=== PATIENT | male | born 1950 | race Caucasian/White ===

== ENCOUNTER 2017-04-21 10:44 | Day surgery (SDC) | payer OTHER ==
[2017-04-15 09:27] VITALS: Ht 168.9 cm; Wt 73.6 kg
--- NOTE | 2017-04-15 10:17 | PAT Medication Instructions ---
Service Date Apr 15, 2017. Current Home Medication List Amoxicillin (Amoxicillin), 1 TAB PO BID Aspirin Enteric Coated (Ecotrin Or Generic *), 81 MG PO QAM Diphenhydramine Hcl (Benadryl Allergy), 1-2 CAP PO QID PRN for ITCHING Fluticasone Propionate (Flovent Hfa 110MCG Inhaler *), 1 PUFF INH BID Ipratropium/Albuterol (Combivent *), 2 PUFFS INH QID PRN Nitroglycerin (Nitrostat), 0.4 MG UT PRN Sertraline (Zoloft), 200 MG PO QAM Tamsulosin HCl (Tamsulosin HCl), 1 TAB PO HS Medication Instructions For Your Scheduled Surgery Amoxicillin (Amoxicillin), 1 TAB PO BID (will finish prior to surgery) Aspirin Enteric Coated (Ecotrin Or Generic *), 81 MG PO QAM (patient will hold several days prior to surgery- surgeon did not have preference) Nitroglycerin (Nitrostat), 0.4 MG UT PRN (if needed) - Hold the following medications the morning of surgery: Diphenhydramine Hcl (Benadryl Allergy), 1-2 CAP PO QID PRN for ITCHING - Take the following medications the morning of surgery with a sip of water: Sertraline (Zoloft), 200 MG PO QAM Ipratropium/Albuterol (Combivent *), 2 PUFFS INH QID PRN (bring with you to hospital on day of surgery) Fluticasone Propionate (Flovent Hfa 110MCG Inhaler *), 1 PUFF INH BID - Take the following medications as scheduled the night before surgery: Tamsulosin HCl (Tamsulosin HCl), 1 TAB PO HS Ipratropium/Albuterol (Combivent *), 2 PUFFS INH QID PRN Fluticasone Propionate (Flovent Hfa 110MCG Inhaler *), 1 PUFF INH BID Diphenhydramine Hcl (Benadryl Allergy), 1-2 CAP PO QID PRN for ITCHING If you have any questions please call us at [phone] or [phone] ( [place]) or [phone]
--- NOTE | 2017-04-15 10:38 | DIAGNOSTIC IMAGING REPORT ---
CHEST 2 VIEWS ROUTINE CLINICAL HISTORY: Preoperative chest COMPARISON STUDY: 05/10/2014 FINDINGS: The cardiac and mediastinal contours are normal. There is no evidence of focal pulmonary consolidation. There is no evidence of failure. No pleural effusions are visualized.[ Postsurgical changes are again evident. Surgical clips project over the right hilar region and right cardiophrenic angle. There is also a single surgical clip at the level of the esophagogastric junction. IMPRESSION: No active disease in the chest. Electronically signed by: Lio Monroe M.D. 04/15/2017 10:37 AM Dictated Date/Time: 04/15/2017 10:30 AM
[~2017-04-21] VITALS: Ht 168.9 cm; Wt 73.6 kg
[~2017-04-21 10:44] MED LIST: AMX875 PO; ASPEC81 PO; CLINDAMYCIN 600 MG/54 ML D5W IV SCH; CMBIN INH; DIPH25CA65 PO; FENTANYL CITRATE INJ 50 MCG/1 ML 2 ML VIAL ONE; FLM4 PO; FLVHFA110 INH; LACTATED RINGER'S 1000ML 1,000 ML IV SCH; MIDAZOLAM HCL 1 MG/ML 2ML VIAL ONE; NTRGSL/4 UT; SERT-234 PO
[2017-04-21] MEDS ORDERED: PROP20TA67 PO (11:09)
[2017-04-21 11:14] VITALS: BP 117/67; PULSE 65; TEMP 36.5; O2SAT 100
--- NOTE | 2017-04-21 11:17 | History & Physical Bridge Note ---
H&P Re-Evaluation Bridge Note: I have examined the patient, reviewed the History & Physical and in the interval since the performance of the History & Physical I have noted the following changes of clinical significance: No changes noted
[2017-04-21] MEDS ORDERED: BUPIVACAINE 0.5 % 5 MG/1 ML MPF 30ML VIAL ONE (11:38)
[2017-04-21] MEDS ORDERED: BACITRACIN OINT 15 GM TUBE ONE (11:38)
[2017-04-21] MEDS ORDERED: LIDOCAINE HCL 1% 20 ML VIAL ONE (11:38)
[2017-04-21] MEDS ORDERED: EpHEDrine SULFATE INJ 50 MG/ML AMP ONE (12:19)
[2017-04-21] MEDS ORDERED: ONDANSETRON INJ 2 MG/ML 2 ML VIAL ONE (12:19)
[2017-04-21] MEDS ORDERED: LIDOCAINE HCL 2% 2 ML VIAL (20MG/ML) ONE (12:19)
[2017-04-21] MEDS ORDERED: ROCURONIUM BROMIDE 10 MG/ML 5 ML VIAL ONE (12:19)
[2017-04-21] MEDS ORDERED: LACTATED RINGER'S 1000ML 1,000 ML IV PRN (12:19)
[2017-04-21] MEDS ORDERED: PROPOFOL IV EMULSION 10 MG/ML 20 ML VIAL IV ONE (12:19)
[2017-04-21] MEDS ORDERED: DEXAMETHASONE SOD INJ 4 MG/ML VIAL ONE (12:19)
[2017-04-21] MEDS ORDERED: GLYCOPYRROLATE INJ 0.2 MG/ML VIAL ONE (12:19)
[2017-04-21] MEDS ORDERED: NEOSTIGMINE METHYLSULFATE 5 MG/5 ML SYR ONE (12:19)
[2017-04-21] MEDS ORDERED: HYDROmorphone INJ 1 MG/ML SYR IV PRN ×2 (12:30→13:15)
[2017-04-21] MEDS ORDERED: ONDANSETRON INJ 2 MG/ML 2 ML VIAL IV PRN ×2 (12:30→13:15)
[2017-04-21] MEDS ORDERED: FENTANYL CITRATE INJ 50 MCG/1 ML 2 ML VIAL IV PRN (12:30)
[2017-04-21] MEDS ORDERED: D5W AND 1/2NSS + 20MEQ KCL 1,000 ML IV SCH (13:12)
--- NOTE | 2017-04-21 13:12 | [facility] Post Operative Brief Note ---
Immediate Operative Summary Operative Date Apr 21, 2017. Pre-Operative Diagnosis Cholecystitis with Cholelithasis Post-Operative Diagnosis Same Procedure(s) Performed Laparoscopic Cholecystectomy Surgeon Dr Olivas Talent Program Manager Surgeon(s) none Estimated Blood Loss 10ml Findings cholecystitis, cholelithiasis Fluids (cc crystalloids) 1000ml Specimens a. gallbladder Drains none Anesthesia general Complication(s) None Disposition Recovery Room / PACU
[2017-04-21] MEDS ORDERED: ACETAMINOPHEN 325 MG TAB PO PRN (13:15)
[2017-04-21] MEDS ORDERED: MoRPHine SULFATE 2 MG/ML CARP IV PRN (13:15)
[2017-04-21] MEDS ORDERED: FENTANYL CITRATE INJ 50 MCG/1 ML 2 ML VIAL ONE (13:17)
[2017-04-21] MEDS ORDERED: MORP-157 PO (13:23)
[2017-04-21] MEDS ORDERED: HYDROmorphone INJ 2 MG/ML SYR/VIAL ONE (13:24)
--- NOTE | 2017-04-21 13:25 | Discharge Instructions ---
Discharge Instructions Date of Service Apr 21, 2017. Visit Reason for Visit: Gallstones Discharge Discharge Diagnosis / Problem: S/P laparoscopic cholecystectomy Discharge Goals Goal(s): Decrease discomfort, Improve function, Improve nutritional status, Learn about illness Activity Recommendations Activity Limitations: per Instructions/Follow-up section Lifting Limitations: no more than 25 pounds Exercise/Sports Limitations: gradually increase as tolerated May Resume Sexual Activity: when tolerated Shower/Bathe: may shower/bathe in 3 days Anesthesia . Post Anesthesia Instructions: If you have had General Anesthesia or IV Sedation: * Do not drive today. * Resume driving when surgeon permits. * Do not make important decisions or sign legal documents today. * Call surgeon for: 1. Temperature elevations greater than 101 degrees F. 2. Uncontrollable pain. 3. Excessive bleeding. 4. Persistent nausea and vomiting. 5. Medication intolerance (nausea, vomiting or rash). * For nausea and vomiting use only clear liquids such as: tea, soda, bouillon until nausea subsides, then gradually increase diet as tolerated. * If you have any concerns or questions, call your surgeon's office. If physician is unavailable and it is an emergency, call 911 or go to the nearest emergency room. . Instructions / Follow-Up Instructions / Follow-Up keep the dressing on for 4 days, he can take a shower on 04/25/2017, no driving while taking pain medincine, follow up Dr. Olivas 1 week, Diet Recommendations Recommended Home Diet: resume previous diet Procedures Procedures Performed: Laparoscopic Cholecystectomy Pending Studies Studies pending at discharge: no Medical Emergencies . Who to Call and When: Medical Emergencies: If at any time you feel your situation is an emergency, please call 911 immediately. . Non-Emergent Contact Non-Emergency issues call your: Primary Care Provider, Surgeon Call Non-Emergent contact if: you have a fever, temperature is above 100.5, your pain is not controlled, your pain is worsening, wound has increased drainage, wound has increased redness . . "Provider Documentation" section prepared by Héctor Olivas. . [place] Drug Monitoring Program Search Results: no issues identified
[2017-04-21] MEDS ORDERED: NURSING VERBAL MED ORDER ONE (14:00)
[2017-04-21 14:15] VITALS: BP 108/63; PULSE 62; TEMP 36.4; O2SAT 95
--- NOTE | 2017-04-21 14:15 | Anesthesiology Progress Note ---
Anesthesia Post Op Note Date & Time Apr 21, 2017 at 14:15 Vital Signs Pain Intensity: 1 Vital Signs Past 12 Hours Date Time Temp Pulse Resp B/P (MAP) Pulse Ox O2 Delivery O2 Flow Rate FiO2 04/21/17 13:59 36.5 70 18 104/66 (77) 96 Room Air 04/21/17 13:31 111/68 04/21/17 13:28 58 18 99 04/21/17 13:28 58 18 04/21/17 13:25 110/66 04/21/17 13:20 122/76 04/21/17 13:18 65 16 100 04/21/17 13:18 65 18 100 04/21/17 13:15 128/75 04/21/17 13:14 126/78 04/21/17 13:13 75 15 04/21/17 13:13 75 15 100 04/21/17 13:13 36.5 72 18 126/78 (97) 100 Mask 10 04/21/17 11:14 36.5 65 18 117/67 (84) 100 Room Air Notes Mental Status: alert / awake / arousable, participated in evaluation Pt Amnestic to Procedure: Yes Nausea / Vomiting: adequately controlled Pain: adequately controlled Airway Patency, RR, SpO2: stable & adequate BP & HR: stable & adequate Hydration State: stable & adequate Anesthetic Complications: no major complications apparent Pt doing well.
--- NOTE | 2017-04-21 14:18 | OPERATIVE REPORT ---
DATE OF OPERATION: 04/21/2017 PREOPERATIVE DIAGNOSES: Cholecystitis, cholelithiasis. POSTOPERATIVE DIAGNOSIS: Same. PROCEDURE: Laparoscopic cholecystectomy. SURGEON: Dr. Héctor Olivas. ANESTHESIA: General. ESTIMATED BLOOD LOSS: About 10 mL. IV FLUIDS: 1000 mL. FINDINGS: Cholecystitis, cholelithiasis. COMPLICATIONS: None. INDICATIONS FOR THE PROCEDURE: This is a 66-year-old gentleman who is presenting with right upper quadrant pain. The patient had ultrasound showing cholecystitis, cholelithiasis. The patient will be required to do laparoscopic cholecystectomy, possible open, possible cholangiogram. I did talk to the patient about the benefit and risk, alternate procedure. I indicated the risks may include but not limited such as bleeding, infection, injury to common bile duct, injury to bowel, may need ERCP, myocardial infarction, DVT, stroke, even . The patient understands. He signed informed consent and I answered all questions. OPERATION AND FINDINGS: DETAILS OF PROCEDURE: We brought the patient to the OR, put the patient in the supine position. The patient received SCD on bilateral legs to prevent DVT. Also, the patient received 600 mg of clindamycin IV for prophylactic antibiotic. The patient received general anesthesia without difficulty. The abdomen was prepped and draped in routine sterile fashion. After a timeout, I injected local anesthesia by using 1% lidocaine mixed with 0.5% Marcaine just above the umbilical. Then I made a small incision just above umbilical, opened fascia and opened peritoneum under direct vision. I put a Casi trocar in, connected to CO2 to create pneumoperitoneum. Flow rate is 6 liter per minute. Pressure not more than 14 mmHg. Once we get a nice pneumoperitoneum, we put a 10 mm camera in to look around the abdomen shows no more findings on the stomach, small bowel, large bowel and the liver; however, there was some omentum covering the gallbladder showing inflammation on the gallbladder wall. Then, we put another 3.5 mm trocar on the right upper quadrant under direct vision. Once all trocars in I put grasper in to hold the base of the gallbladder, put direction to the diaphragm and put another grasper in to hold the pouch of the gallbladder, put latter to expose the triangle of Calot. The cystic duct was identified and mobilized. Then I put two 5 mm metal clips on the proximal cystic duct, one on the distal cystic duct then I used scissor transection the cystic duct. Then the cystic artery was identified and mobilized. I put two 5 mm metal clips on the proximal cystic arterial, 1 on the distal then used scissor transecting cystic artery. Then I used Bovie to take down the gallbladder through the liver bed without difficulty. Rechecked no active bleeding, no bile leak. Then we removed the gallbladder through the catch bag, then we reinserted Casi trocar in connect to CO2 to create a pneumoperitoneum. Again to look around the abdomen showing normal, no active bleeding from the liver bed, no bile leak from the liver bed. Then we removed all trocars under direct vision. No active bleeding from trocar sites. The pneumoperitoneum was released. Then I closed the umbilical incision and fascial layer [id number] x2 by using #1 Vicryl and closed the subcutaneous layer by using 2-0 Vicryl, closed skin by using 4-0 Vicryl, closed another 3.5 mm trocar site skin only by using 4-0 Vicryl. We put the dressing on. The patient tolerated the procedure well and was transferred to recovery room in stable condition. All the instrument, needle and sponge count correct x2 at the end of case. Specimen was sent to pathology. I attest to the content of the Intraoperative Record and any orders documented therein. Any exceptions are noted below. BRYNN
[2017-04-21 14:40] VITALS: BP 108/62; PULSE 65; TEMP 36.4; O2SAT 97
[2017-04-21 15:10] VITALS: BP 109/62; PULSE 61; TEMP 36.4; O2SAT 97
[2017-04-22] MEDS ORDERED: CLINDAMYCIN 600 MG/54 ML D5W IV ONE (06:00)
== END 2017-04-21 15:43 | disposition home or self-care (01) ==
LOC: C.ACU 10:44
PROVIDERS: ATTEND Surgery
DX: K80.10 Calculus of gallbladder with chronic cholecystitis without obstruction (principal); J44.9 Chronic obstructive pulmonary disease, unspecified; I25.10 Atherosclerotic heart disease of native coronary artery without angina pectoris; F32.9 Major depressive disorder, single episode, unspecified; Z68.25 Body mass index [BMI] 25.0-25.9, adult; Z90.2 Acquired absence of lung [part of]; Z98.890 Other specified postprocedural states; F17.290 Nicotine dependence, other tobacco product, uncomplicated; Z88.5 Allergy status to narcotic agent; Z88.0 Allergy status to penicillin; Z80.52 Family history of malignant neoplasm of bladder; Z80.0 Family history of malignant neoplasm of digestive organs; Z82.49 Family history of ischemic heart disease and other diseases of the circulatory system; Z82.3 Family history of stroke; Z81.8 Family history of other mental and behavioral disorders

== ENCOUNTER 2019-08-17 00:02 | Inpatient (IN) ==
[2019-08-17] MEDS ORDERED: ONDANSETRON INJ 2 MG/ML 2 ML VIAL IV STA (00:34)
[2019-08-17] MEDS ORDERED: SODIUM CHLORIDE 0.9% 500 ML IV ONE (00:34)
[2019-08-17 01:08] LABS: Alanine Aminotransferase 27 U/L (12-78); Albumin Level 3.6 gm/dl (3.4-5.0); Aspartate Aminotransferase 19 U/L (15-37); BUN Creatinine Ratio 14.5 (10-20); Blood Urea Nitrogen 23 mg/dl (7-18); Calcium 8.8 mg/dl (8.5-10.1); Carbon Dioxide 25 mmol/L (21-32); Chloride 104 mmol/L (98-107); Creatinine Clr Calc Pharmacy 40.2 ml/min; Est GFR (African American) 49.9; Glucose 106 mg/dl (70-99); Potassium 4.1 mmol/L (3.5-5.1); Sodium 136 mmol/L (136-145)
[2019-08-17 01:12] LABS: Albumin Globulin Ratio 0.9 (0.9-2); Alkaline Phosphatase 82 U/L (45-117); Bilirubin,Total 1.7 mg/dl (0.2-1); Globulin 4.1 gm/dl (2.5-4.0); Total Protein 7.7 gm/dl (6.4-8.2); Troponin I < 0.015 ng/ml (0-0.045)
[2019-08-17 01:13] LABS: INR 1.1 (0.9-1.1); Partial Thromboplastin Ratio 1.2; Partial Thromboplastin Time 31.8 Seconds (21.0-31.0); Prothrombin Time 10.8 Seconds (9.0-12.0)
[2019-08-17 01:25] LABS: Basophils # (auto) 0.02 K/uL (0-0.2); Basophils % (auto) 0.4 %; Eosinophils # (auto) 0.02 K/uL (0-0.5); Eosinophils % (auto) 0.4 %; Giant Platelets 1+; Hematocrit (blood only) 40.7 % (42-52); Hemoglobin 14.4 g/dL (14.0-18.0); Immature Granulocytes # (auto) 0.02 K/uL (0.00-0.02); Immature Granulocytes % (auto) 0.4 %; Lymphocytes # (auto) 0.14 K/uL (1.2-3.4); Lymphocytes % (auto) 3.1 %; Mean Corpuscular Hemoglobin 30.6 pg (25-34); Mean Corpuscular Hgb Conc 35.4 g/dL (32-36); Mean Corpuscular Volume 86.4 fL (80-100); Mean Platelet Volume 13.4 fL (7.4-10.4); Monocytes # (auto) 0.19 K/uL (0.11-0.59); Monocytes % (auto) 4.3 %; Neutrophils # (auto) 4.06 K/uL (1.4-6.5); Neutrophils % (auto) 91.4 %; Platelet Count 67 K/uL (130-400); Platelet Estimate Decreased (Normal); RDW Coefficient of Variation 14.2 % (11.5-14.5); RDW Standard Deviation 44.6 fL (36.4-46.3); Red Blood Count 4.71 M/uL (4.7-6.1); White Blood Count 4.45 K/uL (4.8-10.8)
[2019-08-17 01:45] LABS: Appearance Urine Clear (Clear); Blood Urine Negative (Negative); Color Urine Dark Yellow; Glucose Urine UA Negative (Negative); Ketones Urine Trace (Negative); Leukocyte Esterase Urine Negative (Negative); Nitrite Urine Negative (Negative); Protein Urine Negative (Negative); Specific Gravity Urine 1.029 (1.000-1.030); Urobilinogen Urine Negative (Negative)
[2019-08-17 01:47] LABS: Bilirubin Urine 1+ (Negative)
[2019-08-17 01:53] LABS: Ictotest Urine Positive (Negative)
[2019-08-17] MEDS ORDERED: SODIUM CHLORIDE 0.9% 1000ML 1,000 ML IV ONE (02:05)
[2019-08-17] MEDS ORDERED: ACETAMINOPHEN 500 MG TAB PO STA (02:05)
[2019-08-17] MEDS ORDERED: DAPTOmycin 500 MG in SYRINGE 0 ML IV STA (02:09)
[2019-08-17] MEDS ORDERED: AZTREONAM 2,000 MG in DEXTROSE 5% 100 ML IV STA (02:09)
[2019-08-17] MEDS ORDERED: IPRATROPIUM BROMIDE NEB SOLN 0.02% 2.5 ML VIAL INH PRN (04:03)
[2019-08-17] MEDS ORDERED: SODIUM CHLORIDE 0.9% 500 ML IV SCH (04:03)
[2019-08-17] MEDS ORDERED: XOPENEX/ATROVENT 1.25mg/0.5MG NEB COMBO NEB PRN (04:03)
[2019-08-17] MEDS ORDERED: LEVALBUTEROL 1.25MG/0.5ML NEB INH PRN (04:03)
[2019-08-17] MEDS ORDERED: VANCOMYCIN HCL 1,000 MG in SODIUM CHLORIDE 0.9% 250 ML IV SCH (04:03)
[2019-08-17] MEDS ORDERED: NITROGLYCERIN SL 0.4 MG/TAB TAB SL PRN ×2 (04:03)
[2019-08-17] MEDS ORDERED: POLYETHYLENE (MIRALAX) 17 GM PACK PO PRN (04:03)
[2019-08-17] MEDS ORDERED: TAMSULOSIN HCL 0.4 MG CAP PO PRN (04:03)
[2019-08-17] MEDS ORDERED: VANCOMYCIN CONSULT ACTIVE PRN (04:03)
[2019-08-17] MEDS ORDERED: ONDANSETRON INJ 2 MG/ML 2 ML VIAL IV PRN (04:03)
[2019-08-17] MEDS ORDERED: CEFEPIME CONSULT ACTIVE PRN (04:23)
--- NOTE | 2019-08-17 05:01 | History and Physical Report ---
DATE OF ADMISSION: 08/17/2019 CHIEF COMPLAINT: Fever, nausea, vomiting, shortness of breath. HISTORY OF PRESENT ILLNESS: This is a 69-year-old male with past medical history significant for COPD, history of TB status post lobectomy, abdominal aortic aneurysm, atherosclerotic cardiovascular disease, GERD, chronic kidney disease stage III, BPH, cervical spondylosis, history of left inguinal hernia, history of alcohol dependence in remission, history of thrombocytopenia, history of depression, sleep disturbance, who is currently living with his daughter, who presents with fever, nausea, vomiting since 1-day duration and he is also having chest pain when he is lying down and some cough with whitish phlegm. In the ER, he was spiking temperature. His blood pressure is usually on the somewhat lower side. He has some headache, mild dizziness when he stands up. No blurred visions. He has some runny nose since yesterday. Complains of some left earache since last 1 week. He has some sore throat. He feels something stuck in the throat and he is having some mild pain while swallowing. He says he had several episodes of vomiting today and there was no blood in the vomitus, just was his food particles. Has some mild abdominal discomfort in the epigastric region. He says he is constipated. Denies any blood in the stools or black stools. He says he micturated twice in his pants yesterday and there is no burning micturition, no hematuria. No swelling in the legs, no rash. He ambulates without any help. Appetite is not that great. Currently resting comfortably. ALLERGIES: AVELOX, CODEINE, PENICILLINS, PERCOCET. PAST MEDICAL HISTORY: As mentioned above. 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 MEDICATIONS: The patient is on Pepcid 20 mg daily, Flomax 0.4 mg as needed, bupropion 75 mg p.o. daily, vitamin D 1000 units p.o. daily, atorvastatin 20 mg p.o. daily, Zantac 150 mg p.o. b.i.d., propranolol 10 mg p.o. daily, bupropion SR 150 mg daily, Flovent HFA 110 mcg 2 puffs b.i.d., Combivent Respimat 1 puff q.i.d., propranolol 20 mg p.o. b.i.d., aspirin 81 mg p.o. daily, Zoloft 200 mg p.o. daily, Benadryl 25 mg one or two tablets every 4 hours p.r.n. FAMILY HISTORY: Significant for brother had stomach cancer, father had bladder cancer, mother has breast cancer, diabetes, hypertension, and stroke. SOCIAL HISTORY: , currently lives with his daughter. Currently smoking cigars. He used to smoke 2 packs of cigarettes for 44 years in the past, quit alcohol in 1990. No drug use. REVIEW OF SYSTEMS: As per HPI. Rest of the review of systems negative. PHYSICAL EXAMINATION: GENERAL: The patient is of moderate build, not in acute distress. VITAL SIGNS: Temperature T-max 38.1, pulse 92, respiratory rate 22, blood pressure 97/53, oxygen 94% on room air. HEENT: No pallor, no icterus. Pupils equal, round, and reactive to light. NECK: No JVD, no neck masses, no carotid bruit. CARDIOVASCULAR: S1, S2 heard. Tachycardia. No murmurs. RESPIRATORY SYSTEM: Normal AP diameter. No accessory muscle use. Mild bibasilar crackles. No wheezing. ABDOMEN: Soft, bowel sounds present. Mild epigastric tenderness. No guarding, no rigidity, no rebound tenderness. CENTRAL NERVOUS SYSTEM: Cranial nerves II-XII grossly intact, nonfocal. EXTREMITIES: No edema, no erythema. LABORATORY DATA: WBC 4.4, hemoglobin 14.4, hematocrit 40.7, platelets 67. PT 10.8, INR 1.1, APTT 31.8. Sodium 136, potassium 4.1, chloride 104, bicarbonate 25, BUN 23, creatinine 1.6, serum glucose 106, lactate 0.9, calcium 8.8, total bilirubin 1.7, AST 19, ALT 27, alkaline phosphatase 82. Troponin I less than 0.015. Urinalysis negative. IMAGING DATA: Chest x-ray, possible right lower lobe infiltrate. ASSESSMENT AND PLAN: This is a 69-year-old male who presents with not feeling well, nausea, vomiting, and fever at home and shortness of breath. 1. Sepsis. The patient meets criteria for sepsis with tachycardia, hypertension, fever, and leukopenia. Patient has some chest discomfort lying down and some shortness of breath with cough with whitish phlegm. No obvious source of infection, possible pneumonia. We will treat empirically with cefepime and IV vancomycin. Follow the cultures. We will get CT of the chest and CT of the abdomen and pelvis. The patient also has several episodes of nausea and vomiting. We will put him on intravenous fluids, normal saline with bolus and continue with IV normal at 150 mL per hour and monitor for any volume overload. We will closely monitor on the tele floor. We will monitor his hemodynamics.Will also check for FLU. 2. History of chronic obstructive pulmonary disease and history of right upper lobe lung lobectomy for tuberculosis. Continue his home inhalers. We will place on nebs p.r.n. 3. Chronic thrombocytopenia. 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 We will follow his labs. 4. Gastroesophageal reflux disease. Continue his Zantac. 5. Acute kidney injury on chronic kidney disease stage III, baseline creatinine was 1.2-1.5, currently creatinine of 1.6. Getting fluids. We will follow the labs in the a.m. 6. Benign prostatic hyperplasia. Continue his Flomax. Urinalysis unremarkable.. 7. Depression. Continue Zoloft. 8. Hx of Tremors, continue his propranolol withholding parameters. 9. History of abdominal aortic aneurysm. Needs to follow up. 10. Deep venous thrombosis prophylaxis, sequential compression devices for now. 11. Disposition: Admit to tele floor. Expect to discharge home and follow up with family doctor. Level 1 full code. MTDD
[2019-08-17 05:07] LABS: Influenza B virus by PCR Neg for Influ B (Neg)
[2019-08-17] MEDS ORDERED: INFLUENZA VACCINE HIGH DOSE 65+ 0.5 ML SYR IM ONE (05:15)
[2019-08-17] MEDS ORDERED: INFLUENZA ADMINISTRATION CHARGE ONE (05:15)
[2019-08-17] MEDS: SODIUM CHLORIDE 0.9% 1000ML 1,000 ML IV SCH ×3 (05:18→19:51)
[2019-08-17] MEDS ORDERED: CEFEPIME 2,000 MG in SYRINGE 7.5 ML IV SCH ×2 (06:00→18:00)
[2019-08-17] MEDS: OSELTAMIVIR PHOSPHATE SUSP 30 MG/5 ML UDP PO SCH ×2 (06:04→20:30)
--- NOTE | 2019-08-17 06:45 | XRay Report ---
XR chest 2V PA/lateral HISTORY: 69 years-old Male cough;fever acute cough with fever COMPARISON: Chest radiograph 03/20/2019, chest CT 08/17/2019 TECHNIQUE: AP and lateral views of the chest FINDINGS: Cardiomediastinal and hilar silhouettes appear unchanged. Surgical clips project over the right hilum . Postoperative changes of the right hemithorax with chronic volume loss in right hemidiaphragmatic e levation. Emphysema with chronic fibrotic change. There is no pneumothorax, pleural effusion or overt pulmonary edema. No lobar airspace consolidation to suggest pneumonia. Cholecystectomy clips are not ed. Degenerative changes of the shoulders and spine. IMPRESSION: 1. Emphysema without acute process. 2. Postoperative changes of the right lung redemonstrated. The above report was generated using voice recognition software. It may contain grammatical, syntax o r spelling errors. Electronically signed by: Salvador Moore M.D. 08/17/2019 6:43 AM
--- NOTE | 2019-08-17 06:55 | CT Scan Report ---
CT OF THE ABDOMEN AND PELVIS WITHOUT CONTRAST CLINICAL HISTORY: Sepsis. Nausea and vomiting. COMPARISON STUDY: CT of the abdomen and pelvis March 20, 2019. TECHNIQUE: Axial images of the abdomen and pelvis were obtained without IV contrast. Images were revi ewed in the axial, sagittal, and coronal planes. Automated exposure control was utilized for the gian dy. A dose lowering technique was utilized adhering to the principles of ALARA. FINDINGS: Note that the chest CT will be reported separately. Emphysema is noted. Evaluation of the a bdomen and pelvis is suboptimal on this unenhanced examination. No pneumatosis, free air or portal ve nous gas is present. Moderate splenomegaly is unchanged. Unenhanced images of the liver, adrenal glan ds and pancreas are unremarkable. There is a diverticulum of the second portion of the duodenum. A wa ter attenuation lesion within the upper pole of the right kidney is suboptimally assessed on this une nhanced exam but favor cysts. This measures 1.1 cm. There is no biliary or pancreatic ductal dilatati on. A 3 cm infrarenal abdominal aortic aneurysm is unchanged since prior CT. There is no evidence for rupture. Colonic diverticulosis is noted without evidence for acute diverticulitis. There is no evid ence for a bowel obstruction. The appendix is normal. No abdominal or pelvic lymphadenopathy is prese nt. No suspicious osseous lesions are present. The appearance of the abdomen and pelvis is unchanged. IMPRESSION: 1. No acute process within the abdomen or pelvis on unenhanced exam. 2. Stable moderate splenomegaly. 3. No change in a 3 cm infrarenal abdominal aortic aneurysm. 4. Colonic diverticulosis without evidence for acute diverticulitis. Electronically signed by: Kenney Peters M.D. 08/17/2019 6:54 AM
--- NOTE | 2019-08-17 07:26 | CT Scan Report ---
CT chest wo con CLINICAL HISTORY: 69 years-old Male presenting with pneumonia. TECHNIQUE: Multidetector CT imaging of the chest was performed without the use of intravenous contras t. IV contrast: None. One or more dose lowering techniques were used consistent with the principles o f ALARA (as low as reasonably achievable), including automatic exposure control, mA or kV adjustment to individual patient size, and/or use of iterative reconstruction. COMPARISON: Chest x-ray performed earlier today. CT DOSE (mGy.cm): The estimated cumulative dose is 771.70. 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 Elevation of the rig ht hemidiaphragm. Soft tissues: Normal thyroid and thoracic inlet. Scattered subcentimeter mediastinal lymph nodes, non specific. Atherosclerosis of the aorta. Normal heart size. Coronary artery and aortic valve calcifica tion. No pericardial or pleural effusion. Cholecystectomy clips. Splenomegaly. Lungs and airways: No pneumothorax. Postsurgical changes of right upper lobectomy. Central airways ot herwise patent. Moderate centrilobular emphysema. Pulmonary arteries mildly enlarged relative to rebekah cent bronchi. No interlobular septal thickening. Minimal dependent changes likely atelectasis. Musculoskeletal: Degenerative changes of the spine. IMPRESSION: 1. No acute intrathoracic pathology. 2. Postsurgical changes of right upper lobectomy. 3. Emphysema. 4. Splenomegaly. Electronically signed by: Kishan Warner M.D. 08/17/2019 7:25 AM
--- NOTE | 2019-08-17 07:33 | Emergency Department Note ---
Entered by Osvaldo Hermosillo acting as a scribe for Naav Varner DO History of Present Illness General Chief complaint: Illness Stated complaint: ILL/VOMITING Time Seen by Provider: 08/17/19 00:19 Source: patient History of Present Illness Onset (ago): day(s) (last night) Location: abdomen Pain Consistency: + other (persistent) Quality: + other (vomiting) Associated symptoms: + other (Positive for chest congestion, a cough, SOB, nausea, vomiting, diaphoresis, a fever, urinary incontinence, and "doing something with his mouth and staring." Negative for diarrhea and LOC.) The patient is a 69 year old male who presents to the emergency department with complaints of persistent vomiting beginning last night. The patient states that he woke up last morning feeling sick. He notes that he had some chest congestion, a cough, and SOB at that time. He reports that he then became nauseous and started vomiting last night. He also complains of diaphoresis and a fever. Per daughter, the patient is doing something with his mouth and staring, which he has not done before. The patient states that he had two episodes of urinary incontinence today. He denies any diarrhea and LOC. He notes that he has a history of a lobectomy, pneumonia, and an abdominal aortic aneurysm. He reports that he has an enlarged spleen and low platelets. The patient states that he smokes cigarettes but does not drink alcohol. Home Medications Home Medications Medication Instructions Recorded Confirmed Type atorvastatin 20 mg PO HS 10/23/18 08/17/19 History bupropion HCl 150 mg PO QAM 10/23/18 08/17/19 History diphenhydramine HCl 25 - 50 mg PO QID PRN 10/23/18 08/17/19 History fluticasone propionate [Flovent 2 puff INHALATION BID 10/23/18 08/17/19 History HFA] nitroglycerin [Nitrostat] 0.4 mg SUBLINGUAL UD PRN 10/23/18 08/17/19 History propranolol 10 mg PO QAM 10/23/18 08/17/19 History propranolol 20 mg PO BID 10/23/18 08/17/19 History sertraline 200 mg PO DAILY 10/23/18 08/17/19 History tamsulosin [Flomax] 0.4 mg PO QPM PRN 10/23/18 08/17/19 History cholecalciferol (vitamin D3) 1,000 unit PO DAILY 03/20/19 08/17/19 History [Vitamin D3] ranitidine HCl [Zantac] 150 mg PO BID 03/20/19 08/17/19 History aspirin [Aspirin Low Dose] 81 mg PO DAILY 08/17/19 08/17/19 History bupropion HCl 75 mg PO DAILY 08/17/19 08/17/19 History ipratropium-albuterol [Combivent 1 puff INHALATION QID 08/17/19 08/17/19 History Respimat] Allergies Allergy/AdvReac Type Severity Reaction Status Date / Time Quinolones Allergy Severe Hives Verified 08/17/19 01:05 oxycodone AdvReac Severe Nausea/Vomi Verified 08/17/19 01:05 ting codeine AdvReac Unknown Nausea/Vomi Verified 08/17/19 01:05 ting Penicillins AdvReac Unknown Nausea/Vomi Verified 08/17/19 01:05 ting Past Med/Surg History Medical History Cellulitis of face (10/27/12) Chest pain (Acute) Status post left inguinal hernia repair (Acute) Enlargement of spleen Pneumonia Aortic aneurysm (Chronic) Diverticulitis (Resolved) Social History Preferred Language: Arabic Communication Ability: Effective Branch Service Specialist Required: No Beliefs That Will Affect Care: None Current Living Situation: Family Other Information That Helps Us Care for You: No Feels Safe at Home: Yes Safety Concerns: Feels Safe At This Time Smoking Status: Current some day smoker Tobacco Type: cigars ; Second Hand Exposure: No ; Tobacco Cessation Education Requested by Patient: No Hx Alcohol Use: No Hx Substance Use: No Review of Systems See HPI for pertinent positives & negatives. and A total of 10 systems reviewed and were otherwise negative Physical Exam Vital Signs Vital Signs - 24 hr 08/17/19 00:10 08/17/19 00:15 08/17/19 00:30 Temperature 37.7 C H Temperature Source Oral Sepsis Recent Fever Within 48 Hours Yes Sepsis New/Unexplained Change in Mental Status No Sepsis Action Taken by Nursing Physician Notified Pulse Rate 108 H 103 H 103 H Pulse Rate [Apical] Pulse Rate from SpO2 Sensor 100 H 102 H Respiratory Rate 18 26 H 21 Respiratory Effort / Characteristics Non-Labored Spontaneous Respiratory Depth Normal Respiratory Pattern Regular Blood Pressure 110/65 Blood Pressure [Left Arm] Blood Pressure [Right Arm] Blood Pressure Mean 80 Blood Pressure Mean [Left Arm] Blood Pressure Mean [Right Arm] Pulse Oximetry 93 93 94 Oxygen Delivery Method Room Air Room Air Room Air 08/17/19 00:39 08/17/19 00:47 08/17/19 01:16 Temperature Temperature Source Sepsis Recent Fever Within 48 Hours Sepsis New/Unexplained Change in Mental Status Sepsis Action Taken by Nursing Pulse Rate 102 H Pulse Rate [Apical] 100 H Pulse Rate from SpO2 Sensor 91 H Respiratory Rate 20 26 H Respiratory Effort / Characteristics Non-Labored Spontaneous Respiratory Depth Normal Respiratory Pattern Regular Blood Pressure 88/61 L Blood Pressure [Left Arm] 92/64 L Blood Pressure [Right Arm] Blood Pressure Mean 70 Blood Pressure Mean [Left Arm] 73 Blood Pressure Mean [Right Arm] Pulse Oximetry 94 93 93 Oxygen Delivery Method Room Air Room Air Room Air 08/17/19 01:21 08/17/19 01:31 08/17/19 02:00 Temperature 38.1 C H Temperature Source Oral Sepsis Recent Fever Within 48 Hours Sepsis New/Unexplained Change in Mental Status Sepsis Action Taken by Nursing Pulse Rate 101 H 97 H Pulse Rate [Apical] 97 H Pulse Rate from SpO2 Sensor 99 H 90 Respiratory Rate 24 28 H 22 Respiratory Effort / Characteristics Non-Labored Spontaneous Respiratory Depth Normal Respiratory Pattern Regular Blood Pressure 90/78 L 97/54 L Blood Pressure [Left Arm] 88/58 L Blood Pressure [Right Arm] 96/58 L Blood Pressure Mean 82 68 Blood Pressure Mean [Left Arm] 68 Blood Pressure Mean [Right Arm] 70 Pulse Oximetry 93 95 93 Oxygen Delivery Method Room Air Room Air Room Air 08/17/19 02:15 08/17/19 02:30 08/17/19 02:45 Temperature Temperature Source Sepsis Recent Fever Within 48 Hours Sepsis New/Unexplained Change in Mental Status Sepsis Action Taken by Nursing Pulse Rate 98 H 95 H 97 H Pulse Rate [Apical] Pulse Rate from SpO2 Sensor 98 H 97 H 88 Respiratory Rate 25 H 23 20 Respiratory Effort / Characteristics Respiratory Depth Respiratory Pattern Blood Pressure 100/64 99/60 L 87/54 L Blood Pressure [Left Arm] Blood Pressure [Right Arm] Blood Pressure Mean 76 73 65 Blood Pressure Mean [Left Arm] Blood Pressure Mean [Right Arm] Pulse Oximetry 95 95 95 Oxygen Delivery Method Room Air Room Air Room Air 08/17/19 03:00 Temperature Temperature Source Sepsis Recent Fever Within 48 Hours Sepsis New/Unexplained Change in Mental Status Sepsis Action Taken by Nursing Pulse Rate 92 H Pulse Rate [Apical] Pulse Rate from SpO2 Sensor 92 H Respiratory Rate 22 Respiratory Effort / Characteristics Respiratory Depth Respiratory Pattern Blood Pressure 97/53 L Blood Pressure [Left Arm] Blood Pressure [Right Arm] Blood Pressure Mean 67 Blood Pressure Mean [Left Arm] Blood Pressure Mean [Right Arm] Pulse Oximetry 94 Oxygen Delivery Method Room Air HEENT: Head - normocephalic and atraumatic. Vomitus that looks like bile about his [place]. Pupils are equal, round, and reactive to light. Extraocular eye muscles are intact. Mild scleral icterus. Nose - moist nasal mucosa without discharge. Mouth - moist buccal mucosa. Oropharynx is nonerythematous and there is no tonsillar exudate or edema noted. Neck: Supple; no JVD, nuchal rigidity, cervical lymphadenopathy, or auscultated bruits. Heart: Regular rhythm and tachycardic. There is a normal S1 and S2 with no murmurs, clicks, or gallops appreciated. Lungs: Clear to auscultation bilaterally with no wheezes, rales, or rhonchi. Abdomen: Soft, nondistended, with good bowel sounds. There are no palpable pulsatile masses or hepatosplenomegaly. There is no guarding, rigidity, or rebound noted. Mild discomfort with palpation in the epigastrium and LUQ. Extremities: No evidence of cyanosis, clubbing, or edema. There are easily palpable peripheral pulses. Skin: warm and dry with good turgor and no rashes. Course 0022: The patient was evaluated in room B2. A complete history and physical examination were performed. Nursing notes and previous electronic medical records were reviewed. IV lock was established and labs were drawn as above. The patient was observed on the monitor car operator and pulse oximeter. A twelve- lead EKG was obtained. 0043: Ondansetron HCl 4mg IV, Sodium Chloride 500 mls @ 999 mls/hr IV. A septic protocol was performed. A chest x-ray was performed and showed no acute process. 0120: I reevaluated the patient. He was sleeping. 0209: Acetaminophen 1000mg PO 0211: Sodium Chloride 1000 mls @ 999 mls/hr IV 0218: I rechecked the patient. 0230: Upon reevaluation, the patient is stable. I discussed the findings and the treatment plan with the patient. He expresses agreement and understanding. I spoke with Dr. Fowler of the [facility]. The patient will be evaluated for further management. Consultations Consultation #1: I reviewed the patient's case with Dr. Fowler - Hospitalist, [facility]. He will evaluate the patient for further management. Time: 02:30 Administered Medications Acetaminophen (Tylenol) 650 mg PO Q4H PRN PRN Reason: Pain or Fever Stop: 09/16/19 04:02 Last Admin: 08/17/19 16:06 Dose: 650 mg Documented by: [id number] Admin: 08/17/19 10:37 Dose: 650 mg Documented by: [id number] Albuterol (Combivent Respimat) 1 puffs INH QID THOMAS Stop: 09/16/19 08:59 Last Admin: 08/17/19 20:26 Dose: 1 puffs Documented by: [id number] Admin: 08/17/19 16:07 Dose: 1 puffs Documented by: [id number] Admin: 08/17/19 12:57 Dose: 1 puffs Documented by: [id number] Admin: 08/17/19 10:20 Dose: 1 puffs Documented by: [id number] Aspirin (Ecotrin Ectab) 81 mg PO DAILY THOMAS Stop: 09/16/19 08:59 Last Admin: 08/17/19 10:22 Dose: 81 mg Documented by: [id number] Atorvastatin Calcium (Lipitor) 20 mg PO HS THOMAS Stop: 09/16/19 20:59 Last Admin: 08/17/19 20:25 Dose: 20 mg Documented by: [id number] Bupropion HCl (Wellbutrin) 75 mg PO DAILY@1400 THOMAS Stop: 09/16/19 13:59 Last Admin: 08/17/19 16:07 Dose: 75 mg Documented by: [id number] Bupropion HCl (Wellbutrin-Xl) 150 mg PO QAM THOMAS Stop: 09/16/19 08:59 Last Admin: 08/17/19 10:22 Dose: 150 mg Documented by: [id number] Fluticasone Propionate (Flovent Hfa 110mch) 2 puffs INH BID THOMAS Stop: 09/16/19 08:59 Last Admin: 08/17/19 20:26 Dose: 2 puffs Documented by: [id number] Admin: 08/17/19 10:21 Dose: 2 puffs Documented by: [id number] Guaifenesin/Dextromethorphan (Robitussin Cough-Chest Dm) 10 ml PO Q6H PRN PRN Reason: Cough Stop: 09/16/19 17:41 Last Admin: 08/17/19 20:26 Dose: 10 ml Documented by: [id number] Sodium Chloride (Nss 1000ml) 1,000 mls @ 150 mls/hr IV .Q6H40M [facility] Stop: 09/16/19 05:02 Last Admin: 08/18/19 02:36 Dose: 150 mls/hr Documented by: [id number] Infusion: 08/18/19 02:32 Dose: 150 mls/hr Documented by: [id number] Admin: 08/17/19 19:51 Dose: 150 mls/hr Documented by: [id number] Infusion: 08/17/19 19:34 Dose: 150 mls/hr Documented by: [id number] Admin: 08/17/19 12:53 Dose: 150 mls/hr Documented by: [id number] Infusion: 08/17/19 11:59 Dose: 150 mls/hr Documented by: [id number] Admin: 08/17/19 05:18 Dose: 150 mls/hr Documented by: [id number] Oseltamivir Phosphate (Tamiflu) 30 mg PO BID [facility]; Protocol Stop: 08/22/19 05:14 Last Admin: 08/17/19 20:30 Dose: 30 mg Documented by: [id number] Admin: 08/17/19 06:04 Dose: 30 mg Documented by: [id number] Propranolol HCl (Inderal) 20 mg PO BID@1400,2100 [facility] Stop: 09/16/19 13:59 Last Admin: 08/17/19 20:24 Dose: Not Given Documented by: [id number] Admin: 08/17/19 12:59 Dose: Not Given Documented by: [id number] Propranolol HCl (Inderal) 10 mg PO QAM [facility] Stop: 09/16/19 08:59 Last Admin: 08/17/19 10:22 Dose: Not Given Documented by: [id number] Ranitidine HCl (Zantac) 150 mg PO BID [facility] Stop: 09/16/19 08:59 Last Admin: 08/17/19 20:24 Dose: Not Given Documented by: [id number] Admin: 08/17/19 10:23 Dose: Not Given Documented by: [id number] Sertraline HCl (Zoloft) 200 mg PO DAILY THOMAS Stop: 09/16/19 08:59 Last Admin: 08/17/19 10:23 Dose: 200 mg Documented by: [id number] Vitamin D (Vitamin D3) 1,000 units PO DAILY THOMAS Stop: 09/16/19 08:59 Last Admin: 08/17/19 10:22 Dose: 1,000 units Documented by: [id number] Discontinued Medications Acetaminophen (Tylenol) 1,000 mg PO NOW STA Stop: 08/17/19 02:06 Last Admin: 08/17/19 02:09 Dose: 1,000 mg Documented by: [id number] Sodium Chloride (Nss) 500 mls @ 999 mls/hr IV .Q31M ONE Stop: 08/17/19 01:04 Last Infusion: 08/17/19 01:14 Dose: 0 mls/hr Documented by: [id number] Admin: 08/17/19 00:43 Dose: 999 mls/hr Documented by: [id number] Sodium Chloride (Nss 1000ml) 1,000 mls @ 999 mls/hr IV .Q1H1M ONE Stop: 08/17/19 03:05 Last Infusion: 08/17/19 03:31 Dose: 0 mls/hr Documented by: [id number] Admin: 08/17/19 02:11 Dose: 999 mls/hr Documented by: [id number] Daptomycin 500 mg/ Syringe 10 mls @ 5 mls/min IV NOW STA; Protocol Stop: 08/17/19 02:10 Last Admin: 08/17/19 02:44 Dose: 5 mls/min Documented by: [id number] Aztreonam 2,000 mg/ Dextrose 120 mls @ 100 mls/hr IV NOW STA; Protocol Stop: 08/17/19 03:20 Last Infusion: 08/17/19 04:27 Dose: 0 mls/hr Documented by: [id number] Admin: 08/17/19 02:48 Dose: 100 mls/hr Documented by: [id number] Cefepime HCl 2,000 mg/ Syringe 20 mls @ 5.5 mls/min IV TODAY@0600 [facility]; Protocol Stop: 08/17/19 06:04 Last Admin: 08/17/19 05:24 Dose: 5.5 mls/min Documented by: [id number] Sodium Chloride (Nss) 500 mls @ 500 mls/hr IV .Q1H THOMAS Stop: 08/17/19 05:02 Last Infusion: 08/17/19 05:18 Dose: 0 mls/hr Documented by: [id number] Admin: 08/17/19 04:13 Dose: 500 mls/hr Documented by: [id number] Vancomycin HCl 1,750 mg/ (Sodium Chloride) 535 mls @ 200 mls/hr IV TODAY@0800 THOMAS Stop: 08/17/19 10:41 Last Admin: 08/17/19 10:58 Dose: Not Given Documented by: [id number] Ondansetron HCl (Zofran) 4 mg IV NOW STA Stop: 08/17/19 00:35 Last Admin: 08/17/19 00:43 Dose: 4 mg Documented by: [id number] Medical Decision Making Differential Diagnosis Differential diagnoses include: sepsis, pneumonia, UTI, thrombocytopenia, gastritis, viral illness, and ACS. Medical Records Attestation: I reviewed the patient's medical records. Home Medications Current Medication List: was personally reviewed by me Laboratory Data Attestation: I reviewed the patient's lab results. Result diagrams: 08/17/19 00:24 08/17/19 00:24 Lab Results 08/17/19 08/17/19 08/17/19 Range/Units 00:24 00:24 00:24 WBC 4.45 L (4.8-10.8) K/uL RBC 4.71 (4.7-6.1) M/uL Hgb 14.4 (14.0-18.0) g/dL Hct 40.7 L (42-52) % MCV 86.4 (80-100) fL MCH 30.6 (25-34) pg MCHC 35.4 (32-36) g/dL RDW Std Deviation 44.6 (36.4-46.3) fL RDW Coeff of Flora 14.2 (11.5-14.5) % Plt Count 67 L (130-400) K/uL MPV 13.4 H (7.4-10.4) fL Immature Gran % (Auto) 0.4 % Neut % (Auto) 91.4 % Lymph % (Auto) 3.1 % [place] % (Auto) 4.3 % Eos % (Auto) 0.4 % Baso % (Auto) 0.4 % Immature Gran # (Auto) 0.02 (0.00-0.02) K/uL Neut # (Auto) 4.06 (1.4-6.5) K/uL Lymph # (Auto) 0.14 L (1.2-3.4) K/uL [place] # (Auto) 0.19 (0.11-0.59) K/uL Eos # (Auto) 0.02 (0-0.5) K/uL Baso # (Auto) 0.02 (0-0.2) K/uL Platelet Estimate Decreased L (Normal) Giant Platelets 1+ PT 10.8 (9.0-12.0) Seconds INR 1.1 (0.9-1.1) APTT 31.8 H (21.0-31.0) Seconds PTT Ratio 1.2 Sodium 136 (136-145) mmol/L Potassium 4.1 (3.5-5.1) mmol/L Chloride 104 (98-107) mmol/L Carbon Dioxide 25 (21-32) mmol/L Anion Gap 7.0 (3-11) BUN 23 H (7-18) mg/dl Creatinine 1.60 H (0.6-1.4) mg/dl Est Cr Clr Drug Dosing 40.2 ml/min Est GFR ( Amer) 49.9 Est GFR (Non-Af Amer) 43.0 BUN/Creatinine Ratio 14.5 (10-20) Glucose 106 H (70-99) mg/dl Lactate (0.4-2.0) mmol/L Calcium 8.8 (8.5-10.1) mg/dl Total Bilirubin 1.7 H (0.2-1) mg/dl AST 19 (15-37) U/L ALT 27 (12-78) U/L Alkaline Phosphatase 82 (45-117) U/L Troponin I < 0.015 (0-0.045) ng/ml Total Protein 7.7 (6.4-8.2) gm/dl Albumin 3.6 (3.4-5.0) gm/dl Globulin 4.1 H (2.5-4.0) gm/dl Albumin/Globulin Ratio 0.9 (0.9-2) Urine Color Urine Appearance (Clear) Urine pH (4.5-7.5) Ur Specific [place] (1.000-1.030) Urine Protein (Negative) Urine Glucose (UA) (Negative) Urine Ketones (Negative) Urine Blood (Negative) Urine Nitrite (Negative) Urine Bilirubin (Negative) Urine Urobilinogen (Negative) Ur Leukocyte Esterase (Negative) 08/17/19 08/17/19 Range/Units 00:41 01:25 WBC (4.8-10.8) K/uL RBC (4.7-6.1) M/uL Hgb (14.0-18.0) g/dL Hct (42-52) % MCV (80-100) fL MCH (25-34) pg MCHC (32-36) g/dL RDW Std Deviation (36.4-46.3) fL RDW Coeff of Flora (11.5-14.5) % Plt Count (130-400) K/uL MPV (7.4-10.4) fL Immature Gran % (Auto) % Neut % (Auto) % Lymph % (Auto) % [place] % (Auto) % Eos % (Auto) % Baso % (Auto) % Immature Gran # (Auto) (0.00-0.02) K/uL Neut # (Auto) (1.4-6.5) K/uL Lymph # (Auto) (1.2-3.4) K/uL [place] # (Auto) (0.11-0.59) K/uL Eos # (Auto) (0-0.5) K/uL Baso # (Auto) (0-0.2) K/uL Platelet Estimate (Normal) Giant Platelets PT (9.0-12.0) Seconds INR (0.9-1.1) APTT (21.0-31.0) Seconds PTT Ratio Sodium (136-145) mmol/L Potassium (3.5-5.1) mmol/L Chloride (98-107) mmol/L Carbon Dioxide (21-32) mmol/L Anion Gap (3-11) BUN (7-18) mg/dl Creatinine (0.6-1.4) mg/dl Est Cr Clr Drug Dosing ml/min Est GFR ( Amer) Est GFR (Non-Af Amer) BUN/Creatinine Ratio (10-20) Glucose (70-99) mg/dl Lactate 0.9 (0.4-2.0) mmol/L Calcium (8.5-10.1) mg/dl Total Bilirubin (0.2-1) mg/dl AST (15-37) U/L ALT (12-78) U/L Alkaline Phosphatase (45-117) U/L Troponin I (0-0.045) ng/ml Total Protein (6.4-8.2) gm/dl Albumin (3.4-5.0) gm/dl Globulin (2.5-4.0) gm/dl Albumin/Globulin Ratio (0.9-2) Urine Color Dark Yellow Urine Appearance Clear (Clear) Urine pH 5.0 (4.5-7.5) Ur Specific [place] 1.029 (1.000-1.030) Urine Protein Negative (Negative) Urine Glucose (UA) Negative (Negative) Urine Ketones Trace H (Negative) Urine Blood Negative (Negative) Urine Nitrite Negative (Negative) Urine Bilirubin 1+ H (Negative) Urine Urobilinogen Negative (Negative) Ur Leukocyte Esterase Negative (Negative) Imaging Data Attestation: I personally reviewed and interpreted this imaging study as follows: My Impression: CHEST X-RAY: Unchanged from chest x-ray from Mar, 2019. No obvious consolidation. ECG Data Attestation: I personally reviewed and interpreted this ECG as follows: Indication: tachycardia Rate (beats per minute): 105 Rhythm: sinus tachycardia Findings: + PVC (frequent) Additional Comments: No ischemia. Blood Pressure Blood Pressure Findings: Low blood pressure Blood Pressure Disposition: further management by hospitalist MAXIMO Narrative The patient is a 69 year old male who presents to the emergency department with complaints of persistent vomiting beginning last night. The patient has developed a fever while here in the emergency department. There is no obvious source although the patient awoke this morning complaining of shortness of breath and cough. This may be respiratory in origin. I am concerned about the patient's significant thrombocytopenia. The patient became significantly hypotensive and was bolused with crystalloids. The patient does have evidence of acute kidney injury as well. I discussed the case with the [facility] Hospitalist and they will evaluate for further management. Impression & Plan Fever, Hypotension, Thrombocytopenia, Acute kidney injury Discharge Plan Visit Data *Final* Discharge Date/Time: 08/17/19 03:31 Chief Complaint: Illness Stated Complaint: ILL/VOMITING ED Provider: Nava Varner Discharge Problem: Fever, Hypotension, Thrombocytopenia, Acute kidney injury Patient Disposition: Admitted As Inpatient Discharge Instructions Interventions: ED Discharge Assessment Last Done: 08/17/19 03:31 Discharge Problem: Fever Qualifiers: Fever type: unspecified Qualified Code(s): R50.9 - Fever, unspecified Hypotension Qualifiers: Hypotension type: unspecified hypotension type Qualified Code(s): I95.9 - Hypotension, unspecified The scribe's documentation has been prepared under my direction and personally reviewed by me in its entirety. I confirm that the note above accurately reflects all work, treatment, procedures, and medical decision making performed by me.
[2019-08-17] MEDS ORDERED: VANCOMYCIN HCL 1,750 MG in SODIUM CHLORIDE 0.9% 500 ML IV SCH (08:00)
[2019-08-17] MEDS ORDERED: OSELTAMIVIR PHOSPHATE 75 MG CAP PO SCH (09:00)
[2019-08-17] MEDS: IPRATROPIUM BROMIDE/ALBUTEROL respimat INH INH SCH ×4 (10:20→20:26)
[2019-08-17] MEDS: FLUTICASONE HFA 110MCG INHALER INH SCH ×2 (10:21→20:26)
[2019-08-17] MEDS: CHOLECALCIFEROL 1,000 UNITS TAB PO SCH (10:22)
[2019-08-17] MEDS: ASPIRIN 81 MG ECTAB PO SCH (10:22)
[2019-08-17] MEDS: BuPROPion XL 150 MG TABCR PO SCH (10:22)
[2019-08-17] MEDS: PROPRANOLOL HCL 10 MG TAB PO SCH (10:22)
[2019-08-17] MEDS: SERTRALINE HCL 100 MG TABLET PO SCH (10:23)
[2019-08-17] MEDS: ACETAMINOPHEN 325 MG TAB PO PRN ×2 (10:37→16:06)
[2019-08-17] MEDS: PROPRANOLOL HCL 20 MG TAB PO SCH ×2 (12:59→20:24)
[2019-08-17] MEDS: buPROPion HCl 75 MG TABLET PO SCH (16:07)
--- NOTE | 2019-08-17 18:15 | Hospitalist Progress Note ---
Date of Service August 17, 2019 Assessment & Plan (1) Influenza A: Admitted with shortness of breath, cough, fever Noted to have influenza A CT scan of the chest and CT scan of the abdomen and pelvis did not show any acute disease/infection He was started with intravenous Vanco and Cefepime-which were stopped yesterday Has been getting Tamiflu and supportive care Clinically a little bit better today Present on Admission?: Yes (2) Shortness of breath: Secondary to flu (3) Fever: As above (4) Hypotension: Noted to have hypotension at presentation Systolic blood pressure remains below 100 Has been getting adequate amount of intravenous fluid and will be continued for today We are holding his blood pressure medications (5) Acute kidney injury: Likely secondary to dehydration Has been getting intravenous fluids Renal function seems to be normalized Thrombocytopenia, leukopenia Likely secondary to flu We will monitor platelet DVT prophylaxis SCDs for now Subjective 08/17 The patient was seen and examined in the telemetry unit He was admitted with a short of breath, fever with chills, and noted to have positive for influenza A Has been feeling a little bit better Complaint history of cough and stuffy nose No chest pain or palpitation 08/18 The patient was seen and examined in telemetry unit He has been feeling a little bit better today with ongoing symptoms of shortness of breath and cough congestion His blood pressure still remains the lower side of normal Denies any chest pain and/or palpitation, any fever and/or chills, nausea and/or vomiting Review of Systems Review of Systems: All systems reviewed and unremarkable except as noted below Respiratory: + cough, + chest congestion, + dyspnea, + dyspnea on exertion and + sputum production Neurologic: no confusion Physical Exam Physical Exam: Lying in bed with some discomfort due to shortness of breath Constitutional: well developed and well nourished; no altered mental status Eyes: PERRL, conjunctivae normal, anicteric sclerae ENMT: external ear and nose normal, oropharynx normal Neck: trachea midline, no thyromegaly Respiratory: + respiratory distress Auscultation: + diminished lung sounds, + crackles (Minimal crackles at the bases) and + rhonchi Cardiovascular: Rate/Rhythm: regular rate and regular rhythm Heart Sounds: no murmur Gastrointestinal (Abdomen): Inspection/Auscultation: abdomen normal to inspection Percussion/Palpation: abdomen soft Musculoskeletal: No acute arthritis involving any joint Neurologic: moves all extremities; no focal motor deficits Psychiatric: A+Ox3, euthymic affect Lymphatic: no cervical or axillary lymphadenopathy Results & Data Vital Signs (Past 12 Hours) Vital Signs Temp Pulse Pulse Resp BP Pulse Ox 08/17/19 17:34 95 H 08/17/19 15:13 37.0 C 99 H 23 95/47 L 91 08/17/19 10:51 37.2 C 94 H 24 93/60 L 98 08/17/19 09:00 80 08/17/19 07:08 36.9 C 75 16 105/53 L 99 08/17/19 06:20 37 C 87 18 88/59 L 98 Laboratory Results Short CBC 08/18/19 Range/Units 05:15 WBC 2.53 L (4.8-10.8) K/uL Hgb 10.4 L D (14.0-18.0) g/dL Hct 31.5 L (42-52) % Plt Count 37 L (130-400) K/uL BMP 08/18/19 05:15 Sodium 138 Potassium 3.7 Chloride 110 H Carbon Dioxide 22 BUN 12 Creatinine 1.14 D Glucose 88 Calcium 7.6 L Medications Administered Current Inpatient Medications Acetaminophen (Tylenol) 650 mg PO Q4H PRN PRN Reason: Pain or Fever Stop: 09/16/19 04:02 Last Admin: 08/17/19 16:06 Dose: 650 mg Documented by: Albuterol (Combivent Respimat) 1 puffs INH QID [facility] Stop: 09/16/19 08:59 Last Admin: 08/18/19 07:35 Dose: Not Given Documented by: Aspirin (Ecotrin Ectab) 81 mg PO DAILY [facility] Stop: 09/16/19 08:59 Last Admin: 08/18/19 07:34 Dose: 81 mg Documented by: Atorvastatin Calcium (Lipitor) 20 mg PO HS [facility] Stop: 09/16/19 20:59 Last Admin: 08/17/19 20:25 Dose: 20 mg Documented by: Bupropion HCl (Wellbutrin) 75 mg PO DAILY@1400 [facility] Stop: 09/16/19 13:59 Last Admin: 08/17/19 16:07 Dose: 75 mg Documented by: Bupropion HCl (Wellbutrin-Xl) 150 mg PO QAM [facility] Stop: 09/16/19 08:59 Last Admin: 08/18/19 07:35 Dose: 150 mg Documented by: Diphenhydramine HCl (Benadryl Capsule) 25 - 50 mg PO QID PRN PRN Reason: Allergy Symptoms Fluticasone Propionate (Flovent Hfa 110mch) 2 puffs INH BID [facility] Stop: 09/16/19 08:59 Last Admin: 08/18/19 07:34 Dose: 2 puffs Documented by: Guaifenesin/Dextromethorphan (Robitussin Cough-Chest Dm) 10 ml PO Q6H PRN PRN Reason: Cough Stop: 09/16/19 17:41 Last Admin: 08/18/19 07:36 Dose: 10 ml Documented by: Ipratropium [place] (Atrovent 0.02% 0.5mg/2.5ml) 0.5 mg INH Q4H PRN PRN Reason: Shortness Of Breath Or Wheezing Stop: 09/16/19 04:02 Levalbuterol HCl (Xopenex 1.25mg/0.5ml Neb) 1.25 mg INH Q4H PRN PRN Reason: Shortness Of Breath Or Wheezing Stop: 09/16/19 04:02 Nitroglycerin (Nitrostat) 0.4 mg SL UD PRN PRN Reason: Chest Pain Stop: 09/16/19 04:02 Ondansetron HCl (Zofran) 4 mg IV Q6H PRN PRN Reason: Nausea Stop: 09/16/19 04:02 Oseltamivir Phosphate (Tamiflu) 30 mg PO BID [facility]; Protocol Stop: 08/22/19 05:14 Last Admin: 08/18/19 09:53 Dose: 30 mg Documented by: Polyethylene Glycol (Miralax Powder Packet) 17 gm PO DAILY PRN PRN Reason: Constipation Stop: 09/16/19 04:02 Propranolol HCl (Inderal) 20 mg PO BID@1400,2100 [facility] Stop: 09/16/19 13:59 Last Admin: 08/17/19 20:24 Dose: Not Given Documented by: Propranolol HCl (Inderal) 10 mg PO QAM [facility] Stop: 09/16/19 08:59 Last Admin: 08/18/19 07:35 Dose: Not Given Documented by: Ranitidine HCl (Zantac) 150 mg PO BID [facility] Stop: 09/16/19 08:59 Last Admin: 08/18/19 07:35 Dose: Not Given Documented by: Sertraline HCl (Zoloft) 200 mg PO DAILY [facility] Stop: 09/16/19 08:59 Last Admin: 08/18/19 07:34 Dose: 200 mg Documented by: Tamsulosin HCl (Flomax) 0.4 mg PO QPM PRN PRN Reason: prostate Stop: 09/16/19 04:02 Vitamin D (Vitamin D3) 1,000 units PO DAILY [facility] Stop: 09/16/19 08:59 Last Admin: 08/18/19 07:35 Dose: 1,000 units Documented by: (1) Fever Fever type: unspecified Qualified Code(s): R50.9 - Fever, unspecified (2) Hypotension Hypotension type: unspecified hypotension type Qualified Code(s): I95.9 - Hypotension, unspecified
[2019-08-17] MEDS: ATORVASTATIN 20 MG TAB PO SCH (20:25)
[2019-08-17] MEDS: GUAIFENESIN/DEXTROM SYRUP 200MG/20MG 10ML UDC PO PRN (20:26)
[2019-08-18] MEDS ORDERED: VANCOMYCIN HCL 1,250 MG in SODIUM CHLORIDE 0.9% 250 ML IV SCH (02:00)
[2019-08-18] MEDS: SODIUM CHLORIDE 0.9% 1000ML 1,000 ML IV SCH ×2 (02:36→09:51)
[2019-08-18 05:54] LABS: Basophils # (auto) 0.01 K/uL (0-0.2); Basophils % (auto) 0.4 %; Eosinophils # (auto) 0.01 K/uL (0-0.5); Eosinophils % (auto) 0.4 %; Giant Platelets 1+; Hematocrit (blood only) 31.5 % (42-52); Hemoglobin 10.4 g/dL (14.0-18.0); Immature Granulocytes # (auto) 0.01 K/uL (0.00-0.02); Immature Granulocytes % (auto) 0.4 %; Lymphocytes % (auto) 15.8 %; Mean Corpuscular Hemoglobin 29.4 pg (25-34); Monocytes # (auto) 0.21 K/uL (0.11-0.59); Monocytes % (auto) 8.3 %; Neutrophils # (auto) 1.89 K/uL (1.4-6.5); Neutrophils % (auto) 74.7 %; Platelet Count 37 K/uL (130-400); Platelet Estimate Decreased (Normal); RDW Coefficient of Variation 14.6 % (11.5-14.5); RDW Standard Deviation 48.2 fL (36.4-46.3); Red Blood Count 3.54 M/uL (4.7-6.1); White Blood Count 2.53 K/uL (4.8-10.8)
[2019-08-18 06:03] LABS: BUN Creatinine Ratio 10.6 (10-20); Calcium 7.6 mg/dl (8.5-10.1); Creatinine Clr Calc Pharmacy 56.4 ml/min; Est GFR (African American) 75.1; Est GFR (Non-African American) 64.8; Magnesium 1.8 mg/dl (1.8-2.4); Potassium 3.7 mmol/L (3.5-5.1)
[2019-08-18] MEDS: FLUTICASONE HFA 110MCG INHALER INH SCH ×2 (07:34→21:19)
[2019-08-18] MEDS: SERTRALINE HCL 100 MG TABLET PO SCH (07:34)
[2019-08-18] MEDS: ASPIRIN 81 MG ECTAB PO SCH (07:34)
[2019-08-18] MEDS: PROPRANOLOL HCL 10 MG TAB PO SCH (07:35)
[2019-08-18] MEDS: IPRATROPIUM BROMIDE/ALBUTEROL respimat INH INH SCH ×4 (07:35→21:16)
[2019-08-18] MEDS: CHOLECALCIFEROL 1,000 UNITS TAB PO SCH (07:35)
[2019-08-18] MEDS: BuPROPion XL 150 MG TABCR PO SCH (07:35)
[2019-08-18] MEDS: GUAIFENESIN/DEXTROM SYRUP 200MG/20MG 10ML UDC PO PRN (07:36)
[2019-08-18] MEDS: OSELTAMIVIR PHOSPHATE SUSP 30 MG/5 ML UDP PO SCH ×2 (09:53→21:18)
[2019-08-18] MEDS: PROPRANOLOL HCL 20 MG TAB PO SCH ×2 (14:33→21:16)
[2019-08-18] MEDS: buPROPion HCl 75 MG TABLET PO SCH (14:33)
[2019-08-18] MEDS: ACETAMINOPHEN 325 MG TAB PO PRN (18:57)
[2019-08-18] MEDS: ATORVASTATIN 20 MG TAB PO SCH (21:19)
[2019-08-19 06:03] LABS: Mean Corpuscular Hgb Conc 34.7 g/dL (32-36)
[2019-08-19 06:19] LABS: Hematocrit (blood only) 32.3 % (42-52); Hemoglobin 11.2 g/dL (14.0-18.0); Mean Corpuscular Hemoglobin 30.3 pg (25-34); Mean Corpuscular Volume 87.3 fL (80-100); RDW Coefficient of Variation 14.7 % (11.5-14.5); RDW Standard Deviation 47.5 fL (36.4-46.3); White Blood Count 2.33 K/uL (4.8-10.8)
[2019-08-19 06:34] LABS: Albumin Level 2.6 gm/dl (3.4-5.0); BUN Creatinine Ratio 15.3 (10-20); Creatinine Clr Calc Pharmacy 79.3 ml/min; Est GFR (African American) 104.4; Potassium 3.8 mmol/L (3.5-5.1)
[2019-08-19 06:39] LABS: Albumin Globulin Ratio 0.8 (0.9-2); Bilirubin,Total 0.8 mg/dl (0.2-1); Globulin 3.4 gm/dl (2.5-4.0); Phosphorus 3.1 mg/dl (2.5-4.9)
[2019-08-19 06:54] LABS: Platelet Count 47 K/uL (130-400)
[2019-08-19 07:17] LABS: Eosinophils # (auto) 0.06 K/uL (0-0.5); Eosinophils % (auto) 2.6 %; Immature Granulocytes # (auto) 0.01 K/uL (0.00-0.02); Immature Granulocytes % (auto) 0.4 %; Lymphocytes # (auto) 0.42 K/uL (1.2-3.4); Monocytes # (auto) 0.13 K/uL (0.11-0.59); Monocytes % (auto) 5.6 %; Neutrophils # (auto) 1.71 K/uL (1.4-6.5); Neutrophils % (auto) 73.4 %
[2019-08-19] MEDS: IPRATROPIUM BROMIDE/ALBUTEROL respimat INH INH SCH ×4 (07:51→20:10)
[2019-08-19] MEDS: FLUTICASONE HFA 110MCG INHALER INH SCH ×2 (07:52→20:11)
[2019-08-19] MEDS: ACETAMINOPHEN 325 MG TAB PO PRN (07:59)
[2019-08-19] MEDS: SERTRALINE HCL 100 MG TABLET PO SCH (08:00)
[2019-08-19] MEDS: CHOLECALCIFEROL 1,000 UNITS TAB PO SCH (08:00)
[2019-08-19] MEDS: ASPIRIN 81 MG ECTAB PO SCH (08:01)
[2019-08-19] MEDS: PROPRANOLOL HCL 10 MG TAB PO SCH (08:02)
[2019-08-19] MEDS: OSELTAMIVIR PHOSPHATE SUSP 30 MG/5 ML UDP PO SCH ×2 (08:02→20:12)
[2019-08-19] MEDS: BuPROPion XL 150 MG TABCR PO SCH (08:02)
[2019-08-19] MEDS: GUAIFENESIN/DEXTROM SYRUP 200MG/20MG 10ML UDC PO PRN (08:03)
--- NOTE | 2019-08-19 08:58 | XRay Report ---
XR chest 2V PA/lateral CLINICAL HISTORY: flu,r/o pneumonia dyspnea COMPARISON STUDY: 08/17/2019 FINDINGS: Stable emphysematous change. Unaltered postoperative changes right hemithorax. No acute infiltrate. IMPRESSION: No acute process. The above report was generated using voice recognition software. It may contain grammatical, syntax or spelling errors. Electronically signed by: Tavo Barajas M.D. 08/19/2019 8:57 AM
--- NOTE | 2019-08-19 12:03 | Hospitalist Progress Note ---
Date of Service August 19, 2019 Assessment & Plan (1) Influenza A: Admitted with shortness of breath, cough, fever Noted to have influenza A CT scan of the chest and CT scan of the abdomen and pelvis did not show any acute disease/infection He was started with intravenous Vanco and Cefepime-which were stopped yesterday Has been getting Tamiflu and supportive care Clinically a little bit better today (2) Shortness of breath: Secondary to flu (3) Fever: As above (4) Hypotension: Noted to have hypotension at presentation Systolic blood pressure remains below 100 Has been getting adequate amount of intravenous fluid and will be continued for today We are holding his blood pressure medications (5) Acute kidney injury: Likely secondary to dehydration Has been getting intravenous fluids Renal function seems to be normalized Thrombocytopenia, leukopenia Likely secondary to flu We will monitor platelet DVT prophylaxis SCDs for now Review of Systems Review of Systems: All systems reviewed and unremarkable except as noted below Respiratory: + cough, + chest congestion, + dyspnea, + dyspnea on exertion and + sputum production Physical Exam Constitutional: well developed and well nourished; no altered mental status Eyes: PERRL, conjunctivae normal, anicteric sclerae ENMT: external ear and nose normal, oropharynx normal Neck: trachea midline, no thyromegaly Respiratory: + respiratory distress Auscultation: + diminished lung sounds, + crackles (Minimal crackles at the bases) and + rhonchi Cardiovascular: Rate/Rhythm: regular rate and regular rhythm Heart Sounds: no murmur Gastrointestinal (Abdomen): Inspection/Auscultation: abdomen normal to inspection Percussion/Palpation: abdomen soft Neurologic: moves all extremities; no focal motor deficits Psychiatric: A+Ox3, euthymic affect Lymphatic: no cervical or axillary lymphadenopathy Results & Data Vital Signs (Past 12 Hours) Vital Signs Temp Pulse Pulse Resp BP Pulse Ox 08/19/19 11:37 36.6 C 68 20 115/65 95 08/19/19 08:00 68 08/19/19 07:43 37 C 68 18 104/66 98 08/19/19 03:23 36.8 C 59 L 18 106/69 100 (1) Fever Fever type: unspecified Qualified Code(s): R50.9 - Fever, unspecified (2) Hypotension Hypotension type: unspecified hypotension type Qualified Code(s): I95.9 - Hypotension, unspecified
--- NOTE | 2019-08-19 12:10 | Hospitalist Progress Note ---
Date of Service August 19, 2019 Assessment & Plan (1) Influenza A: Admitted with shortness of breath, cough, fever Noted to have influenza A CT scan of the chest and CT scan of the abdomen and pelvis did not show any acute disease/infection He was started with intravenous Vanco and Cefepime-which were stopped yesterday Has been getting Tamiflu and supportive care Clinically much better today Repeat chest x-ray remains clear We will transfer to medical floor PT and OT evaluation (2) Shortness of breath: Secondary to flu (3) Fever: As above No more fever and/or chills Still has occasional sweating (4) Hypotension: Noted to have hypotension at presentation Systolic blood pressure remains below 100 Has been getting adequate amount of intravenous fluid and will be continued for today We are holding his blood pressure medications Blood pressure seems to be improving (5) Acute kidney injury: Likely secondary to dehydration Has been getting intravenous fluids Renal function seems to be normalized Thrombocytopenia, leukopenia Likely secondary to flu We will monitor platelet Platelet counts seems to be stable with slight improvement DVT prophylaxis SCDs for now We will transfer to medical floor PT and OT evaluation Subjective 08/17 The patient was seen and examined in the telemetry unit He was admitted with a short of breath, fever with chills, and noted to have positive for influenza A Has been feeling a little bit better Complaint history of cough and stuffy nose No chest pain or palpitation 08/18 The patient was seen and examined in telemetry unit He has been feeling a little bit better today with ongoing symptoms of shortness of breath and cough congestion His blood pressure still remains the lower side of normal Denies any chest pain and/or palpitation, any fever and/or chills, nausea and/or vomiting 08/19 The patient was seen and examined in telemetry unit He has been feeling a lot better as of today Denies any more cough and/or shortness of breath Remains generally weak and lethargic Review of Systems Review of Systems: All systems reviewed and are unremarkable except as noted below Constitutional: + sweats and + weakness Physical Exam Physical Exam: No apparent distress at rest Constitutional: well developed and well nourished; no altered mental status Eyes: PERRL, conjunctivae normal, anicteric sclerae ENMT: external ear and nose normal, oropharynx normal Neck: trachea midline, no thyromegaly Respiratory: normal respiratory effort; no respiratory distress Auscultation: lungs clear to auscultation bilaterally; no crackles (Minimal crackles at the bases) and no rhonchi Cardiovascular: Rate/Rhythm: regular rate and regular rhythm Heart Sounds: no murmur Gastrointestinal (Abdomen): Inspection/Auscultation: abdomen normal to inspection Percussion/Palpation: abdomen soft Musculoskeletal: No acute arthritis involving any joints Neurologic: moves all extremities; no focal motor deficits Remains generally weak and lethargic Psychiatric: A+Ox3, euthymic affect Lymphatic: no cervical or axillary lymphadenopathy Results & Data Vital Signs (Past 12 Hours) Vital Signs Temp Pulse Pulse Resp BP Pulse Ox 08/19/19 11:37 36.6 C 68 20 115/65 95 08/19/19 08:00 68 08/19/19 07:43 37 C 68 18 104/66 98 08/19/19 03:23 36.8 C 59 L 18 106/69 100 Laboratory Results Short CBC 08/19/19 Range/Units 05:28 WBC 2.33 L (4.8-10.8) K/uL Hgb 11.2 L (14.0-18.0) g/dL Hct 32.3 L (42-52) % Plt Count 47 L (130-400) K/uL BMP 08/19/19 05:28 Sodium 137 Potassium 3.8 Chloride 107 Carbon Dioxide 25 BUN 12 Creatinine 0.81 D Glucose 89 Calcium 8.0 L Liver Function 08/19/19 Range/Units 05:28 Total Bilirubin 0.8 (0.2-1) mg/dl AST 19 (15-37) U/L ALT 23 (12-78) U/L Alkaline Phosphatase 54 (45-117) U/L Albumin 2.6 L (3.4-5.0) gm/dl Medications Administered Current Inpatient Medications Acetaminophen (Tylenol) 650 mg PO Q4H PRN PRN Reason: Pain or Fever Stop: 09/16/19 04:02 Last Admin: 08/19/19 07:59 Dose: 650 mg Documented by: Albuterol (Combivent Respimat) 1 puffs INH QID [facility] Stop: 09/16/19 08:59 Last Admin: 08/19/19 07:51 Dose: 1 puffs Documented by: Aspirin (Ecotrin Ectab) 81 mg PO DAILY [facility] Stop: 09/16/19 08:59 Last Admin: 08/19/19 08:01 Dose: 81 mg Documented by: Atorvastatin Calcium (Lipitor) 20 mg PO HS [facility] Stop: 09/16/19 20:59 Last Admin: 08/18/19 21:19 Dose: 20 mg Documented by: Bupropion HCl (Wellbutrin) 75 mg PO DAILY@1400 [facility] Stop: 09/16/19 13:59 Last Admin: 08/18/19 14:33 Dose: 75 mg Documented by: Bupropion HCl (Wellbutrin-Xl) 150 mg PO QAM [facility] Stop: 09/16/19 08:59 Last Admin: 08/19/19 08:02 Dose: 150 mg Documented by: Diphenhydramine HCl (Benadryl Capsule) 25 - 50 mg PO QID PRN PRN Reason: Allergy Symptoms Famotidine (Pepcid) 20 mg PO QAM [facility] Stop: 09/18/19 10:59 Fluticasone Propionate (Flovent Hfa 110mch) 2 puffs INH BID [facility] Stop: 09/16/19 08:59 Last Admin: 08/19/19 07:52 Dose: 2 puffs Documented by: Guaifenesin/Dextromethorphan (Robitussin Cough-Chest Dm) 10 ml PO Q6H PRN PRN Reason: Cough Stop: 09/16/19 17:41 Last Admin: 08/19/19 08:03 Dose: 10 ml Documented by: Ipratropium [place] (Atrovent 0.02% 0.5mg/2.5ml) 0.5 mg INH Q4H PRN PRN Reason: Shortness Of Breath Or Wheezing Stop: 09/16/19 04:02 Levalbuterol HCl (Xopenex 1.25mg/0.5ml Neb) 1.25 mg INH Q4H PRN PRN Reason: Shortness Of Breath Or Wheezing Stop: 09/16/19 04:02 Nitroglycerin (Nitrostat) 0.4 mg SL UD PRN PRN Reason: Chest Pain Stop: 09/16/19 04:02 Ondansetron HCl (Zofran) 4 mg IV Q6H PRN PRN Reason: Nausea Stop: 09/16/19 04:02 Oseltamivir Phosphate (Tamiflu) 30 mg PO BID [facility]; Protocol Stop: 08/22/19 05:14 Last Admin: 08/19/19 08:02 Dose: 30 mg Documented by: Polyethylene Glycol (Miralax Powder Packet) 17 gm PO DAILY PRN PRN Reason: Constipation Stop: 09/16/19 04:02 Propranolol HCl (Inderal) 20 mg PO BID@1400,2100 [facility] Stop: 09/16/19 13:59 Last Admin: 08/18/19 21:16 Dose: Not Given Documented by: Propranolol HCl (Inderal) 10 mg PO QAM [facility] Stop: 09/16/19 08:59 Last Admin: 08/19/19 08:02 Dose: 10 mg Documented by: Sertraline HCl (Zoloft) 200 mg PO DAILY [facility] Stop: 09/16/19 08:59 Last Admin: 08/19/19 08:00 Dose: 200 mg Documented by: Tamsulosin HCl (Flomax) 0.4 mg PO QPM PRN PRN Reason: prostate Stop: 09/16/19 04:02 Vitamin D (Vitamin D3) 1,000 units PO DAILY [facility] Stop: 09/16/19 08:59 Last Admin: 08/19/19 08:00 Dose: 1,000 units Documented by: (1) Fever Fever type: unspecified Qualified Code(s): R50.9 - Fever, unspecified (2) Hypotension Hypotension type: unspecified hypotension type Qualified Code(s): I95.9 - Hypotension, unspecified
[2019-08-19] MEDS: FAMOTIDINE 20 MG TAB PO SCH (12:34)
[2019-08-19] MEDS ORDERED: VANCOMYCIN TROUGH ONE (13:30)
[2019-08-19] MEDS: buPROPion HCl 75 MG TABLET PO SCH (14:28)
[2019-08-19] MEDS: PROPRANOLOL HCL 20 MG TAB PO SCH ×2 (14:28→20:13)
[2019-08-19] MEDS: ATORVASTATIN 20 MG TAB PO SCH (20:14)
[2019-08-20 07:00] LABS: Hematocrit (blood only) 33.3 % (42-52); Hemoglobin 11.5 g/dL (14.0-18.0); Mean Corpuscular Hemoglobin 29.5 pg (25-34); Mean Corpuscular Hgb Conc 34.5 g/dL (32-36); Mean Corpuscular Volume 85.4 fL (80-100); Mean Platelet Volume 13.2 fL (7.4-10.4); Platelet Count 53 K/uL (130-400); RDW Coefficient of Variation 14.2 % (11.5-14.5); RDW Standard Deviation 44.3 fL (36.4-46.3)
[2019-08-20 07:01] LABS: Basophils # (auto) 0.01 K/uL (0-0.2); Basophils % (auto) 0.4 %; Eosinophils # (auto) 0.08 K/uL (0-0.5); Giant Platelets 2+; Immature Granulocytes # (auto) 0.01 K/uL (0.00-0.02); Immature Granulocytes % (auto) 0.4 %; Lymphocytes # (auto) 0.46 K/uL (1.2-3.4); Monocytes # (auto) 0.19 K/uL (0.11-0.59); Neutrophils # (auto) 1.95 K/uL (1.4-6.5); Neutrophils % (auto) 72.2 %; Platelet Estimate Decreased (Normal)
[2019-08-20 07:02] LABS: BUN Creatinine Ratio 15.5 (10-20); Calcium 8.6 mg/dl (8.5-10.1); Creatinine Clr Calc Pharmacy 69.1 ml/min; Est GFR (African American) 96.1; Est GFR (Non-African American) 82.9; Potassium 3.7 mmol/L (3.5-5.1)
[2019-08-20] MEDS: PROPRANOLOL HCL 10 MG TAB PO SCH (08:38)
[2019-08-20] MEDS: FAMOTIDINE 20 MG TAB PO SCH (08:38)
[2019-08-20] MEDS: CHOLECALCIFEROL 1,000 UNITS TAB PO SCH (08:38)
[2019-08-20] MEDS: SERTRALINE HCL 100 MG TABLET PO SCH (08:38)
[2019-08-20] MEDS: ASPIRIN 81 MG ECTAB PO SCH (08:39)
[2019-08-20] MEDS: BuPROPion XL 150 MG TABCR PO SCH (08:39)
[2019-08-20] MEDS: FLUTICASONE HFA 110MCG INHALER INH SCH ×2 (08:41→20:33)
[2019-08-20] MEDS: IPRATROPIUM BROMIDE/ALBUTEROL respimat INH INH SCH ×4 (08:42→20:33)
[2019-08-20] MEDS: OSELTAMIVIR PHOSPHATE SUSP 30 MG/5 ML UDP PO SCH (08:46)
--- NOTE | 2019-08-20 13:24 | Hospitalist Progress Note ---
Date of Service August 20, 2019 Assessment & Plan (1) Influenza A: Admitted with shortness of breath, cough, fever Noted to have influenza A CT scan of the chest and CT scan of the abdomen and pelvis did not show any acute disease/infection He was started with intravenous Vanco and Cefepime-which were stopped yesterday Has been getting Tamiflu and supportive care Clinically much better today Repeat chest x-ray remains clear We will transfer to medical floor PT and OT evaluation Likely discharge tomorrow (2) Shortness of breath: Secondary to flu No more shortness of breath at rest We will get to do steps O2 saturation before discharge (3) Fever: As above No more fever and/or chills Still has occasional sweating Resolved (4) Hypotension: Noted to have hypotension at presentation Systolic blood pressure remains below 100 Has been getting adequate amount of intravenous fluid and will be continued for today We are holding his blood pressure medications Blood pressure seems to be improving Blood pressure is maintaining (5) Acute kidney injury: Likely secondary to dehydration Has been getting intravenous fluids Renal function seems to be normalized Thrombocytopenia, leukopenia Likely secondary to flu We will monitor platelet Platelet counts seems to be stable with slight improvement Tobacco use disorder Advised to quit smoking and he will do that DVT prophylaxis SCDs for now We will transfer to medical floor PT and OT evaluation-discharge tomorrow Subjective 08/17 The patient was seen and examined in the telemetry unit He was admitted with a short of breath, fever with chills, and noted to have positive for influenza A Has been feeling a little bit better Complaint history of cough and stuffy nose No chest pain or palpitation 08/18 The patient was seen and examined in telemetry unit He has been feeling a little bit better today with ongoing symptoms of shortness of breath and cough congestion His blood pressure still remains the lower side of normal Denies any chest pain and/or palpitation, any fever and/or chills, nausea and/or vomiting 08/19 The patient was seen and examined in telemetry unit He has been feeling a lot better as of today Denies any more cough and/or shortness of breath Remains generally weak and lethargic 08/20 The patient was seen and examined in medical floor He has been feeling a lot better Denies any cough, congestion, shortness of breath Has been ambulating without difficulty Review of Systems Review of Systems: All systems reviewed and are unremarkable except as noted below Constitutional: + sweats and + weakness Physical Exam Physical Exam: Lying in bed without any apparent distress Constitutional: well developed and well nourished; no altered mental status Eyes: PERRL, conjunctivae normal, anicteric sclerae ENMT: external ear and nose normal, oropharynx normal Neck: trachea midline, no thyromegaly Respiratory: normal respiratory effort; no respiratory distress Auscultation: lungs clear to auscultation bilaterally; no crackles (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 craft demonstrator ckles at the bases) and no rhonchi Cardiovascular: Rate/Rhythm: regular rate and regular rhythm Heart Sounds: no murmur Gastrointestinal (Abdomen): Inspection/Auscultation: abdomen normal to inspection Percussion/Palpation: abdomen soft Musculoskeletal: No acute arthritis in any joints Neurologic: moves all extremities; no focal motor deficits Psychiatric: A+Ox3, euthymic affect Lymphatic: no cervical or axillary lymphadenopathy Results & Data Vital Signs (Past 12 Hours) Vital Signs Temp Pulse Resp BP Pulse Ox 08/20/19 07:28 37.3 C 67 18 110/71 93 Laboratory Results Short CBC 08/20/19 Range/Units 06:02 WBC 2.70 L (4.8-10.8) K/uL Hgb 11.5 L (14.0-18.0) g/dL Hct 33.3 L (42-52) % Plt Count 53 L (130-400) K/uL BMP 08/20/19 06:02 Sodium 136 Potassium 3.7 Chloride 104 Carbon Dioxide 26 BUN 15 Creatinine 0.93 Glucose 85 Calcium 8.6 Medications Administered Current Inpatient Medications Acetaminophen (Tylenol) 650 mg PO Q4H PRN PRN Reason: Pain or Fever Stop: 09/16/19 04:02 Last Admin: 08/19/19 07:59 Dose: 650 mg Documented by: Albuterol (Combivent Respimat) 1 puffs INH QID [facility] Stop: 09/16/19 08:59 Last Admin: 08/20/19 08:42 Dose: Not Given Documented by: Aspirin (Ecotrin Ectab) 81 mg PO DAILY [facility] Stop: 09/16/19 08:59 Last Admin: 08/20/19 08:39 Dose: 81 mg Documented by: Atorvastatin Calcium (Lipitor) 20 mg PO HS [facility] Stop: 09/16/19 20:59 Last Admin: 08/19/19 20:14 Dose: 20 mg Documented by: Bupropion HCl (Wellbutrin) 75 mg PO DAILY@1400 [facility] Stop: 09/16/19 13:59 Last Admin: 08/19/19 14:28 Dose: 75 mg Documented by: Bupropion HCl (Wellbutrin-Xl) 150 mg PO QAM [facility] Stop: 09/16/19 08:59 Last Admin: 08/20/19 08:39 Dose: 150 mg Documented by: Diphenhydramine HCl (Benadryl Capsule) 25 - 50 mg PO QID PRN PRN Reason: Allergy Symptoms Famotidine (Pepcid) 20 mg PO QAM [facility] Stop: 09/18/19 10:59 Last Admin: 08/20/19 08:38 Dose: 20 mg Documented by: Fluticasone Propionate (Flovent Hfa 110mch) 2 puffs INH BID [facility] Stop: 09/16/19 08:59 Last Admin: 08/20/19 08:41 Dose: 2 puffs Documented by: Guaifenesin/Dextromethorphan (Robitussin Cough-Chest Dm) 10 ml PO Q6H PRN PRN Reason: Cough Stop: 09/16/19 17:41 Last Admin: 08/19/19 08:03 Dose: 10 ml Documented by: Ipratropium [place] (Atrovent 0.02% 0.5mg/2.5ml) 0.5 mg INH Q4H PRN PRN Reason: Shortness Of Breath Or Wheezing Stop: 09/16/19 04:02 Levalbuterol HCl (Xopenex 1.25mg/0.5ml Neb) 1.25 mg INH Q4H PRN PRN Reason: Shortness Of Breath Or Wheezing Stop: 09/16/19 04:02 Nitroglycerin (Nitrostat) 0.4 mg SL UD PRN PRN Reason: Chest Pain Stop: 09/16/19 04:02 Ondansetron HCl (Zofran) 4 mg IV Q6H PRN PRN Reason: Nausea Stop: 09/16/19 04:02 Oseltamivir Phosphate (Tamiflu) 30 mg PO BID [facility]; Protocol Stop: 08/22/19 05:14 Last Admin: 08/20/19 08:46 Dose: 30 mg Documented by: Polyethylene Glycol (Miralax Powder Packet) 17 gm PO DAILY PRN PRN Reason: Constipation Stop: 09/16/19 04:02 Propranolol HCl (Inderal) 20 mg PO BID@1400,2100 [facility] Stop: 09/16/19 13:59 Last Admin: 08/19/19 20:13 Dose: 20 mg Documented by: Propranolol HCl (Inderal) 10 mg PO QAM [facility] Stop: 09/16/19 08:59 Last Admin: 08/20/19 08:38 Dose: 10 mg Documented by: Sertraline HCl (Zoloft) 200 mg PO DAILY [facility] Stop: 09/16/19 08:59 Last Admin: 08/20/19 08:38 Dose: 200 mg Documented by: Tamsulosin HCl (Flomax) 0.4 mg PO QPM PRN PRN Reason: prostate Stop: 09/16/19 04:02 Vitamin D (Vitamin D3) 1,000 units PO DAILY [facility] Stop: 09/16/19 08:59 Last Admin: 08/20/19 08:38 Dose: 1,000 units Documented by: (1) Fever Fever type: unspecified Qualified Code(s): R50.9 - Fever, unspecified (2) Hypotension Hypotension type: unspecified hypotension type Qualified Code(s): I95.9 - Hypotension, unspecified
[2019-08-20] MEDS: PROPRANOLOL HCL 20 MG TAB PO SCH ×2 (14:07→20:35)
[2019-08-20] MEDS: buPROPion HCl 75 MG TABLET PO SCH (14:07)
[2019-08-20] MEDS: ATORVASTATIN 20 MG TAB PO SCH (20:35)
[2019-08-20] MEDS: OSELTAMIVIR PHOSPHATE 75 MG CAP PO SCH (20:52)
[2019-08-21] MEDS: FLUTICASONE HFA 110MCG INHALER INH SCH (08:27)
[2019-08-21] MEDS: OSELTAMIVIR PHOSPHATE 75 MG CAP PO SCH (08:27)
[2019-08-21] MEDS: IPRATROPIUM BROMIDE/ALBUTEROL respimat INH INH SCH ×2 (08:27→13:05)
[2019-08-21] MEDS: SERTRALINE HCL 100 MG TABLET PO SCH (08:28)
[2019-08-21] MEDS: PROPRANOLOL HCL 10 MG TAB PO SCH (08:28)
[2019-08-21] MEDS: BuPROPion XL 150 MG TABCR PO SCH (08:28)
[2019-08-21] MEDS: CHOLECALCIFEROL 1,000 UNITS TAB PO SCH (08:29)
[2019-08-21] MEDS: ASPIRIN 81 MG ECTAB PO SCH (08:29)
[2019-08-21] MEDS: FAMOTIDINE 20 MG TAB PO SCH (08:59)
--- NOTE | 2019-08-21 12:28 | Hospitalist Progress Note ---
Date of Service August 21, 2019 Assessment & Plan (1) Influenza A: Admitted with shortness of breath, cough, fever Noted to have influenza A CT scan of the chest and CT scan of the abdomen and pelvis did not show any acute disease/infection He was started with intravenous Vanco and Cefepime-which were stopped yesterday Has been getting Tamiflu and supportive care Clinically much better today Repeat chest x-ray remains clear We will transfer to medical floor PT and OT evaluation Has been ambulating without any difficulty Will discharge home this afternoon (2) Shortness of breath: Secondary to flu No more shortness of breath at rest We will get to do steps O2 saturation before discharge Do not think he will need any oxygen on discharge (3) Fever: As above No more fever and/or chills Still has occasional sweating Resolved (4) Hypotension: Noted to have hypotension at presentation Systolic blood pressure remains below 100 Has been getting adequate amount of intravenous fluid and will be continued for today We are holding his blood pressure medications Blood pressure seems to be improving Blood pressure is maintaining (5) Acute kidney injury: Likely secondary to dehydration Has been getting intravenous fluids Renal function seems to be normalized Thrombocytopenia, leukopenia Likely secondary to flu We will monitor platelet Platelet counts seems to be stable with slight improvement Will need to have repeat CBC as an outpatient within 7 days Tobacco use disorder Advised to quit smoking and he will do that DVT prophylaxis SCDs for now We will transfer to medical floor PT and OT evaluation-discharge tomorrow Subjective 08/17 The patient was seen and examined in the telemetry unit He was admitted with a short of breath, fever with chills, and noted to have positive for influenza A Has been feeling a little bit better Complaint history of cough and stuffy nose No chest pain or palpitation 08/18 The patient was seen and examined in telemetry unit He has been feeling a little bit better today with ongoing symptoms of shortness of breath and cough congestion His blood pressure still remains the lower side of normal Denies any chest pain and/or palpitation, any fever and/or chills, nausea and/or vomiting 08/19 The patient was seen and examined in telemetry unit He has been feeling a lot better as of today Denies any more cough and/or shortness of breath Remains generally weak and lethargic 08/20 The patient was seen and examined in medical floor He has been feeling a lot better Denies any cough, congestion, shortness of breath Has been ambulating without difficulty 08/21 The patient was seen and examined in medical floor He has been feeling a lot better Denies any cough and/or shortness of breath Denies any chest pain and or palpitation We will get PT OT evaluation before discharge this afternoon Review of Systems Review of Systems: All systems reviewed and are unremarkable except as noted below Constitutional: + sweats and + weakness Physical Exam Physical Exam: Lying in bed comfortably Constitutional: well developed and well nourished; no altered mental status Eyes: PERRL, conjunctivae normal, anicteric sclerae ENMT: external ear and nose normal, oropharynx normal Neck: trachea midline, no thyromegaly Respiratory: normal respiratory effort; no respiratory distress Auscultation: lungs clear to auscultation bilaterally; no crackles (Minimal crackles at the bases) and no rhonchi Cardiovascular: Rate/Rhythm: regular rate and regular rhythm Heart Sounds: no murmur Gastrointestinal (Abdomen): Inspection/Auscultation: abdomen normal to inspection Percussion/Palpation: abdomen soft Musculoskeletal: No acute arthritis in any joints Neurologic: moves all extremities; no focal motor deficits Psychiatric: A+Ox3, euthymic affect Lymphatic: no cervical or axillary lymphadenopathy Results & Data Vital Signs (Past 12 Hours) Vital Signs Temp Pulse Pulse Pulse Pulse Pulse Resp 08/21/19 11:47 36.5 C 61 62 16 08/21/19 09:56 85 83 83 08/21/19 07:28 36.5 C 62 16 Resp Resp Resp BP BP Pulse Ox Pulse Ox 08/21/19 11:47 108/70 100/59 L 94 08/21/19 09:56 16 16 16 96 08/21/19 07:28 100/59 L 94 Pulse Ox Pulse Ox 08/21/19 11:47 08/21/19 09:56 96 95 08/21/19 07:28 Medications Administered Current Inpatient Medications Acetaminophen (Tylenol) 650 mg PO Q4H PRN PRN Reason: Pain or Fever Stop: 09/16/19 04:02 Last Admin: 08/19/19 07:59 Dose: 650 mg Documented by: Albuterol (Combivent Respimat) 1 puffs INH QID THOMAS Stop: 09/16/19 08:59 Last Admin: 08/21/19 08:27 Dose: Not Given Documented by: Aspirin (Ecotrin Ectab) 81 mg PO DAILY [facility] Stop: 09/16/19 08:59 Last Admin: 08/21/19 08:29 Dose: 81 mg Documented by: Atorvastatin Calcium (Lipitor) 20 mg PO HS [facility] Stop: 09/16/19 20:59 Last Admin: 08/20/19 20:35 Dose: 20 mg Documented by: Bupropion HCl (Wellbutrin) 75 mg PO DAILY@1400 [facility] Stop: 09/16/19 13:59 Last Admin: 08/20/19 14:07 Dose: 75 mg Documented by: Bupropion HCl (Wellbutrin-Xl) 150 mg PO QAM [facility] Stop: 09/16/19 08:59 Last Admin: 08/21/19 08:28 Dose: 150 mg Documented by: Diphenhydramine HCl (Benadryl Capsule) 25 - 50 mg PO QID PRN PRN Reason: Allergy Symptoms Famotidine (Pepcid) 20 mg PO QAM [facility] Stop: 09/18/19 10:59 Last Admin: 08/21/19 08:59 Dose: 20 mg Documented by: Fluticasone Propionate (Flovent Hfa 110mch) 2 puffs INH BID [facility] Stop: 09/16/19 08:59 Last Admin: 08/21/19 08:27 Dose: 2 puffs Documented by: Guaifenesin/Dextromethorphan (Robitussin Cough-Chest Dm) 10 ml PO Q6H PRN PRN Reason: Cough Stop: 09/16/19 17:41 Last Admin: 08/19/19 08:03 Dose: 10 ml Documented by: Ipratropium Proctor (Atrovent 0.02% 0.5mg/2.5ml) 0.5 mg INH Q4H PRN PRN Reason: Shortness Of Breath Or Wheezing Stop: 09/16/19 04:02 Levalbuterol HCl (Xopenex 1.25mg/0.5ml Neb) 1.25 mg INH Q4H PRN PRN Reason: Shortness Of Breath Or Wheezing Stop: 09/16/19 04:02 Nitroglycerin (Nitrostat) 0.4 mg SL UD PRN PRN Reason: Chest Pain Stop: 09/16/19 04:02 Ondansetron HCl (Zofran) 4 mg IV Q6H PRN PRN Reason: Nausea Stop: 09/16/19 04:02 Oseltamivir Phosphate (Tamiflu) 75 mg PO BID [facility] Stop: 08/22/19 05:14 Last Admin: 08/21/19 08:27 Dose: 75 mg Documented by: Polyethylene Glycol (Miralax Powder Packet) 17 gm PO DAILY PRN PRN Reason: Constipation Stop: 09/16/19 04:02 Propranolol HCl (Inderal) 20 mg PO BID@1400,2100 [facility] Stop: 09/16/19 13:59 Last Admin: 08/20/19 20:35 Dose: 20 mg Documented by: Propranolol HCl (Inderal) 10 mg PO QAM [facility] Stop: 09/16/19 08:59 Last Admin: 08/21/19 08:28 Dose: 10 mg Documented by: Sertraline HCl (Zoloft) 200 mg PO DAILY [facility] Stop: 09/16/19 08:59 Last Admin: 08/21/19 08:28 Dose: 200 mg Documented by: Tamsulosin HCl (Flomax) 0.4 mg PO QPM PRN PRN Reason: prostate Stop: 09/16/19 04:02 Vitamin D (Vitamin D3) 1,000 units PO DAILY [facility] Stop: 09/16/19 08:59 Last Admin: 08/21/19 08:29 Dose: 1,000 units Documented by: (1) Fever Fever type: unspecified Qualified Code(s): R50.9 - Fever, unspecified (2) Hypotension Hypotension type: unspecified hypotension type Qualified Code(s): I95.9 - Hypotension, unspecified
--- NOTE | 2019-08-22 13:52 | Discharge Summary ---
Date of Service August 22, 2019 Admission HPI Per Admitting Provider DICTATED BY: Cedric Fowler MD DATE OF ADMISSION: 08/17/2019 CHIEF COMPLAINT: Fever, nausea, vomiting, shortness of breath. HISTORY OF PRESENT ILLNESS: This is a 69-year-old male with past medical history significant for COPD, history of TB status post lobectomy, abdominal aortic aneurysm, atherosclerotic cardiovascular disease, GERD, chronic kidney disease stage III, BPH, cervical spondylosis, history of left inguinal hernia, history of alcohol dependence in remission, history of thrombocytopenia, history of depression, sleep disturbance, who is currently living with his daughter, who presents with fever, nausea, vomiting since 1-day duration and he is also having chest pain when he is lying down and some cough with whitish phlegm. In the ER, he was spiking temperature. His blood pressure is usually on the somewhat lower side. He has some headache, mild dizziness when he stands up. No blurred visions. He has some runny nose since yesterday. Complains of some left earache since last 1 week. He has some sore throat. He feels something stuck in the throat and he is having some mild pain while swallowing. He says he had several episodes of vomiting today and there was no blood in the vomitus, just was his food particles. Has some mild abdominal discomfort in the epigastric region. He says he is constipated. Denies any blood in the stools or black stools. He says he micturated twice in his pants yesterday and there is no burning micturition, no hematuria. No swelling in the legs, no rash. He ambulates without any help. Appetite is not that great. Currently resting comfortably. Admission Exam Per Admitting Provider GENERAL: The patient is of moderate build, not in acute distress. VITAL SIGNS: Temperature T-max 38.1, pulse 92, respiratory rate 22, blood pressure 97/53, oxygen 94% on room air. HEENT: No pallor, no icterus. Pupils equal, round, and reactive to light. NECK: No JVD, no neck masses, no carotid bruit. CARDIOVASCULAR: S1, S2 heard. Tachycardia. No murmurs. RESPIRATORY SYSTEM: Normal AP diameter. No accessory muscle use. Mild bibasilar crackles. No wheezing. ABDOMEN: Soft, bowel sounds present. Mild epigastric tenderness. No guarding, no rigidity, no rebound tenderness. CENTRAL NERVOUS SYSTEM: Cranial nerves II-XII grossly intact, nonfocal. EXTREMITIES: No edema, no erythema. Principal Diagnosis Influenza A, thrombocytopenia likely secondary to influenza Discharge Exam Constitutional well developed and well nourished; no altered mental status Eyes PERRL, conjunctivae normal, anicteric sclerae ENMT external ear and nose normal, oropharynx normal Neck trachea midline, no thyromegaly Respiratory normal respiratory effort; no respiratory distress Auscultation: lungs clear to auscultation bilaterally; no crackles (Minimal crackles at the bases) and no rhonchi Cardiovascular Rate/Rhythm: regular rate and regular rhythm Heart Sounds: no murmur Gastrointestinal (Abdomen) Inspection/Auscultation: abdomen normal to inspection Percussion/Palpation: abdomen soft Neurologic moves all extremities; no focal motor deficits Psychiatric A+Ox3, euthymic affect Lymphatic no cervical or axillary lymphadenopathy Discharge Data Allergies Allergy/AdvReac Type Severity Reaction Status Date / Time Quinolones Allergy Severe Hives Verified 08/17/19 01:05 oxycodone AdvReac Severe Nausea/Vomi Verified 08/17/19 01:05 ting codeine AdvReac Unknown Nausea/Vomi Verified 08/17/19 01:05 ting Penicillins AdvReac Unknown Nausea/Vomi Verified 08/17/19 01:05 ting Consultations 08/17/19 02:30 ED Decision to Admit Stat Ordered Studies 08/17/19 03:03 CT abd pelvis wo con Urgent CT chest wo con Urgent Hospital Course (1) Influenza A: Admitted with shortness of breath, cough, fever Noted to have influenza A CT scan of the chest and CT scan of the abdomen and pelvis did not show any acute disease/infection He was started with intravenous Vanco and Cefepime-which were stopped yesterday Has been getting Tamiflu and supportive care Clinically much better today Repeat chest x-ray remains clear We will transfer to medical floor PT and OT evaluation Has been ambulating without any difficulty Will discharge home this afternoon (2) Shortness of breath: Secondary to flu No more shortness of breath at rest We will get to do steps O2 saturation before discharge Do not think he will need any oxygen on discharge (3) Fever: As above No more fever and/or chills Still has occasional sweating Resolved (4) Hypotension: Noted to have hypotension at presentation Systolic blood pressure remains below 100 Has been getting adequate amount of intravenous fluid and will be continued for today We are holding his blood pressure medications Blood pressure seems to be improving Blood pressure is maintaining (5) Acute kidney injury: Likely secondary to dehydration Has been getting intravenous fluids Renal function seems to be normalized Thrombocytopenia, leukopenia Likely secondary to flu We will monitor platelet Platelet counts seems to be stable with slight improvement Will need to have repeat CBC as an outpatient within 7 days Tobacco use disorder Advised to quit smoking and he will do that DVT prophylaxis SCDs for now We will transfer to medical floor PT and OT evaluation-discharge tomorrow Total Time Total Time Spent Total Time Spent (In Minutes): 35 minutes Total Time Includes: Examination of the Patient, Discharge Planning, Medication Reconciliation and Communication With Other Providers Discharge Plan Discharge Items Patient Disposition: Home - Self-Care Reason For Visit: FEVER,N/V Discharge Diagnosis: Influenza A, thrombocytopenia likely secondary to influenza Condition on Discharge: Good Activity: Resume your previous activity Non-emergency contact: Primary Care Provider Call non-emergency contact if: you have any medication questions and your symptoms worsen Follow-up/Referrals: Keri Rodríguez DO [Primary Care Provider] - 08/24/19 2:40 pm (Your appointment is with Dr. Richardson. Dr. Rodríguez is not available) Diet: Heart Healthy Addtl Attending Provider Instructions: Strongly advised to quit smoking Your ranitidine has been stopped due to thrombocytopenia You should have a repeat CBC during your visit to primary care physician to make sure your platelets counts are improving Pending Studies at Discharge: No Stand-Alone Forms: My [facility] Medications and DC Order Prescriptions: New famotidine 20 mg Tablet 20 mg PO QAM 30 Days Qty: 30 RF: 0 Continued cholecalciferol (vitamin D3) [Vitamin D3] 1,000 unit Capsule 1,000 unit PO DAILY RF: 0 aspirin [Aspirin Low Dose] 81 mg Tablet,Delayed Release (Dr/Ec) 81 mg PO DAILY RF: 0 bupropion HCl 75 mg Tablet 75 mg PO DAILY RF: 0 Combivent Respimat 20-100 mcg/actuation Mist 1 puff INHALATION QID RF: 0 atorvastatin 20 mg Tablet 20 mg PO HS RF: 0 sertraline 100 mg Tablet 200 mg PO DAILY RF: 0 propranolol 10 mg Tablet 10 mg PO QAM RF: 0 diphenhydramine HCl 25 mg Tablet 25 - 50 mg PO QID PRN (Reason: Allergy Symptoms) RF: 0 nitroglycerin [Nitrostat] 0.4 mg Tablet, Sublingual 0.4 mg Sublingual UD PRN (Reason: Chest Pain) RF: 0 propranolol 20 mg Tablet 20 mg PO BID RF: 0 Flovent HFA 110 mcg/actuation Hfa Aerosol Inhaler 2 puff INHALATION BID RF: 0 bupropion HCl 150 mg Tablet Extended Release 24 Hr 150 mg PO QAM RF: 0 tamsulosin [Flomax] 0.4 mg Capsule 0.4 mg PO QPM PRN (Reason: prostate) RF: 0 Discontinued ranitidine HCl [Zantac] 150 mg tablet 150 mg PO BID RF: 0 Discharge Orders: Discharge Order (Routine); Ordered 08/21/19 Ordered By: Theo Martin Admission Data Admit Date/Time: 08/17/19 03:02 Attending Provider: Theo Martin Admit Provider: Cedric Fowler Primary Care Provider: Keri Rodríguez Other Providers: Cedric Fowler Other Interventions: Discharge Summary Assessment (RN) Last Done: 08/21/19 11:47 DC Date/Time DO NOT enter until pt leaves facility: 08/21/19 14:08
== END 2019-08-21 14:08 | disposition home or self-care (01) | DRG 194 ==
LOC: ED 00:02 → 2E 03:02 → 3W 08-19 14:26

== ENCOUNTER 2020-04-04 14:48 | Inpatient (IN) ==
--- NOTE | 2020-04-04 15:04 | Emergency Department Note ---
Impression & Plan Chest pain, Abdominal aortic aneurysm, Abdominal pain ED Provider Note NAME: OH MULLINS AGE: 69 SEX: M : 1950 ARRIVES VIA: Walk-In INFORMANT: Patient ED PROVIDER(S): Loc Aly DO CHIEF COMPLAINT: Abdominal pain HPI: Patient is a 69-year-old male who presents the ER for abdominal pain. He notes it started about 2 hours ago. He describes it as a tearing pain in his mid abdomen radiating out to both sides. Pain is currently 7 out of 10. He denies any nausea or vomiting or diarrhea. No dysuria urgency or frequency. No other exacerbating or remitting factors. He has never had this before. He has also had chest pain off and on for the past 3 days. Chest pain described as a pressure goes down his left arm. It is worse with exertion but improves with rest. He notes it feels like his angina but worse. He has no chest pain curren tly. Patient called his primary care doctor and who referred him in for the symptoms. ROS: See above HPI for pertinent positives & negatives. A total of 10 systems reviewed and were otherwise negative. PAST MEDICAL HISTORY:See Below PAST SURGICAL HISTORY:See Below FAMILY HISTORY:See Below SOCIAL HISTORY:See Below HOME MEDICATIONS:See Below ALLERGIES:See Below VITALS:See Below PHYSICAL EXAMINATION: GENERAL: Sitting up in bed, alert, well appearing, well nourished, no distress, non-toxic EYE EXAM: normal conjunctiva. PERRL and EOM's grossly intact. OROPHARYNX: no exudate, no erythema, lips, buccal mucosa, and tongue normal and mucous membranes are moist NECK: supple, no nuchal rigidity, no adenopathy, non-tender LUNGS: Clear to auscultation. Normal chest wall mechanics HEART: no murmurs, S1 normal and S2 normal ABDOMEN: abdomen soft, non-tender, normo-active bowel sounds, no masses, no r ebound or guarding. BACK: Back is symmetrical on inspection and there is no deformity, no midline t enderness, no CVA tenderness. SKIN: no rashes and no bruising UPPER EXTREMITIES: upper extremities are grossly normal. LOWER EXTREMITIES: No pitting edema. Calves are equal bilateral NEURO EXAM: Normal sensorium, cranial nerves II-XII grossly intact, normal speech, no gross weakness of arms, no gross weakness of legs. MEDICAL DECISION MAKING: Patient is a 69-year-old male who presents the ER for exertional chest pain and left arm pain as well as abdominal pain. IV was established blood work was obtained shows a mild leukopenia at 3.9 thousand. BMP with LFTs bilirubin lipase and troponin were negative. Chest x-ray was unremarkable. 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 Do not feel this consistent with his symptoms at this time. EKG was unchanged. Patient was updated at bedside. He was given a dose of aspirin. He was discuss ed with hospitalist admitted for further work-up. Triage Nursing notes reviewed. Prior medical records reviewed Vital Signs: reviewed and remarkable for no significant abnormalities Differential diagnosis: Differential diagnoses includes but is not limited to acute coronary syndrome, myocardial infarction, pericarditis, pulmonary embolus, aortic dissection, pneumonia, pneumothorax, musculoskeletal, shingles, esophageal. ER treatment provided: See below Diagnostics interpreted by me: ECG: Sinus rhythm rate of 62 Normal axis No PVCs DWI V1 V2 Normal QTC Cardiac Monitoring: An order was placed for continuous cardiac monitoring. The monitor shows a rate of 57 with sinus rhythm. Laboratory studies: As stated above and show below. Imaging studies: CT Angio of the abdomen pelvis shows no aneurysm with old dissection and external iliac which appears unchanged Consultation(s): Dr. Sergio Cervantes ED COURSE: Procedures: none Critical Care: None Past Med/Surg History Medical History Aortic aneurysm (Chronic) Cellulitis of face (10/27/12) Chest pain (Acute) Diverticulitis (Resolved) Enlargement of spleen Pneumonia Status post left inguinal hernia repair (Acute) Social History (Updated 08/17/19 @ 00:39 by Osvaldo Hermosillo) Preferred Language: Czech Communication Ability: Effective Thread Checker Required: No Beliefs That Will Affect Care: None Current Living Situation: Family Feels Safe at Home: Yes Smoking Status: Never smoker Tobacco Type: cigars ; Second Hand Exposure: No ; Hx Alcohol Use: No Hx Substance Use: No Allergies Allergies Allergy/AdvReac Type Severity Reaction Status Date / Time Quinolones Allergy Severe Hives Verified 04/04/20 15:24 oxycodone AdvReac Severe Nausea/Vomi Verified 04/04/20 15:24 ting codeine AdvReac Unknown Nausea/Vomi Verified 04/04/20 15:24 ting Penicillins AdvReac Unknown Nausea/Vomi Verified 04/04/20 15:24 ting Home Meds Home Medications Medication Instructions Recorded Confirmed Flovent HFA 2 puff INHALATION BID 10/23/18 04/04/20 atorvastatin 20 mg PO HS 10/23/18 04/04/20 bupropion HCl 150 mg PO QAM 10/23/18 04/04/20 diphenhydramine HCl 25 - 50 mg PO QID PRN 10/23/18 04/04/20 nitroglycerin [Nitrostat] 0.4 mg SUBLINGUAL DIRECTED PRN 10/23/18 04/04/20 propranolol 10 mg PO TID 10/23/18 04/04/20 sertraline 150 mg PO DAILY 10/23/18 04/04/20 tamsulosin [Flomax] 0.4 mg PO QPM 10/23/18 04/04/20 cholecalciferol (vitamin D3) 1,000 unit PO DAILY 03/20/19 04/04/20 [Vitamin D3] Combivent Respimat 1 puff INHALATION QID PRN 08/17/19 04/04/20 aspirin [Aspirin Low Dose] 81 mg PO DIRECTED 08/17/19 04/04/20 bupropion HCl 75 mg PO QAM 08/17/19 04/04/20 paroxetine HCl 10 mg PO DAILY 04/04/20 04/04/20 Results & Data (ED) Vital Signs Vital Signs - 24 hr 04/04/20 14:50 04/04/20 15:00 04/04/20 15:16 Temperature 36.7 C Temperature Source Oral Pulse Rate 74 70 62 Pulse Rate from SpO2 Sensor 69 Respiratory Rate 16 16 20 Blood Pressure 127/76 126/72 Blood Pressure Mean 93 81 Pulse Oximetry 96 95 97 Oxygen Delivery Method Room Air Room Air Sepsis Recent Fever Within 48 Hours No Sepsis New/Unexplained Change in Mental Status No Sepsis Action Taken by Nursing No Action Required 04/04/20 15:29 04/04/20 15:30 04/04/20 15:31 Temperature Temperature Source Pulse Rate 65 60 66 Pulse Rate from SpO2 Sensor 64 65 65 Respiratory Rate 21 13 20 Blood Pressure 114/64 Blood Pressure Mean 82 Pulse Oximetry 96 98 97 Oxygen Delivery Method Sepsis Recent Fever Within 48 Hours Sepsis New/Unexplained Change in Mental Status Sepsis Action Taken by Nursing 04/04/20 15:32 04/04/20 16:00 04/04/20 16:02 Temperature Temperature Source Pulse Rate 71 71 59 L Pulse Rate from SpO2 Sensor 63 60 59 L Respiratory Rate 16 15 19 Blood Pressure 116/71 Blood Pressure Mean 92 Pulse Oximetry 96 94 95 Oxygen Delivery Method Sepsis Recent Fever Within 48 Hours Sepsis New/Unexplained Change in Mental Status Sepsis Action Taken by Nursing 04/04/20 16:03 04/04/20 16:37 04/04/20 17:00 Temperature Temperature Source Pulse Rate 57 L 65 63 Pulse Rate from SpO2 Sensor 57 L 64 Respiratory Rate 18 16 20 Blood Pressure 132/68 Blood Pressure Mean 98 Pulse Oximetry 95 97 Oxygen Delivery Method Sepsis Recent Fever Within 48 Hours Sepsis New/Unexplained Change in Mental Status Sepsis Action Taken by Nursing Laboratory Data Result diagrams: 04/04/20 15:12 04/04/20 15:12 Lab Results 04/04/20 04/04/20 Range/Units 15:12 15:12 WBC 3.93 L (4.8-10.8) K/uL RBC 4.62 L (4.7-6.1) M/uL Hgb 13.8 L (14.0-18.0) g/dL Hct 40.1 L (42-52) % MCV 86.8 (80-100) fL MCH 29.9 (25-34) pg MCHC 34.4 (32-36) g/dL RDW Std Deviation 44.4 (36.4-46.3) fL RDW Coeff of Flora 14.1 (11.5-14.5) % Plt Count 45 L (130-400) K/uL Immature Gran % (Auto) 0.0 % Neut % (Auto) 76.1 % Lymph % (Auto) 13.7 % Bent % (Auto) 7.9 % Eos % (Auto) 1.5 % Baso % (Auto) 0.8 % Immature Gran # (Auto) 0.00 (0.00-0.02) K/uL Neut # (Auto) 2.99 (1.4-6.5) K/uL Lymph # (Auto) 0.54 L (1.2-3.4) K/uL Bent # (Auto) 0.31 (0.11-0.59) K/uL Eos # (Auto) 0.06 (0-0.5) K/uL Baso # (Auto) 0.03 (0-0.2) K/uL Platelet Estimate Decreased L (Normal) Sodium 138 (136-145) mmol/L Potassium 4.0 (3.5-5.1) mmol/L Chloride 107 (98-107) mmol/L Carbon Dioxide 25 (21-32) mmol/L Anion Gap 6.0 (3-11) BUN 13 (7-18) mg/dl Creatinine 1.16 (0.6-1.4) mg/dl Est Cr Clr Drug Dosing 58.6 ml/min Est GFR ( Amer) 73.5 Est GFR (Non-Af Amer) 63.5 BUN/Creatinine Ratio 10.8 (10-20) Glucose 93 (70-99) mg/dl Calcium 8.6 (8.5-10.1) mg/dl Total Bilirubin 1.3 H (0.2-1) mg/dl AST 25 (15-37) U/L ALT 38 (12-78) U/L Alkaline Phosphatase 79 (45-117) U/L Troponin I < 0.015 (0-0.045) ng/ml Total Protein 7.3 (6.4-8.2) gm/dl Albumin 3.4 (3.4-5.0) gm/dl Globulin 3.9 (2.5-4.0) gm/dl Albumin/Globulin Ratio 0.9 (0.9-2) Lipase 95 (73-393) U/L Administered Medications Ioversol (Optiray 320 125ml) 118 ml IV ONCE PRN PRN Reason: Interaction Checking Stop: 04/08/20 16:29 Last Admin: 04/04/20 16:30 Dose: 118 ml Documented by: [id number] Discharge Plan Visit Data Chief Complaint: Abdominal Pain Stated Complaint: ABD PAIN,CHEST PAIN ED Provider: Loc Aly Discharge Problem: Chest pain, Abdominal aortic aneurysm, Abdominal pain Forms Stand Alone Forms: My Immune Targeting Systems Prescriptions Prescriptions: No Action cholecalciferol (vitamin D3) [Vitamin D3] 1,000 unit Capsule 1,000 unit PO DAILY RF: 0 aspirin [Aspirin Low Dose] 81 mg Tablet,Delayed Release (Dr/Ec) 81 mg PO DIRECTED RF: 0 bupropion HCl 75 mg Tablet 75 mg PO QAM RF: 0 Combivent Respimat 20-100 mcg/actuation Mist 1 puff INHALATION QID PRN (Reason: Shortness Of Breath) RF: 0 atorvastatin 20 mg Tablet 20 mg PO HS RF: 0 sertraline 100 mg Tablet 150 mg PO DAILY RF: 0 propranolol 10 mg Tablet 10 mg PO TID RF: 0 diphenhydramine HCl 25 mg Tablet 25 - 50 mg PO QID PRN (Reason: Allergy Symptoms) RF: 0 nitroglycerin [Nitrostat] 0.4 mg Tablet, Sublingual 0.4 mg Sublingual DIRECTED PRN (Reason: Chest Pain) RF: 0 Flovent HFA 110 mcg/actuation Hfa Aerosol Inhaler 2 puff INHALATION BID RF: 0 bupropion HCl 150 mg Tablet Extended Release 24 Hr 150 mg PO QAM RF: 0 tamsulosin [Flomax] 0.4 mg Capsule 0.4 mg PO QPM RF: 0 paroxetine HCl 10 mg tablet 10 mg PO DAILY RF: 0 Discharge Problem: Chest pain Qualifiers: Chest pain type: unspecified Qualified Code(s): R07.9 - Chest pain, unspecified Abdominal aortic aneurysm Qualifiers: Presence of rupture: without rupture Qualified Code(s): I71.4 - Abdominal aortic aneurysm, without rupture Abdominal pain Qualifiers: Abdominal location: unspecified location Qualified Code(s): R10.9 - Unspecified abdominal pain
--- NOTE | 2020-04-04 15:35 | XRay Report ---
XR chest 1V portable HISTORY: Atypical chest pain. COMPARISON: Chest 08/19/2019. Chest CT 08/17/2019. FINDINGS: No change in the right infrahilar irregular density suggestive of postoperative change. Juju gical clips within the right hilum consistent with a prior right upper lobectomy. No pneumothorax. No pleural effusions. The heart is stable in size. No new focal lung consolidations to suggest pneumoni a. No evidence for pulmonary edema. IMPRESSION: No significant change compared to the prior study. No acute process. ACT 112: Negative or not required by law. Electronically signed by: Chris Marsh M.D. 04/04/2020 3:33 PM
[2020-04-04 15:46] LABS: Hematocrit (blood only) 40.1 % (42-52); Hemoglobin 13.8 g/dL (14.0-18.0); Mean Corpuscular Hemoglobin 29.9 pg (25-34); Mean Corpuscular Hgb Conc 34.4 g/dL (32-36); Mean Corpuscular Volume 86.8 fL (80-100); RDW Coefficient of Variation 14.1 % (11.5-14.5); RDW Standard Deviation 44.4 fL (36.4-46.3); Red Blood Count 4.62 M/uL (4.7-6.1); White Blood Count 3.93 K/uL (4.8-10.8)
[2020-04-04 15:50] LABS: Alanine Aminotransferase 38 U/L (12-78); Albumin Level 3.4 gm/dl (3.4-5.0); Aspartate Aminotransferase 25 U/L (15-37); BUN Creatinine Ratio 10.8 (10-20); Blood Urea Nitrogen 13 mg/dl (7-18); Calcium 8.6 mg/dl (8.5-10.1); Carbon Dioxide 25 mmol/L (21-32); Chloride 107 mmol/L (98-107); Creatinine Clr Calc Pharmacy 58.6 ml/min; Est GFR (African American) 73.5; Est GFR (Non-African American) 63.5; Glucose 93 mg/dl (70-99); Lipase 95 U/L (73-393); Sodium 138 mmol/L (136-145)
[2020-04-04 15:55] LABS: Albumin Globulin Ratio 0.9 (0.9-2); Alkaline Phosphatase 79 U/L (45-117); Bilirubin,Total 1.3 mg/dl (0.2-1); Globulin 3.9 gm/dl (2.5-4.0); Total Protein 7.3 gm/dl (6.4-8.2); Troponin I < 0.015 ng/ml (0-0.045)
[2020-04-04 15:59] LABS: Basophils # (auto) 0.03 K/uL (0-0.2); Basophils % (auto) 0.8 %; Eosinophils # (auto) 0.06 K/uL (0-0.5); Eosinophils % (auto) 1.5 %; Lymphocytes # (auto) 0.54 K/uL (1.2-3.4); Lymphocytes % (auto) 13.7 %; Monocytes # (auto) 0.31 K/uL (0.11-0.59); Monocytes % (auto) 7.9 %; Neutrophils # (auto) 2.99 K/uL (1.4-6.5); Neutrophils % (auto) 76.1 %; Platelet Count 45 K/uL (130-400); Platelet Estimate Decreased (Normal)
[2020-04-04] MEDS ORDERED: OPTIRAY 320 125ml IV PRN (16:30)
--- NOTE | 2020-04-04 16:52 | CT Scan Report ---
CT ANGIOGRAM OF THE ABDOMEN AND PELVIS CLINICAL HISTORY: Generalized abdominal pain. Abdominal aortic aneurysm. COMPARISON STUDY: Abdominal CT dated 08/17/2019 and 10/23/2018. TECHNIQUE: Following the IV administration of 118 cc of Optiray 320, CT angiogram of the abdomen and pelvis was performed from the lung bases the proximal femora. Images are reviewed in the axial, sagit nela, and coronal planes. 3-D MIPS images are created and assessed. IV contrast was administered witho ut complication. A dose lowering technique was utilized adhering to the principles of ALARA. CT DOSE: 610.69 mGy.cm FINDINGS: Lower chest: The heart is normal in size and without pericardial effusion. There are coronary artery calcifications. A small hiatal hernia is noted. Postoperative change is seen at the gastroesophageal junction. Emphysematous change is noted at the lung bases. There is bibasilar scarring/atelectasis. N o airspace consolidation or pleural effusion is identified. Liver: The contrast-enhanced liver is normal in size, contour, and attenuation. There is no intrahepa tic or ductal dilatation. The main portal veins appear patent. Gallbladder: Surgically absent noting clips in the gallbladder fossa. Spleen: The spleen is enlarged, measuring 18.1 cm in length. The spleen demonstrates heterogeneous ar terial phase enhancement. Pancreas: The pancreas is moderately atrophic and grossly unremarkable. Adrenal glands: Unremarkable. Kidneys: The contrast enhanced kidneys are atrophic and without hydronephrosis. The kidneys enhance s ymmetrically. Small renal cysts measure up to 1.3 cm. A retroaortic left renal vein is incidentally n oted. Abdominal aorta and iliac arteries: There is advanced atherosclerotic calcification of the abdominal aorta. A small infrarenal abdominal aortic aneurysm measures 3.2 x 3.2 cm (AP times transverse). Mura l thrombus is noted within the aneurysm sac. There is no significant aortic stenosis. Pelvic arteries are patent bilaterally. 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 Major branches of the abdominal aorta: The celiac trunk, superior mesenteric, and inferior mesenteric arteries are widely patent. Hepatic arterial anatomy is conventional. The splenic artery is patent. Single bilateral renal arteries are widely patent. Bowel: No bowel obstruction is identified. There is advanced colonic diverticulosis without CT eviden ce of acute diverticulitis. There is a large duodenal diverticulum. The appendix is well-visualized and normal. Peritoneum: There is no intraperitoneal free air or abdominal ascites. There is a small fat-containin g umbilical hernia. Lymphadenopathy: None. Pelvic viscera: The prostate gland is enlarged and heterogeneous noting median lobe hypertrophy. The bladder wall is mildly thickened and trabeculated indicating chronic outlet obstruction. There is a s mall fat-containing right inguinal hernia. Skeletal structures: The skeletal structures are osteopenic. There is mild to moderate lumbosacral sp ondylosis. No destructive bony lesions are seen. IMPRESSION: 1. There are no acute infectious or inflammatory findings in the abdomen or pelvis. 2. There is a 3.2 x 3.2 cm infrarenal abdominal aortic aneurysm. 3. 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 4. 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 This is likely unchanged from 2018 and of doubtful acute significance. 5. Advanced colonic diverticulosis without CT evidence of acute diverticulitis. 6. Unremarkable CT angiogram of the major branches of the abdominal aorta. 7. Splenomegaly. 8. Emphysema. 9. Additional findings as above. ACT 112: Negative or not required by law. Electronically signed by: Hernandez Cardona M.D. 04/04/2020 4:51 PM
--- NOTE | 2020-04-04 18:11 | History & Physical Report ---
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 Denies N/V. 2 days ago with diarrhea. Also reports 2 days ago with CP with radiation to left arm while sitting. In ER afebrile, P: 74, R: 16, BP: 127/76, 96% on RA. WBC: 3.9, initial troponin negative. EKG sinus rhythm with T wave inversion septal leads which was seen on EKG from 03/2019 No recurrent CP CHEST PAIN R/O ACS. Risk factors: hyperlipidemia, tobacco use, FH CAD -Monitor Vitals -Repeat EKG in am -Will trend troponin -Echo -lipid panel in am, continue statin -aspirin on hold secondary to thrombocytopenia -continue propranolol -Nitro prn CP and repeat EKG for CP -Cardiology consult (2) Abdominal pain: No fever/chills, N/V. 2 days ago with diarrhea, normal stool today. WBC: 3.9. CT ABD/PELVIS: 1. There are no acute infectious or inflammatory findings in the abdomen or pelvis. 2. There is a 3.2 x 3.2 cm infrarenal abdominal aortic aneurysm. 3. 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 4. 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 This is likely unchanged from 2018 and of doubtful acute significance. 5. Advanced colonic diverticulosis without CT evidence of acute diverticulitis. 6. Unremarkable CT angiogram of the major branches of the abdominal aorta. 7. Splenomegaly. -Intermittent abdominal pain. CTA abd/pelvis with patent mesenteric arteries so mesenteric ischemia not likely. No evidence in change of AAA -Monitor -UA pending -IVF -Clear liquids for now -CBC, CMP in am (3) Abdominal aortic aneurysm: H/O 3.2cm abdominal aortic aneurysm with mural thrombus. Follows with Dr Suarez vascular surgery at [facility] -Continue surveillance -continue statin (4) Thrombocytopenia: Chronic thrombocytopenia. Likely ITP. Follows with Dr Delaney heme/onc Plt: 45, was 47 on 01/09/20 and 55 on 12/27/19 -Monitor CBC (5) COPD (chronic obstructive pulmonary disease): (6) History of TB (tuberculosis): S/P lobectomy No increased SOB -Continue home inhalers (7) CKD (chronic kidney disease), stage III: Cr: 1.16. Baseline ~1.3 -Avoid nephrotoxic agents when possible -Monitor renal functions (8) Dyslipidemia: -continue statin (9) GERD (gastroesophageal reflux disease): -Continue H2 malorie (10) Depression: Follows with psych at [facility] -Continue bupropion, propranolol, Zoloft, Paxil (11) BPH (benign prostatic hyperplasia): -Continue flomax DVT Prophylaxis -SCDs Full Code as per discussion with pt Follows with Dr Rodríguez for routine care Pt was seen and care coordinated with Dr Hankins. 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 Pt states around noon today started with mid abdominal pain described as tearing sensation. Reports pain was intermittent but with his h/o AAA he was concerned. Denies nausea, vomiting. Reports 2 days ago had 2-3 episodes of diarrhea. Today with normal soft formed BM. Denies urinary symptoms. Pt states chronic intermittent left sided back pain. Chronic SOB with climbing stairs since his lobectomy many years ago. Denies any increased SOB. Pt states 2 days ago had episode of CP that radiated to left arm without any associated SOB, diaphoresis, N/V, palpitations. It occurred at rest and pt denies any recurrence of CP. Pt has not been taking aspirin secondary to thrombocytopenia. Denies fever/chills, diaphoresis, hematochezia, melena, CARLSON, dizziness, syncope, vision changes, neck pain, orthopnea, palpitations, cough, sore throat, choking, otalgia, rhinorrhea, abdominal pain, paresthesias, weakness, extremity weakness, extremity edema, rashes, urinary symptoms. Hx normal lexiscan in 2018 reported cardiac cath in 2006 in [place] with mild coronary disease. Allergies Allergy/AdvReac Type Severity Reaction Status Date / Time Quinolones Allergy Severe Hives Verified 04/04/20 15:24 oxycodone AdvReac Severe Nausea/Vomi Verified 04/04/20 15:24 ting codeine AdvReac Unknown Nausea/Vomi Verified 04/04/20 15:24 ting Penicillins AdvReac Unknown Nausea/Vomi Verified 04/04/20 15:24 ting Home Medications Home Medications Medication Instructions Recorded Confirmed Type Flovent HFA 2 puff INHALATION BID 10/23/18 04/04/20 History atorvastatin 20 mg PO HS 10/23/18 04/04/20 History bupropion HCl 150 mg PO QAM 10/23/18 04/04/20 History diphenhydramine HCl 25 - 50 mg PO QID PRN 10/23/18 04/04/20 History nitroglycerin [Nitrostat] 0.4 mg SUBLINGUAL DIRECTED PRN 10/23/18 04/04/20 History propranolol 10 mg PO TID 10/23/18 04/04/20 History sertraline 150 mg PO DAILY 10/23/18 04/04/20 History tamsulosin [Flomax] 0.4 mg PO QPM 10/23/18 04/04/20 History cholecalciferol (vitamin D3) 1,000 unit PO DAILY 03/20/19 04/04/20 History [Vitamin D3] Combivent Respimat 1 puff INHALATION QID PRN 08/17/19 04/04/20 History bupropion HCl 75 mg PO PM 08/17/19 04/04/20 History famotidine 20 mg PO DAILY 04/04/20 04/04/20 History paroxetine HCl 10 mg PO HS 04/04/20 04/04/20 History Past Med/Surg History Medical History Aortic aneurysm (Chronic) BPH (benign prostatic hyperplasia) Cellulitis of face (10/27/12) Chest pain (Acute) CKD (chronic kidney disease), stage III Depression Diverticulitis (Resolved) Dyslipidemia Enlargement of spleen GERD (gastroesophageal reflux disease) History of TB (tuberculosis) Pneumonia Status post left inguinal hernia repair (Acute) Surgical History (Updated 04/04/20 @ 18:18 by Елена Cardoso PA-C) History of cardiac cath History of cholecystectomy History of lobectomy of lung Family History (Updated 04/04/20 @ 18:19 by Елена Cardoso PA-C) Other Cancer Coronary heart disease Hypertension Social History (Updated 08/17/19 @ 00:39 by Osvaldo Hermosillo) Preferred Language: Togolese Communication Ability: Effective Train Station Agent Required: No Beliefs That Will Affect Care: None Current Living Situation: Family Other Information That Helps Us Care for You: No Feels Safe at Home: Yes Safety Concerns: Feels Safe At This Time Smoking Status: Current some day smoker Tobacco Type: cigars ; Second Hand Exposure: No ; Hx Alcohol Use: No Hx Substance Use: No Review of Systems Review of Systems: All systems reviewed & are unremarkable except as noted in HPI & below Physical Exam Physical Exam: General: no distress, WDWN Head: normocephalic, atraumatic Eyes: PERRL, EOM's intact, conjunctiva non-injected, anicteric ENT: normal inspection external ears, nose, mucous membranes moist Neck: supple, trachea midline, non-tender Lungs: clear, no respiratory distress, no wheezing/rhonchi/rales CV: RRR, no murmur, no pretibial edema Abd: normal BS, soft, mild tenderness to palpation periumbilical region only without rebound or guarding, no CVA tenderness to percussion Ext: no cyanosis, no calf tenderness Neuro: A&O x 3, no focal deficits noted, normal affect Skin: warm, dry Results & Data Results & Data ([facility]) Vital Signs (Past 12 Hours) Vital Signs Temp Pulse Resp BP Pulse Ox 04/04/20 18:01 63 24 129/70 96 04/04/20 18:00 58 L 21 96 04/04/20 17:32 58 L 20 96 04/04/20 17:31 60 20 136/72 95 04/04/20 17:30 59 L 20 95 04/04/20 17:00 63 20 132/68 97 04/04/20 16:37 65 16 04/04/20 16:03 57 L 18 95 04/04/20 16:02 59 L 19 116/71 95 04/04/20 16:00 71 15 94 04/04/20 15:32 71 16 96 04/04/20 15:31 66 20 114/64 97 04/04/20 15:30 60 13 98 04/04/20 15:29 65 21 96 04/04/20 15:16 62 20 97 04/04/20 15:00 70 16 126/72 95 04/04/20 14:50 36.7 C 74 16 127/76 96 Laboratory Results Short CBC 04/04/20 Range/Units 15:12 WBC 3.93 L (4.8-10.8) K/uL Hgb 13.8 L (14.0-18.0) g/dL Hct 40.1 L (42-52) % Plt Count 45 L (130-400) K/uL BMP 04/04/20 15:12 Sodium 138 Potassium 4.0 Chloride 107 Carbon Dioxide 25 BUN 13 Creatinine 1.16 Glucose 93 Calcium 8.6 Cardiac Enzymes 04/04/20 Range/Units 15:12 Troponin I < 0.015 (0-0.045) ng/ml Liver Function 04/04/20 Range/Units 15:12 Total Bilirubin 1.3 H (0.2-1) mg/dl AST 25 (15-37) U/L ALT 38 (12-78) U/L Alkaline Phosphatase 79 (45-117) U/L Albumin 3.4 (3.4-5.0) gm/dl Diagnostic Findings CXR: IMPRESSION: No significant change compared to the prior study. No acute process. CT ABD/PELVIS: IMPRESSION: 1. There are no acute infectious or inflammatory findings in the abdomen or pelvis. 2. There is a 3.2 x 3.2 cm infrarenal abdominal aortic aneurysm. 3. 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 4. 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 This is likely unchanged from 2018 and of doubtful acute significance. 5. Advanced colonic diverticulosis without CT evidence of acute diverticulitis. 6. Unremarkable CT angiogram of the major branches of the abdominal aorta. 7. Splenomegaly. 8. Emphysema. 9. Additional findings as above. ECG Rate (beats per minute): 62 Rhythm: sinus rhythm Findings: + T-wave inversion (Septal) Additional Comments: T wave inversion noted on EKG 03/20/2019 Code Status & VTE Plan VTE Prophylaxis Plan VTE Prophylaxis will be ordered: Yes Supervising Physician Co-Signing Physician Notes Attending Addendum: care coordinated with MARY Harris please refer to her notes for full details, I agree with her notes patient seen and examined, records reviewed by myself as well on exam, patient seen resting in bed, comfortable, not in distress Reports mild substernal discomfort, nonradiating but does report that outpatient, he does have a chest discomfort, radiating to the left arm exertion No active shortness of breath, palpitations, dizziness, diaphoresis no other symptoms VS noted and reviewed oriented x 3 , not in distress, speaks in sentences with no effort nor accessory muscle use normal rate, regular rhythm, no murmurs clear breath sounds bilaterally non distended, soft, nontender no bipedal edema, erythema, warmth no neuro deficits WBC 3.9 Hg 13.8 Crea 1.16 Troponin negative EKG no signs of acute ischemia or infarct ASSESSMENT AND PLAN Chest pain, history of CAD Trend troponins Echocardiogram Nitropaste ordered Drilling Field Operator consulted Abdominal pain CT angiogram: Abdominal aortic aneurysm appears stable Preceded by 2-day history of diarrhea Clear liquid diet, continue to monitor other diagnoses and plan of care as per MARY Christiansen S notes Sergio Hankins MD (1) Abdominal aortic aneurysm Presence of rupture: without rupture Qualified Code(s): I71.4 - Abdominal aortic aneurysm, without rupture (2) Abdominal pain Abdominal location: unspecified location Qualified Code(s): R10.9 - Unspecified abdominal pain (3) Chest pain Chest pain type: unspecified Qualified Code(s): R07.9 - Chest pain, unspecified
[2020-04-04] MEDS ORDERED: NITROGLYCERIN SL 0.4 MG/TAB TAB SL PRN (18:41)
[2020-04-04] MEDS ORDERED: IPRATROPIUM BROMIDE/ALBUTEROL respimat INH INH PRN (18:41)
[2020-04-04] MEDS ORDERED: ONDANSETRON INJ 2 MG/ML 2 ML VIAL IV PRN (18:41)
[2020-04-04] MEDS ORDERED: SODIUM CHLORIDE 0.9% 1000ML 1,000 ML IV SCH (18:41)
[2020-04-04] MEDS ORDERED: IPRATROPIUM BROMIDE HFA INHALER INH PRN (19:08)
[2020-04-04] MEDS ORDERED: ALBUTEROL HFA 8 GM INHALER INH PRN (19:08)
[2020-04-04] MEDS: buPROPion HCl 75 MG TABLET PO SCH (20:05)
[2020-04-04] MEDS: ATORVASTATIN 20 MG TAB PO SCH (20:05)
[2020-04-04] MEDS: PROPRANOLOL HCL 10 MG TAB PO SCH (20:05)
[2020-04-04] MEDS: PARoxetine HCL 10 MG TAB PO SCH (20:05)
[2020-04-04] MEDS: TAMSULOSIN HCL 0.4 MG CAP PO SCH (20:05)
[2020-04-04] MEDS: NITROGLYCERIN 2% OINTMENT 30GM TUBE EXT SCH (21:37)
[2020-04-05 03:18] LABS: Mean Corpuscular Hgb Conc 34.1 g/dL (32-36)
[2020-04-05 03:25] LABS: Hemoglobin 13.3 g/dL (14.0-18.0); Mean Corpuscular Hemoglobin 29.4 pg (25-34); Mean Corpuscular Volume 86.3 fL (80-100); RDW Coefficient of Variation 13.9 % (11.5-14.5); RDW Standard Deviation 43.8 fL (36.4-46.3); Red Blood Count 4.52 M/uL (4.7-6.1)
[2020-04-05 03:36] LABS: Alanine Aminotransferase 36 U/L (12-78); Aspartate Aminotransferase 24 U/L (15-37); BUN Creatinine Ratio 8.7 (10-20); Blood Urea Nitrogen 10 mg/dl (7-18); Calcium 8.5 mg/dl (8.5-10.1); Carbon Dioxide 26 mmol/L (21-32); Chloride 109 mmol/L (98-107); Creatinine Clr Calc Pharmacy 57.6 ml/min; Est GFR (Non-African American) 62.2; Glucose 82 mg/dl (70-99); Sodium 140 mmol/L (136-145)
[2020-04-05 03:39] LABS: Platelet Count 56 K/uL (130-400)
[2020-04-05 03:40] LABS: Platelet Estimate Decreased (Normal)
[2020-04-05 03:43] LABS: Albumin Globulin Ratio 0.9 (0.9-2); Alkaline Phosphatase 71 U/L (45-117); Bilirubin,Total 1.8 mg/dl (0.2-1); Chol HDL Ratio 4; Cholesterol 116 mg/dl (0-200); Globulin 3.3 gm/dl (2.5-4.0); HDL Cholesterol 27 mg/dl; LDL Cholesterol Calculated 53 mg/dl; Total Protein 6.3 gm/dl (6.4-8.2); Triglycerides 181 mg/dl (0-150); Troponin I < 0.015 ng/ml (0-0.045); VLDL Cholesterol 36 mg/dl
[2020-04-05 04:09] LABS: Appearance Urine Clear (Clear); Bilirubin Urine Negative (Negative); Blood Urine Negative (Negative); Color Urine Yellow; Glucose Urine UA Negative (Negative); Ketones Urine Trace (Negative); Leukocyte Esterase Urine Negative (Negative); Nitrite Urine Negative (Negative); Protein Urine Negative (Negative); Specific Gravity Urine 1.038 (1.000-1.030); Urobilinogen Urine Negative (Negative); pH Urine 5.5 (4.5-7.5)
[2020-04-05] MEDS: NITROGLYCERIN 2% OINTMENT 30GM TUBE EXT SCH ×4 (04:19→21:07)
[2020-04-05] MEDS: ACETAMINOPHEN 325 MG TAB PO PRN ×3 (07:45→20:06)
[2020-04-05] MEDS: CHOLECALCIFEROL 1,000 UNITS 25 MCG TAB PO SCH (07:47)
[2020-04-05] MEDS: FLUTICASONE FUROATE 200MCG 14 PUFFS/INHALER INH SCH (07:47)
[2020-04-05] MEDS: FAMOTIDINE 20 MG TAB PO SCH (07:48)
[2020-04-05] MEDS: BuPROPion XL 150 MG TABCR PO SCH (07:49)
[2020-04-05] MEDS: SERTRALINE HCL 50 MG TABLET PO SCH (07:49)
[2020-04-05] MEDS: PROPRANOLOL HCL 10 MG TAB PO SCH ×3 (07:50→20:08)
--- NOTE | 2020-04-05 13:02 | Cardiology Consultation ---
Date of Consultation April 05, 2020 Assessment & Plan (1) Chest pain: (2) Abdominal aortic aneurysm: (3) Dyslipidemia: (4) Thrombocytopenia: Patient presents with abdominal discomfort as well as brief episodes of atypical chest discomfort. Recommend Lexiscan nuclear stress testing for further evaluation. Dobutamine stress echocardiography considered, however, patient continues to be nausea and I fear he would experience further GI upset/vomiting with administration of dobutamine. Offered scheduling Lexiscan nuclear stress test as an outpatient next week after discussing initial unremarkable cardiovascular evaluation thus far. Patient prefers to stay in hospital through the weekend and have Lexiscan nuclear stress test performed on Wednesday morning. Stress test scheduled. No medication changes at this time. History of Present Illness Reason for Consultation: Chest pain Requesting Physician: Dr. Mustafa Attending Physician: Saravanan Mustafa MD History of Present Illness 6-year-old male admitted with abdominal pain. CT angiogram of the abdomen and p walker unremarkable. Carries a history of 3.1 abdominal aortic aneurysm. While in the emergency department patient mentioned episodes of chest discomfort occurring a few days ago. Describes a left-sided chest tightness radiating down his left arm. The discomfort occurred at rest and spontaneously resolved. Discomfort lasted several minutes without associated shortness of breath. No palpitations, lightheadedness, dizziness, syncope, or near syncope. Denies exertional chest pain, however reports dyspnea with exertion. No orthopnea, PND, lower extremity edema, or claudication. Currently asymptomatic. No dysrhythmias on telemetry. Cardiac enzymes are negative x2 sets. Bedside 2D transthoracic echo demonstrates normal wall motion. Patient has been evaluated by cardiology dating back to the 1980s where he went underwent cardiac catheterization at [facility] per his recollection. Reports a second cardiac catheterization demonstrating nonobstructive CAD while living in [place] more than 10 years ago. More recently, evaluated by Dr. Chao. Patient unable to complete exercise stress testing in 2018 prompting Lexiscan nuclear perfusion imaging. His Lexiscan stress test was negative for inducible ischemia May 2018. Allergies Allergy/AdvReac Type Severity Reaction Status Date / Time Quinolones Allergy Severe Hives Verified 04/04/20 15:24 oxycodone AdvReac Severe Nausea/Vomi Verified 04/04/20 15:24 ting codeine AdvReac Unknown Nausea/Vomi Verified 04/04/20 15:24 ting Penicillins AdvReac Unknown Nausea/Vomi Verified 04/04/20 15:24 ting Home Medications Home Medications Medication Instructions Recorded Confirmed Type Flovent HFA 2 puff INHALATION BID 10/23/18 04/04/20 History atorvastatin 20 mg PO HS 10/23/18 04/04/20 History bupropion HCl 150 mg PO QAM 10/23/18 04/04/20 History diphenhydramine HCl 25 - 50 mg PO QID PRN 10/23/18 04/04/20 History nitroglycerin [Nitrostat] 0.4 mg SUBLINGUAL DIRECTED PRN 10/23/18 04/04/20 History propranolol 10 mg PO TID 10/23/18 04/04/20 History sertraline 150 mg PO DAILY 10/23/18 04/04/20 History tamsulosin [Flomax] 0.4 mg PO QPM 10/23/18 04/04/20 History cholecalciferol (vitamin D3) 1,000 unit PO DAILY 03/20/19 04/04/20 History [Vitamin D3] Combivent Respimat 1 puff INHALATION QID PRN 08/17/19 04/04/20 History bupropion HCl 75 mg PO PM 08/17/19 04/04/20 History famotidine 20 mg PO DAILY 04/04/20 04/04/20 History paroxetine HCl 10 mg PO HS 04/04/20 04/04/20 History Patient History Medical History Aortic aneurysm (Chronic) BPH (benign prostatic hyperplasia) Cellulitis of face (10/27/12) Chest pain (Acute) CKD (chronic kidney disease), stage III Depression Diverticulitis (Resolved) Dyslipidemia Enlargement of spleen GERD (gastroesophageal reflux disease) History of TB (tuberculosis) Pneumonia Status post left inguinal hernia repair (Acute) Surgical History History of cardiac cath History of cholecystectomy History of lobectomy of lung Family History Other Cancer Coronary heart disease Hypertension Social History Preferred Language: Estonian Communication Ability: Effective Factory Representative Required: No Beliefs That Will Affect Care: None Current Living Situation: Family Other Information That Helps Us Care for You: No Feels Safe at Home: Yes Safety Concerns: Feels Safe At This Time Smoking Status: Current some day smoker Tobacco Type: cigars ; Second Hand Exposure: No ; Hx Alcohol Use: No Hx Substance Use: No Review of Systems Review of Systems: All systems reviewed & are unremarkable except as noted in HPI & below Physical Exam Constitutional: well developed, well nourished and + ill appearing; no acute distress Respiratory: no respiratory distress, no labored breathing, no retractions and does not use accessory muscles Auscultation: lungs clear to auscultation bilaterally; no crackles, no rales, no rhonchi and no wheezes Cardiovascular: Rate/Rhythm: regular rate and regular rhythm Heart Sounds: normal S1 and normal S2; no murmur and no cardiac rub Palpation: normal PMI Vessels: no JVD Extremities: no edema Gastrointestinal (Abdomen): Inspection/Auscultation: abdomen normal to inspection and normal bowel sounds; abdomen not distended Percussion/Palpation: abdomen soft; abdomen nontender, no guarding and abdomen not rigid Skin: no rashes, warm and dry Neurologic: moves all extremities; no focal motor deficits Speech / Cognition: normal speech Motor/Sensory: no tremor Psychiatric: A+Ox3, euthymic affect Results & Data ([facility]) Vital Signs (Past 12 Hours) Vital Signs Temp Pulse Pulse Resp BP Pulse Ox 04/05/20 11:48 36.6 C 53 L 20 128/72 96 04/05/20 07:24 59 L 04/05/20 07:07 36.7 C 61 15 91/54 L 93 04/05/20 04:13 36.7 C 61 16 90/56 L 92 (1) Chest pain Chest pain type: unspecified Qualified Code(s): R07.9 - Chest pain, unspecified (2) Abdominal aortic aneurysm Presence of rupture: without rupture Qualified Code(s): I71.4 - Abdominal aortic aneurysm, without rupture
--- NOTE | 2020-04-05 18:35 | Hospitalist Progress Note ---
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 2 days prior to admission had diarrhea. Chest Pain R/O ACS Cardiac enzymes negative Echo: No regional wall motion abnormality, EF 60 to 65%, grade 1 diastolic dysfunction. Continue current medications Appreciate cardiology input Plan for stress test on Wednesday (2) Abdominal pain: CT ABD:There are no acute infectious or inflammatory findings in the abdomen or pelvis. There is a 3.2 x 3.2 cm infrarenal abdominal aortic aneurysm. 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 This is likely unchanged from 2018 and of doubtful acute significance. Advanced colonic diverticulosis without CT evidence of acute diverticulitis. Unremarkable CT angiogram of the major branches of the abdominal aorta. Splenomegaly. --No acute process on imaging Abdominal pain improved Advance diet as tolerated Consider GI evaluation if recurrence of abdominal pain/diarrhea monitor (3) Abdominal aortic aneurysm: H/O 3.2cm abdominal aortic aneurysm with mural thrombus. Follows with Dr Suarez vascular surgery at [facility] Continue surveillance continue statin (4) Thrombocytopenia: Chronic thrombocytopenia. Likely ITP/Splenomagaly Follows with Dr Elaina swartz/onc Monitor CBC No bleeding issues (5) COPD (chronic obstructive pulmonary disease): (6) History of TB (tuberculosis): S/P lobectomy Continue home inhalers (7) CKD (chronic kidney disease), stage III: Baseline ~1.3 Avoid nephrotoxic agents when possible Monitor renal function (8) Dyslipidemia: continue statin (9) GERD (gastroesophageal reflux disease): Continue H2 malorie (10) Depression: Follows with psychiatry as outpatient Continue bupropion, propranolol, Zoloft, Paxil (11) BPH (benign prostatic hyperplasia): Continue flomax DVT Px: SCDs Re: Thrombocytopenia Code Status Full Code Admission and Anticipated Discharge Date Admission Date: April 05, 2020 Subjective Patient is seen and examined at bedside Abdominal pain improved Denies any chest pain this morning Reports nausea but denies vomiting, diarrhea Offers no other complaints Discussed with cardiology today Review of Systems Review of Systems: All systems reviewed & are unremarkable except as noted in HPI & below Physical Exam Physical Exam: Physical Exam: Vitals signs as noted above General Appearance:Moderately built and nourished, no apparent distress Head: normocephalic, Atraumatic Eyes: normal inspection, EOMI Neck: supple, Trachea midline Respiratory/Chest: Decreased breath sounds, CTA, No accessory muscle use Cardiovascular: S1, S2, No murmur Abdomen/GI:Soft, Epigastric tender, Bowel sounds present Extremities/Musculoskelatal:normal inspection, no edema Neurologic/Psych:AAOX3, grossly no focal neurological deficits Skin: normal color, warm Results & Data Results & Data ([facility]) Vital Signs (Past 12 Hours) Vital Signs Temp Pulse Pulse Resp BP Pulse Ox 04/05/20 15:26 36.8 C 72 20 100/63 97 04/05/20 15:03 73 04/05/20 11:48 36.6 C 53 L 20 128/72 96 04/05/20 07:24 59 L 04/05/20 07:07 36.7 C 61 15 91/54 L 93 Laboratory Results Short CBC 04/05/20 Range/Units 03:07 WBC 4.60 L (4.8-10.8) K/uL Hgb 13.3 L (14.0-18.0) g/dL Hct 39.0 L (42-52) % Plt Count 56 L (130-400) K/uL BMP 04/05/20 03:07 Sodium 140 Potassium 4.0 Chloride 109 H Carbon Dioxide 26 BUN 10 Creatinine 1.18 Glucose 82 Calcium 8.5 Cardiac Enzymes 04/04/20 04/05/20 Range/Units 20:52 03:07 Troponin I < 0.015 < 0.015 (0-0.045) ng/ml Liver Function 04/05/20 Range/Units 03:07 Total Bilirubin 1.8 H (0.2-1) mg/dl AST 24 (15-37) U/L ALT 36 (12-78) U/L Alkaline Phosphatase 71 (45-117) U/L Albumin 3.0 L (3.4-5.0) gm/dl Urine 04/05/20 Range/Units 03:05 Urine Color Yellow Urine Appearance Clear (Clear) Urine pH 5.5 (4.5-7.5) Ur Specific [place] 1.038 H (1.000-1.030) Urine Protein Negative (Negative) Urine Glucose (UA) Negative (Negative) (1) Chest pain Chest pain type: unspecified Qualified Code(s): R07.9 - Chest pain, unspecified (2) Abdominal pain Abdominal location: unspecified location Qualified Code(s): R10.9 - Unspecified abdominal pain (3) Abdominal aortic aneurysm Presence of rupture: without rupture Qualified Code(s): I71.4 - Abdominal aortic aneurysm, without rupture
[2020-04-05] MEDS: buPROPion HCl 75 MG TABLET PO SCH (20:07)
[2020-04-05] MEDS: ATORVASTATIN 20 MG TAB PO SCH (20:07)
[2020-04-05] MEDS: PARoxetine HCL 10 MG TAB PO SCH (20:08)
[2020-04-05] MEDS: TAMSULOSIN HCL 0.4 MG CAP PO SCH (20:08)
[2020-04-06] MEDS: NITROGLYCERIN 2% OINTMENT 30GM TUBE EXT SCH ×4 (03:54→21:24)
--- NOTE | 2020-04-06 06:46 | Electrocardiogram Report ---
Test Reason : Blood Pressure : / mmHG Vent. Rate : 062 BPM Atrial Rate : 062 BPM P-R Int : 176 ms QRS Dur : 088 ms QT Int : 412 ms P-R-T Axes : 022 000 056 degrees QTc Int : 418 ms Normal sinus rhythm Normal ECG When compared with ECG of 17-AUG-2019 00:14, Premature ventricular complexes are no longer Present Vent. rate has decreased BY 43 BPM Confirmed by Winsotn Minaya ([id number]) on 04/06/2020 6:45:35 AM Referred By: Confirmed By:Winston Minaya
--- NOTE | 2020-04-06 06:55 | Electrocardiogram Report ---
Test Reason : Blood Pressure : / mmHG Vent. Rate : 061 BPM Atrial Rate : 061 BPM P-R Int : 190 ms QRS Dur : 088 ms QT Int : 402 ms P-R-T Axes : 055 011 055 degrees QTc Int : 404 ms Normal sinus rhythm Nonspecific ST abnormality Abnormal ECG When compared with ECG of 04-APR-2020 15:05, (unconfirmed) No significant change was found Confirmed by Winston Minaya ([id number]) on 04/06/2020 6:54:54 AM Referred By: Keri Rodríguez Confirmed By:Winston Minaya
[2020-04-06 07:59] LABS: Mean Corpuscular Hgb Conc 33.7 g/dL (32-36)
[2020-04-06 08:06] LABS: Hemoglobin 12.8 g/dL (14.0-18.0); Mean Corpuscular Hemoglobin 29.4 pg (25-34); Mean Corpuscular Volume 87.2 fL (80-100); RDW Standard Deviation 44.8 fL (36.4-46.3); Red Blood Count 4.36 M/uL (4.7-6.1); White Blood Count 3.66 K/uL (4.8-10.8)
[2020-04-06] MEDS: BuPROPion XL 150 MG TABCR PO SCH (08:06)
[2020-04-06] MEDS: PROPRANOLOL HCL 10 MG TAB PO SCH ×3 (08:06→20:07)
[2020-04-06] MEDS: FAMOTIDINE 20 MG TAB PO SCH (08:06)
[2020-04-06] MEDS: FLUTICASONE FUROATE 200MCG 14 PUFFS/INHALER INH SCH (08:06)
[2020-04-06] MEDS: CHOLECALCIFEROL 1,000 UNITS 25 MCG TAB PO SCH (08:06)
[2020-04-06] MEDS: SERTRALINE HCL 50 MG TABLET PO SCH (08:07)
[2020-04-06 08:22] LABS: Platelet Count 39 K/uL (130-400); Platelet Estimate Decreased (Normal)
[2020-04-06 08:31] LABS: Albumin Level 3.1 gm/dl (3.4-5.0); BUN Creatinine Ratio 10.2 (10-20); Bilirubin Direct 0.2 mg/dl (0-0.2); Creatinine Clr Calc Pharmacy 51.9 ml/min; Est GFR (African American) 63.5; Est GFR (Non-African American) 54.8; Potassium 3.9 mmol/L (3.5-5.1)
[2020-04-06 08:53] LABS: Bilirubin,Total 1.1 mg/dl (0.2-1); Total Protein 6.6 gm/dl (6.4-8.2)
[2020-04-06] MEDS ORDERED: Nursing to Pharmacy Communication ONE (09:14)
[2020-04-06] MEDS: buPROPion HCl 75 MG TABLET PO SCH (12:02)
--- NOTE | 2020-04-06 18:38 | Hospitalist Progress Note ---
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 2 days prior to admission had diarrhea. Chest Pain R/O ACS Cardiac enzymes negative Echo: No regional wall motion abnormality, EF 60 to 65%, grade 1 diastolic dysfunction. Continue current medications Appreciate cardiology input Plan for stress test on Wednesday (2) Abdominal pain: CT ABD:There are no acute infectious or inflammatory findings in the abdomen or pelvis. There is a 3.2 x 3.2 cm infrarenal abdominal aortic aneurysm. 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 This is likely unchanged from 2018 and of doubtful acute significance. Advanced colonic diverticulosis without CT evidence of acute diverticulitis. Unremarkable CT angiogram of the major branches of the abdominal aorta. Splenomegaly. --No acute process on imaging Abdominal pain resolved Tolerating diet Consider GI evaluation if recurrence of abdominal pain monitor (3) Abdominal aortic aneurysm: H/O 3.2cm abdominal aortic aneurysm with mural thrombus. Follows with Dr Suarez vascular surgery at [facility] [place] Continue surveillance continue statin (4) Thrombocytopenia: Chronic thrombocytopenia. Likely ITP/Splenomagaly Follows with Dr Elaina swartz/onc Monitor CBC No bleeding issues (5) COPD (chronic obstructive pulmonary disease): (6) History of TB (tuberculosis): S/P lobectomy Continue home inhalers (7) CKD (chronic kidney disease), stage III: Baseline ~1.3 Avoid nephrotoxic agents when possible Monitor renal function (8) Dyslipidemia: continue statin (9) GERD (gastroesophageal reflux disease): Continue H2 malorie (10) Depression: Follows with psychiatry as outpatient Continue bupropion, propranolol, Zoloft, Paxil (11) BPH (benign prostatic hyperplasia): Continue flomax DVT Px: SCDs Re: Thrombocytopenia Code Status Full Code Admission and Anticipated Discharge Date Admission Date: April 05, 2020 Subjective Patient is seen and examined at bedside Abdominal pain resolved Had 3 loose BMs yesterday, None this AM Denies chest pain, shortness of breath, dizziness, nausea Tolerating diet Review of Systems Review of Systems: All systems reviewed & are unremarkable except as noted in HPI & below Physical Exam Physical Exam: Physical Exam: Vitals signs as noted above General Appearance:Moderately built and nourished, no apparent distress Head: normocephalic, Atraumatic Eyes: normal inspection, EOMI Neck: supple, Trachea midline Respiratory/Chest: Decreased breath sounds, CTA, No accessory muscle use Cardiovascular: S1, S2, No murmur Abdomen/GI:Soft, non tender, Bowel sounds present Extremities/Musculoskelatal:normal inspection, no edema Neurologic/Psych:AAOX3, grossly no focal neurological deficits Skin: normal color, warm Results & Data Results & Data ([facility]) Vital Signs (Past 12 Hours) Vital Signs Temp Pulse Pulse Resp BP BP Pulse Ox 04/06/20 16:41 67 04/06/20 16:18 36.9 C 63 18 125/82 97 04/06/20 14:24 68 103/68 04/06/20 12:26 36.7 C 67 20 117/74 94 04/06/20 09:53 74 99/63 L 04/06/20 08:12 36.7 C 70 20 113/71 97 04/06/20 07:20 58 L Laboratory Results Short CBC 04/06/20 Range/Units 07:30 WBC 3.66 L (4.8-10.8) K/uL Hgb 12.8 L (14.0-18.0) g/dL Hct 38.0 L (42-52) % Plt Count 39 L (130-400) K/uL BMP 04/06/20 07:30 Sodium 138 Potassium 3.9 Chloride 107 Carbon Dioxide 28 BUN 13 Creatinine 1.31 Glucose 82 Calcium 9.0 Liver Function 04/06/20 Range/Units 07:30 Total Bilirubin 1.1 H (0.2-1) mg/dl Direct Bilirubin 0.2 (0-0.2) mg/dl AST 20 (15-37) U/L ALT 33 (12-78) U/L Alkaline Phosphatase 76 (45-117) U/L Albumin 3.1 L (3.4-5.0) gm/dl (1) Chest pain Chest pain type: unspecified Qualified Code(s): R07.9 - Chest pain, unspecified (2) Abdominal pain Abdominal location: unspecified location Qualified Code(s): R10.9 - Unspecified abdominal pain (3) Abdominal aortic aneurysm Presence of rupture: without rupture Qualified Code(s): I71.4 - Abdominal aortic aneurysm, without rupture
[2020-04-06] MEDS: ATORVASTATIN 20 MG TAB PO SCH (20:06)
[2020-04-06] MEDS: TAMSULOSIN HCL 0.4 MG CAP PO SCH (20:06)
[2020-04-06] MEDS: PARoxetine HCL 10 MG TAB PO SCH (20:07)
[2020-04-06] MEDS: ACETAMINOPHEN 325 MG TAB PO PRN (21:24)
[2020-04-07] MEDS: NITROGLYCERIN 2% OINTMENT 30GM TUBE EXT SCH ×4 (02:54→20:48)
[2020-04-07] MEDS: ACETAMINOPHEN 325 MG TAB PO PRN (02:57)
[2020-04-07 06:06] LABS: Mean Corpuscular Hgb Conc 33.3 g/dL (32-36)
[2020-04-07 06:31] LABS: Hematocrit (blood only) 40.6 % (42-52); Hemoglobin 13.5 g/dL (14.0-18.0); Mean Corpuscular Hemoglobin 29.3 pg (25-34); Mean Corpuscular Volume 88.3 fL (80-100); RDW Standard Deviation 45.3 fL (36.4-46.3); White Blood Count 4.29 K/uL (4.8-10.8)
[2020-04-07 06:33] LABS: Platelet Count 58 K/uL (130-400); Platelet Estimate Decreased (Normal)
[2020-04-07 06:36] LABS: BUN Creatinine Ratio 11.6 (10-20); Calcium 9.2 mg/dl (8.5-10.1); Creatinine Clr Calc Pharmacy 54.8 ml/min; Est GFR (African American) 67.8; Est GFR (Non-African American) 58.5; Potassium 4.1 mmol/L (3.5-5.1)
[2020-04-07] MEDS: PROPRANOLOL HCL 10 MG TAB PO SCH ×3 (08:10→20:46)
[2020-04-07] MEDS: CHOLECALCIFEROL 1,000 UNITS 25 MCG TAB PO SCH (08:10)
[2020-04-07] MEDS: FAMOTIDINE 20 MG TAB PO SCH (08:10)
[2020-04-07] MEDS: BuPROPion XL 150 MG TABCR PO SCH (08:10)
[2020-04-07] MEDS: SERTRALINE HCL 50 MG TABLET PO SCH (08:10)
[2020-04-07] MEDS: FLUTICASONE FUROATE 200MCG 14 PUFFS/INHALER INH SCH (08:11)
[2020-04-07] MEDS: buPROPion HCl 75 MG TABLET PO SCH (13:06)
--- NOTE | 2020-04-07 16:35 | Hospitalist Progress Note ---
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 2 days prior to admission had diarrhea. Chest Pain R/O ACS Cardiac enzymes negative Echo: No regional wall motion abnormality, EF 60 to 65%, grade 1 diastolic dysfunction. Continue current medications Appreciate cardiology input Plan for stress test tomorrow NPO after midnight (2) Abdominal pain: CT ABD:There are no acute infectious or inflammatory findings in the abdomen or pelvis. There is a 3.2 x 3.2 cm infrarenal abdominal aortic aneurysm. 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 This is likely unchanged from 2018 and of doubtful acute significance. Advanced colonic diverticulosis without CT evidence of acute diverticulitis. Unremarkable CT angiogram of the major branches of the abdominal aorta. Splenomegaly. --No acute process on imaging Abdominal pain resolved Tolerated diet Consider GI evaluation if recurrence of abdominal pain monitor (3) Abdominal aortic aneurysm: H/O 3.2cm abdominal aortic aneurysm with mural thrombus. Follows with Dr Suarez vascular surgery at [facility] [place] Continue surveillance continue statin (4) Thrombocytopenia: Chronic thrombocytopenia. 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 Follows with Dr Elaina swartz/onc Monitor CBC No bleeding issues (5) COPD (chronic obstructive pulmonary disease): (6) History of TB (tuberculosis): S/P lobectomy Continue home inhalers (7) CKD (chronic kidney disease), stage III: Baseline ~1.3 Avoid nephrotoxic agents when possible Monitor renal function (8) Dyslipidemia: continue statin (9) GERD (gastroesophageal reflux disease): Continue H2 malorie (10) Depression: Follows with psychiatry as outpatient Continue bupropion, propranolol, Zoloft, Paxil (11) BPH (benign prostatic hyperplasia): Continue flomax DVT Px: SCDs Re: Thrombocytopenia Code Status Full Code Admission and Anticipated Discharge Date Admission Date: April 05, 2020 Subjective Patient is seen and examined at bedside No new complaints Planned for stress test tomorrow Diarrhea improved Denies chest pain, shortness of breath, dizziness, nausea Review of Systems Review of Systems: All systems reviewed & are unremarkable except as noted in HPI & below Physical Exam Physical Exam: Physical Exam: Vitals signs as noted above General Appearance:Moderately built and nourished, no apparent distress Head: normocephalic, Atraumatic Eyes: normal inspection, EOMI Neck: supple, Trachea midline Respiratory/Chest: Decreased breath sounds, CTA, No accessory muscle use Cardiovascular: S1, S2, No murmur Abdomen/GI:Soft, non tender, Bowel sounds present Extremities/Musculoskelatal:normal inspection, no edema Neurologic/Psych:AAOX3, grossly no focal neurological deficits Skin: normal color, warm Results & Data Results & Data ([facility]) Vital Signs (Past 12 Hours) Vital Signs Temp Pulse Pulse Resp BP BP Pulse Ox 04/07/20 15:06 36.3 C L 61 20 106/69 98 04/07/20 13:08 73 106/78 04/07/20 11:36 36.6 C 59 L 18 117/76 94 04/07/20 08:09 61 121/65 04/07/20 07:51 54 L 04/07/20 07:00 36.5 C 64 20 95/63 L 93 Laboratory Results Short CBC 04/07/20 Range/Units 05:31 WBC 4.29 L (4.8-10.8) K/uL Hgb 13.5 L (14.0-18.0) g/dL Hct 40.6 L (42-52) % Plt Count 58 L (130-400) K/uL BMP 04/07/20 05:31 Sodium 139 Potassium 4.1 Chloride 107 Carbon Dioxide 29 BUN 14 Creatinine 1.24 Glucose 90 Calcium 9.2 (1) Chest pain Chest pain type: unspecified Qualified Code(s): R07.9 - Chest pain, unspecified (2) Abdominal pain Abdominal location: unspecified location Qualified Code(s): R10.9 - Unspecified abdominal pain (3) Abdominal aortic aneurysm Presence of rupture: without rupture Qualified Code(s): I71.4 - Abdominal aortic aneurysm, without rupture
[2020-04-07] MEDS: ATORVASTATIN 20 MG TAB PO SCH (20:46)
[2020-04-07] MEDS: PARoxetine HCL 10 MG TAB PO SCH (20:46)
[2020-04-07] MEDS: TAMSULOSIN HCL 0.4 MG CAP PO SCH (20:46)
[2020-04-08] MEDS: NITROGLYCERIN 2% OINTMENT 30GM TUBE EXT SCH ×4 (02:58→21:05)
[2020-04-08 07:55] LABS: Hemoglobin 14.6 g/dL (14.0-18.0); Mean Corpuscular Hemoglobin 29.7 pg (25-34); Mean Corpuscular Volume 87.6 fL (80-100); RDW Coefficient of Variation 14.1 % (11.5-14.5); RDW Standard Deviation 45.2 fL (36.4-46.3); Red Blood Count 4.91 M/uL (4.7-6.1); White Blood Count 5.73 K/uL (4.8-10.8)
[2020-04-08 08:02] LABS: Platelet Count 65 K/uL (130-400); Platelet Estimate Decreased (Normal)
[2020-04-08] MEDS ORDERED: REGADENOSON 0.4 MG/5 ML SYR IV ONE (08:03)
[2020-04-08 09:48] LABS: BUN Creatinine Ratio 12.8 (10-20); Calcium 9.1 mg/dl (8.5-10.1); Creatinine Clr Calc Pharmacy 50.6 ml/min; Est GFR (African American) 61.8; Est GFR (Non-African American) 53.3; Potassium 4.2 mmol/L (3.5-5.1)
--- NOTE | 2020-04-08 10:33 | Cardiology Progress Note ---
Date of Service April 08, 2020 Assessment & Plan (1) Chest pain: (2) Abdominal aortic aneurysm: (3) Dyslipidemia: (4) Thrombocytopenia: No recurrences of chest discomfort overnight. Lexiscan nuclear stress test is negative for ischemia or scar. No further cardiac testing or intervention is necessary at this time. Recommend follow-up with cardiology as an outpatient as previously scheduled. Subjective Patient seen and examined, medical records reviewed. No recurrences of chest discomfort overnight. States abdominal pain is waxing and waning but overall improving from admission. Denies any shortness of breath, palpitations, lightheadedness, dizziness or syncope. Review of Systems Review of Systems: All systems reviewed & are unremarkable except as noted in HPI & below Physical Exam Physical Exam: General: Awake, alert and oriented x 3. No acute distress. HEENT: Normocephalic, atraumatic. Pupils equal, round and reactive to light and accommodation. Extraocular muscles are intact. Anicteric sclera. Moist mucous membranes. Neck: No JVD. No bruit. Cardiovascular: Regular. Positive S-4. Normal S-1 and S-2. No S-3. No murmurs or rubs. Pulmonary: Clear to auscultation B/L. No rales, rhonchi or wheezing Abdomen: Bowel sounds x 4, soft. No rebound, guarding or tenderness. No organomegaly. Extremities: No clubbing, cyanosis or edema. +2 pedal pulses bilaterally. Skin: Warm and dry. Results & Data Vital Signs (Past 12 Hours) Vital Signs Temp Pulse Pulse Resp BP BP Pulse Ox 04/08/20 09:17 74 04/08/20 07:40 36.6 C 76 18 95/58 L 93 04/08/20 04:53 36.6 C 113 H 20 88/61 L 97 04/08/20 02:58 116/76 04/08/20 01:10 66 04/07/20 23:05 36.6 C 64 20 121/79 95 (1) Chest pain Chest pain type: unspecified Qualified Code(s): R07.9 - Chest pain, unspecified (2) Abdominal aortic aneurysm Presence of rupture: without rupture Qualified Code(s): I71.4 - Abdominal aortic aneurysm, without rupture
--- NOTE | 2020-04-08 10:38 | Myocardial Perfusion Study ---
Date of Service April 08, 2020 Myocardial Perfusion Study [facility] Myocardial Perfusion Study Report [place] Act 112: Negative Procedure: 1. Myocardial perfusion study performed in multiple views/images 2. Lexiscan pharmacologic stress ECG Indications: 1. Chest discomfort with a history of nonobstructive coronary artery disease. Ordering physician: Cindy Procedural details: For the stress portion of the study, Lexiscan 0.4 mg was intravenously administered followed by a saline flush. This was followed by [32.073 ] mCi of technetium 99m Cardiolite, injected at [ 0925] on [ 04/08/2020]. 30 minutes following the injection, imaging of the heart was performed in multiple projections. For the rest portion of the study, [ 11.2] mCi technetium 99m Cardiolite was injected intravenously at [ 0740] on [ 04/08/2020]. 1 hour following the injection, imaging of the heart was performed in the same projections. Lexiscan stress ECG: Resting ECG demonstrated: [ normal sinus rhythm, unremarkable ] Maximum heart rate: [ 102] bpm Maximal, age-predicted heart rate: [ 68]% Resting blood pressure: [ 102/65] mmHg Maximum blood pressure: [ 111/77] mmHg Significant ST changes: [ none] Arrhythmia: [ none] Symptoms: [SOB ] Findings: Rotating raw imaging demonstrated no significant lung uptake. There is no significant motion artifact. Heart size appeared [Normal ]. Myocardial perfusion demonstrated [ Homogeneous tracer uptake throughout.]. Ejection fraction: [ 62]% Wall motion: [ Normal] No significant transient ischemic dilation. Impression: 1. Normal Lexiscan nuclear stress test. No defect present at rest or stress. Normal LV systolic function without sandra onal wall motion abnormality. EF calculated to be 62%. No significant change compared to previous study.
[2020-04-08] MEDS: BuPROPion XL 150 MG TABCR PO SCH (10:52)
[2020-04-08] MEDS: CHOLECALCIFEROL 1,000 UNITS 25 MCG TAB PO SCH (10:52)
[2020-04-08] MEDS: SERTRALINE HCL 50 MG TABLET PO SCH (10:52)
[2020-04-08] MEDS: buPROPion HCl 75 MG TABLET PO SCH ×2 (10:52→14:46)
[2020-04-08] MEDS: FLUTICASONE FUROATE 200MCG 14 PUFFS/INHALER INH SCH (10:53)
[2020-04-08] MEDS: PROPRANOLOL HCL 10 MG TAB PO SCH ×3 (10:53→21:04)
[2020-04-08] MEDS: FAMOTIDINE 20 MG TAB PO SCH (10:53)
[2020-04-08] MEDS ORDERED: DICYCLOMINE HCL 10 MG CAP PO PRN (14:17)
--- NOTE | 2020-04-08 14:17 | Gastrointestinal Consultation ---
Date of Consultation April 08, 2020 Assessment & Plan (1) Abdominal pain: Pt is a 69 y/o male seen for abd pain which initially presented along w diarrhea on admission. Diarrhea resolving and abd pain is better per his report. He's tolerating solid meals w/o N/V. Hx of AAA, stable. He is established w [facility]. CTA while admitted w/o signs of acute intraabdominal processes or acute dissection of aneurysm. He does have GERD on Famotidine and reports symptoms are fairly well controlled. - Will add Protonix 40mg in AM on top of Famotidine 20mg daily to see if GERD symptoms can be improved more - Trial Bentyl 10mg BID prn abd cramping/pain - Due for colonoscopy recall this year, will make arrangement on outpt basis - GI to sign off; recall prn Supervising Physician Co-Signing Physician Notes Late entry: Patient was seen and examined on 04/08. Her note reflects our findings and plan. History of Present Illness Reason for Consultation: Abdominal pain Requesting Physician: Dr. Saravanan Mustafa Attending Physician: Dr. 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 He has associated diarrhea which is resolving now. Pt reports currently stools more like soft. Denies any n/v, black tarry stools or rectal bleeding. He reports currently abd pain is in fact improved and "not bad". It was previously across mid abd, now more periumbilical. Pain worse if he doesn't eat. He has hx of GERD and currently on Pepcid, he feels overall GERD fairly controlled. Labs, imaging studies reviewed. He had CTA abd/pelvis w/o signs of acute infectious/inflammatory changes. + Stable infrarenal AAA measuring 3.2x32.. Unchange focal dissection of L ext iliac artery, patent major branches of abd aorta. Stress test this AM negative Last colonoscopy 03/2017 - diverticulosis, adenomatous polyp; recall due in 2019 Allergies Allergy/AdvReac Type Severity Reaction Status Date / Time Quinolones Allergy Severe Hives Verified 04/04/20 15:24 oxycodone AdvReac Severe Nausea/Vomi Verified 04/04/20 15:24 ting codeine AdvReac Unknown Nausea/Vomi Verified 04/04/20 15:24 ting Penicillins AdvReac Unknown Nausea/Vomi Verified 04/04/20 15:24 ting Home Medications Home Medications Medication Instructions Recorded Confirmed Type Flovent HFA 2 puff INHALATION BID 10/23/18 04/04/20 History atorvastatin 20 mg PO HS 10/23/18 04/04/20 History bupropion HCl 150 mg PO QAM 10/23/18 04/04/20 History diphenhydramine HCl 25 - 50 mg PO QID PRN 10/23/18 04/04/20 History nitroglycerin [Nitrostat] 0.4 mg SUBLINGUAL DIRECTED PRN 10/23/18 04/04/20 History propranolol 10 mg PO TID 10/23/18 04/04/20 History sertraline 150 mg PO DAILY 10/23/18 04/04/20 History tamsulosin [Flomax] 0.4 mg PO QPM 10/23/18 04/04/20 History cholecalciferol (vitamin D3) 1,000 unit PO DAILY 03/20/19 04/04/20 History [Vitamin D3] Combivent Respimat 1 puff INHALATION QID PRN 08/17/19 04/04/20 History bupropion HCl 75 mg PO DAILY@12 08/17/19 04/06/20 History famotidine 20 mg PO DAILY 04/04/20 04/04/20 History paroxetine HCl 10 mg PO HS 04/04/20 04/04/20 History Patient History Medical History Aortic aneurysm (Chronic) BPH (benign prostatic hyperplasia) Cellulitis of face (10/27/12) Chest pain (Acute) CKD (chronic kidney disease), stage III Depression Diverticulitis (Resolved) Dyslipidemia Enlargement of spleen GERD (gastroesophageal reflux disease) History of TB (tuberculosis) Pneumonia Status post left inguinal hernia repair (Acute) Surgical History History of cardiac cath History of cholecystectomy History of lobectomy of lung Family History Other Cancer Coronary heart disease Hypertension Social History Preferred Language: Greek Communication Ability: Effective Cost Control Supervisor Required: No Beliefs That Will Affect Care: None Current Living Situation: Family Other Information That Helps Us Care for You: No Feels Safe at Home: Yes Safety Concerns: Feels Safe At This Time Smoking Status: Current some day smoker Tobacco Type: cigars ; Second Hand Exposure: No ; Hx Alcohol Use: No Hx Substance Use: No Review of Systems Review of Systems: All systems reviewed & are unremarkable except as noted in HPI & below Physical Exam Constitutional: WD/WN, vitals as above well groomed, cooperative and comfortable Eyes: PERRL, conjunctivae normal, anicteric sclerae ENMT: external ear and nose normal, oropharynx normal Respiratory: normal respiratory effort, lungs clear to auscultation Cardiovascular: RRR, no murmur, no edema Gastrointestinal (Abdomen): normal bowel sounds, soft, nontender, no hepatosplenomegaly Skin: no rashes, warm and dry no jaundice Psychiatric: A+Ox3, euthymic affect Lymphatic: no lymphedema Results & Data ([facility]) Vital Signs (Past 12 Hours) Vital Signs Temp Pulse Pulse Resp BP BP Pulse Ox 04/08/20 11:10 36.4 C L 63 18 125/46 L 97 04/08/20 09:17 74 04/08/20 07:40 36.6 C 76 18 95/58 L 93 04/08/20 04:53 36.6 C 113 H 20 88/61 L 97 04/08/20 02:58 116/76 (1) Abdominal pain Abdominal location: unspecified location Qualified Code(s): R10.9 - Unspecified abdominal pain
--- NOTE | 2020-04-08 16:27 | Progress Note ---
Date of Service April 08, 2020 Assessment & Plan Admission and Anticipated Discharge Date Admission Date: April 05, 2020 Subjective chart reviewed, patient with a hx of COPD, AAA, etc endorsed stress, admit chest and ab pain, nuclear stress negative. Attempted to see patient soon after transfer to 2nd floor. Currently resting soundly and liaision did not yet have a chance to begin history. Nursing does not anticipate discharge tonight. Service to reattempt assessment later this pm. Results & Data ([facility]) Vital Signs (Past 12 Hours) Vital Signs Temp Pulse Pulse Resp BP BP Pulse Ox 04/08/20 15:58 36.4 C L 73 18 112/70 95 04/08/20 11:10 36.4 C L 63 18 125/46 L 97 04/08/20 09:17 74 04/08/20 07:40 36.6 C 76 18 95/58 L 93 04/08/20 04:53 36.6 C 113 H 20 88/61 L 97
--- NOTE | 2020-04-08 20:22 | Hospitalist Progress Note ---
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 2 days prior to admission had diarrhea. Chest Pain: ? Due to anxiety R/O ACS Cardiac enzymes negative Echo: No regional wall motion abnormality, EF 60 to 65%, grade 1 diastolic dysfunction. Continue current medications Appreciate cardiology input Lexiscan nuclear stress test is negative for ischemia or scar. Monitor (2) Abdominal pain: CT ABD:There are no acute infectious or inflammatory findings in the abdomen or pelvis. There is a 3.2 x 3.2 cm infrarenal abdominal aortic aneurysm. 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 This is likely unchanged from 2018 and of doubtful acute significance. Advanced colonic diverticulosis without CT evidence of acute diverticulitis. Unremarkable CT angiogram of the major branches of the abdominal aorta. Splenomegaly. --No acute process on imaging Tolerated diet Appreciate GI Input added PPI Bentyl trial Colonoscopy as outpatient (3) Abdominal aortic aneurysm: H/O 3.2cm abdominal aortic aneurysm with mural thrombus. Follows with Dr Suarez vascular surgery at [facility] [place] Continue surveillance continue statin (4) Thrombocytopenia: Chronic thrombocytopenia. 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 Follows with Dr Elaina swartz/onc Monitor CBC No bleeding issues (5) COPD (chronic obstructive pulmonary disease): (6) History of TB (tuberculosis): S/P lobectomy Continue home inhalers (7) CKD (chronic kidney disease), stage III: Baseline ~1.3 Avoid nephrotoxic agents when possible Monitor renal function (8) Dyslipidemia: continue statin (9) GERD (gastroesophageal reflux disease): Continue H2 malorie (10) Depression: Follows with psychiatry as outpatient Continue bupropion, propranolol, Zoloft, Paxil Consulted psychiatry for input (11) BPH (benign prostatic hyperplasia): Continue flomax DVT Px: SCDs Re: Thrombocytopenia Code Status Full Code Admission and Anticipated Discharge Date Admission Date: April 05, 2020 Subjective Patient is seen and examined at bedside Emotional this morning due to anxiety/family issues States having intermittent abdominal pain Stress test is negative Diarrhea improving Denies chest pain, shortness of breath, dizziness, nausea Review of Systems Review of Systems: All systems reviewed & are unremarkable except as noted in HPI & below Physical Exam Physical Exam: Physical Exam: Vitals signs as noted above General Appearance:Moderately built and nourished, no apparent distress Head: normocephalic, Atraumatic Eyes: normal inspection, EOMI Neck: supple, Trachea midline Respiratory/Chest: Decreased breath sounds, CTA, No accessory muscle use Cardiovascular: S1, S2, No murmur Abdomen/GI:Soft, mild tender--lower abd , Bowel sounds present Extremities/Musculoskelatal:normal inspection, no edema Neurologic/Psych:AAOX3, grossly no focal neurological deficits Skin: normal color, warm Results & Data Results & Data ([facility]) Vital Signs (Past 12 Hours) Vital Signs Temp Pulse Pulse Resp BP Pulse Ox 04/08/20 20:04 36.7 C 71 18 102/62 94 04/08/20 15:58 36.4 C L 73 18 112/70 95 04/08/20 11:10 36.4 C L 63 18 125/46 L 97 04/08/20 09:17 74 Laboratory Results Short CBC 04/08/20 Range/Units 07:07 WBC 5.73 (4.8-10.8) K/uL Hgb 14.6 (14.0-18.0) g/dL Hct 43.0 (42-52) % Plt Count 65 L (130-400) K/uL BMP 04/08/20 07:07 Sodium 137 Potassium 4.2 Chloride 105 Carbon Dioxide 27 BUN 17 Creatinine 1.34 Glucose 89 Calcium 9.1 (1) Chest pain Chest pain type: unspecified Qualified Code(s): R07.9 - Chest pain, unspecified (2) Abdominal pain Abdominal location: unspecified location Qualified Code(s): R10.9 - Unspecified abdominal pain (3) Abdominal aortic aneurysm Presence of rupture: without rupture Qualified Code(s): I71.4 - Abdominal aortic aneurysm, without rupture
[2020-04-08] MEDS: PARoxetine HCL 10 MG TAB PO SCH (21:04)
[2020-04-08] MEDS: TAMSULOSIN HCL 0.4 MG CAP PO SCH (21:04)
[2020-04-08] MEDS: ATORVASTATIN 20 MG TAB PO SCH (21:04)
[2020-04-09] MEDS: NITROGLYCERIN 2% OINTMENT 30GM TUBE EXT SCH ×2 (03:56→09:46)
[2020-04-09] MEDS: BuPROPion XL 150 MG TABCR PO SCH (08:30)
[2020-04-09] MEDS: CHOLECALCIFEROL 1,000 UNITS 25 MCG TAB PO SCH (08:30)
[2020-04-09] MEDS: PROPRANOLOL HCL 10 MG TAB PO SCH (08:30)
[2020-04-09] MEDS: FAMOTIDINE 20 MG TAB PO SCH (08:31)
[2020-04-09] MEDS: SERTRALINE HCL 50 MG TABLET PO SCH (08:31)
[2020-04-09] MEDS: FLUTICASONE FUROATE 200MCG 14 PUFFS/INHALER INH SCH (08:32)
[2020-04-09] MEDS ORDERED: PANTOprazole 40 MG TAB PO SCH (09:00)
[2020-04-09 09:19] LABS: Hematocrit (blood only) 42.5 % (42-52); Hemoglobin 14.2 g/dL (14.0-18.0); Mean Corpuscular Hemoglobin 29.5 pg (25-34); Mean Corpuscular Hgb Conc 33.4 g/dL (32-36); Mean Corpuscular Volume 88.2 fL (80-100); Platelet Count 57 K/uL (130-400); Platelet Estimate Decreased (Normal); RDW Coefficient of Variation 14.1 % (11.5-14.5); RDW Standard Deviation 45.7 fL (36.4-46.3); Red Blood Count 4.82 M/uL (4.7-6.1); White Blood Count 4.56 K/uL (4.8-10.8)
[2020-04-09 09:26] LABS: Calcium 9.4 mg/dl (8.5-10.1); Creatinine Clr Calc Pharmacy 44.2 ml/min; Est GFR (Non-African American) 45.8
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
--- NOTE | 2020-04-09 13:09 | Hospitalist Progress Note ---
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 2 days prior to admission had diarrhea. Chest Pain: ? Due to anxiety R/O ACS Cardiac enzymes negative Echo: No regional wall motion abnormality, EF 60 to 65%, grade 1 diastolic dysfunction. Continue current medications Appreciate cardiology input Lexiscan nuclear stress test is negative for ischemia or scar. Monitor Resolved No recurrence. (2) Abdominal pain: CT ABD:There are no acute infectious or inflammatory findings in the abdomen or pelvis. There is a 3.2 x 3.2 cm infrarenal abdominal aortic aneurysm. 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 This is likely unchanged from 2018 and of doubtful acute significance. Advanced colonic diverticulosis without CT evidence of acute diverticulitis. Unremarkable CT angiogram of the major branches of the abdominal aorta. Splenomegaly. --No acute process on imaging Tolerated diet Appreciate GI Input added PPI Bentyl trial Colonoscopy as outpatient Improved Needs colonoscopy as outpatient (3) Abdominal aortic aneurysm: H/O 3.2cm abdominal aortic aneurysm with mural thrombus. Follows with Dr Suarez vascular [facility] [place] [facility] [place] Continue surveillance continue statin (4) Thrombocytopenia: Chronic thrombocytopenia. 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 Follows with Dr Delaney heme/onc Monitor CBC No bleeding issues (5) COPD (chronic obstructive pulmonary disease): (6) History of TB (tuberculosis): S/P lobectomy Continue home inhalers (7) CKD (chronic kidney disease), stage III: Baseline ~1.3 Avoid nephrotoxic agents when possible Monitor renal function Will get repeat BMP as outpatient (8) Dyslipidemia: continue statin (9) GERD (gastroesophageal reflux disease): Continue H2 malorie (10) Depression: Follows with psychiatry as outpatient Continue bupropion, propranolol, Zoloft, Paxil Consulted psychiatry for input (11) BPH (benign prostatic hyperplasia): Continue flomax DVT Px: SCDs Re: Thrombocytopenia Code Status Full Code Admission and Anticipated Discharge Date Admission Date: April 05, 2020 Subjective Patient is seen and examined at bedside Doing well today Diarrhea improved No new complaints Chest pain, abd pain resolved Denies shortness of breath, dizziness, nausea, vomiting Review of Systems Review of Systems: All systems reviewed & are unremarkable except as noted in HPI & below Physical Exam Physical Exam: Physical Exam: Vitals signs as noted above General Appearance:Moderately built and nourished, no apparent distress Head: normocephalic, Atraumatic Eyes: normal inspection, EOMI Neck: supple, Trachea midline Respiratory/Chest: Decreased breath sounds, CTA, No accessory muscle use Cardiovascular: S1, S2, No murmur Abdomen/GI:Soft, non tender, Bowel sounds present Extremities/Musculoskelatal:normal inspection, no edema Neurologic/Psych:AAOX3, grossly no focal neurological deficits Skin: normal color, warm Results & Data Results & Data ([facility]) Vital Signs (Past 12 Hours) Vital Signs Temp Pulse Pulse Resp BP BP Pulse Ox 04/09/20 13:01 36.7 C 75 16 110/77 92/62 L 96 04/09/20 11:00 36.7 C 75 16 110/77 96 04/09/20 07:31 36.6 C 79 18 92/62 L 95 04/09/20 07:13 63 04/09/20 05:03 36.6 C 74 20 109/71 97 Laboratory Results Short CBC 04/09/20 Range/Units 08:47 WBC 4.56 L (4.8-10.8) K/uL Hgb 14.2 (14.0-18.0) g/dL Hct 42.5 (42-52) % Plt Count 57 L (130-400) K/uL BMP 04/09/20 08:47 Sodium 136 Potassium 4.0 Chloride 104 Carbon Dioxide 27 BUN 21 H Creatinine 1.52 H Glucose 157 H Calcium 9.4 (1) Abdominal aortic aneurysm Presence of rupture: without rupture Qualified Code(s): I71.4 - Abdominal aortic aneurysm, without rupture (2) Abdominal pain Abdominal location: unspecified location Qualified Code(s): R10.9 - Unspecified abdominal pain (3) Chest pain Chest pain type: unspecified Qualified Code(s): R07.9 - Chest pain, unspecified
--- NOTE | 2020-04-09 13:26 | Discharge Summary ---
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 Pt states around noon today started with mid abdominal pain described as tearing sensation. Reports pain was intermittent but with his h/o AAA he was concerned. Denies nausea, vomiting. Reports 2 days ago had 2-3 episodes of diarrhea. Today with normal soft formed BM. Denies urinary symptoms. Pt states chronic intermittent left sided back shena n. Chronic SOB with climbing stairs since his lobectomy many years ago. Denies any increased SOB. Pt states 2 days ago had episode of CP that radiated to left arm without any associated SOB, diaphoresis, N/V, palpitations. It occurred at rest and pt denies any recurrence of CP. Pt has not been taking aspirin secondary to thrombocytopenia. Denies fever/chills, diaphoresis, hematochezia, melena, CARLSON, dizziness, syncope, vision changes, neck pain, orthopnea, palpitations, cough, sore throat, choking, otalgia, rhinorrhea, abdominal pain, paresthesias, weakness, extremity weakness, extremity edema, rashes, urinary symptoms. Hx normal lexiscan in 2018 reported cardiac cath in 2006 in [place] with mild coronary disease. Admission Exam Per Admitting Provider Physical Exam Physical Exam: General: no distress, WDWN Head: normocephalic, atraumatic Eyes: PERRL, EOM's intact, conjunctiva non-injected, anicteric ENT: normal inspection external ears, nose, mucous membranes moist Neck: supple, trachea midline, non-tender Lungs: clear, no respiratory distress, no wheezing/rhonchi/rales CV: RRR, no murmur, no pretibial edema Abd: normal BS, soft, mild tenderness to palpation periumbilical region only without rebound or guarding, no CVA tenderness to percussion Ext: no cyanosis, no calf tenderness Neuro: A&O x 3, no focal deficits noted, normal affect Skin: warm, dry Principal Diagnosis Chest Pain Abdominal Pain Thrombocytopenia Discharge Data Allergies Allergy/AdvReac Type Severity Reaction Status Date / Time Quinolones Allergy Severe Hives Verified 04/04/20 15:24 oxycodone AdvReac Severe Nausea/Vomi Verified 04/04/20 15:24 ting codeine AdvReac Unknown Nausea/Vomi Verified 04/04/20 15:24 ting Penicillins AdvReac Unknown Nausea/Vomi Verified 04/04/20 15:24 ting Consultations 04/04/20 17:12 ED Decision to Admit Stat 04/05/20 08:00 Consult Cardiology Routine 04/08/20 12:02 Consult Psychiatry Routine 04/08/20 12:03 Consult Gastroenterology Routine Procedures Performed CT ABD:There are no acute infectious or inflammatory findings in the abdomen or pelvis. There is a 3.2 x 3.2 cm infrarenal abdominal aortic aneurysm. 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 This is likely unchanged from 2018 and of doubtful acute significance. Advanced colonic diverticulosis without CT evidence of acute diverticulitis. Unremarkable CT angiogram of the major branches of the abdominal aorta. Splenomegaly. 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 2 days prior to admission had diarrhea. Chest Pain: ? Due to anxiety R/O ACS Cardiac enzymes negative Echo: No regional wall motion abnormality, EF 60 to 65%, grade 1 diastolic dysfunction. Continue current medications Appreciate cardiology input Lexiscan nuclear stress test is negative for ischemia or scar. Monitor Resolved No recurrence. (2) Abdominal pain: CT ABD:There are no acute infectious or inflammatory findings in the abdomen or pelvis. There is a 3.2 x 3.2 cm infrarenal abdominal aortic aneurysm. 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 This is likely unchanged from 2018 and of doubtful acute significance. Advanced colonic diverticulosis without CT evidence of acute diverticulitis. Unremarkable CT angiogram of the major branches of the abdominal aorta. Splenomegaly. --No acute process on imaging Tolerated diet Appreciate GI Input added PPI Bentyl trial Colonoscopy as outpatient Improved Needs colonoscopy as outpatient (3) Abdominal aortic aneurysm: H/O 3.2cm abdominal aortic aneurysm with mural thrombus. Follows with Dr Suarez vascular surgery at [facility] [place] Continue surveillance continue statin (4) Thrombocytopenia: Chronic thrombocytopenia. 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 Follows with Dr Elaina swartz/onc Monitor CBC No bleeding issues (5) COPD (chronic obstructive pulmonary disease): (6) History of TB (tuberculosis): S/P lobectomy Continue home inhalers (7) CKD (chronic kidney disease), stage III: Baseline ~1.3 Avoid nephrotoxic agents when possible Monitor renal function Will get repeat BMP as outpatient (8) Dyslipidemia: continue statin (9) GERD (gastroesophageal reflux disease): Continue H2 malorie (10) Depression: Follows with psychiatry as outpatient Continue bupropion, propranolol, Zoloft, Paxil Consulted psychiatry for input (11) BPH (benign prostatic hyperplasia): Continue flomax DVT Px: SCDs Re: Thrombocytopenia Code Status Full Code Total Time Total Time Spent Total Time Spent (In Minutes): 40 minutes Discharge Plan Discharge Items Patient Disposition: Home - Self-Care Reason For Visit: CHEST PAIN,ABDOMINAL PAIN Discharge Diagnosis: Chest Pain Abdominal Pain Thrombocytopenia Activity: Resume your previous activity Exercise/Sports: Gradually increase as tolerated Non-emergency contact: Primary Care Provider, Drying Can Worker and Psychiatrist Call non-emergency contact if: you have any medication questions, your symptoms worsen, your pain is not controlled, your pain is worsening, your pain is unusual for you, your pain is concerning for you and you have a fever Follow-up/Referrals: Keri Rodríguez DO [Primary Care Provider] - 04/11/20 11:40 am (04/11/2020 11:40 AM Provider Keri Rodríguez DO Department [facility] ) Diet: Heart Healthy Ambulatory Orders: Basic Metabolic Panel (Routine) Timeframe: 1 Week Location: Determined by Patient Ordered By: Saravanan Mustafa Complete Blood Count no Diff (Routine) Timeframe: 1 Week Location: Determined by Patient Ordered By: Saravanan Mustafa Addtl Attending Provider Instructions: Follow-up with your primary care physician on April 11, 2020 at 11:40AM as scheduled Follow-up with your supervisor residential Dr. Iniguez for colonoscopy as outpatient Follow up with your Psychiatrist/Therapist as advised Get blood tests(CBC, BMP) in 1 week and follow-up with your physician with results. Seek immediate medical attention if your symptoms reoccur or worsen Pending Studies at Discharge: No Stand-Alone Forms: [facility] [employer], Smoking Cessation Medications and DC Order Prescriptions: New dicyclomine 10 mg Capsule 10 mg PO BID PRN (Reason: abdominal pain) Qty: 30 RF: 0 pantoprazole 40 mg Tablet,Delayed Release (Dr/Ec) 40 mg PO QAM 30 Days Qty: 30 RF: 0 Continued cholecalciferol (vitamin D3) [Vitamin D3] 1,000 unit Capsule 1,000 unit PO DAILY RF: 0 bupropion HCl 75 mg Tablet 75 mg PO DAILY@12 RF: 0 Combivent Respimat 20-100 mcg/actuation Mist 1 puff INHALATION QID PRN (Reason: Shortness Of Breath) RF: 0 atorvastatin 20 mg Tablet 20 mg PO HS RF: 0 sertraline 100 mg Tablet 150 mg PO DAILY RF: 0 propranolol 10 mg Tablet 10 mg PO TID RF: 0 diphenhydramine HCl 25 mg Tablet 25 - 50 mg PO QID PRN (Reason: Allergy Symptoms) RF: 0 nitroglycerin [Nitrostat] 0.4 mg Tablet, Sublingual 0.4 mg Sublingual DIRECTED PRN (Reason: Chest Pain) RF: 0 Flovent HFA 110 mcg/actuation Hfa Aerosol Inhaler 2 puff INHALATION BID RF: 0 bupropion HCl 150 mg Tablet Extended Release 24 Hr 150 mg PO QAM RF: 0 tamsulosin [Flomax] 0.4 mg Capsule 0.4 mg PO QPM RF: 0 paroxetine HCl 10 mg tablet 10 mg PO HS RF: 0 famotidine 20 mg Tablet 20 mg PO DAILY RF: 0 Discharge Orders: Discharge Order (Routine); Ordered 04/09/20 Ordered By: Saravanan Mustafa Admission Data Admit Date/Time: 04/05/20 15:53 Attending Provider: Saravanan Mustafa Admit Provider: Sergio Hankins Primary Care Provider: Keri Rodríguez Other Providers: Sergio Hankins ; Feliz White ; Verónica Manriquez ; Tiesha Iniguez Other Interventions: Discharge Summary Assessment (RN) Last Done: 04/09/20 13:01 PSY Interdisciplinary Discharge Planning Last Done: 04/09/20 10:06
== END 2020-04-09 13:47 | disposition home or self-care (01) | DRG 313 ==
LOC: 2W 14:48 → ED 14:48 → SUATTDRO 17:31 → 2W 18:15

== ENCOUNTER 2024-05-06 13:08 | Inpatient (IN) ==
[2024-05-06] MEDS: SODIUM CHLORIDE 0.9% 1,000 ML IV ONE (13:00)
[2024-05-06 14:15] LABS: Albumin Globulin Ratio 1.3 (0.9-2); Albumin Level 3.5 gm/dl (3.4-5.0); BUN Creatinine Ratio 24.8 (10-20); Calcium 8.3 mg/dl (8.6-10.3); Creatinine Clr Calc Pharmacy 40.3 ml/min; Est GFR (African American) 48.1 ml/min; Est GFR (Non-African American) 41.5 ml/min; Globulin 2.6 gm/dl (2.5-4.0); Total Protein 6.1 gm/dl (6.0-8.3)
[2024-05-06 14:21] LABS: Dohle Bodies 2+; Hematocrit (blood only) 40.6 % (42.0-52.0); Hemoglobin 13.7 g/dl (14.0-18.0); Hypersegmented Neutrophils 1+; Mean Corpuscular Hemoglobin 29.5 pg (25.0-34.0); Mean Corpuscular Hgb Conc 33.7 g/dL (32.0-36.0); Mean Corpuscular Volume 87.5 fL (80.0-100.0); Platelet Count 55 K/uL (130-400); Platelet Estimate Decreased (Normal); RDW Standard Deviation 44.4 fL (36.4-46.3); Red Blood Count 4.64 M/uL (4.70-6.10); White Blood Count 13.92 K/ul (4.8-10.8)
[2024-05-06 14:26] LABS: ANC (manual) 12.81 K/uL (1.4-6.5); Eosinophils # (manual) 0.28 K/uL (0-0.50); Monocytes # (manual) 0.14 K/uL (0.11-0.59); Neutrophils # (manual) 12.81 K/uL (1.40-6.50); Neutrophils % (manual) 92 %; Toxic Granulation 1+
[2024-05-06 14:47] LABS: Adenovirus PCR Not Detected (NotDetected); Bordetella parapertussis PCR Not Detected (NotDetected); Bordetella pertussis PCR Not Detected (NotDetected); Chlamydia pneumoniae PCR Not Detected (NotDetected); Coronavirus 229E PCR Not Detected (NotDetected); Coronavirus CoV-2 (COVID19)PCR Not Detected (NotDetected); Coronavirus HKU1 PCR Not Detected (NotDetected); Coronavirus NL63 PCR Not Detected (NotDetected); Coronavirus OC43PCR Not Detected (NotDetected); Human Metapneumovirus PCR Not Detected (NotDetected); Influenza A PCR Not Detected (NotDetected); Influenza B PCR Not Detected (NotDetected); Mycoplasma pneumoniae PCR Not Detected (NotDetected); Parainfluenza Virus 1 PCR Not Detected (NotDetected); Parainfluenza Virus 2 PCR Not Detected (NotDetected); Parainfluenza Virus 3 PCR Not Detected (NotDetected); Parainfluenza Virus 4 PCR Not Detected (NotDetected); Respiratory Syncytial VirusPCR Not Detected (NotDetected); Rhinovirus/Enterovirus PCR Not Detected (NotDetected)
--- NOTE | 2024-05-06 15:34 | XRay Report ---
XR chest 1V not portable CLINICAL HISTORY: Weaknes TECHNIQUE: Single frontal radiograph of the chest was obtained. Comparison: Comparison is made to chest radiographs 09/02/2024 FINDINGS: A port catheter is seen. The cardiomediastinal silhouette is normal. Elevation of the right hemidiaph ragm is seen. No evidence of pleural effusion or pneumothorax. IMPRESSION: No acute chest disease. ACT 112: Negative or not required by law. Electronically signed by: Jim Saiin M.D. 05/06/2024 3:33 PM
--- NOTE | 2024-05-06 15:39 | Emergency Department Note ---
Impression & Plan Acute hypotension, Thrombocytopenia, AMERICA (acute kidney injury) ED Provider Note NAME: OLIVE MULLINS AGE: 73 SEX: M : 1950 ARRIVES VIA: Ambulance INFORMANT: Patient, ED PROVIDER(S): Mali Hurley MD CHIEF COMPLAINT: Weakness, nausea, vomiting, diarrhea HPI: This 73-year-old male senting for weakness. Patient notes that he has had nausea vomiting and diarrhea for past 1 to 2 days. He was started on chemotherapy for small cell lung cancer on Wednesday. He is feeling generally unwell. He was requested to be seen in the ER yesterday by his oncologist the patient did wait. He notes persistent nausea and vomiting with all food or drink. He notes no persistent fevers. He has history of COPD and wears 2 to 3 L at home. Otherwise no chest pain, shortness of breath, headache, vision changes. ROS: See above HPI for pertinent positives & negatives. A total of 10 systems reviewed and were otherwise negative. PHYSICAL EXAMINATION: General: Chronically ill-appearing, fatigued appearing Head: Normocephalic and atraumatic Eyes: Normal inspection, extraocular muscles intact Ear, nose, throat: Normal external exam Neck: Normal range of motion Respiratory: lungs clear to auscultation bilaterally Cardiovascular: Regular rate/rhythm, no murmur GI: soft, nontender, no guarding or rebound Extremities: nontender, moves all extremities Neuro: The patient awake and alert, appropriately conversive, no focal deficits, symmetric faces Skin: Warm, dry, and intact MEDICAL DECISION MAKING: This is a 73-year-old male presenting for weakness. Patient denies nausea, vomiting and diarrhea. Patient started on chemotherapy. Consider gastroenteritis especially etiology, he has no abdominal tenderness at this time. He is hypotensive upon arrival into the 90 systolic. Given 1 L normal saline. I was called to bedside afterwards for persistent low blood pressure in the 80s. Will give further fluid resuscitation. -Slight leukocytosis noted to almost 14 here. Toxic granulation is also noted. Platelet count 55. Patient's creatinine is elevated at 1.61, slight electrolyte disturbances from dehydration. -Negative viral panel -Patient viral panel is currently negative. -Patient continues to have nausea, no current vomiting. Slight AMERICA. Will require mission for hypotension, AMERICA, dehydration. Possibly due to gastroenteritis versus chemotherapy initiation. Differential diagnosis: Sepsis, gastroenteritis, side effect from chemotherapy, SBO hydration ER treatment provided: See below Diagnostics interpreted by me: ECG: ECG independently interpreted by me with [normal sinus rhythm], rate of 66, [normal axis], normal RI, normal QRS, normal QTc, no ST segment elevations consistent with STEMI criteria Cardiac Monitoring: An order was placed for continuous cardiac monitoring. The monitor shows a rate of with rhythm. Laboratory studies: As stated above and show below. Imaging studies: See below. Critical Care Note: I have personally spent 35 minutes of critical care time in the direct management of this patient. This includes bedside care, interpretation of diagnostic studies, and testing, discussion with consultants, patient, and family members, and other required patient management activities. This 35 minutes is in excess of all separately billable procedures. Past Med/Surg History Problem List (Updated 05/06/24 @ 19:07 by Mali Hurley MD) AMERICA (acute kidney injury) (Acute) Acute hypotension (Acute) Acute hypotension Hyperbilirubinemia Acute kidney injury superimposed on CKD Chemotherapy induced nausea and vomiting Nausea, vomiting and diarrhea Small cell lung cancer, left upper lobe (Chronic) Lung nodule (Chronic) Encounter for pre-operative examination Primary cancer of left upper lobe of lung (Chronic 04/01/22) Diverticular disease History of colon polyps BPH (benign prostatic hyperplasia) Depression GERD (gastroesophageal reflux disease) Dyslipidemia CKD (chronic kidney disease), stage III (Acute) PCP monitoring History of TB (tuberculosis) "Inactive" Per [facility] Pulmonary records, "He underwent a right upper lobectomy back in the s for what sounds like tuberculosis.." 09/1998 pulmonary records scanned into chart state, "he's undergone lobectomy for cavitary process secondary to atypical micro bacteria. right upper lobectomy was performed in January'.. when the patient's treatment for the above mentioned problem was refractory to improvement despite numerous antibiotics used for the treatment of an atypical micro bacterial infection." COPD (chronic obstructive pulmonary disease) Abdominal pain (Acute) Abdominal aortic aneurysm (Acute) Influenza A entered into chart and last edited 08/17/19 Thrombocytopenia (Acute) Status post left inguinal hernia repair (Acute) Chest pain (Acute) entered into chart 2013 and last edited 2019 Cellulitis of face (10/27/12) Medical History (Updated 05/06/24 @ 19:07 by Mali Hurley MD) Hyperlipidemia Chronic vertigo BPH (benign prostatic hyperplasia) History of pneumonia (2022) treated inpatient at [facility]. no problems since. History of COVID-19 (2021) severe flu symptoms, treated with oxygen and breathing treatments. -> inpatient at [facility]. Hx of influenza (2019) treated inpatient at [facility] Thrombocytopenia follows with Dr Teresa GERD (gastroesophageal reflux disease) Hx of colonic polyps History of TB (tuberculosis) "Inactive" Per [facility] Pulmonary records, "He underwent a right upper lobectomy back in the for what sounds like tuberculosis.." 09/1998 pulmonary records scanned into chart state, "he's undergone lobectomy for cavitary process secondary to atypical micro bacteria. right upper lobectomy was performed in January'.. when the patient's treatment for the above mentioned problem was refractory to improvement despite numerous antibiotics used for the treatment of an atypical micro bacterial infection." Diverticular disease Hx of diverticulitis of colon (2021) CKD (chronic kidney disease), stage III monitors with PCP Abdominal aortic aneurysm follows with [facility] Cardiology ([place]) - monitoring Small cell lung cancer, left upper lobe (03/2024) dx 03/2024 via bronchoscopy and biopsy. plan to do chemotherapy. Hiatal hernia Cancer Lung - initially diagnosed 2021 s/p radiation treatments Degenerative disc disease Anxiety and depression Tremor of both hands Taking beta malorie Chronic obstructive pulmonary disease inhalers daily, nebulizer PRN - 2lpm via n/c continuous On home oxygen therapy 2lpm via n/c continuous Enlargement of spleen Aortic aneurysm Duplex 09/2023: 3.7cm AAA Under surveillance by [facility] vascular, recommendation for recheck 2025 Surgical History H/O colonoscopy with polypectomy (04/24/22) [facility] Gloria to remove a large polyp (has 6 surgical clips from removal) History of bronchoscopy (03/07/24) [facility] - dx with small cell lung cancer S/P epidural steroid injection History of esophagogastroduodenoscopy (EGD) Dr. Sinder History of cystoscopy History of lung biopsy (2021) Ct-Guided Percutaneous Left Lung Nodule Biopsy Dr. Tavo Gonzalez History of carpal tunnel release (1976) Right History of colonoscopy Multiple History of herniorrhaphy (2014) Inguinal History of tooth extraction History of lobectomy of lung (1995) Right (micro bacterium infection) History of cholecystectomy (2016) Laproscopic Cholescystectomy Dr. Olivas at [facility] History of cardiac cath 1980s, , 2007 - no stents at [facility] in [place] Family History Mother Family history of diabetes mellitus Breast cancer Unilateral Masectomy Brother Family hx of colon cancer Family history of diabetes mellitus Father Bladder cancer, Onset Age: 73 Sister Breast cancer, Onset Age: 74 Bilateral Masectomy Sister Breast cancer, Onset Age: 75 Bilateral Masectomy Sister , age 74 Colorectal cancer, Onset Age: 73 Sister Pancreatic cancer Sister Stomach cancer Sister Stomach cancer Brother Prostate cancer, Onset Age: 64 Family history of diabetes mellitus Brother Stomach cancer Aunt Breast cancer Aunt Breast cancer Unknown Lung cancer, Onset Age: 50 Unknown Cancer of unknown origin Unknown Bladder cancer, Onset Age: 55 Unknown Cancer Other Coronary heart disease Hypertension No family history of adverse response to anesthesia Social History Smoking Status: Current every day smoker Tobacco Type: Cigarettes and Cigars Cigarettes Per Day: cigar "every once in [facility]" (advised on policy); Second Hand Exposure: No; Do You Dip or Chew Tobacco: No; Hx Alcohol Use: No (quit 1990) Hx Substance Use: No Preferred Language: Slovenian Communication Ability: Effective Visual Impairment: Limited Hearing Ability: Normal Glue Clamp Operator Required: No Beliefs That Will Affect Care: None marital status: Current Living Situation: Family Current Living Situation Comment: Lives with daughter and son-in-law current occupational status: retired How many Children do You have: 3 Feels Safe at Home: Yes Childhood Exposure to Second-Hand Smoke: Yes Diet: regular caffeine: Yes (1 cup of coffee daily) during the past year weight has: remained stable Dental Care, Regularly: No Assistive Devices: Cane, Denture - Upper, Glasses, Nebulizer, Oxygen - Continuous and Walker Allergies Allergies Allergy/AdvReac Type Severity Reaction Status Date / Time Quinolones Allergy Severe Hives Verified 05/06/24 16:11 moxifloxacin [From Avelox] Allergy Unknown listed in Verified 05/06/24 16:11 heme/onc records codeine AdvReac Intermediate Nausea/Vomi Verified 05/06/24 16:11 ting oxycodone AdvReac Intermediate Nausea/Vomi Verified 05/06/24 16:11 ting Penicillins AdvReac Intermediate Nausea/Vomi Verified 05/06/24 16:11 ting Home Meds Home Medications Medication Instructions Recorded Confirmed atorvastatin 20 mg tablet 20 mg PO HS 10/23/18 05/06/24 diphenhydramine HCl 25 mg tablet 25 - 50 mg PO QID PRN Allergy 10/23/18 05/06/24 Symptoms propranolol 10 mg tablet 10 mg PO BID 10/23/18 05/06/24 tamsulosin 0.4 mg capsule (Flomax) 0.4 mg PO HS 10/23/18 05/06/24 meclizine 12.5 mg tablet 12.5 mg PO TID PRN 06/07/20 05/06/24 Dizziness/vertigo albuterol sulfate 90 mcg/actuation 2 puff inhalation Q6H PRN Wheezing 04/22/22 05/06/24 aerosol inhaler fluticasone fur. 100 mcg-umeclid 1 inh inhalation QAM 04/22/22 05/06/24 62.5 mcg-vilant 25 mcg inhalat.powder (Trelegy Ellipta) ipratropium bromide 0.02 % 2.5 ml inhalation QID PRN Wheezing 05/21/23 05/06/24 solution for inhalation ondansetron HCl 4 mg tablet 4 mg PO Q8H PRN Nausea And Vomiting 01/27/24 05/06/24 bupropion HCl 150 mg 24 hr tablet, 150 mg PO QAM 02/23/24 05/06/24 extended release omeprazole 20 mg tablet,delayed 20 mg PO BID 02/23/24 05/06/24 release acetaminophen 500 mg tablet 500 mg PO Q6H PRN Pain 03/07/24 05/06/24 dexamethasone 4 mg tablet 20 mg PO UD PRN radiation 04/12/24 05/06/24 treatments azithromycin 500 mg tablet 500 mg PO UD 05/06/24 05/06/24 furosemide 20 mg tablet 20 mg PO QAM 05/06/24 05/06/24 olanzapine 2.5 mg tablet 2.5 mg PO HS 05/06/24 05/06/24 paroxetine HCl 20 mg tablet 20 mg PO HS 05/06/24 05/06/24 prochlorperazine maleate 10 mg 10 mg PO UD PRN Nausea And Vomiting 05/06/24 05/06/24 tablet Results & Data (ED) Vital Signs Vital Signs - 24 hr 05/06/24 13:15 05/06/24 13:18 05/06/24 13:23 Pulse Rate 71 69 73 Pulse Rate [Apical] Respiratory Rate 18 16 Blood Pressure 98/63 L 87/56 L Blood Pressure [Right Arm] Blood Pressure Mean 74 69 Blood Pressure Mean [Right Arm] Pulse Oximetry 99 98 Oxygen Delivery Method Nasal Cannula Oxygen Flow Rate 2 2 Sepsis Recent Fever Within 48 Hours No Sepsis New/Unexplained Change in Mental Status No Sepsis Action Taken by Nursing No Action Required 05/06/24 15:30 05/06/24 17:14 Pulse Rate 68 Pulse Rate [Apical] 64 Respiratory Rate 18 Blood Pressure Blood Pressure [Right Arm] 84/64 L Blood Pressure Mean Blood Pressure Mean [Right Arm] 70 Pulse Oximetry 100 Oxygen Delivery Method Nasal Cannula Oxygen Flow Rate 2 Sepsis Recent Fever Within 48 Hours Sepsis New/Unexplained Change in Mental Status Sepsis Action Taken by Nursing Laboratory Data 05/06/24 13:23 05/06/24 13:23 Lab Results 05/06/24 05/06/24 05/06/24 Range/Units 13:23 14:08 Unknown WBC 13.92 H (4.8-10.8) K/ul RBC 4.64 L (4.70-6.10) M/uL Hgb 13.7 L (14.0-18.0) g/dl Hct 40.6 L (42.0-52.0) % MCV 87.5 (80.0-100.0) fL MCH 29.5 (25.0-34.0) pg MCHC 33.7 (32.0-36.0) g/dL RDW Std Deviation 44.4 (36.4-46.3) fL RDW Coeff of Flora 14.0 (11.5-14.5) % Plt Count 55 L (130-400) K/uL MPV 13.0 H (9.4-12.4) fL Reticulocyte % (Auto) 0.43 L (0.50-2.00) % Reticulocyte # 0.020 (0.020-0.100) 10^6/uL Neutrophils % (Manual) 92 % Lymphocytes % (Manual) 5 % Monocytes % (Manual) 1 % Eosinophils % (Manual) 2 % Neutrophils # (Manual) 12.81 H (1.40-6.50) K/uL Total Absolute Neuts 12.81 H (1.4-6.5) K/uL Lymphocytes # (Manual) 0.70 L (1.2-3.4) K/uL Total Abs Lymphocytes 0.70 L (1.2-3.4) K/uL Monocytes # (Manual) 0.14 (0.11-0.59) K/uL Eosinophils # (Manual) 0.28 (0-0.50) K/uL Hypersegmented Neuts 1+ Toxic Granulation 1+ Dohle Bodies 2+ Platelet Estimate Decreased L (Normal) Sodium 132 L (136-145) mmol/L Potassium 4.0 (3.5-5.1) mmol/L Chloride 96 L (98-107) mmol/L Carbon Dioxide 30 (21-32) mmol/L Anion Gap 6 (3-11) BUN 40 H (6-23) mg/dl Creatinine 1.61 H (0.6-1.4) mg/dl Est Cr Clr Drug Dosing 40.3 ml/min Est GFR ( Amer) 48.1 ml/min Est GFR (Non-Af Amer) 41.5 ml/min BUN/Creatinine Ratio 24.8 H (10-20) Glucose 96 (70-99(Fasting)) mg/dl Calcium 8.3 L (8.6-10.3) mg/dl Total Bilirubin 4.0 H (0.2-1.0) mg/dl Direct Bilirubin 0.6 H (0-0.2) mg/dl AST 15 (13-39) U/L ALT 14 (7-52) U/L Alkaline Phosphatase 89 (34-104) U/L Lactate Dehydrogenase 261 H (86-244) U/L Total Protein 6.1 (6.0-8.3) gm/dl Albumin 3.5 (3.4-5.0) gm/dl Globulin 2.6 (2.5-4.0) gm/dl Albumin/Globulin Ratio 1.3 (0.9-2) Lipase 25 (11-82) U/L Urine Color Yellow Urine Appearance Clear (Clear) Urine pH 6.5 (4.5-7.5) Ur Specific Hayes 1.014 (1.000-1.030) Urine Protein Trace H (Negative) Urine Glucose (UA) Negative (Negative) Urine Ketones Negative (Negative) Urine Blood Negative (Negative) Urine Nitrite Negative (Negative) Urine Bilirubin Negative (Negative) Urine Urobilinogen Negative (Negative) Ur Leukocyte Esterase Negative (Negative) Urine WBC (Auto) 0-5 (0-5) /hpf Urine RBC (Auto) 0-2 (0-2) /hpf U Hyaline Cast (Auto) 3-5 H (0-2) /lpf U Epithel Cells (Auto) 0-2 (0-2) /hpf Urine Bacteria (Auto) None Seen (None Seen) Adenovirus (PCR) Not Detected (NotDetected) B. pertussis DNA (PCR) Not Detected (NotDetected) B.parapertussis DNA PCR Not Detected (NotDetected) C. pneumoniae DNA (PCR) Not Detected (NotDetected) Coronavirus OC43 (PCR) Not Detected (NotDetected) Coronavirus HKU1 (PCR) Not Detected (NotDetected) Coronavirus 229E (PCR) Not Detected (NotDetected) SARS-CoV-2 (PCR) Not Detected (NotDetected) Coronavirus NL63 (PCR) Not Detected (NotDetected) Human Metapneumovir PCR Not Detected (NotDetected) Influenza Type A (PCR) Not Detected (NotDetected) Influenza Type B (PCR) Not Detected (NotDetected) M. pneumoniae (PCR) Not Detected (NotDetected) Parainfluenza 1 (PCR) Not Detected (NotDetected) Parainfluenza 2 (PCR) Not Detected (NotDetected) Parainfluenza 3 (PCR) Not Detected (NotDetected) Parainfluenza 4 (PCR) Not Detected (NotDetected) RSV (PCR) Not Detected (NotDetected) Entero/Rhino (PCR) Not Detected (NotDetected) Blood Type A Positive Antibody Screen NEGATIVE Administered Medications Lactated Ringer's (Lr) 1,000 mls @ 125 mls/hr IV .Q8H THOMAS Stop: 05/07/24 16:59 Last Admin: 05/06/24 18:10 Dose: 125 mls/hr Documented By: MARYLIN Discontinued Medications Sodium Chloride (Nss) 1,000 mls @ 999 mls/hr IV .Q1H1M ONE Stop: 05/06/24 14:37 Last Infusion: 05/06/24 15:19 Dose: Infused Documented By: Admin: 05/06/24 13:00 Dose: 999 mls/hr Documented By: MARYLIN Imaging Data Radiologist's Impression: Chest X-Ray 05/06/24 13:37 XR chest 1V not portable CLINICAL HISTORY: Weaknes TECHNIQUE: Single frontal radiograph of the chest was obtained. Comparison: Comparison is made to chest radiographs 09/02/2024 FINDINGS: A port catheter is seen. The cardiomediastinal silhouette is normal. Elevation of the right hemidiaphragm is seen. No evidence of pleural effusion or pneumothorax. IMPRESSION: No acute chest disease. ACT 112: Negative or not required by law. Electronically signed by: Jim Saini M.D. 05/06/2024 3:33 PM Discharge Plan Visit Data Chief Complaint: Illness Stated Complaint: WEAKNESS, VOMITING, DIARRHEA ED Provider: Mali Hurley Discharge Problem: Acute hypotension, Thrombocytopenia, AMERICA (acute kidney injury) Forms Stand Alone Forms: [facility] [employer] Prescriptions Prescriptions: No Action ipratropium bromide 0.02 % solution 2.5 ml inhalation QID PRN (Reason: Wheezing) atorvastatin 20 mg Tablet 20 mg PO HS propranolol 10 mg Tablet 10 mg PO BID diphenhydramine HCl 25 mg Tablet 25 - 50 mg PO QID PRN (Reason: Allergy Symptoms) tamsulosin [Flomax] 0.4 mg Capsule 0.4 mg PO HS meclizine 12.5 mg Tablet 12.5 mg PO TID PRN (Reason: Dizziness/vertigo) albuterol sulfate 90 mcg/actuation Hfa Aerosol Inhaler 2 puff INHALATION Q6H PRN (Reason: Wheezing) Trelegy Ellipta 100-62.5-25 mcg Blister With Device 1 inh INHALATION QAM ondansetron HCl 4 mg tablet 4 mg PO Q8H PRN (Reason: Nausea And Vomiting) bupropion HCl 150 mg Tablet Extended Release 24 Hr 150 mg PO QAM omeprazole 20 mg Tablet,Delayed Release (Dr/Ec) 20 mg PO BID acetaminophen 500 mg Tablet 500 mg PO Q6H PRN (Reason: Pain) dexamethasone 4 mg Tablet 20 mg PO UD PRN (Reason: radiation treatments) Patient Comments: has not started furosemide 20 mg tablet 20 mg PO QAM Rx Instructions: take for 5 days...end dose 05/06/24 azithromycin 500 mg tablet 500 mg PO UD Rx Instructions: has not started yet still in pharmacy prochlorperazine maleate 10 mg tablet 10 mg PO UD PRN (Reason: Nausea And Vomiting) olanzapine 2.5 mg tablet 2.5 mg PO HS paroxetine HCl 20 mg tablet 20 mg PO HS Referrals Referrals: Page Sharma MD [Primary Care Provider] -
[2024-05-06 16:14] LABS: Bilirubin Direct 0.6 mg/dl (0-0.2)
--- NOTE | 2024-05-06 16:22 | History & Physical Report ---
Date of Service May 06, 2024 Assessment & Plan (1) Nausea, vomiting and diarrhea: Plan: received chemotherapy probably with intravenous cisplatin/etoposide on Wednesday and Wednesday he also completed radiation treatment to the right upper lung before the chemotherapy has been complaining of problems swallowing for the last 2 days and abdominal discomfort with nausea, vomiting and diarrhea since yesterday denies any blood in the vomit or in the stool symptoms are likely secondary to chemotherapy drugs Will give intravenous fluid and electrolyte replacement and was symptomatic treatment for nausea vomiting he has been feeling little better since in the emergency room (2) Acute hypotension: Plan: presented with generalized weakness and was unable to get up from bathroom this morning blood pressure systolic around 80s in the emergency room likely secondary to dehydration with nausea vomiting and diarrhea will continue with intravenous fluid and monitor in the medically unit (3) Chemotherapy induced nausea and vomiting: Plan: has received intravenous chemotherapy for 3 days starting on Wednesday, Wednesday and Wednesday probably received Neupogen as well (4) Small cell lung cancer, left upper lobe: Plan: history of small cell lung cancer initial lung nodule was diagnosed on 02/26/[address]-guided biopsy at the time was nondiagnostic subsequent CT and PET scan was highly suspicious for malignancy he received SBRT and finished May and now has been ongoing chemotherapy (5) Acute kidney injury superimposed on CKD: Plan: history of CKD stage III creatinine went up to 1.61 from 1.06 and BUN is high at 40 will give adequate intravenous fluid and electrolytes (6) COPD (chronic obstructive pulmonary disease): Plan: and monitor PRP exacerbation continue current home medications (7) GERD (gastroesophageal reflux disease): Plan: continue PPI (8) Hyperbilirubinemia: Plan: noted to have high bilirubin of 4.0 turned out to be indirect hyperbilirubinemia LFTs remain normal otherwise will get reticulocyte count and LDH hemoglobin remains stable 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 doubt any activity DVT prophylaxis SCDs due to thrombocytopenia CODE STATUS full History of Present Illness Chief Complaint: Weakness, nausea, vomiting and diarrhea for the last 2 days Primary Care Provider: Page Sharma MD he is a 73-year-old male significant past medical history of left upper lobe small cell lung cancer with ongoing chemo, COPD, chronic respiratory failure on home oxygen, severe recurrent major depressive disorder with psychotic features, CKD stage III, GERD, ASCVD and benign prostatic hypertrophy and also history of thrombocytopenia apparently has had chemo on Wednesday, Wednesday and Wednesday for the small cell lung cancer. she was getting IV fluid with the chemo and also has been on Lasix for diuresis. she was complaining of some dysphagia about 2 days back and started to have abdominal discomfort with nausea vomiting and diarrhea since yesterday. He was so weak today that that he was brought into the emergency room for further evaluation. denies any fever, chest pain or palpitation. denies any swelling of the legs. no numbness or tingling involving any of the extremities. He was noted to have low blood pressure in the emergency room and AMERICA on CKD. also his bilirubin was noted to be high without any change in liver function. he was a started with intravenous fluid and was admitted to med/telemetry unit for continuation of care. Allergies Allergy/AdvReac Type Severity Reaction Status Date / Time Quinolones Allergy Severe Hives Verified 05/06/24 16:11 moxifloxacin [From Avelox] Allergy Unknown listed in Verified 05/06/24 16:11 heme/onc records codeine AdvReac Intermediate Nausea/Vomi Verified 05/06/24 16:11 ting oxycodone AdvReac Intermediate Nausea/Vomi Verified 05/06/24 16:11 ting Penicillins AdvReac Intermediate Nausea/Vomi Verified 05/06/24 16:11 ting Home Medications Medication Instructions Recorded Confirmed Type atorvastatin 20 mg tablet 20 mg PO HS 10/23/18 05/06/24 History diphenhydramine HCl 25 mg tablet 25 - 50 mg PO QID PRN Allergy 10/23/18 05/06/24 History Symptoms propranolol 10 mg tablet 10 mg PO BID 10/23/18 05/06/24 History tamsulosin 0.4 mg capsule (Flomax) 0.4 mg PO HS 10/23/18 05/06/24 History meclizine 12.5 mg tablet 12.5 mg PO TID PRN 06/07/20 05/06/24 History Dizziness/vertigo albuterol sulfate 90 mcg/actuation 2 puff inhalation Q6H PRN Wheezing 04/22/22 05/06/24 History aerosol inhaler fluticasone fur. 100 mcg-umeclid 1 inh inhalation QAM 04/22/22 05/06/24 History 62.5 mcg-vilant 25 mcg inhalat.powder (Trelegy Ellipta) ipratropium bromide 0.02 % 2.5 ml inhalation QID PRN Wheezing 05/21/23 05/06/24 History solution for inhalation ondansetron HCl 4 mg tablet 4 mg PO Q8H PRN Nausea And Vomiting 01/27/24 05/06/24 History bupropion HCl 150 mg 24 hr tablet, 150 mg PO QAM 02/23/24 05/06/24 History extended release omeprazole 20 mg tablet,delayed 20 mg PO BID 02/23/24 05/06/24 History release acetaminophen 500 mg tablet 500 mg PO Q6H PRN Pain 03/07/24 05/06/24 History dexamethasone 4 mg tablet 20 mg PO UD PRN radiation 04/12/24 05/06/24 History treatments azithromycin 500 mg tablet 500 mg PO UD 05/06/24 05/06/24 History furosemide 20 mg tablet 20 mg PO QAM 05/06/24 05/06/24 History olanzapine 2.5 mg tablet 2.5 mg PO HS 05/06/24 05/06/24 History paroxetine HCl 20 mg tablet 20 mg PO HS 05/06/24 05/06/24 History prochlorperazine maleate 10 mg 10 mg PO UD PRN Nausea And Vomiting 05/06/24 05/06/24 History tablet Past Med/Surg History Problem List (Updated 05/06/24 @ 16:39 by Theo Martin MD) Acute hypotension Hyperbilirubinemia Acute kidney injury superimposed on CKD Chemotherapy induced nausea and vomiting Nausea, vomiting and diarrhea Small cell lung cancer, left upper lobe (Chronic) Lung nodule (Chronic) Encounter for pre-operative examination Primary cancer of left upper lobe of lung (Chronic 04/01/22) Diverticular disease History of colon polyps BPH (benign prostatic hyperplasia) Depression GERD (gastroesophageal reflux disease) Dyslipidemia CKD (chronic kidney disease), stage III (Acute) PCP monitoring History of TB (tuberculosis) "Inactive" Per [facility] Pulmonary records, "He underwent a right upper lobectomy back in the 90s for what sounds like tuberculosis.." 09/1998 pulmonary records scanned into chart state, "he's undergone lobectomy for cavitary process secondary to atypical micro bacteria. right upper lobectomy was performed in January'.. when the patient's treatment for the above mentioned problem was refractory to improvement despite numerous antibiotics used for the treatment of an atypical micro bacterial infection." COPD (chronic obstructive pulmonary disease) Abdominal pain (Acute) Abdominal aortic aneurysm (Acute) Influenza A entered into chart and last edited 08/17/19 Thrombocytopenia (Acute) Status post left inguinal hernia repair (Acute) Chest pain (Acute) entered into chart 2013 and last edited 2019 Cellulitis of face (10/27/12) Medical History (Updated 05/06/24 @ 16:39 by Theo Martin MD) Hyperlipidemia Chronic vertigo BPH (benign prostatic hyperplasia) History of pneumonia (2022) treated inpatient at [facility]. no problems since. History of COVID-19 (2021) severe flu symptoms, treated with oxygen and breathing treatments. -> inpatient at [facility]. Hx of influenza (2018) treated inpatient at [facility] Thrombocytopenia follows with Dr Malick PAIGE (gastroesophageal reflux disease) Hx of colonic polyps History of TB (tuberculosis) "Inactive" Per [facility] Pulmonary records, "He underwent a right upper lobectomy back in the for what sounds like tuberculosis.." 09/1998 pulmonary records scanned into chart state, "he's undergone lobectomy for cavitary process secondary to atypical micro bacteria. right upper lobectomy was performed in January'.. when the patient's treatment for the above mentioned problem was refractory to improvement despite numerous antibiotics used for the treatment of an atypical micro bacterial infection." Diverticular disease Hx of diverticulitis of colon (2021) CKD (chronic kidney disease), stage III monitors with PCP Abdominal aortic aneurysm follows with [facility] Cardiology ([place]) - monitoring Small cell lung cancer, left upper lobe (03/2024) dx 03/2024 via bronchoscopy and biopsy. plan to do chemotherapy. Hiatal hernia Cancer Lung - initially diagnosed 2021 s/p radiation treatments Degenerative disc disease Anxiety and depression Tremor of both hands Taking beta malorie Chronic obstructive pulmonary disease inhalers daily, nebulizer PRN - 2lpm via n/c continuous On home oxygen therapy 2lpm via n/c continuous Enlargement of spleen Aortic aneurysm Duplex 09/2023: 3.7cm AAA Under surveillance by [facility] vascular, recommendation for recheck 2025 Surgical History H/O colonoscopy with polypectomy (04/24/22) [facility] Gaineswn to remove a large polyp (has 6 surgical clips from removal) History of bronchoscopy (03/07/24) [facility] - dx with small cell lung cancer S/P epidural steroid injection History of esophagogastroduodenoscopy (EGD) Dr. Snider History of cystoscopy History of lung biopsy (2021) Ct-Guided Percutaneous Left Lung Nodule Biopsy Dr. Tavo Gonzalez History of carpal tunnel release (1976) Right History of colonoscopy Multiple History of herniorrhaphy (2014) Inguinal History of tooth extraction History of lobectomy of lung (1995) Right (micro bacterium infection) History of cholecystectomy (2016) Laproscopic Cholescystectomy Dr. Olivas at [facility] History of cardiac cath 1980s, , 2006 - no stents at [facility] in [place] Family History Mother Family history of diabetes mellitus Breast cancer Unilateral Masectomy Brother Family hx of colon cancer Family history of diabetes mellitus Father Bladder cancer, Onset Age: 73 Sister Breast cancer, Onset Age: 74 Bilateral Masectomy Sister Breast cancer, Onset Age: 75 Bilateral Masectomy Sister , age 74 Colorectal cancer, Onset Age: 73 Sister Pancreatic cancer Sister Stomach cancer Sister Stomach cancer Brother Prostate cancer, Onset Age: 64 Family history of diabetes mellitus Brother Stomach cancer Aunt Breast cancer Aunt Breast cancer Unknown Lung cancer, Onset Age: 50 Unknown Cancer of unknown origin Unknown Bladder cancer, Onset Age: 55 Unknown Cancer Other Coronary heart disease Hypertension No family history of adverse response to anesthesia Social History Smoking Status: Current every day smoker Tobacco Type: Cigarettes and Cigars Cigarettes Per Day: cigar "every once in wile" (advised on policy); Second Hand Exposure: No; Do You Dip or Chew Tobacco: No; Hx Alcohol Use: No (quit 1990) Hx Substance Use: No Preferred Language: Cuban Communication Ability: Effective Visual Impairment: Limited Hearing Ability: Normal Manager Cafe Required: No Beliefs That Will Affect Care: None marital status: Current Living Situation: Family Current Living Situation Comment: Lives with daughter and son-in-law current occupational status: retired How many Children do You have: 3 Feels Safe at Home: Yes Childhood Exposure to Second-Hand Smoke: Yes Diet: regular caffeine: Yes (1 cup of coffee daily) during the past year weight has: remained stable Dental Care, Regularly: No Assistive Devices: Cane, Denture - Upper, Glasses, Nebulizer, Oxygen - Continuous and Walker Review of Systems Review of Systems: All systems reviewed and are unremarkable except as noted below Physical Exam Physical Exam: Lying in bed without any acute distress but very anxious and remained lethargic Constitutional: well developed, well nourished, + ill appearing and average body habitus Eyes: PERRL, conjunctivae normal, anicteric sclerae ENMT: external ear and nose normal, oropharynx normal Neck: trachea midline, no thyromegaly Respiratory: no respiratory distress Auscultation: lungs clear to auscultation bilaterally Cardiovascular: Rate/Rhythm: regular rate and regular rhythm; not tachycardic Heart Sounds: normal S1 and normal S2; no murmur Gastrointestinal (Abdomen): Inspection/Auscultation: normal bowel sounds; abdomen not distended Percussion/Palpation: abdomen soft; abdomen nontender Musculoskeletal: no acute arthritis involving any of the joints Neurologic: normal touch/pain/proprioception and moves all extremities; no focal motor deficits Lymphatic: no cervical or axillary lymphadenopathy Results & Data Results & Data Vital Signs (Past 12 Hours) Vital Signs Pulse Pulse Resp BP BP Pulse Ox O2 Del Method 05/06/24 15:30 64 18 84/64 L 100 Nasal Cannula 05/06/24 13:23 73 16 87/56 L 98 05/06/24 13:18 69 05/06/24 13:15 71 18 98/63 L 99 Nasal Cannula O2 Flow Rate 05/06/24 15:30 2 05/06/24 13:23 2 05/06/24 13:18 05/06/24 13:15 2 Laboratory Results Short CBC 05/06/24 Range/Units 13:23 WBC 13.92 H (4.8-10.8) K/ul Hgb 13.7 L (14.0-18.0) g/dl Hct 40.6 L (42.0-52.0) % Plt Count 55 L (130-400) K/uL BMP 05/06/24 13:23 Sodium 132 L Potassium 4.0 Chloride 96 L Carbon Dioxide 30 BUN 40 H Creatinine 1.61 H Glucose 96 Calcium 8.3 L Liver Function 05/06/24 Range/Units 13:23 Total Bilirubin 4.0 H (0.2-1.0) mg/dl Direct Bilirubin 0.6 H (0-0.2) mg/dl AST 15 (13-39) U/L ALT 14 (7-52) U/L Alkaline Phosphatase 89 (34-104) U/L Albumin 3.5 (3.4-5.0) gm/dl
--- NOTE | 2024-05-06 16:25 | Electrocardiogram Report ---
Test Reason : Blood Pressure : / mmHG Vent. Rate : 066 BPM Atrial Rate : 066 BPM P-R Int : 176 ms QRS Dur : 096 ms QT Int : 410 ms P-R-T Axes : 037 008 033 degrees QTc Int : 429 ms Normal sinus rhythm Normal ECG When compared with ECG of 07-MAR-2024 08:40, No significant change was found Confirmed by David Magana ([id number]) on 05/06/2024 4:24:32 PM Referred By: REFERRED SELF Confirmed By:David Magana
[2024-05-06 16:42] LABS: Appearance Urine Clear (Clear); Bacteria Urine Automated None Seen (None Seen); Bilirubin Urine Negative (Negative); Blood Urine Negative (Negative); Color Urine Yellow; Epithelial Cell Urine Auto 0-2 /hpf (0-2); Glucose Urine UA Negative (Negative); Ketones Urine Negative (Negative); Leukocyte Esterase Urine Negative (Negative); Nitrite Urine Negative (Negative); Protein Urine Trace (Negative); RBC Urine Automated 0-2 /hpf (0-2); Specific Gravity Urine 1.014 (1.000-1.030); Urobilinogen Urine Negative (Negative); WBC Urine Automated 0-5 /hpf (0-5); pH Urine 6.5 (4.5-7.5)
[2024-05-06 17:07] LABS: Eosinophils % (manual) 2 %; Lymphocytes % (manual) 5 %; Monocytes % (manual) 1 %; Reticulocyte % 0.43 % (0.50-2.00)
[2024-05-06] MEDS: LACTATED RINGER'S 1,000 ML IV SCH (18:10)
[2024-05-06] MEDS: ONDANSETRON INJ 2 MG/ML 2 ML VIAL ONE (19:31)
[2024-05-06] MEDS: ONDANSETRON INJ 2 MG/ML 2 ML VIAL IV ONE (19:47)
[2024-05-06] MEDS ORDERED: IPRATROPIUM BROMIDE NEB SOLN 0.02% 0.5MG/2.5ML VIAL INH PRN (20:47)
[2024-05-06] MEDS ORDERED: diphenhydrAMINE Capsule 25 MG CAP PO PRN (20:47)
[2024-05-06] MEDS ORDERED: ALBUTEROL HFA 8 GM INHALER INH PRN (20:47)
[2024-05-06 20:52] VITALS: RESP 18
[2024-05-06] MEDS: PANTOprazole 40 MG TAB PO SCH (21:47)
[2024-05-06] MEDS: ACETAMINOPHEN 500 MG TAB PO PRN (21:47)
[2024-05-06] MEDS: OLANZAPINE 2.5 MG TAB PO SCH (21:48)
[2024-05-06] MEDS: TAMSULOSIN HCL 0.4 MG CAP PO SCH (21:48)
[2024-05-06] MEDS: AZITHROMYCIN 250 MG TAB PO SCH (21:48)
[2024-05-06] MEDS: PARoxetine HCL 20 MG TAB PO SCH (21:49)
[2024-05-06] MEDS: ATORVASTATIN 20 MG TAB PO SCH (21:49)
[2024-05-06] MEDS: PROPRANOLOL HCL 10 MG TAB PO SCH (21:51)
[2024-05-07] MEDS: ONDANSETRON INJ 2 MG/ML 2 ML VIAL IV SCH (00:59)
[2024-05-07 06:34] LABS: Hematocrit (blood only) 32.4 % (42.0-52.0); Mean Corpuscular Hemoglobin 29.4 pg (25.0-34.0); Mean Corpuscular Volume 86.6 fL (80.0-100.0); Mean Platelet Volume 12.8 fL (9.4-12.4); Platelet Count 33 K/uL (130-400); RDW Coefficient of Variation 13.8 % (11.5-14.5); RDW Standard Deviation 43.8 fL (36.4-46.3); Red Blood Count 3.74 M/uL (4.70-6.10); White Blood Count 6.44 K/ul (4.8-10.8)
[2024-05-07 06:58] LABS: Albumin Globulin Ratio 1.3 (0.9-2); Albumin Level 2.9 gm/dl (3.4-5.0); BUN Creatinine Ratio 23.3 (10-20); Calcium 7.9 mg/dl (8.6-10.3); Creatinine Clr Calc Pharmacy 48.8 ml/min; Est GFR (African American) 60.6 ml/min; Est GFR (Non-African American) 52.3 ml/min; Globulin 2.2 gm/dl (2.5-4.0); Magnesium 1.8 mg/dl (1.7-2.4); Phosphorus 2.8 mg/dl (2.5-4.9); Potassium 3.9 mmol/L (3.5-5.1); Total Protein 5.1 gm/dl (6.0-8.3)
[2024-05-07 07:21] LABS: ALC (manual) 1.03 K/uL (1.2-3.4); ANC (manual) 5.41 K/uL (1.4-6.5); Dohle Bodies 1+; Lymphocytes # (manual) 1.03 K/uL (1.2-3.4); Lymphocytes % (manual) 16 %; Neutrophils # (manual) 5.41 K/uL (1.40-6.50); Neutrophils % (manual) 84 %; Toxic Granulation 1+
[2024-05-07] MEDS: FLUTICASONE FUROATE 100MCG 14 PUFFS/INHALER INH SCH (08:13)
[2024-05-07] MEDS: buPROPion XL 150 MG TABCR PO SCH (08:13)
[2024-05-07] MEDS: UMECLIDINIUM/VILANTEROL 62.5/25MCG 7 PUFFS/INHALER INH SCH (08:13)
[2024-05-07] MEDS ORDERED: NON-FORMULARY MEDICATION (Fluticasone-Umeclidin-Vilanter [Trelegy Ellipta] 100-62.5-25 mcg INH SCH (09:00)
--- NOTE | 2024-05-07 13:24 | Hospitalist Progress Note ---
Date of Service May 07, 2024 Assessment & Plan (1) Nausea, vomiting and diarrhea: (2) Acute hypotension: (3) Chemotherapy induced nausea and vomiting: (4) Small cell lung cancer, left upper lobe: (5) Acute kidney injury superimposed on CKD: (6) COPD (chronic obstructive pulmonary disease): (7) GERD (gastroesophageal reflux disease): (8) Hyperbilirubinemia: Plan Mr. Clemente is a 73 year old gentleman with history of tobacco use, COPD, CKDIII, chronic immune thrombocytopenia, recurrent diverticulitis, and small cell lung cancer of SAGAR now s/p radiation and starting chemotherapy who is admitted for nausea, vomting, diarrhea after chemotherapy this last weak. Patient was found to be with SBP in 80s which were responsive to IVF. #Ambulatory dysfunction Recent falls reported and weakness, mostly ambulates with cane/walker Last fall prior to presentation but fall sustained about 2 weeks ago Will consider HH PT/OT PT/OT consults pending #Nausea, vomiting and diarrhea 2/2 Chemotherapy #Hypotension s/p intravenous cisplatin/etoposide on Wednesday and Wednesday Reports poor po intake and weakness s/p treatment Symptoms resolved at this time Discontinue fluids Encourage PO symptom management with antiemetics prn #Immunocompromised 2/2 chemotherapy #Small cell lung cancer, left upper lobe: initial lung nodule was diagnosed on 02/26/[address]-guided biopsy at the time was nondiagnostic diagnosed by EBUS/biopsy on 03/07/2024 s/p 1 cycle of chemoo this last week s/p Neupogen Monitor CBC #chronic immune thrombocytopenia SCDs for now recently on TPO prior to chemo low threshold to discuss with Dr. Teresa if downtrending -no petechial rash, no gingival bleeding or symptoms on todays exam #Tobacco use discussed cessation last cig. 3 days ago # Acute kidney injury superimposed on CKD: *improving likely prerenal, downtrending, s/p IVF Encourage PO #Tremors continue propranolol #chronic hypoxic resp failure, 2-3L continuous #COPD (chronic obstructive pulmonary disease): stable CTM # GERD (gastroesophageal reflux disease): continue PPI #Hyperbilirubinemia: noted to have high bilirubin of 4.0, downtrending Elevated LDH at 261, low retic likely iso chemo and dehyrdation Trend CMP # 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 low suspicion of activity DVT prophylaxis SCDs due to thrombocytopenia CODE STATUS full Admission and Anticipated Discharge Date Admission Date: May 06, 2024 Subjective BRIONNA Reports feeling much improved. Tolerating diet and eager to eat more Notes that he has been weaker with more falls--last fall prior to presentation and prior to that about 2 weeks before States he does worry he is getting weaker Denies cough, SOB Denies gingival bleeding or new rashes Physical Exam Constitutional: WD/WN, vitals as above pleasant and conversational Respiratory: normal respiratory effort, lungs clear to auscultation Cardiovascular: RRR, no murmur, no edema Gastrointestinal (Abdomen): normal bowel sounds, soft, nontender, no hepatosplenomegaly Results & Data Results & Data Vital Signs (Past 12 Hours) Vital Signs Temp Pulse Pulse Resp BP Pulse Ox O2 Del Method 05/07/24 12:12 36.5 C 65 18 107/67 100 Nasal Cannula 05/07/24 11:06 Nasal Cannula 05/07/24 07:32 36.7 C 68 18 107/62 98 Nasal Cannula 05/07/24 07:17 67 05/07/24 05:55 36.5 C 66 18 105/65 97 Nasal Cannula O2 Flow Rate 05/07/24 12:12 2 05/07/24 11:06 2 05/07/24 07:32 2 05/07/24 07:17 05/07/24 05:55 2 Laboratory Results Short CBC 05/06/24 05/07/24 Range/Units 13:23 05:46 WBC 13.92 H 6.44 (4.8-10.8) K/ul Hgb 13.7 L 11.0 L (14.0-18.0) g/dl Hct 40.6 L 32.4 L (42.0-52.0) % Plt Count 55 L 33 L (130-400) K/uL BMP 05/06/24 05/07/24 13:23 05:46 Sodium 132 L 133 L Potassium 4.0 3.9 Chloride 96 L 100 Carbon Dioxide 30 31 BUN 40 H 31 H Creatinine 1.61 H 1.33 Glucose 96 93 Calcium 8.3 L 7.9 L Liver Function 05/06/24 05/07/24 Range/Units 13:23 05:46 Total Bilirubin 4.0 H 3.0 H (0.2-1.0) mg/dl Direct Bilirubin 0.6 H (0-0.2) mg/dl AST 15 12 L (13-39) U/L ALT 14 12 (7-52) U/L Alkaline Phosphatase 89 72 (34-104) U/L Albumin 3.5 2.9 L (3.4-5.0) gm/dl Urine 05/06/24 Range/Units Unknown Urine Color Yellow Urine Appearance Clear (Clear) Urine pH 6.5 (4.5-7.5) Ur Specific Mcwilliams 1.014 (1.000-1.030) Urine Protein Trace H (Negative) Urine Glucose (UA) Negative (Negative) Medications Administered Home Medications Medication Instructions Recorded Confirmed Last Taken atorvastatin 20 mg tablet 20 mg PO HS 10/23/18 05/06/24 05/05/24 diphenhydramine HCl 25 mg tablet 25 - 50 mg PO QID PRN Allergy 10/23/18 05/06/24 Unknown Symptoms propranolol 10 mg tablet 10 mg PO BID 10/23/18 05/06/24 05/06/24 am tamsulosin 0.4 mg capsule (Flomax) 0.4 mg PO HS 10/23/18 05/06/24 05/05/24 meclizine 12.5 mg tablet 12.5 mg PO TID PRN 06/07/20 05/06/24 04/11/24 Dizziness/vertigo albuterol sulfate 90 mcg/actuation 2 puff inhalation Q6H PRN Wheezing 04/22/22 05/06/24 03/06/24 08:30 aerosol inhaler fluticasone fur. 100 mcg-umeclid 1 inh inhalation QAM 04/22/22 05/06/24 05/05/24 62.5 mcg-vilant 25 mcg inhalat.powder (Trelegy Ellipta) ipratropium bromide 0.02 % 2.5 ml inhalation QID PRN Wheezing 05/21/23 05/06/24 02/22/24 solution for inhalation ondansetron HCl 4 mg tablet 4 mg PO Q8H PRN Nausea And Vomiting 01/27/2404/2405/06/24 bupropion HCl 150 mg 24 hr tablet, 150 mg PO QAM 02/23/24 05/06/24 05/06/24 extended release omeprazole 20 mg tablet,delayed 20 mg PO BID 04/24/24 07/06/24 07/06/24 release am acetaminophen 500 mg tablet 500 mg PO Q6H PRN Pain 03/07/24 05/06/24 03/06/24 20:00 dexamethasone 4 mg tablet 20 mg PO UD PRN radiation 04/12/24 05/06/24 Unknown treatments azithromycin 500 mg tablet 500 mg PO UD 05/06/24 05/06/24 Unknown furosemide 20 mg tablet 20 mg PO QAM 05/06/24 05/06/24 05/06/24 last dose olanzapine 2.5 mg tablet 2.5 mg PO HS 05/06/24 05/06/24 05/05/24 paroxetine HCl 20 mg tablet 20 mg PO HS 05/06/24 05/06/24 05/05/24 prochlorperazine maleate 10 mg 10 mg PO UD PRN Nausea And Vomiting 05/06/24 05/06/24 Unknown tablet Active Medications Generic Name Dose Route Start Last Admin Trade Name Freq PRN Reason Stop Dose Admin Acetaminophen 500 mg 05/06/24 20:47 05/06/24 21:47 Acetaminophen 500 Mg Tab PO 06/05/24 20:46 500 mg Q6H PRN Administration Pain Atorvastatin Calcium 20 mg 05/06/24 21:00 05/06/24 21:49 Atorvastatin 20 Mg Tab PO 06/05/24 20:59 20 mg HS THOMAS Administration Azithromycin 500 mg 05/06/24 21:00 05/06/24 21:48 Azithromycin 250 Mg Tab PO 05/13/24 20:59 500 mg DAILY@2100 THOMAS Administration Bupropion HCl 150 mg 05/07/24 09:00 05/07/24 08:13 Bupropion Xl 150 Mg Tabcr PO 06/06/24 08:59 150 mg QAM THOMAS Administration Fluticasone Furoate 1 puffs 05/07/24 09:00 05/07/24 08:13 Fluticasone Furoate 100mcg 14 Puffs/Inhaler INH 06/06/24 08:59 1 puffs DAILY THOMAS Administration Olanzapine 2.5 mg 05/06/24 21:00 05/06/24 21:48 Olanzapine 2.5 Mg Tab PO 06/05/24 20:59 2.5 mg HS THOMAS Administration Ondansetron HCl 4 mg 05/07/24 01:00 05/07/24 06:37 Ondansetron Inj 2 Mg/Ml 2 Ml Vial IV 06/06/24 00:59 4 mg Q6H THOMAS Administration Pantoprazole Sodium 40 mg 05/06/24 21:00 05/07/24 08:13 Pantoprazole 40 Mg Tab PO 06/05/24 20:59 40 mg BID THOMAS Administration Paroxetine HCl 20 mg 05/06/24 21:00 05/06/24 21:49 Paroxetine Hcl 20 Mg Tab PO 06/05/24 20:59 20 mg HS THOMAS Administration Propranolol HCl 10 mg 05/06/24 21:00 05/07/24 08:13 Propranolol Hcl 10 Mg Tab PO 06/05/24 20:59 10 mg BID THOMAS Administration Tamsulosin HCl 0.4 mg 05/06/24 21:00 05/06/24 21:48 Tamsulosin Hcl 0.4 Mg Cap PO 06/05/24 20:59 0.4 mg HS THOMAS Administration Umeclidinium/Vilanterol 1 puffs 05/07/24 09:00 05/07/24 08:13 Umeclidinium/Vilanterol 62.5/25mcg 7 Puffs/Inhaler INH 06/06/24 08:59 1 puffs DAILY THOMAS Administration
[2024-05-07] MEDS: MoRPHine SULFATE 2 MG/ML CARP IV STA (17:20)
--- NOTE | 2024-05-07 19:04 | CT Scan Report ---
CT abd pelvis wo con CLINICAL HISTORY: c/f recurrent diverticulitis TECHNIQUE: Helical axial images of the abdomen and pelvis were obtained. Automated dose lowering tech niques and/or adjustment according to patient size were utilized for this exam. This exam was perfor med without intravenous contrast. CT DOSE: 1181.37 mGy.cm COMPARISON: Comparison is made to CT abdomen pelvis 02/22/2023 FINDINGS: Lower chest: Emphysema is seen. Liver: Unremarkable. No focal lesions are seen. Gallbladder and biliary tree: Patient is status post cholecystectomy. No intra- or extrahepatic bilia ry ductal dilation. Pancreas: Unremarkable, no focal lesions. Spleen: Unremarkable. Adrenals: Unremarkable. Kidneys and ureters: Renal cysts are seen. Bladder: Unremarkable. Reproductive organs: Prostatomegaly is seen. Bowel: Numerous diverticula are seen. There is increased vascularity and mild fat stranding surroundi ng the mid descending colon. The appendix is unremarkable. There is a small hiatal hernia. Lymph nodes Retroperitoneal: Unremarkable. Pelvic: Unremarkable. Mesenteric: Unremarkable. Peritoneum: Minimal fat stranding is seen about the descending colon, increased from prior exam. No p neumoperitoneum or drainable fluid collection. Vessels: Infrarenal aortic aneurysm measures 43 mm in diameter. Abdominal wall: Unremarkable. Bones: Degenerative changes in the visualized spine. IMPRESSION: Findings may represent mild diverticulitis without evidence of abscess or perforation. ACT 112: Negative or not required by law. Electronically signed by: Jim Saini M.D. 05/07/2024 7:02 PM
--- NOTE | 2024-05-07 19:34 | Communication Note ---
Date of Service: May 07, 2024 CT with diverticulitis CLD Unasyn IVF
[2024-05-07] MEDS: AMPICILLIN/SULBACTAM SOD 3,000 MG in SODIUM CHLOR 0.9% MINI-B 100 ML IV SCH (20:47)
[2024-05-07] MEDS: LACTATED RINGER'S 1,000 ML IV SCH (20:47)
[2024-05-07] MEDS: LORazepam 0.5 MG TAB PO STA (22:21)
[2024-05-08 08:25] LABS: Hematocrit (blood only) 29.9 % (42.0-52.0); Hemoglobin 10.1 g/dl (14.0-18.0); Mean Corpuscular Hemoglobin 29.5 pg (25.0-34.0); Mean Corpuscular Hgb Conc 33.8 g/dL (32.0-36.0); Mean Corpuscular Volume 87.4 fL (80.0-100.0); Mean Platelet Volume 13.7 fL (9.4-12.4); Platelet Count 40 K/uL (130-400); RDW Coefficient of Variation 13.5 % (11.5-14.5); RDW Standard Deviation 43.1 fL (36.4-46.3); Red Blood Count 3.42 M/uL (4.70-6.10); White Blood Count 1.57 K/ul (4.8-10.8)
[2024-05-08 08:33] LABS: Albumin Globulin Ratio 1.3 (0.9-2); Albumin Level 2.9 gm/dl (3.4-5.0); BUN Creatinine Ratio 17.9 (10-20); Creatinine Clr Calc Pharmacy 37.5 ml/min; Est GFR (African American) 44.1 ml/min; Globulin 2.3 gm/dl (2.5-4.0); Magnesium 1.6 mg/dl (1.7-2.4); Phosphorus 2.8 mg/dl (2.5-4.9); Potassium 3.6 mmol/L (3.5-5.1); Total Protein 5.2 gm/dl (6.0-8.3)
--- NOTE | 2024-05-08 10:50 | Discharge Summary ---
Discharge Summary Date of Service May 08, 2024 Principal Dx & Hospital Course #1 = Principal Diagnosis (1) Nausea, vomiting and diarrhea: (2) Acute hypotension: (3) Chemotherapy induced nausea and vomiting: (4) Small cell lung cancer, left upper lobe: (5) Acute kidney injury superimposed on CKD: (6) COPD (chronic obstructive pulmonary disease): (7) GERD (gastroesophageal reflux disease): (8) Hyperbilirubinemia: Plan Mr. Clemente is a 73 year old gentleman with history of tobacco use, COPD, CKDIII, chronic immune thrombocytopenia, recurrent diverticulitis, and small cell lung cancer of SAGAR now s/p radiation and starting chemotherapy who is admitted for nausea, vomting, diarrhea after chemotherapy this last weak. Patient was found to be with SBP in 80s which were responsive to IVF. Patient was noted to improve, but experience significant abdominal pain therefore CT abp performed. This revealed mild diverticulitis and symptoms resolution after IV abx. Patient was eager to return home and tolerating soft diet. Therefore patient discharged on course of 10 days augmentin. Patient declined home PT On day of discharge, patient was symptom free and eager for home. He denied fevers chest pain or further diarrhea. #Ambulatory dysfunction Recent falls reported and weakness, mostly ambulates with cane/walker Last fall prior to presentation but fall sustained about 2 weeks ago PT/OT: HHPT, declined encourgaed walker use #Mild diverticulitis discussed low fiber diet Augmentin x10 course #Nausea, vomiting and diarrhea 2/2 Chemotherapy *resolved #Hypotension Resolved s/p intravenous cisplatin/etoposide on Wednesday and Wednesday Reports poor po intake and weakness s/p treatment Symptoms resolved at this time Discontinue fluids Encourage PO symptom management with antiemetics prn #Immunocompromised 2/2 chemotherapy #Small cell lung cancer, left upper lobe: initial lung nodule was diagnosed on 02/26/[address]-guided biopsy at the time was nondiagnostic diagnosed by EBUS/biopsy on 03/07/2024 s/p 1 cycle of chemoo this last week s/p Neupogen #chronic immune thrombocytopenia SCDs for now recently on TPO prior to chemo low threshold to discuss with Dr. Teresa if downtrending -no petechial rash, no gingival bleeding or symptoms on todays exam #Tobacco use discussed cessation last cig. 3 days ago # Acute kidney injury superimposed on CKD: *improving likely prerenal, downtrending, s/p IVF Encourage PO #Tremors continue propranolol #chronic hypoxic resp failure, 2-3L continuous #COPD (chronic obstructive pulmonary disease): stable CTM # GERD (gastroesophageal reflux disease): continue PPI #Hyperbilirubinemia: noted to have high bilirubin of 4.0, downtrending Elevated LDH at 261, low retic likely iso chemo and dehydration # 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 low suspicion of activity Notes For Next Care Provider Medication Changes From Visit Augmentin BID x 10 days Admission HPI Per Admitting Provider The is a 73-year-old male significant past medical history of left upper lobe small cell lung cancer with ongoing chemo, COPD, chronic respiratory failure on home oxygen, severe recurrent major depressive disorder with psychotic features, CKD stage III, GERD, ASCVD and benign prostatic hypertrophy and also history of thrombocytopenia apparently has had chemo on Wednesday, Wednesday and Wednesday for the small cell lung cancer. she was getting IV fluid with the chemo and also has been on Lasix for diuresis. she was complaining of some dysphagia about 2 days back and started to have abdominal discomfort with nausea vomiting and diarrhea since yesterday. He was so weak today that that he was brought into the emergency room for further evaluation. denies any fever, chest pain or palpitation. denies any swelling of the legs. no numbness or tingling involving any of the extremities. He was noted to have low blood pressure in the emergency room and [place] on CKD. also his bilirubin was noted to be high without any change in liver function. he was a started with intravenous fluid and was admitted to med/telemetry unit for continuation of care. Admission Exam Per Admitting Provider Physical Exam: Lying in bed without any acute distress but very anxious and remained lethargic Constitutional: well developed, well nourished, + ill appearing and average body habitus Eyes: PERRL, conjunctivae normal, anicteric sclerae ENMT: external ear and nose normal, oropharynx normal Neck: trachea midline, no thyromegaly Respiratory: no respiratory distress Auscultation: lungs clear to auscultation bilaterally Cardiovascular: Rate/Rhythm: regular rate and regular rhythm; not tachycardic Heart Sounds: normal S1 and normal S2; no murmur Gastrointestinal (Abdomen): Inspection/Auscultation: normal bowel sounds; abdomen not distended Percussion/Palpation: abdomen soft; abdomen nontender Musculoskeletal: no acute arthritis involving any of the joints Neurologic: normal touch/pain/proprioception and moves all extremities; no focal motor deficits Lymphatic: no cervical or axillary lymphadenopathy Discharge Exam Constitutional WD/WN, vitals as above Respiratory normal respiratory effort, lungs clear to auscultation Cardiovascular RRR, no murmur, no edema Gastrointestinal (Abdomen) normal bowel sounds, soft, nontender, no hepatosplenomegaly Musculoskeletal no cyanosis or clubbing, extremities motor strength 5/5 Updated Medication List Medication Instructions Recorded Confirmed Type atorvastatin 20 mg tablet 20 mg PO HS 10/23/18 05/06/24 History diphenhydramine HCl 25 mg tablet 25 - 50 mg PO QID PRN Allergy 10/23/18 05/06/24 History Symptoms propranolol 10 mg tablet 10 mg PO BID 10/23/18 05/06/24 History tamsulosin 0.4 mg capsule (Flomax) 0.4 mg PO HS 10/23/18 05/06/24 History meclizine 12.5 mg tablet 12.5 mg PO TID PRN 06/07/20 05/06/24 History Dizziness/vertigo albuterol sulfate 90 mcg/actuation 2 puff inhalation Q6H PRN Wheezing 04/22/22 05/06/24 History aerosol inhaler fluticasone fur. 100 mcg-umeclid 1 inh inhalation QAM 04/22/22 05/06/24 History 62.5 mcg-vilant 25 mcg inhalat.powder (Trelegy Ellipta) ipratropium bromide 0.02 % 2.5 ml inhalation QID PRN Wheezing 05/21/23 05/06/24 History solution for inhalation ondansetron HCl 4 mg tablet 4 mg PO Q8H PRN Nausea And Vomiting 01/27/24 05/06/24 History bupropion HCl 150 mg 24 hr tablet, 150 mg PO QAM 02/23/24 05/06/24 History extended release omeprazole 20 mg tablet,delayed 20 mg PO BID 02/23/24 05/06/24 History release acetaminophen 500 mg tablet 500 mg PO Q6H PRN Pain 03/07/24 05/06/24 History dexamethasone 4 mg tablet 20 mg PO UD PRN radiation 04/12/24 05/06/24 History treatments furosemide 20 mg tablet 20 mg PO QAM 05/06/24 05/06/24 History olanzapine 2.5 mg tablet 2.5 mg PO HS 05/06/24 05/06/24 History paroxetine HCl 20 mg tablet 20 mg PO HS 05/06/24 05/06/24 History prochlorperazine maleate 10 mg 10 mg PO UD PRN Nausea And Vomiting 05/06/24 05/06/24 History tablet amoxicillin 875 mg-potassium 1 tab PO BIDM 10 days #19 tabs 05/08/24 Rx clavulanate 125 mg tablet Hospital Stay Data Consultations 05/06/24 15:44 ED Decision to Admit Stat Diagnostic Imagining Performed 05/07/24 16:46 CT Abd and Pelvis [CT abd pelvis wo con] Routine Pending Results Patient Have Any Pending Studies at Discharge: No Discharge Instructions Given to Patient (Per Discharging Provider) You were admitted for nausea, vomiting, diarrhea, and weakness after chemotherapy. You improved with IV fluids. You were also noted to report flank/lower abdominal pain. You CT was consistent with mild diverticulitis. Please adhere to a low fiber diet. Please continue the following antibiotic: -Augmentin 1 tablet two times a day, until doses complete. Your next dose is this evening 05/08 around 8-9pm Please follow up with your oncologist and PCP Total Time Total Time Spent Total Time Spent (In Minutes): 35
[2024-05-08] MEDS: MAGNESIUM SULFATE / D5W 1 GM/100 ML BAG IV SCH (11:06)
[2024-05-08 11:53] VITALS: BP 100/61; TEMP 97.9
[2024-05-08 12:52] VITALS: PULSE 66
[2024-05-08 13:10] VITALS: O2SAT 98
[2024-05-08] MEDS: HEPARIN 100 UNIT/ML 5ML FLUSH FLUSH PRN (15:00)
[2024-05-08] MEDS ORDERED: AMOXICILLIN/CLAVULANATE 875 MG TAB PO SCH (17:00)
== END 2024-05-08 15:10 | disposition home or self-care (01) | DRG 392 ==
LOC: ED 13:08 → 2W 16:26 → SUATTDRO 16:26 → 2W 20:18

== ENCOUNTER 2024-07-27 12:56 | Inpatient (IN) ==
--- NOTE | 2024-07-27 13:46 | Emergency Department Note ---
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 He notes he can barely walk 5 feet without getting significantly short of breath. He was sent down from [facility]. He was hypotensive, tachycardic, and chronically wears 2 L nasal cannula. He denies any blood thinners. No belly pain, nausea, vomiting, or diarrhea. No dysuria, urgency, or frequency. No other exacerbating or remitting factors. ADDITIONAL HISTORY OBTAINED: Per HPI Chronic Medical/Social Conditions Affecting Care: Per HPI PAST MEDICAL HISTORY:See Below PAST SURGICAL HISTORY:See Below FAMILY HISTORY:See Below SOCIAL HISTORY:See Below HOME MEDICATIONS:See Below ALLERGIES:See Below VITALS:See Below PHYSICAL EXAMINATION: GENERAL: Sitting up in bed, alert, ill-appearing, disheveled, on 2 L nasal cannula EYE EXAM: normal conjunctiva. OROPHARYNX: Dry mucous membranes NECK: supple, no nuchal rigidity, no adenopathy, non-tender LUNGS: Diminished bilaterally. Normal chest wall mechanics HEART: no murmurs, S1 normal and S2 normal ABDOMEN: abdomen soft, non-tender, normo-active bowel sounds, no masses, no rebound or guarding. UPPER EXTREMITIES: upper extremities are grossly normal. LOWER EXTREMITIES: No pitting edema. NEURO EXAM: Normal sensorium, cranial nerves II-XII grossly intact, normal speech, no gross weakness of arms, no gross weakness of legs. MEDICAL DECISION MAKING: Patient is a 74-year-old male who presents ER for shortness of breath weakness while receiving chemo. IV was established medicos obtained. He is found to be hypotensive with systolic pressures in the 90s. Is little tachycardic. Labs show mild leukopenia at 3.4. Mild anemia at 9. Thrombocytopenia at 89. INR unremarkable. BMP along with LFTs and bilirubin was unremarkable. Mag at 1.3. Troponin was negative. Pro-Drew was normal. UA was clean. Patient was given IV fluids. He remained on his [address] of the chest shows PEs. He denies any risk factors which were discussed with him at length at bedside. He was placed on heparin drip and bolus. Discussed case with the hospitalist is admitted for further workup. Consults/Care Managements Discussions: Per [facility] Triage Nursing notes reviewed. Limited review of prior medical records performed Vital Signs: reviewed and remarkable for hypoxic hypotensive and tachycardic Differential diagnosis: Differential diagnosis includes etiologies such as sepsis, UTI, pneumonia, metabolic, electrolyte abnormalities, cardiac sources, intracerebral event, toxicologic, neurological, as well as others were entertained. ER treatment provided: See below Diagnostics interpreted by me include EKG and cardiac monitoring as listed below: -Cardiac Monitoring: An order was placed for continuous cardiac monitoring. The monitor shows a rate of 110 with sinus rhythm. -ECG: Sinus tachycardia rate of 114 Normal axis PVCs QTc 438 -Laboratory studies:Interpreted by me as stated above in MDM and shown below. Imaging studies: Xrays: As interpreted by me: Portable AP upright 1 view of the chest shows no focal M-Trate CTs show: CTA of the chest shows PEs per radiology Procedures:none Critical Care: I have personally spent 35 minutes of critical care time in the direct management of this patient. This includes bedside care, interpretation of diagnostic studies, and testing, discussion with consultants, patient, and family members, and other required patient management activities. This 35 minutes is in excess of all separately billable procedures. Past Med/Surg History Problem List (Updated 07/27/24 @ 18:34 by Loc Aly DO) Anemia (Acute) Acute hypotension (Acute) Pulmonary embolism (Acute) Chemotherapy induced nausea and vomiting Small cell lung cancer, left upper lobe (Chronic) Lung nodule (Chronic) Encounter for pre-operative examination Primary cancer of left upper lobe of lung (Chronic 04/01/22) Diverticular disease History of colon polyps BPH (benign prostatic hyperplasia) Depression GERD (gastroesophageal reflux disease) Dyslipidemia CKD (chronic kidney disease), stage III (Acute) PCP monitoring History of TB (tuberculosis) "Inactive" Per [facility] Pulmonary records, "He underwent a right upper lobectomy back in the 90s for what sounds like tuberculosis.." 09/1998 pulmonary records scanned into chart state, "he's undergone lobectomy for cavitary process secondary to atypical micro bacteria. right upper lobectomy was performed in January.. when the patient's treatment for the above mentioned problem was refractory to improvement despite numerous antibiotics used for the treatment of an atypical micro bacterial infection." COPD (chronic obstructive pulmonary disease) Abdominal pain (Acute) Abdominal aortic aneurysm (Acute) Influenza A entered into chart and last edited 08/17/19 Thrombocytopenia (Acute) Status post left inguinal hernia repair (Acute) Chest pain (Acute) entered into chart 2013 and last edited 2019 Cellulitis of face (10/27/12) Medical History [place] (acute kidney injury) Acute hypotension Acute hypotension Hyperbilirubinemia Acute kidney injury superimposed on CKD Nausea, vomiting and diarrhea Hyperlipidemia Chronic vertigo BPH (benign prostatic hyperplasia) History of pneumonia (2022) treated inpatient at [facility]. no problems since. History of COVID-19 (2021) severe flu symptoms, treated with oxygen and breathing treatments. -> inpatient at [facility]. Hx of influenza (2018) treated inpatient at [facility] Thrombocytopenia follows with Dr Malick PAIGE (gastroesophageal reflux disease) Hx of colonic polyps History of TB (tuberculosis) "Inactive" Per [facility] Pulmonary records, "He underwent a right upper lobectomy back in the for what sounds like tuberculosis.." 09/1998 pulmonary records scanned into chart state, "he's undergone lobectomy for cavitary process secondary to atypical micro bacteria. right upper lobectomy was performed in January'.. when the patient's treatment for the above mentioned problem was refractory to improvement despite numerous antibiotics used for the treatment of an atypical micro bacterial infection." Diverticular disease Hx of diverticulitis of colon (2021) CKD (chronic kidney disease), stage III monitors with PCP Abdominal aortic aneurysm follows with [facility] Cardiology ([place]) - monitoring Small cell lung cancer, left upper lobe (03/2024) dx 03/2024 via bronchoscopy and biopsy. plan to do chemotherapy. Hiatal hernia Cancer Lung - initially diagnosed 2021 s/p radiation treatments Degenerative disc disease Anxiety and depression Tremor of both hands Taking beta malorie Chronic obstructive pulmonary disease inhalers daily, nebulizer PRN - 2lpm via n/c continuous On home oxygen therapy 2lpm via n/c continuous Enlargement of spleen Aortic aneurysm Duplex 09/2023: 3.7cm AAA Under surveillance by [facility] vascular, recommendation for recheck 2025 Surgical History H/O colonoscopy with polypectomy (04/24/22) [facility] [place] to remove a large polyp (has 6 surgical clips from removal) History of bronchoscopy (03/07/24) [facility] - dx with small cell lung cancer S/P epidural steroid injection History of esophagogastroduodenoscopy (EGD) Dr. Snider History of cystoscopy History of lung biopsy (2021) Ct-Guided Percutaneous Left Lung Nodule Biopsy Dr. Tavo Gonzalez History of carpal tunnel release (1976) Right History of colonoscopy Multiple History of herniorrhaphy (2014) Inguinal History of tooth extraction History of lobectomy of lung (1995) Right (micro bacterium infection) History of cholecystectomy (2016) Laproscopic Cholescystectomy Dr. Olivas at [facility] History of cardiac cath 1980s, , 2006 - no stents at [facility] in [place] Family History Mother Family history of diabetes mellitus Breast cancer Unilateral Masectomy Brother Family hx of colon cancer Family history of diabetes mellitus Father Bladder cancer, Onset Age: 73 Sister Breast cancer, Onset Age: 74 Bilateral Masectomy Sister Breast cancer, Onset Age: 75 Bilateral Masectomy Sister , age 74 Colorectal cancer, Onset Age: 73 Sister Pancreatic cancer Sister Stomach cancer Sister Stomach cancer Brother Prostate cancer, Onset Age: 64 Family history of diabetes mellitus Brother Stomach cancer Aunt Breast cancer Aunt Breast cancer Unknown Lung cancer, Onset Age: 50 Unknown Cancer of unknown origin Unknown Bladder cancer, Onset Age: 55 Unknown Cancer Other Coronary heart disease Hypertension No family history of adverse response to anesthesia Social History Smoking Status: Never smoker Tobacco Type: Cigarettes Cigarettes Per Day: cigar "every once in ahwile" (advised on policy); Second Hand Exposure: No; Do You Dip or Chew Tobacco: No; Hx Alcohol Use: No Hx Substance Use: No Preferred Language: Yoruba Communication Ability: Effective Visual Impairment: Limited Hearing Ability: Normal Subsurface Augmentee Operator Required: No Beliefs That Will Affect Care: None marital status: Current Living Situation: Family Current Living Situation Comment: lives with daughter and son-in-law current occupational status: retired How many Children do You have: 3 Feels Safe at Home: Yes Childhood Exposure to Second-Hand Smoke: Yes Diet: regular caffeine: Yes (1 cup of coffee daily) during the past year weight has: remained stable Dental Care, Regularly: No Assistive Devices: Cane, Oxygen - Continuous and Walker Allergies Allergies Allergy/AdvReac Type Severity Reaction Status Date / Time Quinolones Allergy Severe Hives Verified 07/27/24 16:25 moxifloxacin [From Avelox] Allergy Unknown listed in Verified 07/27/24 16:25 heme/onc records codeine AdvReac Intermediate Nausea/Vomi Verified 07/27/24 16:25 ting oxycodone AdvReac Intermediate Nausea/Vomi Verified 07/27/24 16:25 ting Penicillins AdvReac Intermediate Nausea/Vomi Verified 07/27/24 16:25 ting Home Meds Home Medications Medication Instructions Recorded Confirmed atorvastatin 20 mg tablet 20 mg PO HS 10/23/18 07/27/24 propranolol 10 mg tablet 10 mg PO BID 10/23/18 07/27/24 tamsulosin 0.4 mg capsule (Flomax) 0.4 mg PO HS 10/23/18 07/27/24 meclizine 12.5 mg tablet 12.5 mg PO TID PRN 06/07/20 07/27/24 Dizziness/vertigo albuterol sulfate 90 mcg/actuation 2 puff inhalation Q6H PRN Wheezing 04/22/22 07/27/24 aerosol inhaler fluticasone fur. 100 mcg-umeclid 1 inh inhalation QAM 04/22/22 07/27/24 62.5 mcg-vilant 25 mcg inhalat.powder (Trelegy Ellipta) ipratropium bromide 0.02 % 2.5 ml inhalation QID PRN Wheezing 05/21/23 07/27/24 solution for inhalation ondansetron HCl 4 mg tablet 4 mg PO Q68H PRN Nausea And 01/27/24 07/27/24 Vomiting bupropion HCl 150 mg 24 hr tablet, 150 mg PO QAM 02/23/24 07/27/24 extended release omeprazole 20 mg tablet,delayed 20 mg PO BID 04/24/24 09/26/24 release acetaminophen 500 mg tablet 500 mg PO Q6H PRN Pain 03/07/24 07/27/24 dexamethasone 4 mg tablet 20 mg PO UD PRN radiation 04/12/24 07/27/24 treatments olanzapine 2.5 mg tablet 2.5 mg PO HS 05/06/24 07/27/24 paroxetine HCl 20 mg tablet 20 mg PO HS 05/06/24 07/27/24 prochlorperazine maleate 10 mg 10 mg PO UD PRN Nausea And Vomiting 05/06/24 07/27/24 tablet Results & Data (ED) Vital Signs Vital Signs - 24 hr 07/27/24 12:57 07/27/24 12:57 07/27/24 13:09 Temperature 36.6 C Temperature Source Temporal Artery Scan Pulse Rate 126 H Pulse Rate [Right Finger] Respiratory Rate 18 Respiratory Effort / Characteristics Respiratory Depth Blood Pressure 99/73 L Blood Pressure [Left Arm] Blood Pressure Mean 81 Blood Pressure Mean [Left Arm] Pulse Oximetry 99 100 Oxygen Delivery Method Nasal Cannula Room Air Nasal Cannula Oxygen Flow Rate 2 2 Sepsis Recent Fever Within 48 Hours No Sepsis New/Unexplained Change in Mental Status N/A Sepsis Action Taken by Nursing Physician Notified 07/27/24 13:09 07/27/24 13:36 07/27/24 14:52 Temperature Temperature Source Pulse Rate 119 H Pulse Rate [Right Finger] Respiratory Rate 18 Respiratory Effort / Characteristics Respiratory Depth Blood Pressure Blood Pressure [Left Arm] 105/65 Blood Pressure Mean Blood Pressure Mean [Left Arm] 78 Pulse Oximetry Oxygen Delivery Method Nasal Cannula Oxygen Flow Rate 2 Sepsis Recent Fever Within 48 Hours Sepsis New/Unexplained Change in Mental Status Sepsis Action Taken by Nursing 07/27/24 15:23 07/27/24 15:31 07/27/24 17:31 Temperature Temperature Source Pulse Rate Pulse Rate [Right Finger] 102 H 102 H 94 H Respiratory Rate 20 20 21 Respiratory Effort / Characteristics Non-Labored Spontaneous Non-Labored Spontaneous Non-Labored Spontaneous Respiratory Depth Normal Normal Normal Blood Pressure Blood Pressure [Left Arm] 94/71 L 111/67 114/71 Blood Pressure Mean Blood Pressure Mean [Left Arm] 78 81 85 Pulse Oximetry 100 100 100 Oxygen Delivery Method Nasal Cannula Nasal Cannula Nasal Cannula Oxygen Flow Rate 2 2 2 Sepsis Recent Fever Within 48 Hours Sepsis New/Unexplained Change in Mental Status Sepsis Action Taken by Nursing 07/27/24 17:44 Temperature Temperature Source Pulse Rate 97 H Pulse Rate [Right Finger] Respiratory Rate Respiratory Effort / Characteristics Respiratory Depth Blood Pressure Blood Pressure [Left Arm] Blood Pressure Mean Blood Pressure Mean [Left Arm] Pulse Oximetry Oxygen Delivery Method Oxygen Flow Rate Sepsis Recent Fever Within 48 Hours Sepsis New/Unexplained Change in Mental Status Sepsis Action Taken by Nursing Laboratory Data 07/27/24 13:23 07/27/24 13:23 Lab Results 07/27/24 07/27/24 07/27/24 Range/Units 13:23 15:28 16:25 WBC 3.47 L (4.8-10.8) K/ul RBC 3.18 L (4.70-6.10) M/uL Hgb 9.1 L (14.0-18.0) g/dl Hct 27.9 L (42.0-52.0) % MCV 87.7 (80.0-100.0) fL MCH 28.6 (25.0-34.0) pg MCHC 32.6 (32.0-36.0) g/dL RDW Std Deviation 49.7 H (36.4-46.3) fL RDW Coeff of Flora 15.5 H (11.5-14.5) % Plt Count 89 L (130-400) K/uL Immature Gran % (Auto) 1.2 % Neut % (Auto) 80.3 % Lymph % (Auto) 14.4 % [place] % (Auto) 2.6 % Eos % (Auto) 0.9 % Baso % (Auto) 0.6 % Neut # (Auto) 2.79 (1.40-6.50) K/uL Lymph # (Auto) 0.50 L (1.20-3.40) K/uL [place] # (Auto) 0.09 L (0.11-0.59) K/uL Eos # (Auto) 0.03 (0.00-0.50) K/uL Baso # (Auto) 0.02 (0.00-0.20) K/uL Immature Gran # (Auto) 0.04 (0.01-0.20) K/uL Platelet Estimate Decreased L (Normal) Ovalocytes 1+ PT 10.9 (9.0-12.0) Seconds INR 1.0 (0.9-1.1) APTT 30 (21-31) Seconds PTT Ratio 1.1 Sodium 137 (136-145) mmol/L Potassium 3.9 (3.5-5.1) mmol/L Chloride 105 (98-107) mmol/L Carbon Dioxide 24 (21-32) mmol/L Anion Gap 8 (3-11) BUN 28 H (6-23) mg/dl Creatinine 1.32 (0.6-1.4) mg/dl Est Cr Clr Drug Dosing 48.1 ml/min Est GFR ( Amer) 60.7 ml/min Est GFR (Non-Af Amer) 52.4 ml/min BUN/Creatinine Ratio 21.2 H (10-20) Glucose 136 H (70-99(Fasting)) mg/dl Lactate 2.5 H* 1.0 (0.4-2.0) mmol/L Calcium 9.2 (8.6-10.3) mg/dl Magnesium 1.3 L (1.7-2.4) mg/dl Total Bilirubin 1.0 (0.2-1.0) mg/dl AST 14 (13-39) U/L ALT 14 (7-52) U/L Alkaline Phosphatase 88 (34-104) U/L Troponin I High Sens 2.7 (0-20) pg/ml Total Protein 6.7 (6.0-8.3) gm/dl Albumin 3.8 (3.4-5.0) gm/dl Globulin 2.9 (2.5-4.0) gm/dl Albumin/Globulin Ratio 1.3 (0.9-2) Procalcitonin 0.08 (0-0.5) ng/ml Urine Color Yellow Urine Appearance Clear (Clear) Urine pH 5.5 (4.5-7.5) Ur Specific Ke[place] 1.044 H (1.000-1.030) Urine Protein Negative (Negative) Urine Glucose (UA) Negative (Negative) Urine Ketones Negative (Negative) Urine Blood Negative (Negative) Urine Nitrite Negative (Negative) Urine Bilirubin Negative (Negative) Urine Urobilinogen Negative (Negative) Ur Leukocyte Esterase Negative (Negative) Administered Medications Heparin Sodium/Dextrose (Heparin Sodium/Dextrose) 25,000 units in 500 mls @ 25 mls/hr IV .Q20H REPLACED BY [facility]; Protocol Stop: 08/26/24 16:29 Last Admin: 07/27/24 16:36 Dose: 1,250 units/hr, 25 mls/hr Documented By: PARISH Co-signed By: MARYLIN Discontinued Medications Heparin Sodium (Porcine) (Heparin Sod (Porcine) 1000 Unit/Ml) 6,000 units IV NOW ONE Stop: 07/27/24 16:31 Last Admin: 07/27/24 16:35 Dose: 6,000 units Documented By: PARISH Co-signed By: MARYLIN Heparin Sodium/Dextrose (Heparin Iv Adult Wt-Based Standard W/ Initial Bolus Protocol) 1 each IV NOW STA; Protocol Stop: 07/27/24 16:16 Last Admin: 07/27/24 16:36 Dose: Not Given Documented By: PARISH Sodium Chloride (Nss) 1,000 mls @ 999 mls/hr IV .Q1H1M THOMAS Stop: 07/27/24 15:45 Last Infusion: 07/27/24 16:38 Dose: Infused Documented By: Admin: 07/27/24 15:01 Dose: 999 mls/hr Documented By: Infusion: 07/27/24 14:53 Dose: Infused Documented By: Admin: 07/27/24 13:49 Dose: 999 mls/hr Documented By: REBECCA Ioversol (Optiray 320 125ml) 118 ml IV ONCE ONE Stop: 07/27/24 14:54 Last Admin: 07/27/24 14:54 Dose: 118 ml Documented By: CATIA Imaging Data Radiologist's Impression: Chest X-Ray 07/27/24 13:09 XR chest 1V portable CLINICAL HISTORY: Sepsis TECHNIQUE: Single frontal radiograph of the chest was obtained. Comparison: Comparison is made to chest radiograph 07/06/2024 FINDINGS: A port catheter is seen. The cardiomediastinal silhouette is normal. Reticular interstitial opacities are seen. Left upper lobe density is again seen compatible with a focus of scarring. No evidence of pleural effusion or pneumothorax. IMPRESSION: No acute abnormalities and in particular no radiographic evidence of pneumonia. ACT 112: Negative or not required by law. Electronically signed by: Jim Saini M.D. 07/27/2024 1:54 PM Chest CTA 07/27/24 13:39 CT ANGIOGRAM OF THE CHEST CLINICAL HISTORY: Hypotension. Hypoxia. COMPARISON STUDY: Chest x-ray dated 07/27/2024. Chest CT dated 05/26/2024. TECHNIQUE: Following the IV administration of 118 cc of Optiray 320, CT angiogram of the chest was performed from the upper abdomen to the thoracic inlet utilizing the pulmonary embolus protocol. Images are reviewed in the axial, sagittal, and coronal planes. 3-D MIPS images are created and assessed. IV contrast was administered without complication. A dose lowering technique was utilized adhering to the principles of ALARA. CT DOSE: 648.15 mGy.cm FINDINGS: Thyroid: Imaged portions of the thyroid gland are normal in size and attenuation. Thoracic aorta: There is mild atherosclerotic calcification of the thoracic aorta, which is normal in caliber and demonstrates 4-vessel variant arch anatomy. No dissection is seen. Pulmonary vasculature: The pulmonary trunk is normal in caliber. There is subsegmental pulmonary embolus within a branch of the left upper lobe pulmonary artery seen on image #[id number]. No additional filling defects are identified In main, lobar, or segmental pulmonary branches to typical for pulmonary embolus. Heart: A right internal jugular central venous infusion port is in place. The heart is normal in size and without pericardial effusion. There is coronary artery atherosclerosis. Lungs and pleural spaces: There is moderate emphysema. Again seen is postsurgical change from right upper lobe resection. Fibrotic change/scarring is seen at the left apex, likely representing treatment-related change. No air space consolidation typical for pneumonia or pleural effusion is identified. The trachea and central airways are clear. Mediastinum: There are calcification containing subcarinal nodes. No lymphadenopathy is seen. Robyn: There are calcified hilar lymph nodes. No lymphadenopathy is seen. Axillae: There is no axillary lymphadenopathy. Upper abdomen: The gallbladder is surgically absent. The spleen is enlarged measuring 16.4 cm in length. A 14 mm cyst is partially visualized arising from the upper pole right kidney. There is a small hiatal hernia. Diverticulosis is noted in the partially imaged colon without CT evidence of acute diverticulitis. Skeletal structures: The skeletal structures are osteopenic. Degenerative change is noted in the shoulders and spine. No lytic or blastic bony lesions are seen. IMPRESSION: 1. There is a subsegmental pulmonary embolus within a branch of the left upper lobe pulmonary artery. 2. No additional pulmonary emboli are clearly seen. 3. Emphysema with chronic and postsurgical changes above. 4. There is no airspace consolidation typical for pneumonia or pleural effusion. 5. Splenomegaly. 6. Additional findings as above. ACT 112: Negative or not required by law. Electronically signed by: Hernandez Cardona M.D. 07/27/2024 3:45 PM Discharge Plan Visit Data Chief Complaint: Shortness of Breath/Dyspnea Stated Complaint: SOB, HEADACHE, L SHOULDER PAIN, HAS LUNG CANCER ED Provider: Loc Aly Discharge Problem: Pulmonary embolism, Acute hypotension, Anemia Forms Stand Alone Forms: Dazo Prescriptions Prescriptions: No Action ipratropium bromide 0.02 % solution 2.5 ml inhalation QID PRN (Reason: Wheezing) atorvastatin 20 mg Tablet 20 mg PO HS propranolol 10 mg Tablet 10 mg PO BID tamsulosin [Flomax] 0.4 mg Capsule 0.4 mg PO HS meclizine 12.5 mg Tablet 12.5 mg PO TID PRN (Reason: Dizziness/vertigo) albuterol sulfate 90 mcg/actuation Hfa Aerosol Inhaler 2 puff INHALATION Q6H PRN (Reason: Wheezing) Trelegy Ellipta 100-62.5-25 mcg Blister With Device 1 inh INHALATION QAM ondansetron HCl 4 mg tablet 4 mg PO Q68H PRN (Reason: Nausea And Vomiting) bupropion HCl 150 mg Tablet Extended Release 24 Hr 150 mg PO QAM omeprazole 20 mg Tablet,Delayed Release (Dr/Ec) 20 mg PO BID acetaminophen 500 mg Tablet 500 mg PO Q6H PRN (Reason: Pain) dexamethasone 4 mg Tablet 20 mg PO UD PRN (Reason: radiation treatments) Patient Comments: has not started prochlorperazine maleate 10 mg tablet 10 mg PO UD PRN (Reason: Nausea And Vomiting) olanzapine 2.5 mg tablet 2.5 mg PO HS paroxetine HCl 20 mg tablet 20 mg PO HS Referrals Referrals: Page Sharma MD [Primary Care Provider] - Discharge Problem: Pulmonary embolism Qualifiers: Pulmonary embolism type: unspecified Chronicity: acute Acute cor pulmonale presence: unspecified Qualified Code(s): I26.99 - Other pulmonary embolism without acute cor pulmonale Anemia Qualifiers: Anemia type: unspecified type Qualified Code(s): D64.9 - Anemia, unspecified
[2024-07-27] MEDS: SODIUM CHLORIDE 0.9% 1,000 ML IV SCH ×2 (13:49→20:00)
--- NOTE | 2024-07-27 13:55 | XRay Report ---
XR chest 1V portable CLINICAL HISTORY: Sepsis TECHNIQUE: Single frontal radiograph of the chest was obtained. Comparison: Comparison is made to chest radiograph 07/06/2024 FINDINGS: A port catheter is seen. The cardiomediastinal silhouette is normal. Reticular interstitial opacities are seen. Left upper lobe density is again seen compatible with a focus of scarring. No evidence of pleural effusion or pneumothorax. IMPRESSION: No acute abnormalities and in particular no radiographic evidence of pneumonia. ACT 112: Negative or not required by law. Electronically signed by: Jim Saini M.D. 07/27/2024 1:54 PM
[2024-07-27 14:08] LABS: Albumin Globulin Ratio 1.3 (0.9-2); Albumin Level 3.8 gm/dl (3.4-5.0); BUN Creatinine Ratio 21.2 (10-20); Calcium 9.2 mg/dl (8.6-10.3); Creatinine Clr Calc Pharmacy 48.1 ml/min; Est GFR (African American) 60.7 ml/min; Est GFR (Non-African American) 52.4 ml/min; Globulin 2.9 gm/dl (2.5-4.0); Magnesium 1.3 mg/dl (1.7-2.4); Potassium 3.9 mmol/L (3.5-5.1); Total Protein 6.7 gm/dl (6.0-8.3)
[2024-07-27 14:12] LABS: Troponin I High Sensitivity 2.7 pg/ml (0-20)
[2024-07-27 14:18] LABS: Partial Thromboplastin Ratio 1.1; Partial Thromboplastin Time 30 Seconds (21-31); Prothrombin Time 10.9 Seconds (9.0-12.0)
[2024-07-27 14:19] LABS: Basophils # (auto) 0.02 K/uL (0.00-0.20); Basophils % (auto) 0.6 %; Eosinophils # (auto) 0.03 K/uL (0.00-0.50); Eosinophils % (auto) 0.9 %; Hematocrit (blood only) 27.9 % (42.0-52.0); Hemoglobin 9.1 g/dl (14.0-18.0); Immature Granulocytes # (auto) 0.04 K/uL (0.01-0.20); Immature Granulocytes % (auto) 1.2 %; Lymphocytes % (auto) 14.4 %; Mean Corpuscular Hemoglobin 28.6 pg (25.0-34.0); Mean Corpuscular Hgb Conc 32.6 g/dL (32.0-36.0); Mean Corpuscular Volume 87.7 fL (80.0-100.0); Monocytes # (auto) 0.09 K/uL (0.11-0.59); Monocytes % (auto) 2.6 %; Neutrophils # (auto) 2.79 K/uL (1.40-6.50); Neutrophils % (auto) 80.3 %; Ovalocytes 1+; Platelet Count 89 K/uL (130-400); Platelet Estimate Decreased (Normal); RDW Coefficient of Variation 15.5 % (11.5-14.5); RDW Standard Deviation 49.7 fL (36.4-46.3); Red Blood Count 3.18 M/uL (4.70-6.10); White Blood Count 3.47 K/ul (4.8-10.8)
[2024-07-27] MEDS: OPTIRAY 320 125ml IV ONE (14:54)
--- NOTE | 2024-07-27 15:46 | CT Scan Report ---
CT ANGIOGRAM OF THE CHEST CLINICAL HISTORY: Hypotension. Hypoxia. COMPARISON STUDY: Chest x-ray dated 07/27/2024. Chest CT dated 05/26/2024. TECHNIQUE: Following the IV administration of 118 cc of Optiray 320, CT angiogram of the chest was pe rformed from the upper abdomen to the thoracic inlet utilizing the pulmonary embolus protocol. Images are reviewed in the axial, sagittal, and coronal planes. 3-D MIPS images are created and assessed. I V contrast was administered without complication. A dose lowering technique was utilized adhering to the principles of ALARA. CT DOSE: 648.15 mGy.cm FINDINGS: Thyroid: Imaged portions of the thyroid gland are normal in size and attenuation. Thoracic aorta: There is mild atherosclerotic calcification of the thoracic aorta, which is normal in caliber and demonstrates 4-vessel variant arch anatomy. No dissection is seen. Pulmonary vasculature: The pulmonary trunk is normal in caliber. There is subsegmental pulmonary embo betzaida within a branch of the left upper lobe pulmonary artery seen on image #154. No additional filling defects are identified In main, lobar, or segmental pulmonary branches to typical for pulmonary embo betzaida. Heart: A right internal jugular central venous infusion port is in place. The heart is normal in size and without pericardial effusion. There is coronary artery atherosclerosis. Lungs and pleural spaces: There is moderate emphysema. Again seen is postsurgical change from right u pper lobe resection. Fibrotic change/scarring is seen at the left apex, likely representing treatment -related change. No air space consolidation typical for pneumonia or pleural effusion is identified. The trachea and central airways are clear. Mediastinum: There are calcification containing subcarinal nodes. No lymphadenopathy is seen. Robyn: There are calcified hilar lymph nodes. No lymphadenopathy is seen. Axillae: There is no axillary lymphadenopathy. Upper abdomen: The gallbladder is surgically absent. The spleen is enlarged measuring 16.4 cm in juanis th. A 14 mm cyst is partially visualized arising from the upper pole right kidney. There is a small h iatal hernia. Diverticulosis is noted in the partially imaged colon without CT evidence of acute dive rticulitis. Skeletal structures: The skeletal structures are osteopenic. Degenerative change is noted in the shou lders and spine. No lytic or blastic bony lesions are seen. IMPRESSION: 1. There is a subsegmental pulmonary embolus within a branch of the left upper lobe pulmonary artery. 2. No additional pulmonary emboli are clearly seen. 3. Emphysema with chronic and postsurgical changes above. 4. There is no airspace consolidation typical for pneumonia or pleural effusion. 5. Splenomegaly. 6. Additional findings as above. ACT 112: Negative or not required by law. Electronically signed by: Hernandez Cardona M.D. 07/27/2024 3:45 PM
[2024-07-27] MEDS ORDERED: HEPARIN SOD (PORCINE) 1000 UNIT/ML IV ONE (16:30)
[2024-07-27] MEDS: HEPARIN SOD (PORCINE) 1000 UNIT/ML IV ONE (16:35)
[2024-07-27] MEDS: Heparin IV Adult Wt-Based Standard w/ INITIAL Bolus Protocol IV STA (16:36)
[2024-07-27] MEDS: HEPARIN SODIUM/DEXTROSE 25,000 UNITS/500 ML BAG IV SCH (16:36)
[2024-07-27 16:49] LABS: Appearance Urine Clear (Clear); Bilirubin Urine Negative (Negative); Blood Urine Negative (Negative); Color Urine Yellow; Glucose Urine UA Negative (Negative); Ketones Urine Negative (Negative); Leukocyte Esterase Urine Negative (Negative); Nitrite Urine Negative (Negative); Protein Urine Negative (Negative); Specific Gravity Urine 1.044 (1.000-1.030); Urobilinogen Urine Negative (Negative); pH Urine 5.5 (4.5-7.5)
--- NOTE | 2024-07-27 17:41 | History & Physical Report ---
Date of Service July 27, 2024 Assessment & Plan (1) Pulmonary embolism: (2) Small cell lung cancer, left upper lobe: (3) Depression: (4) BPH (benign prostatic hyperplasia): (5) GERD (gastroesophageal reflux disease): (6) Dyslipidemia: (7) CKD (chronic kidney disease), stage III: (8) History of TB (tuberculosis): (9) COPD (chronic obstructive pulmonary disease): Plan Pulmonary Embolism: SOB: Acute Chest CTA: subsegmental pulmonary embolus within a branch of the left upper lobe pulmonary artery.No additional pulmonary emboli are clearly seen. Emphysema with chronic and postsurgical changes above. Started on IV Heparin gtt standard with bolus INR 1.0 Procalcitonin negative wears 2LNC at home; currently on 4LNC troponin 2.7 Small cell lung cancer: Thrombocytopenia: initial lung nodule was diagnosed on 02/26/[address]-guided biopsy at the time was nondiagnostic he received SBRT and finished May and now has been ongoing chemotherapy; last and final chemo was this past Saturday 07/21 (IV cisplatin/etoposide) He has seen a surgeon in [place] for a lobe resection. He had a lobe resection Has had 26 radiation treatments; 7 additional radiation treatments planned Dysphagia worsening over past week Brain MRI done a few weeks ago without mets. PET scan planned after radiation completed ST consult Soft diet ordered lactic acidosis: Acute hypotension: Acute SBP low 90's on presentation to ED likely secondary to dehydration/decreased PO intake original lactic level 2.5--> 1.0 lactic acidosis resolved Dysphagia: Tooth infection: Reportedly having more dificulty with swallowing and feeling that food is getting 'stuck' Also has a tooth infection and poor dentician Reports that he has one more dose of abx; I do not see this in EMR link, but may have gotten this in [place] for immunocompromised patient; will obtain neck CT to r/o abscess contributing to dysphagia/pain Will administer 1L NS prior to neck CT due to AMERICA/contrast Likely dysphagia related to radiation therapy pending CT results; consider maxilofacial surgeon consult if worsening Hypomagnesemia: Acute Serum Mg+ 1.3; replace with Mg+ IV 3G and repeat in AM recheck Mg+ in AM Acute kidney injury: chronic creatinine 1.32; was 1.61 last admission in May 2024. Baseline 1-1.2 IVF and reassess Consider Nephro involvement if no improvement in AM AAA: Chronic Follows with Cardiology in [place] stable 3.2 abdominal aortic aneurysm COPD: Chronic Takes ipratropium bromide and Trelegy; continue HLD: Chronic Takes Atorvastatin;continue GERD: Takes omeprazole;continue H/O TB: status post right apical lung resection in 1997 Disposition: PCP: Dr. Sharma Code Status: Full Code DVT prophylaxis: On Heparin gtt I spent a total of 86 minutes coordinating, documenting, and providing care for this patient excluding time spent in the performance of separately billed services. All of the aforementioned completed while collaborating with the assigned attending physician for a full treatment plan. Please see their addendum for further details. History of Present Illness Chief Complaint: PE/SOB Primary Care Provider: Page Sharma MD Mr. Clemente is a 74 year old male who was attending an appointment with heme/onc and started to have main in his anterior chest that is localized that worsens with taking a deep breath. No radiation to jaw, arm or back. Worsening SOB has been occurring over the past day or so. He reports feeling chills. When he arrived he was found to be hypotensive SBP 90's. Denies any blood in stools. Reports having dysphagia that has been going on about a week or so. He describes it as the food getting stuck and feeling painful. Finishing an antibiotic for a tooth infection. Patient has a PMH that includes NSCLCA, Diverticulosis/Diverticulitis, H/O TB, BPH, GERD, COPD,. Had a polyp removed at [facility]. WBC 3.47, plt 89 (known risk discussed with pt), Mg 1.3, creatinine 1.32. Pt denies CARLSON, cough, dizziness, N/V/D, abdominal pain or tenderness, signs of bleeding, recent falls or trauma. Patient will be admitted to the hospital for further evaluation and management. Please see A/P for further details. Allergies Allergy/AdvReac Type Severity Reaction Status Date / Time Quinolones Allergy Severe Hives Verified 07/27/24 16:25 moxifloxacin [From Avelox] Allergy Unknown listed in Verified 07/27/24 16:25 heme/onc records codeine AdvReac Intermediate Nausea/Vomi Verified 07/27/24 16:25 ting oxycodone AdvReac Intermediate Nausea/Vomi Verified 07/27/24 16:25 ting Penicillins AdvReac Intermediate Nausea/Vomi Verified 07/27/24 16:25 ting Home Medications Medication Instructions Recorded Confirmed Type atorvastatin 20 mg tablet 20 mg PO HS 10/23/18 07/27/24 History propranolol 10 mg tablet 10 mg PO BID 10/23/18 07/27/24 History tamsulosin 0.4 mg capsule (Flomax) 0.4 mg PO HS 10/23/18 07/27/24 History meclizine 12.5 mg tablet 12.5 mg PO TID PRN 06/07/20 07/27/24 History Dizziness/vertigo albuterol sulfate 90 mcg/actuation 2 puff inhalation Q6H PRN Wheezing 04/22/22 07/27/24 History aerosol inhaler fluticasone fur. 100 mcg-umeclid 1 inh inhalation QAM 04/22/22 07/27/24 History 62.5 mcg-vilant 25 mcg inhalat.powder (Trelegy Ellipta) ipratropium bromide 0.02 % 2.5 ml inhalation QID PRN Wheezing 05/21/23 07/27/24 History solution for inhalation ondansetron HCl 4 mg tablet 4 mg PO Q68H PRN Nausea And 01/27/24 07/27/24 History Vomiting bupropion HCl 150 mg 24 hr tablet, 150 mg PO QAM 02/23/24 07/27/24 History extended release omeprazole 20 mg tablet,delayed 20 mg PO BID 02/23/24 07/27/24 History release acetaminophen 500 mg tablet 500 mg PO Q6H PRN Pain 03/07/24 07/27/24 History dexamethasone 4 mg tablet 20 mg PO UD PRN radiation 04/12/24 07/27/24 History treatments olanzapine 2.5 mg tablet 2.5 mg PO HS 05/06/24 07/27/24 History paroxetine HCl 20 mg tablet 20 mg PO HS 05/06/24 07/27/24 History prochlorperazine maleate 10 mg 10 mg PO UD PRN Nausea And Vomiting 05/06/24 07/27/24 History tablet Past Med/Surg History Problem List (Updated 07/27/24 @ 18:34 by Loc Aly DO) Anemia (Acute) Acute hypotension (Acute) Pulmonary embolism (Acute) Chemotherapy induced nausea and vomiting Small cell lung cancer, left upper lobe (Chronic) Lung nodule (Chronic) Encounter for pre-operative examination Primary cancer of left upper lobe of lung (Chronic 04/01/22) Diverticular disease History of colon polyps BPH (benign prostatic hyperplasia) Depression GERD (gastroesophageal reflux disease) Dyslipidemia CKD (chronic kidney disease), stage III (Acute) PCP monitoring History of TB (tuberculosis) "Inactive" [place] [facility], "He underwent a right upper lobectomy back in the 90s for what sounds like tuberculosis.." 09/1998 pulmonary records scanned into chart state, "he's undergone lobectomy for cavitary process secondary to atypical micro bacteria. right upper lobectomy was performed in January'.. when the patient's treatment for the above mentioned problem was refractory to improvement despite numerous antibiotics used for the treatment of an atypical micro bacterial infection." COPD (chronic obstructive pulmonary disease) Abdominal pain (Acute) Abdominal aortic aneurysm (Acute) Influenza A entered into chart and last edited 08/17/19 Thrombocytopenia (Acute) Status post left inguinal hernia repair (Acute) Chest pain (Acute) entered into chart 2013 and last edited 2019 Cellulitis of face (10/27/12) Medical History AMERICA (acute kidney injury) Acute hypotension Acute hypotension Hyperbilirubinemia Acute kidney injury superimposed on CKD Nausea, vomiting and diarrhea Hyperlipidemia Chronic vertigo BPH (benign prostatic hyperplasia) History of pneumonia (2022) treated inpatient at [facility]. no problems since. History of COVID-19 (2021) severe flu symptoms, treated with oxygen and breathing treatments. -> inpatient at [facility]. Hx of influenza (2018) treated inpatient at [facility] Thrombocytopenia follows with Dr Malick PAIGE (gastroesophageal reflux disease) Hx of colonic polyps History of TB (tuberculosis) "Inactive" [place] [facility], "He underwent a right upper lobectomy back in the 90s for what sounds like tuberculosis.." 09/1998 pulmonary records scanned into chart state, "he's undergone lobectomy for cavitary process secondary to atypical micro bacteria. right upper lobectomy was performed in January'.. when the patient's treatment for the above mentioned problem was refractory to improvement despite numerous antibiotics used for the treatment of an atypical micro bacterial infection." Diverticular disease Hx of diverticulitis of colon (2021) CKD (chronic kidney disease), stage III monitors with PCP Abdominal aortic aneurysm follows with [facility] Cardiology ([place]) - monitoring Small cell lung cancer, left upper lobe (03/2024) dx 03/2024 via bronchoscopy and biopsy. plan to do chemotherapy. Hiatal hernia Cancer Lung - initially diagnosed 2021 s/p radiation treatments Degenerative disc disease Anxiety and depression Tremor of both hands Taking beta malorie Chronic obstructive pulmonary disease inhalers daily, nebulizer PRN - 2lpm via n/c continuous On home oxygen therapy 2lpm via n/c continuous Enlargement of spleen Aortic aneurysm Duplex 09/2023: 3.7cm AAA Under surveillance by [facility] vascular, recommendation for recheck 2025 Surgical History H/O colonoscopy with polypectomy (04/24/22) [facility] to remove a large polyp (has 6 surgical clips from removal) History of bronchoscopy (03/07/24) [facility] - dx with small cell lung cancer S/P epidural steroid injection History of esophagogastroduodenoscopy (EGD) Dr. Snider History of cystoscopy History of lung biopsy (2021) Ct-Guided Percutaneous Left Lung Nodule Biopsy Dr. Tavo Gonzalez History of carpal tunnel release (1976) Right History of colonoscopy Multiple History of herniorrhaphy (2014) Inguinal History of tooth extraction History of lobectomy of lung (1995) Right (micro bacterium infection) History of cholecystectomy (2016) Laproscopic Cholescystectomy Dr. Olivas at [facility] History of cardiac cath , , 2006 - no stents at [facility] in [place] Family History Mother Family history of diabetes mellitus Breast cancer Unilateral Masectomy Brother Family hx of colon cancer Family history of diabetes mellitus Father Bladder cancer, Onset Age: 73 Sister Breast cancer, Onset Age: 74 Bilateral Masectomy Sister Breast cancer, Onset Age: 75 Bilateral Masectomy Sister , age 74 Colorectal cancer, Onset Age: 73 Sister Pancreatic cancer Sister Stomach cancer Sister Stomach cancer Brother Prostate cancer, Onset Age: 64 Family history of diabetes mellitus Brother Stomach cancer Aunt Breast cancer Aunt Breast cancer Unknown Lung cancer, Onset Age: 50 Unknown Cancer of unknown origin Unknown Bladder cancer, Onset Age: 55 Unknown Cancer Other Coronary heart disease Hypertension No family history of adverse response to anesthesia Social History Smoking Status: Never smoker Tobacco Type: Cigarettes Cigarettes Per Day: cigar "every once in ahwile" (advised on policy); Second Hand Exposure: No; Do You Dip or Chew Tobacco: No; Hx Alcohol Use: No Hx Substance Use: No Preferred Language: Ugandan Communication Ability: Effective Visual Impairment: Limited Hearing Ability: Normal 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 Hand Required: No Beliefs That Will Affect Care: None marital status: Current Living Situation: Family Current Living Situation Comment: lives with daughter and son-in-law current occupational status: retired How many Children do You have: 3 Feels Safe at Home: Yes Childhood Exposure to Second-Hand Smoke: Yes Diet: regular caffeine: Yes (1 cup of coffee daily) during the past year weight has: remained stable Dental Care, Regularly: No Assistive Devices: Cane, Oxygen - Continuous and Walker Review of Systems Review of Systems: Neuro: (-) Falls, trauma, slurred speech HEENT: (-) CARLSON, dizziness, dysphagia, visual or auditory changes CV: (-) CP, palpitations, swelling Resp: (-) SOB GI: (-) appetite changes, N/V/D, bowel changes : (-) urinary changes Skin: (-) rashes Psych: (-) anxiety, depression Physical Exam Physical Exam: See Dr. Mustafa's addendum for physical examination findings Results & Data Results & Data Vital Signs (Past 12 Hours) Vital Signs Temp Pulse Pulse Resp BP BP Pulse Ox 07/27/24 17:31 94 H 21 114/71 100 07/27/24 15:31 102 H 20 111/67 100 07/27/24 15:23 102 H 20 94/71 L 100 07/27/24 14:52 18 105/65 07/27/24 13:36 119 H 07/27/24 13:09 07/27/24 13:09 100 07/27/24 12:57 07/27/24 12:57 36.6 C 126 H 18 99/73 L 99 O2 Del Method O2 Flow Rate 07/27/24 17:31 Nasal Cannula 2 07/27/24 15:31 Nasal Cannula 2 07/27/24 15:23 Nasal Cannula 2 07/27/24 14:52 07/27/24 13:36 07/27/24 13:09 Nasal Cannula 2 07/27/24 13:09 Nasal Cannula 2 07/27/24 12:57 Room Air 07/27/24 12:57 Nasal Cannula 2 Laboratory Results Short CBC 07/27/24 Range/Units 13:23 WBC 3.47 L (4.8-10.8) K/ul Hgb 9.1 L (14.0-18.0) g/dl Hct 27.9 L (42.0-52.0) % Plt Count 89 L (130-400) K/uL BMP 07/27/24 13:23 Sodium 137 Potassium 3.9 Chloride 105 Carbon Dioxide 24 BUN 28 H Creatinine 1.32 Glucose 136 H Calcium 9.2 Liver Function 07/27/24 Range/Units 13:23 Total Bilirubin 1.0 (0.2-1.0) mg/dl AST 14 (13-39) U/L ALT 14 (7-52) U/L Alkaline Phosphatase 88 (34-104) U/L Albumin 3.8 (3.4-5.0) gm/dl Urine 07/27/24 Range/Units 16:25 Urine Color Yellow Urine Appearance Clear (Clear) Urine pH 5.5 (4.5-7.5) Ur Specific [place] 1.044 H (1.000-1.030) Urine Protein Negative (Negative) Urine Glucose (UA) Negative (Negative) Diagnostic Findings Chest X-Ray 07/27/24 13:09 XR chest 1V portable CLINICAL HISTORY: Sepsis TECHNIQUE: Single frontal radiograph of the chest was obtained. Comparison: Comparison is made to chest radiograph 07/06/2024 FINDINGS: A port catheter is seen. The cardiomediastinal silhouette is normal. Reticular interstitial opacities are seen. Left upper lobe density is again seen compatible with a focus of scarring. No evidence of pleural effusion or pneumothorax. IMPRESSION: No acute abnormalities and in particular no radiographic evidence of pneumonia. ACT 112: Negative or not required by law. Electronically signed by: Jim Saini M.D. 07/27/2024 1:54 PM Chest CTA 07/27/24 13:39 CT ANGIOGRAM OF THE CHEST CLINICAL HISTORY: Hypotension. Hypoxia. COMPARISON STUDY: Chest x-ray dated 07/27/2024. Chest CT dated 05/26/2024. TECHNIQUE: Following the IV administration of 118 cc of Optiray 320, CT angiogram of the chest was performed from the upper abdomen to the thoracic inlet utilizing the pulmonary embolus protocol. Images are reviewed in the axial, sagittal, and coronal planes. 3-D MIPS images are created and assessed. IV contrast was administered without complication. A dose lowering technique was utilized adhering to the principles of ALARA. CT DOSE: 648.15 mGy.cm FINDINGS: Thyroid: Imaged portions of the thyroid gland are normal in size and attenuation. Thoracic aorta: There is mild atherosclerotic calcification of the thoracic aorta, which is normal in caliber and demonstrates 4-vessel variant arch anatomy. No dissection is seen. Pulmonary vasculature: The pulmonary trunk is normal in caliber. There is subsegmental pulmonary embolus within a branch of the left upper lobe pulmonary artery seen on image #154. No additional filling defects are identified In main, lobar, or segmental pulmonary branches to typical for pulmonary embolus. Heart: A right internal jugular central venous infusion port is in place. The heart is normal in size and without pericardial effusion. There is coronary artery atherosclerosis. Lungs and pleural spaces: There is moderate emphysema. Again seen is postsurgical change from right upper lobe resection. Fibrotic change/scarring is seen at the left apex, likely representing treatment-related change. No air space consolidation typical for pneumonia or pleural effusion is identified. The trachea and central airways are clear. Mediastinum: There are calcification containing subcarinal nodes. No lymphadenopathy is seen. Robyn: There are calcified hilar lymph nodes. No lymphadenopathy is seen. Axillae: There is no axillary lymphadenopathy. Upper abdomen: The gallbladder is surgically absent. The spleen is enlarged measuring 16.4 cm in length. A 14 mm cyst is partially visualized arising from the upper pole right kidney. There is a small hiatal hernia. Diverticulosis is noted in the partially imaged colon without CT evidence of acute diverticulitis. Skeletal structures: The skeletal structures are osteopenic. Degenerative change is noted in the shoulders and spine. No lytic or blastic bony lesions are seen. IMPRESSION: 1. There is a subsegmental pulmonary embolus within a branch of the left upper lobe pulmonary artery. 2. No additional pulmonary emboli are clearly seen. 3. Emphysema with chronic and postsurgical changes above. 4. There is no airspace consolidation typical for pneumonia or pleural effusion. 5. Splenomegaly. 6. Additional findings as above. ACT 112: Negative or not required by law. Electronically signed by: Hernandez Cardona M.D. 07/27/2024 3:45 PM Code Status & VTE Plan Code Status Full Code in the event of cardiac or respiratory arrest VTE Prophylaxis Plan VTE Prophylaxis will be ordered: Yes Supervising Physician Co-Signing Physician Notes Patient is a 74-year-old male with history of lung cancer, chronic oxygen dependency on 2 to 3 L supplemental oxygen, BPH, depression, GERD, CKD stage III, abdominal aortic aneurysm and other medical problems presents with history of worsening shortness of breath which has been gradually worse over the past 1 to 2 days. He reports associated chills and generalized weakness. He recently completed chemotherapy. He has ongoing radiation therapy. He recently had a tooth infection and has completed an antibiotic course. He reports dysphagia which has been gradually worsening with both solids and liquid foods. Please review HPI for complete details of presentation. I personally reviewed blood work and imaging studies. CTA chest suggestive of subsegmental pulmonary embolus within the branch of the left upper lobe pulmonary artery and findings suggestive of emphysema, postsurgical changes. Normal procalcitonin. Hypomagnesemia 1.3. Lactic acidosis 2.5 and repeat 1.0. Noted chronic pancytopenia. Physical Exam: Vitals signs as noted above General Appearance:Moderately built and nourished, chronically appearing, no apparent distress Head: normocephalic, Atraumatic Eyes: normal inspection, EOMI Neck: supple, Trachea midline Respiratory/Chest: Normal breath sounds, CTA, No accessory muscle use Cardiovascular: S1, S2, No murmur Abdomen/GI:Soft, Non tender, Bowel sounds present Extremities/Musculoskeletal:normal inspection, trace pedal edema Neurologic/Psych:AAOX3, grossly no focal neurological deficits Skin: normal color, warm Acute pulmonary embolism Acute on chronic respiratory failure with hypoxia Pancytopenia Small cell lung cancer Lactic acidosis Hypomagnesemia Dysphagia Agree with starting IV heparin. Consulted oncology for further recommendations Speech therapy to evaluate for dysphagia (? Secondary to radiation therapy) Replete electrolytes as needed I personally interviewed and examined at bedside. Patient's care is coordinated with Maya LOREDO. I have reviewed the advanced practitioner's documentation, and I agree with plan of care. Please refer to the documentation above for details of patient's presentation and for discussion of other issues. I spent a total [id number] coordinating, documenting, and providing care for this patient excluding time spent in the performance of separately billed services.
[2024-07-27] MEDS ORDERED: IPRATROPIUM BROMIDE NEB SOLN 0.02% 0.5MG/2.5ML VIAL INH PRN (18:43)
[2024-07-27] MEDS ORDERED: MECLIZINE 12.5 MG TAB PO PRN (18:43)
[2024-07-27] MEDS ORDERED: ALBUTEROL HFA 8 GM INHALER INH PRN (18:43)
[2024-07-27] MEDS: OPTIRAY 320 100ml IV ONE (19:33)
[2024-07-27] MEDS: MAGNESIUM SULFATE / D5W 1 GM/100 ML BAG IV SCH (19:45)
[2024-07-27] MEDS ORDERED: MAGNESIUM HYDROXIDE SUSP 30 ML UDC PO PRN (20:36)
[2024-07-27] MEDS ORDERED: ALUMINUM/MAGNESIUM SUSP 30 ML UDC PO PRN (20:36)
[2024-07-27] MEDS ORDERED: POLYETHYLENE (MIRALAX) 17 GM PACK PO PRN (20:36)
[2024-07-27] MEDS ORDERED: ACETAMINOPHEN 325 MG TAB PO PRN (20:36)
--- NOTE | 2024-07-27 20:45 | CT Scan Report ---
Exam(s): CT NECK With Contrast IV Amt: 90 ml optiray 320 EXAM: CT Neck With Intravenous Contrast CLINICAL HISTORY: Reason for exam: r/o neck abscess. TECHNIQUE: Axial computed tomography images of the neck with intravenous contrast. CTDI is 18.22 mGy and DLP is 470.52 mGy-cm. Automated exposure control was utilized for the study. A dose lowering technique was utilized adhering to the principles of ALARA. CONTRAST: Patient received 90 ml optiray 320 of IV contrast COMPARISON: None FINDINGS: Oropharynx: Unremarkable. No significant tonsillar enlargement. No peritonsillar abscess. Hypopharynx: Unremarkable. Larynx: Unremarkable. Normal epiglottis. Trachea: Unremarkable. Retropharyngeal space: Unremarkable. Submandibular/parotid glands: Unremarkable. Glands are normal in size. Thyroid: Unremarkable. No enlarged or calcified nodules. Bones/joints: Degenerative changes of the spine. Minimal anterolisthesis of C6 on C7. No acute fracture. Soft tissues: No abscess identified. Vasculature: No acute findings. Lymph nodes: Unremarkable. No lymphadenopathy. Dental: Dental disease. Lung apices: Emphysematous changes. Scarring at left greater than right lung apices. IMPRESSION: Emphysematous changes. Scarring at left greater than right lung apices. No abscess identified. Electronically signed by: Adriana William M.D. 07/27/24 20:44 PM
[2024-07-27] MEDS: ONDANSETRON INJ 2 MG/ML 2 ML VIAL IV PRN (21:05)
[2024-07-27] MEDS: TAMSULOSIN HCL 0.4 MG CAP PO SCH (21:33)
[2024-07-27] MEDS: ATORVASTATIN 20 MG TAB PO SCH (21:33)
[2024-07-27] MEDS: OLANZAPINE 2.5 MG TAB PO SCH (21:33)
[2024-07-27] MEDS: PARoxetine HCL 20 MG TAB PO SCH (21:33)
[2024-07-27] MEDS: PROPRANOLOL HCL 10 MG TAB PO SCH (21:33)
[2024-07-27] MEDS: PANTOprazole 40 MG TAB PO SCH (21:33)
--- NOTE | 2024-07-27 22:37 | Electrocardiogram Report ---
Test Reason : Blood Pressure : */* mmHG Vent. Rate : 114 BPM Atrial Rate : 114 BPM P-R Int : 154 ms QRS Dur : 84 ms QT Int : 318 ms P-R-T Axes : 54 7 51 degrees QTcB Int : 438 ms Sinus tachycardia with occasional Premature ventricular complexes Otherwise normal ECG When compared with ECG of 17-Jun-2024 23:11, Premature ventricular complexes are now Present Confirmed by Fran Calabrese ([id number]) on 07/27/2024 10:37:02 PM Referred By: Confirmed By: Fran Calabrese
[2024-07-27] MEDS: FAMOTIDINE 20MG IV PUSH 20 MG/5 ML SYR IV STA (23:55)
[2024-07-28 01:31] LABS: ANTI-Xa, UFH(UnfractionatedHep 0.54 IU/ml (0.3-0.7)
[2024-07-28 06:06] LABS: ANTI-Xa, UFH(UnfractionatedHep 0.46 IU/ml (0.3-0.7); BUN Creatinine Ratio 19.1 (10-20); Calcium 8.5 mg/dl (8.6-10.3); Creatinine Clr Calc Pharmacy 63.5 ml/min; Est GFR (African American) 91.6 ml/min; Potassium 4.4 mmol/L (3.5-5.1)
[2024-07-28 06:59] LABS: Hematocrit (blood only) 20.7 % (42.0-52.0); Hemoglobin 6.7 g/dl (14.0-18.0); Mean Corpuscular Hemoglobin 28.6 pg (25.0-34.0); Mean Corpuscular Hgb Conc 32.4 g/dL (32.0-36.0); Mean Corpuscular Volume 88.5 fL (80.0-100.0); Platelet Count 64 K/uL (130-400); RDW Coefficient of Variation 15.7 % (11.5-14.5); RDW Standard Deviation 50.5 fL (36.4-46.3); Red Blood Count 2.34 M/uL (4.70-6.10); White Blood Count 1.55 K/ul (4.8-10.8)
[2024-07-28] MEDS ORDERED: SODIUM CHLORIDE 0.9% 250 ML IV PRN ×2 (07:57→08:59)
[2024-07-28 08:37] LABS: Hematocrit (blood only) 20.7 % (42.0-52.0); Hemoglobin 6.8 g/dl (14.0-18.0); Mean Corpuscular Hemoglobin 29.1 pg (25.0-34.0); Mean Corpuscular Hgb Conc 32.9 g/dL (32.0-36.0); Mean Corpuscular Volume 88.5 fL (80.0-100.0); Platelet Count 59 K/uL (130-400); RDW Coefficient of Variation 15.7 % (11.5-14.5); RDW Standard Deviation 50.3 fL (36.4-46.3); Red Blood Count 2.34 M/uL (4.70-6.10); White Blood Count 1.19 K/ul (4.8-10.8)
[2024-07-28] MEDS ORDERED: NON-FORMULARY MEDICATION (Fluticasone-Umeclidin-Vilanter [Trelegy Ellipta] 100-62.5-25 mcg INH SCH (09:00)
[2024-07-28] MEDS: UMECLIDINIUM/VILANTEROL 62.5/25MCG 7 PUFFS/INHALER INH SCH (09:21)
[2024-07-28] MEDS: FLUTICASONE FUROATE 100MCG 14 PUFFS/INHALER INH SCH (09:21)
[2024-07-28] MEDS: buPROPion XL 150 MG TABCR PO SCH (09:21)
[2024-07-28] MEDS: ACETAMINOPHEN 325 MG TAB PO ONE (10:29)
--- NOTE | 2024-07-28 12:50 | Hospitalist Progress Note ---
Date of Service July 28, 2024 Assessment & Plan (1) Pulmonary embolism: (2) Small cell lung cancer, left upper lobe: (3) Depression: (4) BPH (benign prostatic hyperplasia): (5) GERD (gastroesophageal reflux disease): (6) Dyslipidemia: (7) CKD (chronic kidney disease), stage III: (8) History of TB (tuberculosis): (9) COPD (chronic obstructive pulmonary disease): Plan 74-year-old male with PMH of NSCLC, diverticulosis/diverticulitis, TB, BPH, GERD, COPD was sent from oncology office due to left anterior chest pain that worsened with taking a deep breath. 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 He recently finished antibiotic for tooth infection. He is being managed for the following: Pulmonary Embolism: SAGAR Chest pain SOB: Procal neg. trop 2.7. Chest CTA: subsegmental pulmonary embolus within a branch of the left upper lobe pulmonary artery.No additional pulmonary emboli are clearly seen. Emphysema with chronic and postsurgical changes above. Started on IV Heparin gtt standard with bolus, c/w hep drip. will need eval for doac when ready for dc. wears 2LNC at home; currently on 2L NC. continue. Pt reports improving chest pain, improving sob. Oncology eval pending. Antineoplastic chemotherapy induced pancytopenia Pt w/ pancytopenia worsening after chemotherapy in past w/ need for blood transfusion afterwards per pt. Last chemo last wednesday on 07/21. Hb 6.8 today, will transfuse 1 unit PRBC, follow HnH post transfusion Labs in AM. transfuse for Hb < 7 or for symptomatic anemia Small cell lung cancer: Thrombocytopenia: initial lung nodule was diagnosed on 02/26/[address]-guided biopsy at the time was nondiagnostic he received SBRT and finished May and now has been ongoing chemotherapy; last and final chemo was this past Saturday 07/21 (IV cisplatin/etoposide) He has seen a surgeon in [place] for a lobe resection. He had a lobe resection Has had 26 radiation treatments; 7 additional radiation treatments planned Brain MRI done a few weeks ago without mets. PET scan planned after radiation completed lactic acidosis: Acute hypotension: SBP low 90's on presentation to ED likely secondary to dehydration/decreased PO intake original lactic level 2.5--> 1.0 lactic acidosis resolved Dysphagia: Tooth infection: Reportedly having more dificulty with swallowing and feeling that food is ge tting 'stuck' Also has a tooth infection and poor dentition. Completed antibiotic for tooth infection before arrival. neck CT w/ no acute findings. Dysphagia worsening over past week, speech eval pending, follow video swallow. Pt reports improving dysphagia symptoms today. Consider GI eval if worsening. Hypomagnesemia: 1.3 at presentation, repleted, resolved. Acute kidney injury: Admitting creatinine of 1.32, baseline around 1 point1.0, status post IV fluid. Resolved AAA: Chronic Follows with Cardiology in [place] stable 3.2 abdominal aortic aneurysm COPD: Chronic Takes ipratropium bromide and Trelegy; continue HLD: Chronic Takes Atorvastatin;continue GERD: Takes omeprazole;continue H/O TB: status post right apical lung resection in 1997 Disposition: PCP: Dr. Sharma Code Status: Full Code DVT prophylaxis: On Heparin gtt Admission and Anticipated Discharge Date Admission Date: July 27, 2024 Subjective Patient was seen and examined at bedside. Patient was lying in bed, on 2 L oxygen via nasal cannula, resting comfortably. Patient reports improving dysphagia signs and symptoms, denies blood in his stool or black stool, reports feeling better. Patient reports shortness of breath and left upper chest pain getting better. Patient reports after chemotherapy he gets low blood levels and has needed blood transfusion in the past. His last chemotherapy was last Wednesday per patient. Physical Exam Physical Exam: General Appearance:Moderately built and nourished, chronically ill appearing, no apparent distress, on 2L NC O2. Head: normocephalic, Atraumatic Eyes: normal inspection, EOMI Neck: supple, Trachea midline Respiratory/Chest: Normal breath sounds, CTA, No accessory muscle use Cardiovascular: S1, S2, No murmur Abdomen/GI:Soft, Non tender, Bowel sounds present Extremities/Musculoskeletal:normal inspection, - edema. Neurologic/Psych:AAOX3, grossly no focal neurological deficits Skin: normal color, warm Results & Data Results & Data Vital Signs (Past 12 Hours) Vital Signs Temp Pulse Pulse Resp BP BP Pulse Ox 07/28/24 12:00 91/60 L 07/28/24 11:47 96/60 L 07/28/24 11:45 70 18 99 07/28/24 11:40 106/46 L 07/28/24 10:43 07/28/24 10:33 37 C 66 112/56 L 96 07/28/24 09:05 36.6 C 76 19 106/61 100 07/28/24 04:06 36.5 C 70 18 138/81 100 O2 Del Method O2 Flow Rate 07/28/24 12:00 07/28/24 11:47 07/28/24 11:45 07/28/24 11:40 07/28/24 10:43 Nasal Cannula 2 07/28/24 10:33 2 07/28/24 09:05 Nasal Cannula 2 07/28/24 04:06 Nasal Cannula (1) Pulmonary embolism Acute cor pulmonale presence: unspecified Chronicity: acute Pulmonary embolism type: unspecified Qualified Code(s): I26.99 - Other pulmonary embolism without acute cor pulmonale
--- NOTE | 2024-07-28 13:02 | Fluoroscopy Report ---
VIDEO SWALLOW STUDY CLINICAL HISTORY: Dysphagia. COMPARISON STUDY: No priors. Fluoroscopy time: 1.13 minutes. Ka,r: 10.0 mGy FINDINGS: Fluoroscopic guidance was provided to the Department of speech pathology in performing a vi nilam swallow study. The patient consumed barium-impregnated pudding, nectar-thick liquids, cracker wit h paste, and thin barium while the swelling mechanism was observed in real-time. No penetration or as piration was seen with any of the sampled textures. There is at least mild esophageal dysmotility, wi th delayed esophageal clearance of the cracker with paste texture. Then infusion port catheter is par tially imaged. IMPRESSION: There is no penetration or aspiration seen with any of the sampled textures. See dedicate d speech pathology report for detailed findings and recommendations. Dictated: 07/28/2024 12:17 PM Transcribed: 07/28/2024 12:28 PM Melvin [id number] [email or web address] Electronically signed by: Hernandez Cardona M.D. 07/28/2024 1:00 PM
[2024-07-28 15:03] LABS: Hemoglobin 7.5 g/dl (14.0-18.0)
--- NOTE | 2024-07-28 16:41 | Gastrointestinal Consultation ---
Date of Consultation July 28, 2024 Assessment & Plan (1) Dysphagia: Dysphagia is most likely related to radiation therapy to non-small cell lung cancer, likely radiation-induced esophagitis. Symptoms are mild. At present I would observe the patient. Continue diet as tolerated. Given the recent pulmonary embolus hold upper endoscopy unless symptoms worsen. History of Present Illness Reason for Consultation: Dysphagia, odynophagia. Attending Physician: Jignesh Chang MD History of Present Illness About 3 weeks history of dysphagia and odynophagia for about 1 week duration. The patient is receiving radiation therapy to small cell lung cancer. Denies food impaction. Able to tolerate liquids and soft diet. The patient was admitted yesterday because of sudden onset of left-sided chest pain. CT scan of the chest showed acute pulmonary embolus in the left upper lobe pulmonary artery. Allergies Allergy/AdvReac Type Severity Reaction Status Date / Time Quinolones Allergy Severe Hives Verified 07/27/24 16:25 moxifloxacin [From Avelox] Allergy Unknown listed in Verified 07/27/24 16:25 heme/onc records codeine AdvReac Intermediate Nausea/Vomi Verified 07/27/24 16:25 ting oxycodone AdvReac Intermediate Nausea/Vomi Verified 07/27/24 16:25 ting Penicillins AdvReac Intermediate Nausea/Vomi Verified 07/27/24 16:25 ting Home Medications Medication Instructions Recorded Confirmed Type atorvastatin 20 mg tablet 20 mg PO HS 10/23/18 07/27/24 History propranolol 10 mg tablet 10 mg PO BID 10/23/18 07/27/24 History tamsulosin 0.4 mg capsule (Flomax) 0.4 mg PO HS 10/23/18 07/27/24 History meclizine 12.5 mg tablet 12.5 mg PO TID PRN 06/07/20 07/27/24 History Dizziness/vertigo albuterol sulfate 90 mcg/actuation 2 puff inhalation Q6H PRN Wheezing 04/22/22 07/27/24 History aerosol inhaler fluticasone fur. 100 mcg-umeclid 1 inh inhalation QAM 04/22/22 07/27/24 History 62.5 mcg-vilant 25 mcg inhalat.powder (Trelegy Ellipta) ipratropium bromide 0.02 % 2.5 ml inhalation QID PRN Wheezing 05/21/23 07/27/24 History solution for inhalation ondansetron HCl 4 mg tablet 4 mg PO Q68H PRN Nausea And 01/27/24 07/27/24 History Vomiting bupropion HCl 150 mg 24 hr tablet, 150 mg PO QAM 02/23/24 07/27/24 History extended release omeprazole 20 mg tablet,delayed 20 mg PO BID 02/23/24 07/27/24 History release acetaminophen 500 mg tablet 500 mg PO Q6H PRN Pain 03/07/24 07/27/24 History dexamethasone 4 mg tablet 20 mg PO UD PRN radiation 04/12/24 07/27/24 History treatments olanzapine 2.5 mg tablet 2.5 mg PO HS 05/06/24 07/27/24 History paroxetine HCl 20 mg tablet 20 mg PO HS 05/06/24 07/27/24 History prochlorperazine maleate 10 mg 10 mg PO UD PRN Nausea And Vomiting 05/06/24 07/27/24 History tablet Patient History Medical History [place] (acute kidney injury) Acute hypotension Acute hypotension Hyperbilirubinemia Acute kidney injury superimposed on CKD Nausea, vomiting and diarrhea Hyperlipidemia Chronic vertigo BPH (benign prostatic hyperplasia) History of pneumonia (2022) treated inpatient at [facility]. no problems since. History of COVID-19 (2021) severe flu symptoms, treated with oxygen and breathing treatments. -> inpatient at [facility]. Hx of influenza (2018) treated inpatient at [facility] Thrombocytopenia follows with Dr Malick PAIGE (gastroesophageal reflux disease) Hx of colonic polyps History of TB (tuberculosis) "Inactive" Per [facility] Pulmonary records, "He underwent a right upper lobectomy back in the for what sounds like tuberculosis.." 09/1998 pulmonary records scanned into chart state, "he's undergone lobectomy for cavitary process secondary to atypical micro bacteria. right upper lobectomy was performed in January'.. when the patient's treatment for the above mentioned problem was refractory to improvement despite numerous antibiotics used for the treatment of an atypical micro bacterial infection." Diverticular disease Hx of diverticulitis of colon (2021) CKD (chronic kidney disease), stage III monitors with PCP Abdominal aortic aneurysm follows with [facility] Cardiology ([place]) - monitoring Small cell lung cancer, left upper lobe (03/2024) dx 03/2024 via bronchoscopy and biopsy. plan to do chemotherapy. Hiatal hernia Cancer Lung - initially diagnosed 2021 s/p radiation treatments Degenerative disc disease Anxiety and depression Tremor of both hands Taking beta malorie Chronic obstructive pulmonary disease inhalers daily, nebulizer PRN - 2lpm via n/c continuous On home oxygen therapy 2lpm via n/c continuous Enlargement of spleen Aortic aneurysm Duplex 09/2023: 3.7cm AAA Under surveillance by [facility] vascular, recommendation for recheck 2025 Surgical History H/O colonoscopy with polypectomy (04/24/22) [facility] to remove a large polyp (has 6 surgical clips from removal) History of bronchoscopy (03/07/24) [facility] - dx with small cell lung cancer S/P epidural steroid injection History of esophagogastroduodenoscopy (EGD) Dr. Snider History of cystoscopy History of lung biopsy (2021) Ct-Guided Percutaneous Left Lung Nodule Biopsy Dr. Tavo Gonzalez History of carpal tunnel release (1976) Right History of colonoscopy Multiple History of herniorrhaphy (2014) Inguinal History of tooth extraction History of lobectomy of lung (1995) Right (micro bacterium infection) History of cholecystectomy (2016) Laproscopic Cholescystectomy Dr. Olivas at [facility] History of cardiac cath 1980s, , 2006 - no stents at [facility] in [place] Family History Mother Family history of diabetes mellitus Breast cancer Unilateral Masectomy Brother Family hx of colon cancer Family history of diabetes mellitus Father Bladder cancer, Onset Age: 73 Sister Breast cancer, Onset Age: 74 Bilateral Masectomy Sister Breast cancer, Onset Age: 75 Bilateral Masectomy Sister , age 74 Colorectal cancer, Onset Age: 73 Sister Pancreatic cancer Sister Stomach cancer Sister Stomach cancer Brother Prostate cancer, Onset Age: 64 Family history of diabetes mellitus Brother Stomach cancer Aunt Breast cancer Aunt Breast cancer Unknown Lung cancer, Onset Age: 50 Unknown Cancer of unknown origin Unknown Bladder cancer, Onset Age: 55 Unknown Cancer Other Coronary heart disease Hypertension No family history of adverse response to anesthesia Social History Smoking Status: Current some day smoker Tobacco Type: Cigars Cigarettes Per Day: cigar "every once in ahwile" (advised on policy); Second Hand Exposure: Yes; Do You Dip or Chew Tobacco: No; Tobacco Cessation Education Requested by Patient: No Hx Alcohol Use: No Hx Substance Use: No Preferred Language: Eritrean Communication Ability: Effective Visual Impairment: Limited Hearing Ability: Normal Manager Branch Required: No Beliefs That Will Affect Care: None marital status: Current Living Situation: Family and Other Current Living Situation Comment: Lives with daughterAlisa and her current occupational status: retired How many Children do You have: 3 Other Information That Helps Us Care for You: No Feels Safe at Home: Yes Safety Concerns: Feels Safe At This Time Childhood Exposure to Second-Hand Smoke: Yes Diet: regular caffeine: Yes (1 cup of coffee daily) during the past year weight has: remained stable Dental Care, Regularly: No Assistive Devices: Oxygen - Continuous Review of Systems Constitutional: Denies chills, fever, denies weakness. Respiratory: Denies shortness of breath at rest, denies cough, denies hemoptysis. Cardiovascular: Additional Comments: Denies palpitations or chest pain. Gastrointestinal: Complains of dysphagia and odynophagia for 1 week. Denies vomiting, abdominal pain, diarrhea. Physical Exam Constitutional: WD/WN, vitals as above Respiratory: normal respiratory effort, lungs clear to auscultation Cardiovascular: RRR, no murmur, no edema Gastrointestinal (Abdomen): normal bowel sounds, soft, nontender, no hepatosplenomegaly Results & Data Vital Signs (Past 12 Hours) Vital Signs Temp Pulse Pulse Resp BP BP Pulse Ox 07/28/24 15:48 36.6 C 74 19 112/65 100 07/28/24 15:15 71 22 100 07/28/24 15:15 108/07/28/24 15:15 108/07/28/24 15:15 10807/28/24 15:00 68 18 100 07/28/24 15:00 107/07/28/24 15:00 10707/28/24 14:45 99/60 L 07/28/24 14:45 99/60 L 07/28/24 14:39 64 22 100 07/28/24 14:30 97/55 L 07/28/24 14:30 97/55 L 07/28/24 14:30 97/55 L 07/28/24 14:27 70 21 100 07/28/24 14:15 104/62 07/28/24 14:09 70 22 100 07/28/24 14:00 72 19 98 07/28/24 14:00 99/65 L 07/28/24 14:00 99/65 L 07/28/24 13:45 112/74 07/28/24 13:45 112/74 07/28/24 13:39 67 16 100 07/28/24 13:33 68 11 L 100 07/28/24 13:30 86/53 L 07/28/24 13:30 86/53 L 07/28/24 13:18 66 15 100 07/28/24 13:15 97/56 L 07/28/24 13:15 97/56 L 07/28/24 12:33 70 20 100 07/28/24 12:31 118/64 07/28/24 12:31 118/64 07/28/24 12:31 118/64 07/28/24 12:18 83 30 H 86 L 07/28/24 12:15 104/66 07/28/24 12:15 104/66 07/28/24 12:06 71 18 100 07/28/24 12:00 91/60 L 07/28/24 11:47 96/60 L 07/28/24 11:45 70 18 99 07/28/24 11:40 106/46 L 07/28/24 10:43 07/28/24 10:33 37 C 66 112/56 L 96 07/28/24 09:05 36.6 C 76 19 106/61 100 O2 Del Method O2 Flow Rate 07/28/24 15:48 Nasal Cannula 2 07/28/24 15:15 07/28/24 15:15 07/28/24 15:15 07/28/24 15:15 07/28/24 15:00 07/28/24 15:00 07/28/24 15:00 07/28/24 14:45 07/28/24 14:45 07/28/24 14:39 07/28/24 14:30 07/28/24 14:30 07/28/24 14:30 07/28/24 14:27 07/28/24 14:15 07/28/24 14:07/28/24 14:00 07/28/24 14:00 07/28/24 14:00 07/28/24 13:45 07/28/24 13:45 07/28/24 13:39 07/28/24 13:33 07/28/24 13:30 07/28/24 13:30 07/28/24 13:18 07/28/24 13:15 07/28/24 13:15 07/28/24 12:33 07/28/24 12:31 07/28/24 12:31 07/28/24 12:31 07/28/24 12:18 07/28/24 12:15 07/28/24 12:15 07/28/24 12:06 07/28/24 12:00 07/28/24 11:47 07/28/24 11:45 07/28/24 11:40 07/28/24 10:43 Nasal Cannula 2 07/28/24 10:33 2 07/28/24 09:05 Nasal Cannula 2 PG Care Time/CCT Total # of Minutes Spent Total Time Spent with Patient: Total time spent is greater than 50% in coordination of care (as documented) at patient's floor/unit and/or counseling patient: Coding Level of Care Code 14419 IN/OBS CONSULT LVL 3,45M Diagnoses Esophageal dysphagia R13.19 Dysphagia type: esophageal phase (1) Dysphagia Dysphagia type: esophageal phase Qualified Code(s): R13.19 - Other dysphagia
--- NOTE | 2024-07-29 05:49 | Oncology Consultation ---
Date of Consultation July 29, 2024 Assessment & Plan (1) Pulmonary embolism: (2) Small cell lung cancer, left upper lobe: (3) Anemia: Plan -Agree with therapeutic anticoagulation. Recommend switching to Eliquis prior to discharge from hospital. Patient has financial Limitations at this time so if Eliquis is not affordable would need to switch to Coumadin with Lovenox bridge. -Pancytopenia is due to recent chemotherapy. Continue with therapeutic anticoagulation since platelet count above 50,000. If platelet count drops below 50,000, will need to consider prophylactic anticoagulation. -Magic mouth swizzle for throat pain Thank you for this consult. Oncology will continue following peripherally. Please call if you have any other questions. History of Present Illness Reason for Consultation: Lung cancer, PE Attending Physician: Jignesh Chang MD History of Present Illness 74-year-old gentleman with history of ITP, limited stage small cell lung cancer for which he recently completed 4 cycles of chemotherapy with cisplatin/etoposide on 07/21/2024 and is currently on radiation treatment. [facility] complaining of chest pain, fatigue for which she was sent to the ER. CTA chest on 07/27/2024 revealed subsegmental PE within branch of left upper lobe pulmonary artery. He was started on therapeutic heparin which he remains on at this time. States that he is feeling better with improvement in chest pain. Complains of pain wit h swallowing. Allergies Allergy/AdvReac Type Severity Reaction Status Date / Time Quinolones Allergy Severe Hives Verified 07/27/24 16:25 moxifloxacin [From Avelox] Allergy Unknown listed in Verified 07/27/24 16:25 heme/onc records codeine AdvReac Intermediate Nausea/Vomi Verified 07/27/24 16:25 ting oxycodone AdvReac Intermediate Nausea/Vomi Verified 07/27/24 16:25 ting Penicillins AdvReac Intermediate Nausea/Vomi Verified 07/27/24 16:25 ting Home Medications Medication Instructions Recorded Confirmed Type atorvastatin 20 mg tablet 20 mg PO HS 10/23/18 07/27/24 History propranolol 10 mg tablet 10 mg PO BID 10/23/18 07/27/24 History tamsulosin 0.4 mg capsule (Flomax) 0.4 mg PO HS 10/23/18 07/27/24 History meclizine 12.5 mg tablet 12.5 mg PO TID PRN 06/07/20 07/27/24 History Dizziness/vertigo albuterol sulfate 90 mcg/actuation 2 puff inhalation Q6H PRN Wheezing 04/22/22 07/27/24 History aerosol inhaler fluticasone fur. 100 mcg-umeclid 1 inh inhalation QAM 04/22/22 07/27/24 History 62.5 mcg-vilant 25 mcg inhalat.powder (Trelegy Ellipta) ipratropium bromide 0.02 % 2.5 ml inhalation QID PRN Wheezing 05/21/23 07/27/24 History solution for inhalation ondansetron HCl 4 mg tablet 4 mg PO Q68H PRN Nausea And 01/27/24 07/27/24 History Vomiting bupropion HCl 150 mg 24 hr tablet, 150 mg PO QAM 02/23/24 07/27/24 History extended release omeprazole 20 mg tablet,delayed 20 mg PO BID 02/23/24 07/27/24 History release acetaminophen 500 mg tablet 500 mg PO Q6H PRN Pain 03/07/24 07/27/24 History dexamethasone 4 mg tablet 20 mg PO UD PRN radiation 04/12/24 07/27/24 History treatments olanzapine 2.5 mg tablet 2.5 mg PO HS 05/06/24 07/27/24 History paroxetine HCl 20 mg tablet 20 mg PO HS 05/06/24 07/27/24 History prochlorperazine maleate 10 mg 10 mg PO UD PRN Nausea And Vomiting 05/06/24 07/27/24 History tablet Patient History Medical History [place] (acute kidney injury) Acute hypotension Acute hypotension Hyperbilirubinemia Acute kidney injury superimposed on CKD Nausea, vomiting and diarrhea Hyperlipidemia Chronic vertigo BPH (benign prostatic hyperplasia) History of pneumonia (2022) treated inpatient at [facility]. no problems since. History of COVID-19 (2021) severe flu symptoms, treated with oxygen and breathing treatments. -> inpatient at [facility]. Hx of influenza (2018) treated inpatient at [facility] Thrombocytopenia follows with Dr Teresa GERD (gastroesophageal reflux disease) Hx of colonic polyps History of TB (tuberculosis) "Inactive" Per [facility] Pulmonary records, "He underwent a right upper lobectomy back in the 90s for what sounds like tuberculosis.." 09/1998 pulmonary records scanned into chart state, "he's undergone lobectomy for cavitary process secondary to atypical micro bacteria. right upper lobectomy was performed in January'.. when the patient's treatment for the above mentioned problem was refractory to improvement despite numerous antibiotics used for the treatment of an atypical micro bacterial infection." Diverticular disease Hx of diverticulitis of colon (2021) CKD (chronic kidney disease), stage III monitors with PCP Abdominal aortic aneurysm follows with [facility] Cardiology ([place]) - monitoring Small cell lung cancer, left upper lobe (03/2024) dx 03/2024 via bronchoscopy and biopsy. plan to do chemotherapy. Hiatal hernia Cancer Lung - initially diagnosed 2021 s/p radiation treatments Degenerative disc disease Anxiety and depression Tremor of both hands Taking beta malorie Chronic obstructive pulmonary disease inhalers daily, nebulizer PRN - 2lpm via n/c continuous On home oxygen therapy 2lpm via n/c continuous Enlargement of spleen Aortic aneurysm Duplex 09/2023: 3.7cm AAA Under surveillance by [facility] vascular, recommendation for recheck 2025 Surgical History H/O colonoscopy with polypectomy (04/24/22) [facility] to remove a large polyp (has 6 surgical clips from removal) History of bronchoscopy (03/07/24) [facility] - dx with small cell lung cancer S/P epidural steroid injection History of esophagogastroduodenoscopy (EGD) Dr. Snider History of cystoscopy History of lung biopsy (2021) Ct-Guided Percutaneous Left Lung Nodule Biopsy Dr. Tavo Gonzalez History of carpal tunnel release (1976) Right History of colonoscopy Multiple History of herniorrhaphy (2014) Inguinal History of tooth extraction History of lobectomy of lung (1995) Right (micro bacterium infection) History of cholecystectomy (2016) Laproscopic Cholescystectomy Dr. Olivas at [facility] History of cardiac cath 1980s, 1990s, 2006 - no stents at [facility] in [place] Family History Mother Family history of diabetes mellitus Breast cancer Unilateral Masectomy Brother Family hx of colon cancer Family history of diabetes mellitus Father Bladder cancer, Onset Age: 73 Sister Breast cancer, Onset Age: 74 Bilateral Masectomy Sister Breast cancer, Onset Age: 75 Bilateral Masectomy Sister , age 74 Colorectal cancer, Onset Age: 73 Sister Pancreatic cancer Sister Stomach cancer Sister Stomach cancer Brother Prostate cancer, Onset Age: 64 Family history of diabetes mellitus Brother Stomach cancer Aunt Breast cancer Aunt Breast cancer Unknown Lung cancer, Onset Age: 50 Unknown Cancer of unknown origin Unknown Bladder cancer, Onset Age: 55 Unknown Cancer Other Coronary heart disease Hypertension No family history of adverse response to anesthesia Social History Smoking Status: Current some day smoker Tobacco Type: Cigars Cigarettes Per Day: cigar "every once in ahwile" (advised on policy); Second Hand Exposure: Yes; Do You Dip or Chew Tobacco: No; Tobacco Cessation Education Requested by Patient: No Hx Alcohol Use: No Hx Substance Use: No Preferred Language: Vietnamese Communication Ability: Effective Visual Impairment: Limited Hearing Ability: Normal C D Area Supervisor Required: No Beliefs That Will Affect Care: None marital status: Current Living Situation: Family and Other Current Living Situation Comment: Lives with daughterAlisa and her current occupational status: retired How many Children do You have: 3 Other Information That Helps Us Care for You: No Feels Safe at Home: Yes Safety Concerns: Feels Safe At This Time Childhood Exposure to Second-Hand Smoke: Yes Diet: regular caffeine: Yes (1 cup of coffee daily) during the past year weight has: remained stable Dental Care, Regularly: No Assistive Devices: Oxygen - Continuous Results & Data Vital Signs (Past 12 Hours) Vital Signs Temp Pulse Pulse Resp BP Pulse Ox Pulse Ox 07/29/24 03:37 36.8 C 74 17 94/67 L 99 07/28/24 23:36 36.9 C 78 17 110/71 100 07/28/24 21:48 79 07/28/24 21:00 98 07/28/24 20:00 07/28/24 19:00 36.8 C 75 23 113/65 99 O2 Del Method O2 Del Method O2 Flow Rate O2 Flow Rate 07/29/24 03:37 Nasal Cannula 2 07/28/24 23:36 Nasal Cannula 2 07/28/24 21:48 07/28/24 21:00 Nasal Cannula 2 07/28/24 20:00 Nasal Cannula 2 07/28/24 19:00 Nasal Cannula 2 (1) Pulmonary embolism Acute cor pulmonale presence: unspecified Chronicity: acute Pulmonary embolism type: unspecified Qualified Code(s): I26.99 - Other pulmonary embolism without acute cor pulmonale (3) Anemia Anemia type: unspecified type Qualified Code(s): D64.9 - Anemia, unspecified
[2024-07-29 07:50] LABS: Hematocrit (blood only) 25.4 % (42.0-52.0); Hemoglobin 8.4 g/dl (14.0-18.0); Mean Corpuscular Hemoglobin 29.2 pg (25.0-34.0); Mean Corpuscular Hgb Conc 33.1 g/dL (32.0-36.0); Mean Corpuscular Volume 88.2 fL (80.0-100.0); Platelet Count 65 K/uL (130-400); RDW Coefficient of Variation 15.2 % (11.5-14.5); RDW Standard Deviation 47.9 fL (36.4-46.3); Red Blood Count 2.88 M/uL (4.70-6.10)
[2024-07-29 08:02] LABS: ANTI-Xa, UFH(UnfractionatedHep 0.42 IU/ml (0.3-0.7)
[2024-07-29 08:12] LABS: BUN Creatinine Ratio 17.1 (10-20); Creatinine Clr Calc Pharmacy 53.8 ml/min; Est GFR (African American) 74.9 ml/min; Est GFR (Non-African American) 64.6 ml/min; Magnesium 1.5 mg/dl (1.7-2.4); Phosphorus 3.3 mg/dl (2.5-4.9); Potassium 4.5 mmol/L (3.5-5.1)
--- NOTE | 2024-07-29 10:14 | Hospitalist Progress Note ---
Date of Service July 29, 2024 Assessment & Plan (1) Pulmonary embolism: (2) Small cell lung cancer, left upper lobe: (3) Depression: (4) BPH (benign prostatic hyperplasia): (5) GERD (gastroesophageal reflux disease): (6) Dyslipidemia: (7) CKD (chronic kidney disease), stage III: (8) History of TB (tuberculosis): (9) COPD (chronic obstructive pulmonary disease): Plan 74-year-old male with PMH of NSCLC, diverticulosis/diverticulitis, TB, BPH, GERD, COPD was sent from oncology office due to left anterior chest pain that worsened with taking a deep breath. 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 He recently finished antibiotic for tooth infection. He is being managed for the following: Pulmonary Embolism: SAGAR Chest pain SOB: Procal neg. Trop 2.7. Chest CTA: subsegmental pulmonary embolus within a branch of the left upper lobe pulmonary artery.No additional pulmonary emboli are clearly seen. Emphysema with chronic and postsurgical changes above. Wears 2LNC at home; currently on 2L NC. Currently on hep gtt HemOnc recs noted Discussed anticoagulation options with patient. He will like to know what cost of eliquis is with his insurance. I called his pharm who reported that 30 day supply of Eliquis 5mg tab (60 tabs) will cost patient $4.60c with his insurance Updated patient about this. He will like to do eliquis Plan to transition to eliquis on AM of dc. Will need 2 step prior to dc Antineoplastic chemotherapy induced pancytopenia Pt w/ pancytopenia worsening after chemotherapy in past with need for blood transfusion afterwards per pt. Last chemo last wednesday on 07/21. Hb 6.8 yesterday. Got 1 PRBC Hb is 8.4 Monitor. Transfuse prn to keep Hb>7 Small cell lung cancer: Thrombocytopenia: Initial lung nodule was diagnosed on 02/26/[address]-guided biopsy at the time was nondiagnostic He received SBRT and finished May of 2023 and now has been ongoing chemotherapy; last and final chemo was this past Saturday 07/21 (IV cisplatin/etoposide) He has seen a surgeon in [place] for a lobe resection. He had a lobe resection Has had 26 radiation treatments; about 7 additional radiation treatments planned Brain MRI done a few weeks ago without mets. PET scan planned after radiation completed Lactic acidosis: Acute hypotension: SBP low 90's on presentation to ED Original lactic level 2.5--> 1.0 lactic acidosis resolved Dysphagia: Tooth infection: Reportedly having more dificulty with swallowing and feeling that food is getting 'stuck' Also has a tooth infection and poor dentition. Completed antibiotic for tooth infection before arrival. Neck CT w/ no acute findings. 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 Additional repletion AAA: Chronic Follows with Cardiology in [place] stable 3.2 abdominal aortic aneurysm COPD: Chronic Takes ipratropium bromide and Trelegy; continue HLD: Chronic Takes Atorvastatin;continue GERD: Takes omeprazole;continue H/O TB: status post right apical lung resection in 1997 Disposition: PCP: Dr. Sharma Code Status: Full Code DVT prophylaxis: On Heparin gtt I spent a total of 50 minutes coordinating, documenting and providing care for this patient excluding time spent in performance of separately billed services Admission and Anticipated Discharge Date Admission Date: July 27, 2024 Subjective Patient seen and examined Reports intermittent dull left sided chest pain related to his cancer, none at this time Reports exertional dyspnea No cough this AM Reports dysphagia is improved. Tolerating diet well Denied melena, hematochezia, hemoptysis, hematuria Denied any other complaints on ROS Physical Exam Constitutional: + well hydrated; no acute distress Eyes: PERRL, conjunctivae normal, anicteric sclerae ENMT: external ear and nose normal, oropharynx normal Respiratory: normal respiratory effort, lungs clear to auscultation Cardiovascular: Rate/Rhythm: regular rate and regular rhythm Gastrointestinal (Abdomen): normal bowel sounds, soft, nontender, no hepatosplenomegaly Musculoskeletal: no cyanosis or clubbing, extremities motor strength 5/5 Neurologic: PERRL, EOMI, accommodation nl, no face palsy, no dysarthria Psychiatric: A+Ox3, euthymic affect Results & Data Results & Data Vital Signs (Past 12 Hours) Vital Signs Temp Pulse Resp BP Pulse Ox O2 Del Method O2 Flow Rate 07/29/24 08:00 36.7 C 79 18 106/67 98 Room Air 07/29/24 03:37 36.8 C 74 17 94/67 L 99 Nasal Cannula 2 07/28/24 23:36 36.9 C 78 17 110/71 100 Nasal Cannula 2 Laboratory Results Abnormal lab results 07/28/24 07/28/24 07/29/24 Range/Units 08:12 14:50 07:17 WBC 1.20 L (4.8-10.8) K/ul RBC 2.88 L (4.70-6.10) M/uL Hgb 7.5 L 8.4 L (14.0-18.0) g/dl Hct 23.0 L 25.4 L (42.0-52.0) % RDW Std Deviation 47.9 H (36.4-46.3) fL RDW Coeff of Flora 15.2 H (11.5-14.5) % Plt Count 65 L (130-400) K/uL Magnesium 1.5 L (1.7-2.4) mg/dl Crossmatch See Detail (1) Pulmonary embolism Acute cor pulmonale presence: unspecified Chronicity: acute Pulmonary embolism type: unspecified Qualified Code(s): I26.99 - Other pulmonary embolism without acute cor pulmonale
--- NOTE | 2024-07-29 11:51 | Gastroenterology Progress Note ---
Date of Service July 29, 2024 Assessment & Plan (1) Dysphagia: Plan: Patient appears comfortable he is tolerating p.o. or diet without complaints he does have poor dentition which could be contributing to the dysphagia I spoke with the nurse who states there was no issues with his food consumption also he is on anticoagulation because of a recent clot at the current time I would not pursue endoscopy but would recommend an esophagram to evaluate if he has a motility disorder Thank you for allowing us to take part in the care of your patient we will continue to follow him with you Admission and Anticipated Discharge Date Admission Date: July 27, 2024 Subjective Patient appears comfortable at the current time. He is lying comfortably in the bed he states he ate his breakfast without complaints I spoke to the nurse also and the nurse also stated that he did not have any issues he sometimes comes up with this feeling of food getting stuck however his mentation is also very poor he does not have any teeth he has an upper false teeth but no lower once he is currently on anticoagulation denies any nausea vomiting or abdominal pain or any other GI complaints Review of Systems Review of Systems: A 10 point review of systems was done Physical Exam Constitutional: Elderly male who appears comfortable Neck: Supple Respiratory: Clear anteriorly Cardiovascular: S1 and S2 Gastrointestinal (Abdomen): Soft no tenderness or masses appreciated Results & Data Results & Data Vital Signs (Past 12 Hours) Vital Signs Temp Pulse Resp BP Pulse Ox O2 Del Method O2 Flow Rate 07/29/24 11:35 36.1 C L 72 18 106/64 100 Nasal Cannula 2 07/29/24 08:00 36.7 C 79 18 106/67 98 Room Air 07/29/24 03:37 36.8 C 74 17 94/67 L 99 Nasal Cannula 2 PG Care Time/CCT Total # of Minutes Spent Total Time Spent with Patient: Total time spent is greater than 50% in coordination of care (as documented) at patient's floor/unit and/or counseling patient: Coding Level of Care Code 03418 SUB INP/OBS CARE 2/35MIN Diagnoses Esophageal dysphagia R13.19 Dysphagia type: esophageal phase (1) Dysphagia Dysphagia type: esophageal phase Qualified Code(s): R13.19 - Other dysphagia
[2024-07-30 07:35] LABS: BUN Creatinine Ratio 16.8 (10-20); Creatinine Clr Calc Pharmacy 50.1 ml/min; Est GFR (African American) 68.8 ml/min; Est GFR (Non-African American) 59.4 ml/min; Magnesium 1.4 mg/dl (1.7-2.4); Phosphorus 3.5 mg/dl (2.5-4.9); Potassium 4.7 mmol/L (3.5-5.1)
[2024-07-30 07:36] LABS: ANTI-Xa, UFH(UnfractionatedHep 0.43 IU/ml (0.3-0.7)
[2024-07-30 07:56] LABS: Hematocrit (blood only) 26.7 % (42.0-52.0); Hemoglobin 8.9 g/dl (14.0-18.0); Mean Corpuscular Hemoglobin 29.1 pg (25.0-34.0); Mean Corpuscular Hgb Conc 33.3 g/dL (32.0-36.0); Mean Corpuscular Volume 87.3 fL (80.0-100.0); Mean Platelet Volume 12.8 fL (9.4-12.4); Platelet Count 74 K/uL (130-400); Platelet Estimate Decreased (Normal); RDW Coefficient of Variation 15.8 % (11.5-14.5); RDW Standard Deviation 48.2 fL (36.4-46.3); Red Blood Count 3.06 M/uL (4.70-6.10); White Blood Count 1.35 K/ul (4.8-10.8)
[2024-07-30] MEDS: MAGNESIUM SULFATE / D5W 1 GM/100 ML BAG IV SCH (08:55)
--- NOTE | 2024-07-30 10:38 | Gastroenterology Progress Note ---
Date of Service July 30, 2024 Assessment & Plan (1) Dysphagia: Plan: Patient without any specific complaints of dysphagia he wanted a regular diet and he threatened to walk out if he was not given a regular diet and he has been tolerating the regular diet he denies any specific complaints he does have some dentures with may be causing some problems with chewing otherwise there is no specific problems with dysphagia if symptoms recur or if there is any further concern for dysphagia can get a barium esophagram Thank you for allowing us to take part in the care of your patient we will continue to follow him with you Admission and Anticipated Discharge Date Admission Date: July 27, 2024 Subjective Patient is lying comfortably in the bed he denies any specific GI complaints he states he tolerated his food without any complaints he is denies any specific dysphagia per se also he denies any nausea vomiting or abdominal pain again on multiple repeated questioning about dysphagia he denied dysphagia Review of Systems Review of Systems: A 10 point review of systems was done Physical Exam Constitutional: WD/WN, vitals as above Respiratory: normal respiratory effort, lungs clear to auscultation Cardiovascular: S1 and S2 Gastrointestinal (Abdomen): normal bowel sounds, soft, nontender, no hepatosplenomegaly Results & Data Results & Data Vital Signs (Past 12 Hours) Vital Signs Temp Pulse Pulse Resp BP Pulse Ox O2 Del Method 07/30/24 10:11 Nasal Cannula 07/30/24 08:07 36.5 C 74 20 98/62 L 99 Nasal Cannula 07/30/24 02:53 36.7 C 79 16 98/62 L 100 Nasal Cannula 07/29/24 23:32 36.8 C 79 18 100/64 99 Nasal Cannula 07/29/24 22:53 81 O2 Flow Rate 07/30/24 10:11 2 07/30/24 08:07 2 07/30/24 02:53 2 07/29/24 23:32 2 07/29/24 22:53 PG Care Time/CCT Total # of Minutes Spent Total Time Spent with Patient: Total time spent is greater than 50% in coordination of care (as documented) at patient's floor/unit and/or counseling patient: Coding Level of Care Code 92871 SUB INP/OBS CARE 2/35MIN Diagnoses Esophageal dysphagia R13.19 Dysphagia type: esophageal phase (1) Dysphagia Dysphagia type: esophageal phase Qualified Code(s): R13.19 - Other dysphagia
--- NOTE | 2024-07-30 11:37 | Hospitalist Progress Note ---
Date of Service July 30, 2024 Assessment & Plan (1) Pulmonary embolism: (2) Small cell lung cancer, left upper lobe: (3) Depression: (4) BPH (benign prostatic hyperplasia): (5) GERD (gastroesophageal reflux disease): (6) Dyslipidemia: (7) CKD (chronic kidney disease), stage III: (8) History of TB (tuberculosis): (9) COPD (chronic obstructive pulmonary disease): Plan 74-year-old male with PMH of NSCLC, diverticulosis/diverticulitis, TB, BPH, GERD, COPD was sent from oncology office due to left anterior chest pain that worsened with taking a deep breath. 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 He recently finished antibiotic for tooth infection. He is being managed for the following: Pulmonary Embolism: SAGAR Chest pain SOB: Procal neg. Trop 2.7. Chest CTA: subsegmental pulmonary embolus within a branch of the left upper lobe pulmonary artery.No additional pulmonary emboli are clearly seen. Emphysema with chronic and postsurgical changes above. Wears 2LNC at home; currently on 2L NC. Currently on hep gtt HemOnc recs noted Patient will prefer eliquis on discharge. Confirmed cost with his pharm Will get 2 step prior to dc Antineoplastic chemotherapy induced pancytopenia Pt w/ pancytopenia worsening after chemotherapy in past with need for blood transfusion afterwards per pt. Last chemo last wednesday on 07/21. Hb 6.8 on 07/28. Got 1 PRBC Hb is stable in 8s Monitor. Transfuse prn to keep Hb>7 Small cell lung cancer: Thrombocytopenia: Initial lung nodule was diagnosed on 02/26/[address]-guided biopsy at the time was nondiagnostic He received SBRT and finished May of 2023 and now has been ongoing chemo therapy; last and final chemo was this past Saturday 07/21 (IV cisplatin/etoposide) He has seen a surgeon in [place] for a lobe resection. He had a lobe resection Has had 26 radiation treatments; about 7 additional radiation treatments planned Brain MRI done a few weeks ago without mets. PET scan planned after radiation completed Lactic acidosis: Acute hypotension: SBP low 90's on presentation to ED Original lactic level 2.5--> 1.0 lactic acidosis resolved Dysphagia: Tooth infection: Reported having more difficulty with swallowing and feeling that food is getting 'stuck' Also has a tooth infection and poor dentition. Completed antibiotic for tooth infection before arrival. Neck CT w/ no acute findings. 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 Additional repletion ordered Started on po mag AAA: Chronic Follows with Cardiology in [place] stable 3.2 abdominal aortic aneurysm COPD: Chronic Takes ipratropium bromide and Trelegy; continue HLD: Chronic Takes Atorvastatin;continue GERD: Takes omeprazole;continue H/O TB: status post right apical lung resection in 1997 Disposition: PCP: Dr. Sharma Code Status: Full Code DVT prophylaxis: On Heparin gtt I spent a total of 40 minutes coordinating, documenting and providing care for this patient excluding time spent in performance of separately billed services Admission and Anticipated Discharge Date Admission Date: July 27, 2024 Subjective Patient seen and examined Reports feeling better today Exertional dyspnea is improved Denied cough, chest pain today Reports dysphagia is much improved. Tolerating diet well Denied melena, hematochezia, hemoptysis, hematuria Denied any other complaints on ROS Physical Exam Constitutional: + well hydrated; no acute distress Eyes: PERRL, conjunctivae normal, anicteric sclerae ENMT: external ear and nose normal, oropharynx normal Respiratory: normal respiratory effort, lungs clear to auscultation Cardiovascular: Rate/Rhythm: regular rate and regular rhythm Gastrointestinal (Abdomen): normal bowel sounds, soft, nontender, no hepatosplenomegaly Musculoskeletal: no cyanosis or clubbing, extremities motor strength 5/5 Neurologic: PERRL, EOMI, accommodation nl, no face palsy, no dysarthria Psychiatric: A+Ox3, euthymic affect Results & Data Results & Data Vital Signs (Past 12 Hours) Vital Signs Temp Pulse Resp BP Pulse Ox O2 Del Method O2 Flow Rate 07/30/24 10:11 Nasal Cannula 2 07/30/24 08:07 36.5 C 74 20 98/62 L 99 Nasal Cannula 2 07/30/24 02:53 36.7 C 79 16 98/62 L 100 Nasal Cannula 2 Laboratory Results Abnormal lab results 07/30/24 Range/Units 06:37 WBC 1.35 L (4.8-10.8) K/ul RBC 3.06 L (4.70-6.10) M/uL Hgb 8.9 L (14.0-18.0) g/dl Hct 26.7 L (42.0-52.0) % RDW Std Deviation 48.2 H (36.4-46.3) fL RDW Coeff of Flora 15.8 H (11.5-14.5) % Plt Count 74 L (130-400) K/uL MPV 12.8 H (9.4-12.4) fL Platelet Estimate Decreased L (Normal) Glucose 105 H (70-99(Fasting)) mg/dl Magnesium 1.4 L (1.7-2.4) mg/dl (1) Pulmonary embolism Acute cor pulmonale presence: unspecified Chronicity: acute Pulmonary embolism type: unspecified Qualified Code(s): I26.99 - Other pulmonary embolism without acute cor pulmonale
[2024-07-31 07:19] LABS: Hematocrit (blood only) 27.7 % (42.0-52.0); Mean Corpuscular Hemoglobin 29.1 pg (25.0-34.0); Mean Corpuscular Hgb Conc 32.5 g/dL (32.0-36.0); Mean Corpuscular Volume 89.6 fL (80.0-100.0); Platelet Count 76 K/uL (130-400); Platelet Estimate Decreased (Normal); RDW Coefficient of Variation 16.4 % (11.5-14.5); RDW Standard Deviation 51.7 fL (36.4-46.3); Red Blood Count 3.09 M/uL (4.70-6.10); White Blood Count 1.13 K/ul (4.8-10.8)
[2024-07-31 07:34] LABS: BUN Creatinine Ratio 14.2 (10-20); Calcium 9.1 mg/dl (8.6-10.3); Creatinine Clr Calc Pharmacy 42.3 ml/min; Est GFR (African American) 56.1 ml/min; Est GFR (Non-African American) 48.4 ml/min; Magnesium 1.7 mg/dl (1.7-2.4); Phosphorus 3.7 mg/dl (2.5-4.9); Potassium 5.1 mmol/L (3.5-5.1)
[2024-07-31] MEDS: MAGNESIUM OXIDE 400 MG TAB PO SCH (08:44)
--- NOTE | 2024-07-31 10:04 | Gastroenterology Progress Note ---
Date of Service July 31, 2024 Assessment & Plan (1) Dysphagia: Plan: 74 year old male with history NSCLC, diverticulosis/diverticulitis, TB, BPH, GERD, COPD was sent from oncology office due to left anterior chest pain, admitted for treatment of PE. He had report of dysphagia, which has since improved. Given his need for AC and improvement of his dysphagia, recommend conservative measures. Consider esophagram. Outpatient GI clinic follow up. At that time can discuss timing of EGD given his AC use. I spent a total of 40 minutes on the date of service in review of patient's record, and previously obtained information in person and appropriate medical visit, discussion and education of plan, with patient and/or caregiver, placing orders for tests/referral/procedures as medically necessary and documentation of pertinent clinical information in patient's medical records for their visit today. Admission and Anticipated Discharge Date Admission Date: July 27, 2024 Supervising Physician Co-Signing Physician Notes I examined the patient and reviewed patient's chart , laboratory data and i maging studies. I agree with with assessment and plan of care as suggested by advanced practice provider Subjective Pt was seen and evaluated, chart reviewed. Denies any GI concerns at this time. Tolerating diet without reports of dysphagia. Denies abd pain, nausea/vomiting. Review of Systems Review of Systems: All other findings negative except as noted in HPI. Physical Exam Constitutional: WD/WN, vitals as above Respiratory: normal respiratory effort, lungs clear to auscultation Cardiovascular: Rate/Rhythm: regular rate and regular rhythm Gastrointestinal (Abdomen): normal bowel sounds, soft, nontender, no hepatosplenomegaly Skin: no rashes, warm and dry Results & Data Results & Data Vital Signs (Past 12 Hours) Vital Signs Temp Pulse Resp BP Pulse Ox O2 Del Method O2 Flow Rate 07/31/24 08:18 36.9 C 89 18 99/67 L 99 Nasal Cannula 2 07/31/24 02:44 37.0 C 86 17 110/72 99 Nasal Cannula 2 07/30/24 22:55 36.5 C 82 17 102/69 99 Nasal Cannula 2 Laboratory Results 07/31/24 07/28/24 Range/Units 06:31 08:12 WBC 1.13 L (4.8-10.8) K/ul RBC 3.09 L (4.70-6.10) M/uL Hgb 9.0 L (14.0-18.0) g/dl Hct 27.7 L (42.0-52.0) % MCV 89.6 (80.0-100.0) fL MCH 29.1 (25.0-34.0) pg MCHC 32.5 (32.0-36.0) g/dL RDW Std Deviation 51.7 H (36.4-46.3) fL RDW Coeff of Flora 16.4 H (11.5-14.5) % Plt Count 76 L (130-400) K/uL Platelet Estimate Decreased L (Normal) Heparin Anti-Xa, Unfract 0.40 (0.3-0.7) IU/ml Sodium 135 L (136-145) mmol/L Potassium 5.1 (3.5-5.1) mmol/L Chloride 103 (98-107) mmol/L Carbon Dioxide 26 (21-32) mmol/L Anion Gap 6 (3-11) BUN 20 (6-23) mg/dl Creatinine 1.41 H (0.6-1.4) mg/dl Est Cr Clr Drug Dosing 42.3 ml/min Est GFR ( Amer) 56.1 ml/min Est GFR (Non-Af Amer) 48.4 ml/min BUN/Creatinine Ratio 14.2 (10-20) Glucose 101 H (70-99(Fasting)) mg/dl Calcium 9.1 (8.6-10.3) mg/dl Phosphorus 3.7 (2.5-4.9) mg/dl Magnesium 1.7 (1.7-2.4) mg/dl Crossmatch See Detail PG Care Time/CCT Total # of Minutes Spent Total Time Spent with Patient: Total time spent is greater than 50% in coordination of care (as documented) at patient's floor/unit and/or counseling patient: Coding Level of Care Code 54223 SUB INP/OBS CARE 2/35MIN Diagnoses Esophageal dysphagia R13.19 Dysphagia type: esophageal phase (1) Dysphagia Dysphagia type: esophageal phase Qualified Code(s): R13.19 - Other dysphagia
--- NOTE | 2024-07-31 10:15 | Fluoroscopy Report ---
FL barium swallow CLINICAL HISTORY: 74 years-old Male with Slight pain with swallowing.. Dysphasia TECHNIQUE: Barium contrast and effervescent crystals were administered to the patient under fluorosco pic examination. Multiple images were obtained and submitted for review. FLUOROSCOPY TIME: 43 seconds. FLUOROSCOPY IMAGES: 37 Ka,r: 30.4 mGy COMPARISON: Video swallow study 07/28/2024 FINDINGS: During deglutition, contrast material flowed freely through the cervical esophagus. No filling defec t or mucosal abnormality is identified. No abnormal stricturing or mass effect is seen. The mid to distal esophagus is well coated and distended. No abnormal stricturing or mucosal abnormality is ally ntified. No significant reflux or hiatal hernia was demonstrated during the exam. The GE junction i s normal in appearance. Moderate esophageal dysmotility. IMPRESSION: Esophageal dysmotility with otherwise unremarkable esophagram. ACT 112: Negative or not required by law. The above report was generated using voice recognition software. It may contain grammatical, syntax o r spelling errors. Electronically signed by: Erwin Moore M.D. 07/31/2024 10:13 AM
[2024-07-31 11:00] VITALS: BP 93/63; PULSE 88; RESP 17; TEMP 98.2
[2024-07-31] MEDS: APIXABAN 5 MG TABLET PO SCH (12:31)
--- NOTE | 2024-07-31 13:04 | Discharge Summary ---
Date of Service July 31, 2024 Admission HPI Per Admitting Provider Mr. Clemente is a 74 year old male who was attending an appointment with heme/onc and started to have main in his anterior chest that is localized that worsens with taking a deep breath. No radiation to jaw, arm or back. Worsening SOB has been occurring over the past day or so. He reports feeling chills. When he arrived he was found to be hypotensive SBP 90's. Denies any blood in stools. Reports having dysphagia that has been going on about a week or so. He describes it as the food getting stuck and feeling painful. Finishing an antibiotic for a tooth infection. Patient has a PMH that includes NSCLCA, Diverticulosis/Diverticulitis, H/O TB, BPH, GERD, COPD,. Had a polyp removed at [facility]. WBC 3.47, plt 89 (known risk discussed with pt), Mg 1.3, creatinine 1.32. Pt denies CARLSON, cough, dizziness, N/V/D, abdominal pain or tenderness, signs of bleeding, recent falls or trauma. Patient will be admitted to the hospital for further evaluation and management. Please see A/P for further details. Admission Exam Per Admitting Provider General Appearance:Moderately built and nourished, chronically appearing, no apparent distress Head: normocephalic, Atraumatic Eyes: normal inspection, EOMI Neck: supple, Trachea midline Respiratory/Chest: Normal breath sounds, CTA, No accessory muscle use Cardiovascular: S1, S2, No murmur Abdomen/GI:Soft, Non tender, Bowel sounds present Extremities/Musculoskeletal:normal inspection, trace pedal edema Neurologic/Psych:AAOX3, grossly no focal neurological deficits Skin: normal color, warm Principal Diagnosis Acute pulmonary embolism Dysphagia Discharge Exam Constitutional + well hydrated; no acute distress Eyes PERRL, conjunctivae normal, anicteric sclerae ENMT external ear and nose normal, oropharynx normal Respiratory normal respiratory effort, lungs clear to auscultation Cardiovascular Rate/Rhythm: regular rate and regular rhythm Gastrointestinal (Abdomen) normal bowel sounds, soft, nontender, no hepatosplenomegaly Musculoskeletal no cyanosis or clubbing, extremities motor strength 5/5 Neurologic PERRL, EOMI, accommodation nl, no face palsy, no dysarthria Psychiatric A+Ox3, euthymic affect Discharge Data Allergies Allergy/AdvReac Type Severity Reaction Status Date / Time Quinolones Allergy Severe Hives Verified 07/27/24 16:25 moxifloxacin [From Avelox] Allergy Unknown listed in Verified 07/27/24 16:25 heme/onc records codeine AdvReac Intermediate Nausea/Vomi Verified 07/27/24 16:25 ting oxycodone AdvReac Intermediate Nausea/Vomi Verified 07/27/24 16:25 ting Penicillins AdvReac Intermediate Nausea/Vomi Verified 07/27/24 16:25 ting Consultations 07/27/24 16:17 ED Decision to Admit Stat 07/27/24 18:00 Consult Hematology Routine 07/28/24 14:22 Consult Gastroenterology Routine Ordered Studies 07/27/24 13:39 CT angio chest PE protocol Stat 07/27/24 18:27 CT soft tissue neck w con Routine 07/28/24 11:00 FL video swallow Routine 07/31/24 FL barium swallow Routine Hospital Course (1) Pulmonary embolism: (2) Small cell lung cancer, left upper lobe: (3) Depression: (4) BPH (benign prostatic hyperplasia): (5) GERD (gastroesophageal reflux disease): (6) Dyslipidemia: (7) CKD (chronic kidney disease), stage III: (8) History of TB (tuberculosis): (9) COPD (chronic obstructive pulmonary disease): Plan 74-year-old male with PMH of NSCLC, diverticulosis/diverticulitis, TB, BPH, GERD, COPD was sent from oncology office due to left anterior chest pain that worsened with taking a deep breath. 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 He recently finished antibiotic for tooth infection. He is being managed for the following: Pulmonary Embolism: SAGAR Chest pain SOB: Procal neg. Trop 2.7. Chest CTA: subsegmental pulmonary embolus within a branch of the left upper lobe pulmonary artery.No additional pulmonary emboli are clearly seen. Emphysema with chronic and postsurgical changes above. Wears 2LNC at home; Was initially started on heparin drip This was transitioned to eliquis per patient's preference after checking cost with his pharm Discharged on Eliquis 10mg BID x 7 days, then 5mg BID from 08/07/24. Will need anticoagulation for atleast 3-6 months. May be longer due to his cancer Ambulatory pulse ox today showed patient needs to continue his 2L NC continously Antineoplastic chemotherapy induced pancytopenia Pt w/ pancytopenia worsening after chemotherapy in past with need for blood transfusion afterwards per pt. Last chemo last wednesday on 07/21. Hb 6.8 on 07/28. Got 1 PRBC Hb is stable since. Hb is 9 today Small cell lung cancer: Thrombocytopenia: Initial lung nodule was diagnosed on 02/26/[address]-guided biopsy at the time was nondiagnostic He received SBRT and finished May of 2023 and now has been ongoing chemotherapy; last and final chemo was this past Saturday 07/21 (IV cisplatin/etoposide) He has seen a surgeon in [place] for a lobe resection. He had a lobe resection Has had 26 radiation treatments; about 7 additional radiation treatments planned Brain MRI done a few weeks ago without mets. PET scan planned after radiation completed Continue radiation treatment Lactic acidosis: Acute hypotension: SBP low 90's on presentation to ED Original lactic level 2.5--> 1.0 lactic acidosis resolved Dysphagia: Tooth infection: Reported having more difficulty with swallowing and feeling that food is getting 'stuck' Also has a tooth infection and poor dentition. Completed antibiotic for tooth infection before arrival. Neck CT w/ no acute findings. 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 PCP to monitor electrolytes on follow up AAA: Chronic Follows with Cardiology in [place] Stable 3.2 abdominal aortic aneurysm COPD: Chronic Takes ipratropium bromide and Trelegy; continue HLD: Chronic Takes Atorvastatin;continue GERD: Takes omeprazole;continue H/O TB: status post right apical lung resection in 1997 Total Time Total Time Spent Total Time Spent (In Minutes): 35 Total Time Includes: Examination of the Patient, Discharge Planning and Medication Reconciliation Discharge Plan Discharge Items Patient Disposition: Home - Self-Care Reason For Visit: Shortness of breath Discharge Diagnosis: Acute pulmonary embolism Dysphagia Activity: Resume your previous activity Non-emergency contact: 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 They are working to secure an appointment for you. Please call if you do not receive a phone call.) Page Sharma MD [Primary Care Provider] - (Date & Time 08/04/2024 11:00 AM Provider Page Sharma MD Department [facility] ) Diet: Heart Healthy Addtl Attending Provider Instructions: Mr Clemente You were hospitalized and managed for the above listed diagnoses. You were found to have blood clots in the blood vessels of your lungs. You were started on blood thinner. You are being discharged on Eliquis 10mg twice a day for 1 week, then 5mg twice a day from 08/07/24. You will be on blood thinner for atleast 3-6 months. Please ensure follow up with Gastroenterology for outpatient endoscopy. Please continue to follow up with Radiation oncology from tomorrow for your radiation treatment. It was a pleasure taking care of you. Pending Studies at Discharge: No Stand-Alone Forms: [facility], Smoking Cessation Medications and DC Order Prescriptions: New Eliquis 5 mg tablet See Rx Instructions .ROUTE .COMPLEX Qty: 60 0RF Rx Instructions: Take 2 tabs twice a day for 1 week, then from 08/07/24, take 1 tab twice a day Continued ipratropium bromide 0.02 % solution 2.5 ml inhalation QID PRN (Reason: Wheezing) atorvastatin 20 mg Tablet 20 mg PO HS propranolol 10 mg Tablet 10 mg PO BID tamsulosin [Flomax] 0.4 mg Capsule 0.4 mg PO HS meclizine 12.5 mg Tablet 12.5 mg PO TID PRN (Reason: Dizziness/vertigo) albuterol sulfate 90 mcg/actuation Hfa Aerosol Inhaler 2 puff INHALATION Q6H PRN (Reason: Wheezing) Trelegy Ellipta 100-62.5-25 mcg Blister With Device 1 inh INHALATION QAM ondansetron HCl 4 mg tablet 4 mg PO Q68H PRN (Reason: Nausea And Vomiting) bupropion HCl 150 mg Tablet Extended Release 24 Hr 150 mg PO QAM omeprazole 20 mg Tablet,Delayed Release (Dr/Ec) 20 mg PO BID acetaminophen 500 mg Tablet 500 mg PO Q6H PRN (Reason: Pain) dexamethasone 4 mg Tablet 20 mg PO UD PRN (Reason: radiation treatments) Patient Comments: has not started prochlorperazine maleate 10 mg tablet 10 mg PO UD PRN (Reason: Nausea And Vomiting) olanzapine 2.5 mg tablet 2.5 mg PO HS paroxetine HCl 20 mg tablet 20 mg PO HS Discharge Orders: Discharge Order (Routine); Ordered 07/31/24 Ordered By: Kristin Kilpatrick Admission Data Admit Date/Time: 07/27/24 17:39 Attending Provider: Kristin Kilpatrick I. Admit Provider: Saravanan Mustafa Primary Care Provider: Page Sharma Other Providers: Saravanan Mustafa; Laura Teresa Tomasz J.; Jignesh Chang Other Interventions: Discharge Summary Assessment (RN) Last Done: 07/31/24 14:11
[2024-07-31 14:13] VITALS: O2SAT 97
== END 2024-07-31 14:13 | disposition home or self-care (01) | DRG 175 ==
LOC: ED 12:56 → SUATTDRO 17:39 → EDINP 17:39 → 2E 19:58

== ENCOUNTER 2024-10-03 02:01 | Inpatient (IN) ==
[2024-10-03 02:15] VITALS: TEMP 97.9
[2024-10-03 02:26] LABS: Basophils # (auto) 0.03 K/uL (0.00-0.20); Basophils % (auto) 0.7 %; Eosinophils # (auto) 0.09 K/uL (0.00-0.50); Hematocrit (blood only) 37.6 % (42.0-52.0); Immature Granulocytes # (auto) 0.02 K/uL (0.01-0.20); Immature Granulocytes % (auto) 0.4 %; Lymphocytes # (auto) 0.68 K/uL (1.20-3.40); Lymphocytes % (auto) 15.2 %; Mean Corpuscular Hemoglobin 29.3 pg (25.0-34.0); Mean Corpuscular Hgb Conc 34.6 g/dL (32.0-36.0); Mean Corpuscular Volume 84.7 fL (80.0-100.0); Mean Platelet Volume 11.8 fL (9.4-12.4); Monocytes # (auto) 0.33 K/uL (0.11-0.59); Monocytes % (auto) 7.4 %; Neutrophils # (auto) 3.31 K/uL (1.40-6.50); Neutrophils % (auto) 74.3 %; Platelet Count 94 K/uL (130-400); RDW Coefficient of Variation 13.7 % (11.5-14.5); Red Blood Count 4.44 M/uL (4.70-6.10); White Blood Count 4.46 K/ul (4.8-10.8)
[2024-10-03 02:49] LABS: Alanine Aminotransferase 10 U/L (7-52); Albumin Globulin Ratio 1.3 (0.9-2); Alkaline Phosphatase 84 U/L (34-104); Anion Gap 8 (3-11); Aspartate Aminotransferase 15 U/L (13-39); BUN Creatinine Ratio 12.4 (10-20); Bilirubin,Total 0.8 mg/dl (0.2-1.0); Blood Urea Nitrogen 15 mg/dl (6-23); Calcium 9.7 mg/dl (8.6-10.3); Carbon Dioxide 24 mmol/L (21-32); Chloride 104 mmol/L (98-107); Globulin 3.1 gm/dl (2.5-4.0); Glucose 107 mg/dl (70-99(Fasting)); Magnesium 1.6 mg/dl (1.7-2.4); Potassium 3.6 mmol/L (3.5-5.1); Sodium 136 mmol/L (136-145); Total Protein 7.1 gm/dl (6.0-8.3)
--- NOTE | 2024-10-03 02:54 | Emergency Department Note ---
Impression & Plan Vomiting, COPD (chronic obstructive pulmonary disease), SOB (shortness of breath), Pancytopenia ED Provider Note NAME: OLIVE MULLINS AGE: 74 SEX: Male INFORMANT: Patient ED PROVIDER(S): Kennedy King MD CHIEF COMPLAINT: Vomiting PLAN: Disposition: Admitted Outpatient prescription management: none Referral: None MEDICAL DECISION MAKING: Patient presented because of vomiting. IV was established. He received Zofran without reaction and nausea improved. Patient was hydrated. Pancytopenia noted on CBC. Chemistry panel was unremarkable. Borderline low magnesium. Chest x- ray negative. Cardiac troponin negative. ECG without acute ischemia. CT imaging was performed. Possible chronic diverticulitis and diverticulosis noted. Nursing noted the patient has had a falling out with his family and is now homeless, living in his car. Further management and hospitalist felt to be appropriate. Discussed the case with Dr. Kem Penn, [facility] hospitalist service. Patient was evaluated in the ER admitted for further management Care/management discussed with: site project manager Level of care consideration(s): After review of the information above and other included data, I feel the patient requires escalation of care to admission Triage Nursing notes: reviewed and agree them. Vital Signs: reviewed and remarkable for no significant abnormalities Additional History obtained from: none Chronic Medical/Social Conditions affecting care: Cancer, COPD, homelessness Prior/ Outside/ External records reviewed: none Differential Diagnosis: Etiologies such as gastroenteritis, food borne illness, infections, appendicitis, diverticulitis, inflammatory bowel disease, GI bleed, biliary pathology, cardiac sources, as well as others were entertained. Diagnostics, independently interpreted by me: ECG: Twelve-lead ECG reveals a sinus rhythm at [address]-T. Poor baseline data. No ST elevation. When compared to ECG of 07/27/2024 there is no significant change other than PVCs are no longer present. Cardiac Monitoring: Cardiac monitoring ordered by me: The patient was placed on continuous cardiac monitoring and observed. It revealed a sinus rhythm at 82 bpm. Medical decision rules: none Imaging studies: Chest x-ray. Findings: A chest x-ray was performed and revealed no pneumothorax, effusion, infiltrate, pulmonary edema, free air under the diaphragm, or wide mediastinum. Impression: No acute disease. HPI: 74 year old Male arrives for evaluation of vomiting. This started 24 hours and is persisting. The patient also notes the following associated symptoms, shortness of breath, and lightheadedness. Patient has history of COPD and did increase his nasal cannula oxygen from 2 L to 3 L.. The patient has tried Zofran for relieving factors. Current pain is rated as 0/10. Patient has a history of lung cancer and is undergoing immunotherapy. Pt denies LOC, headache, fevers, chills, diaphoresis, visual changes, neck pain, chest pain, abdominal pain, back pain, melena, hematochezia, urinary symptoms, numbness, weakness, lymphadenopathy, or other complaints. PAST MEDICAL HISTORY: See Below, lung cancer, COPD PAST SURGICAL HISTORY: See Below, SOCIAL HISTORY: See Below, smoker HOME MEDICATIONS: See Below ALLERGIES: See Below VITALS: See Below PHYSICAL EXAMINATION: GENERAL: Awake, alert, nontoxic-appearing, in no distress HENT: Normocephalic, atraumatic. Oropharynx unremarkable. EYES: Normal conjunctiva. Sclera non-icteric. NECK: Inspection normal. Non-tender. Supple. No nuchal rigidity. FROM. No masses. RESPIRATORY: Clear to auscultation. No wheezes. No rales. Normal respiratory effort. CARDIAC: Normal rate. Normal rhythm. No murmurs. No rubs. Extremities warm and well perfused. Pulses equal. No JVD. GI: Soft, non-distended. No tenderness to palpation. No rebound or guarding. No masses. RECTAL: Deferred. MUSCULOSKELETAL: Atraumatic. Chest examination reveals no tenderness. The back is symmetrical on inspection without obvious abnormality. There is no CVA tenderness to palpation. No joint edema. LOWER EXTREMITIES: Calves are equal size bilaterally and non-tender. No edema. No discoloration. NEURO: Normal sensorium. No sensory or motor deficits noted. SKIN: No rash or jaundice noted. PROCEDURES: none CRITICAL CARE: none OBSERVATION NOTE: none Past Med/Surg History Problem List (Updated 10/03/24 @ 02:54 by Kennedy King MD) Pancytopenia (Acute) SOB (shortness of breath) (Acute) Vomiting (Acute) Dysphagia Anemia (Acute) Acute hypotension (Acute) Pulmonary embolism (Acute) Chemotherapy induced nausea and vomiting Small cell lung cancer, left upper lobe (Chronic) Lung nodule (Chronic) Encounter for pre-operative examination Primary cancer of left upper lobe of lung (Chronic 04/01/22) Diverticular disease History of colon polyps BPH (benign prostatic hyperplasia) Depression GERD (gastroesophageal reflux disease) Dyslipidemia CKD (chronic kidney disease), stage III (Acute) PCP monitoring History of TB (tuberculosis) "Inactive" Per [facility] Pulmonary records, "He underwent a right upper lobectomy back in the s for what sounds like tuberculosis.." 09/1998 pulmonary records scanned into chart state, "he's undergone lobectomy for cavitary process secondary to atypical micro bacteria. right upper lobectomy was performed in January.. when the patient's treatment for the above mentioned problem was refractory to improvement despite numerous antibiotics used for the treatment of an atypical micro bacterial infection." COPD (chronic obstructive pulmonary disease) (Acute) Abdominal pain (Acute) Abdominal aortic aneurysm (Acute) Influenza A entered into chart and last edited 08/17/19 Thrombocytopenia (Acute) Status post left inguinal hernia repair (Acute) Chest pain (Acute) entered into chart 2013 and last edited 2019 Cellulitis of face (10/27/12) Medical History [place] (acute kidney injury) Acute hypotension Acute hypotension Hyperbilirubinemia Acute kidney injury superimposed on CKD Nausea, vomiting and diarrhea Hyperlipidemia Chronic vertigo BPH (benign prostatic hyperplasia) History of pneumonia (2022) treated inpatient at [facility]. no problems since. History of COVID-19 (2021) severe flu symptoms, treated with oxygen and breathing treatments. -> inpatient at [facility]. Hx of influenza (2018) treated inpatient at [facility] Thrombocytopenia follows with Dr Teresa GERD (gastroesophageal reflux disease) Hx of colonic polyps History of TB (tuberculosis) "Inactive" Per [facility] Pulmonary records, "He underwent a right upper lobectomy back in the s for what sounds like tuberculosis.." 09/1998 pulmonary records scanned into chart state, "he's undergone lobectomy for cavitary process secondary to atypical micro bacteria. right upper lobectomy was performed in January'.. when the patient's treatment for the above mentioned problem was refractory to improvement despite numerous antibiotics used for the treatment of an atypical micro bacterial infection." Diverticular disease Hx of diverticulitis of colon (2021) CKD (chronic kidney disease), stage III monitors with PCP Abdominal aortic aneurysm follows with [facility] Cardiology ([place]) - monitoring Small cell lung cancer, left upper lobe (03/2024) dx 03/2024 via bronchoscopy and biopsy. plan to do chemotherapy. Hiatal hernia Cancer Lung - initially diagnosed 2021 s/p radiation treatments Degenerative disc disease Anxiety and depression Tremor of both hands Taking beta malorie Chronic obstructive pulmonary disease inhalers daily, nebulizer PRN - 2lpm via n/c continuous On home oxygen therapy 2lpm via n/c continuous Enlargement of spleen Aortic aneurysm Duplex 09/2023: 3.7cm AAA Under surveillance by [facility] vascular, recommendation for recheck 2025 Surgical History H/O colonoscopy with polypectomy (04/24/22) [facility] [place] to remove a large polyp (has 6 surgical clips from removal) History of bronchoscopy (03/07/24) [facility] - dx with small cell lung cancer S/P epidural steroid injection History of esophagogastroduodenoscopy (EGD) Dr. Snider History of cystoscopy History of lung biopsy (2021) Ct-Guided Percutaneous Left Lung Nodule Biopsy Dr. Tavo Gonzalez History of carpal tunnel release (1976) Right History of colonoscopy Multiple History of herniorrhaphy (2014) Inguinal History of tooth extraction History of lobectomy of lung (1995) Right (micro bacterium infection) History of cholecystectomy (2016) Laproscopic Cholescystectomy Dr. Olivas at [facility] History of cardiac cath 1980s, , 2006 - no stents at [facility] in [place] Family History Mother Family history of diabetes mellitus Breast cancer Unilateral Masectomy Brother Family hx of colon cancer Family history of diabetes mellitus Father Bladder cancer, Onset Age: 73 Sister Breast cancer, Onset Age: 74 Bilateral Masectomy Sister Breast cancer, Onset Age: 75 Bilateral Masectomy Sister , age 74 Colorectal cancer, Onset Age: 73 Sister Pancreatic cancer Sister Stomach cancer Sister Stomach cancer Brother Prostate cancer, Onset Age: 64 Family history of diabetes mellitus Brother Stomach cancer Aunt Breast cancer Aunt Breast cancer Unknown Lung cancer, Onset Age: 50 Unknown Cancer of unknown origin Unknown Bladder cancer, Onset Age: 55 Unknown Cancer Other Coronary heart disease Hypertension No family history of adverse response to anesthesia Social History Smoking Status: Current every day smoker Tobacco Type: Cigars Cigarettes Per Day: cigar "every once in [facility]" (advised on policy); Second Hand Exposure: Yes; Do You Dip or Chew Tobacco: No; Hx Alcohol Use: No Hx Substance Use: No Preferred Language: Brazilian Communication Ability: Effective Visual Impairment: Limited Hearing Ability: Normal Tool Shaper Set Up Operator Required: No Beliefs That Will Affect Care: None marital status: Current Living Situation: Family and Other Current Living Situation Comment: Lives with daughterAlisa and her current occupational status: retired How many Children do You have: 3 Feels Safe at Home: Yes Childhood Exposure to Second-Hand Smoke: Yes Diet: regular caffeine: Yes (1 cup of coffee daily) during the past year weight has: remained stable Dental Care, Regularly: No Assistive Devices: Oxygen - Continuous Allergies Allergies Allergy/AdvReac Type Severity Reaction Status Date / Time Quinolones Allergy Severe Hives Verified 08/07/24 08:05 moxifloxacin [From Avelox] Allergy Unknown listed in Verified 08/07/24 08:05 heme/onc records codeine AdvReac Intermediate Nausea/Vomi Verified 08/07/24 08:05 ting oxycodone AdvReac Intermediate Nausea/Vomi Verified 08/07/24 08:05 ting Penicillins AdvReac Intermediate Nausea/Vomi Verified 08/07/24 08:05 ting Home Meds Home Medications Medication Instructions Recorded Confirmed atorvastatin 20 mg tablet 20 mg PO HS 10/23/18 10/03/24 tamsulosin 0.4 mg capsule (Flomax) 0.4 mg PO HS 10/23/18 10/03/24 meclizine 12.5 mg tablet 12.5 mg PO TID PRN 06/07/20 10/03/24 Dizziness/vertigo albuterol sulfate 90 mcg/actuation 2 puff inhalation Q6H PRN Wheezing 04/22/22 10/03/24 aerosol inhaler fluticasone fur. 100 mcg-umeclid 1 inh inhalation QAM 04/22/22 10/03/24 62.5 mcg-vilant 25 mcg inhalat.powder (Trelegy Ellipta) ipratropium bromide 0.02 % 2.5 ml inhalation QID PRN Wheezing 05/21/23 10/03/24 solution for inhalation ondansetron HCl 4 mg tablet 4 mg PO Q68H PRN Nausea And 01/27/24 10/03/24 Vomiting bupropion HCl 150 mg 24 hr tablet, 150 mg PO QAM 02/23/24 10/03/24 extended release omeprazole 20 mg tablet,delayed 20 mg PO BID 02/23/24 10/03/24 release acetaminophen 500 mg tablet 500 mg PO Q6H PRN Pain 03/07/24 10/03/24 olanzapine 2.5 mg tablet 2.5 mg PO HS 05/06/24 10/03/24 paroxetine HCl 20 mg tablet 20 mg PO HS 05/06/24 10/03/24 prochlorperazine maleate 10 mg 10 mg PO UD PRN Nausea And Vomiting 05/06/24 10/03/24 tablet apixaban 5 mg tablet (Eliquis) 5 mg PO BID 10/03/24 10/03/24 propranolol 10 mg tablet 10 mg PO BID 10/03/24 10/03/24 propranolol 20 mg tablet 20 mg PO QAM 10/03/24 10/03/24 Results & Data (ED) Vital Signs Vital Signs - 24 hr 10/03/24 02:06 10/03/24 02:09 10/03/24 02:16 Temperature 36.6 C Temperature Source Oral Pulse Rate 84 82 Pulse Rate [Apical] Respiratory Rate 20 Respiratory Effort / Characteristics Non-Labored Spontaneous Respiratory Depth Normal Respiratory Pattern Regular Blood Pressure 121/75 Blood Pressure [Right Arm] Blood Pressure Mean 90 Blood Pressure Mean [Right Arm] Pulse Oximetry 97 96 Oxygen Delivery Method Room Air Room Air Sepsis Recent Fever Within 48 Hours No Sepsis New/Unexplained Change in Mental Status No Sepsis Action Taken by Nursing No Action Required 10/03/24 03:51 10/03/24 05:20 10/03/24 06:11 Temperature Temperature Source Pulse Rate 72 Pulse Rate [Apical] 82 82 Respiratory Rate 16 14 Respiratory Effort / Characteristics Non-Labored Spontaneous Non-Labored Spontaneous Respiratory Depth Normal Normal Respiratory Pattern Regular Regular Blood Pressure Blood Pressure [Right Arm] 118/73 134/69 Blood Pressure Mean Blood Pressure Mean [Right Arm] 88 90 Pulse Oximetry 97 95 Oxygen Delivery Method Room Air Room Air Sepsis Recent Fever Within 48 Hours Sepsis New/Unexplained Change in Mental Status Sepsis Action Taken by Nursing Laboratory Data 10/03/24 02:10 10/03/24 02:10 Lab Results 10/03/24 10/03/24 Range/Units 02:10 02:50 WBC 4.46 L (4.8-10.8) K/ul RBC 4.44 L (4.70-6.10) M/uL Hgb 13.0 L (14.0-18.0) g/dl Hct 37.6 L (42.0-52.0) % MCV 84.7 (80.0-100.0) fL MCH 29.3 (25.0-34.0) pg MCHC 34.6 (32.0-36.0) g/dL RDW Std Deviation 42.0 (36.4-46.3) fL RDW Coeff of Flora 13.7 (11.5-14.5) % Plt Count 94 L (130-400) K/uL MPV 11.8 (9.4-12.4) fL Immature Gran % (Auto) 0.4 % Neut % (Auto) 74.3 % Lymph % (Auto) 15.2 % [place] % (Auto) 7.4 % Eos % (Auto) 2.0 % Baso % (Auto) 0.7 % Neut # (Auto) 3.31 (1.40-6.50) K/uL Lymph # (Auto) 0.68 L (1.20-3.40) K/uL [place] # (Auto) 0.33 (0.11-0.59) K/uL Eos # (Auto) 0.09 (0.00-0.50) K/uL Baso # (Auto) 0.03 (0.00-0.20) K/uL Immature Gran # (Auto) 0.02 (0.01-0.20) K/uL Sodium 136 (136-145) mmol/L Potassium 3.6 (3.5-5.1) mmol/L Chloride 104 (98-107) mmol/L Carbon Dioxide 24 (21-32) mmol/L Anion Gap 8 (3-11) BUN 15 (6-23) mg/dl Creatinine 1.21 (0.6-1.4) mg/dl Est Cr Clr Drug Dosing Not Reportable eGFR 62.44 BUN/Creatinine Ratio 12.4 (10-20) Glucose 107 H (70-99(Fasting)) mg/dl Calcium 9.7 (8.6-10.3) mg/dl Magnesium 1.6 L (1.7-2.4) mg/dl Total Bilirubin 0.8 (0.2-1.0) mg/dl AST 15 (13-39) U/L ALT 10 (7-52) U/L Alkaline Phosphatase 84 (34-104) U/L Troponin I High Sens 2.6 (0-20) pg/ml Total Protein 7.1 (6.0-8.3) gm/dl Albumin 4.0 (3.4-5.0) gm/dl Globulin 3.1 (2.5-4.0) gm/dl Albumin/Globulin Ratio 1.3 (0.9-2) TSH 2.959 (0.300-4.500) uIu/ml Adenovirus (PCR) Not Detected (NotDetected) B. pertussis DNA (PCR) Not Detected (NotDetected) B.parapertussis DNA PCR Not Detected (NotDetected) C. pneumoniae DNA (PCR) Not Detected (NotDetected) Coronavirus OC43 (PCR) Not Detected (NotDetected) Coronavirus HKU1 (PCR) Not Detected (NotDetected) Coronavirus 229E (PCR) Not Detected (NotDetected) SARS-CoV-2 (PCR) Not Detected (NotDetected) Coronavirus NL63 (PCR) Not Detected (NotDetected) Human Metapneumovir PCR Not Detected (NotDetected) Influenza Type A (PCR) Not Detected (NotDetected) Influenza Type B (PCR) Not Detected (NotDetected) M. pneumoniae (PCR) Not Detected (NotDetected) Parainfluenza 1 (PCR) Not Detected (NotDetected) Parainfluenza 2 (PCR) Not Detected (NotDetected) Parainfluenza 3 (PCR) Not Detected (NotDetected) Parainfluenza 4 (PCR) Not Detected (NotDetected) RSV (PCR) Not Detected (NotDetected) Entero/Rhino (PCR) Not Detected (NotDetected) Administered Medications Magnesium Sulfate/Dextrose (Magnesium Sulfate / D5w) 1 gm in 100 mls @ 50 mls/hr IV ONE ONE Stop: 10/03/24 07:13 Last Admin: 10/03/24 05:24 Dose: 50 mls/hr Documented By: EMB Discontinued Medications Albuterol (Albut/Ipratrop 3mg/0.5mg Neb 3 Ml Vial) 3 ml NEB NOW STA; Protocol Stop: 10/03/24 06:13 Last Admin: 10/03/24 06:32 Dose: 3 ml Documented By: EMB Sodium Chloride (Nss) 500 mls @ 999 mls/hr IV .Q31M ONE Stop: 10/03/24 05:41 Last Infusion: 10/03/24 06:31 Dose: Infused Documented By: Admin: 10/03/24 05:27 Dose: 999 mls/hr Documented By: EMB Ondansetron HCl (Ondansetron Inj 2 Mg/Ml 2 Ml Vial) 4 mg IV NOW STA Stop: 10/03/24 02:43 Last Admin: 10/03/24 03:02 Dose: 4 mg Documented By: ASW Ondansetron HCl (Ondansetron Inj 2 Mg/Ml 2 Ml Vial) Confirm Administered Dose 4 mg .ROUTE .STK-MED ONE Stop: 10/03/24 02:07 Last Admin: 10/03/24 06:31 Dose: Not Given Documented By: EMB Imaging Data Radiologist's Impression: Chest X-Ray 10/03/24 02:05 EXAM: XR chest 1V portable CLINICAL HISTORY: WEAKNESS JMF TECHNIQUE: X-ray image of the chest is obtained in AP portable projection. COMPARISON: 07/06/2024. FINDINGS: Pulmonary Parenchyma: Stable increased bilateral bronchovascular markings with peribronchial cuffing and bilateral fibro-reticular shadows. No evidence of consolidation, collapse, or focal opacities. Atelectasis right lower zone and left upper zone. No evidence of pleural effusion or pleural thickening. Heart and Mediastinum: Heart size and shape are normal. No mediastinal widening or masses. No hilar or mediastinal lymphadenopathy. Bony Thorax: The bony thorax appears intact without fractures or deformities. Soft Tissues: Elevated right hemidiaphragm. The right carlyle catheter tip is seen at the cavoatrial level. IMPRESSION: 1. No consolidation, pneumothorax or pleural effusion. 2. Stable increased bilateral bronchovascular markings with peribronchial cuffing and bilateral fibro-reticular shadows. 3. Stable atelectasis right lower zone and left lower zone. Electronically signed by Bhavana Rowell 10-03-2024 03:06 AM Abdomen/Pelvis CT 10/03/24 02:42 EXAM: CT abd pelvis wo con CLINICAL HISTORY: VOMITING TECHNIQUE: Non-contrast CT of the abdomen and pelvis was performed, with the following protocol: axial images, and reconstructed coronal and sagittal images. One of the following dose reduction techniques was utilized for this exam: Automated exposure control, adjustment of the mA and/or kV according to patient size, and use of iterative reconstruction. COMPARISON: 05/26/2024. FINDINGS: Abdomen: Liver: Normal in size, shape, and density. No focal lesions, cysts, or masses were identified. Gallbladder and Biliary System: The gallbladder is s surgically removed. Pancreas: Pancreatic head, body, and tail are visualized and appear normal in size and density. No pancreatic masses or calcifications were noted. Spleen: Normal in size, shape, and density. No splenic lesions or masses were identified. Kidneys and Adrenal Glands: Both kidneys are normal in size, shape, and position. Cortical thickness is within normal limits. No renal calculi or hydronephrosis. a few small bilateral renal cysts were noted. Adrenal glands are unremarkable. Abdominal Aorta and Vessels: An infrarenal fusiform aneurysm measuring up to 3.8cm. Pelvis: Urinary Bladder: Normal in contour and wall thickness. No intraluminal lesions. Interval removal of urinary bladder catheter. Prostate: Prostatomegaly. Seminal Vesicles: Normal appearance without abnormal enlargement or mass. Peritoneal and Retroperitoneal Structures: No free fluid or abnormal fluid collections were identified within the abdomen or pelvis. No lymphadenopathy was noted. Bowel: Extensive suárez colon diverticulosis with some fecoliths. Smooth wall thickening of the sigmoid suggests chronic diverticulitis. No evidence of bowel obstruction. Bones and Soft Tissues: Pelvic bones and soft tissues are unremarkable. No fractures or abnormal masses were identified. IMPRESSION: 1. Interval removal of urinary bladder catheter. No other significant interval changes in comparison with CT on 05/26/2024. 2. Extensive suárez colon diverticulosis with some fecoliths with chronic diverticulitis of the sigmoid. 3. Status post cholecystectomy. 4. Infrarenal aortic fusiform aneurysm measuring up to 3.8 cm. 5. Prostatomegaly. 6. Bilateral renal cortical cysts. Electronically signed by Jim Gil 10-03-2024 04:05 AM Discharge Plan Visit Data Chief Complaint: GI Assessment Stated Complaint: N/V SINCE YESTERDAY, MORE SOB ED Provider: Kennedy King Discharge Problem: Vomiting, COPD (chronic obstructive pulmonary disease), SOB (shortness of breath), Pancytopenia Forms Stand Alone Forms: My [facility] Prescriptions Prescriptions: No Action ipratropium bromide 0.02 % solution 2.5 ml inhalation QID PRN (Reason: Wheezing) atorvastatin 20 mg Tablet 20 mg PO HS tamsulosin [Flomax] 0.4 mg Capsule 0.4 mg PO HS meclizine 12.5 mg Tablet 12.5 mg PO TID PRN (Reason: Dizziness/vertigo) albuterol sulfate 90 mcg/actuation Hfa Aerosol Inhaler 2 puff INHALATION Q6H PRN (Reason: Wheezing) Trelegy Ellipta 100-62.5-25 mcg Blister With Device 1 inh INHALATION QAM ondansetron HCl 4 mg tablet 4 mg PO Q68H PRN (Reason: Nausea And Vomiting) bupropion HCl 150 mg Tablet Extended Release 24 Hr 150 mg PO QAM omeprazole 20 mg Tablet,Delayed Release (Dr/Ec) 20 mg PO BID acetaminophen 500 mg Tablet 500 mg PO Q6H PRN (Reason: Pain) Eliquis 5 mg tablet 5 mg PO BID Rx Instructions: Take 2 tabs twice a day for 1 week, then from 08/07/24, take 1 tab twice a day propranolol 20 mg tablet 20 mg PO QAM Rx Instructions: 20mg in the am, 10mg in the afternoon, 10mg at night propranolol 10 mg tablet 10 mg PO BID Rx Instructions: 10mg in the afternoon, 10mg at night, 20mg in the morning prochlorperazine maleate 10 mg tablet 10 mg PO UD PRN (Reason: Nausea And Vomiting) olanzapine 2.5 mg tablet 2.5 mg PO HS paroxetine HCl 20 mg tablet 20 mg PO HS Referrals Referrals: Page Sharma MD [Primary Care Provider] -
[2024-10-03 02:57] LABS: Troponin I High Sensitivity 2.6 pg/ml (0-20)
[2024-10-03] MEDS: ONDANSETRON INJ 2 MG/ML 2 ML VIAL IV STA (03:02)
[2024-10-03 03:04] LABS: Thyroid Stimulating Hormone 2.959 uIu/ml (0.300-4.500)
--- NOTE | 2024-10-03 03:07 | XRay Report ---
EXAM: XR chest 1V portable CLINICAL HISTORY: WEAKNESS JMF TECHNIQUE: X-ray image of the chest is obtained in AP portable projection. COMPARISON: 07/06/2024. FINDINGS: Pulmonary Parenchyma: Stable increased bilateral bronchovascular markings with peribronchial cuffing and bilateral fibro-reticular shadows. No evidence of consolidation, collapse, or focal opacities. Atelectasis right lower zone and left upper zone. No evidence of pleural effusion or pleural thickening. Heart and Mediastinum: Heart size and shape are normal. No mediastinal widening or masses. No hilar or mediastinal lymphadenopathy. Bony Thorax: The bony thorax appears intact without fractures or deformities. Soft Tissues: Elevated right hemidiaphragm. The right carlyle catheter tip is seen at the cavoatrial level. IMPRESSION: 1. No consolidation, pneumothorax or pleural effusion. 2. Stable increased bilateral bronchovascular markings with peribronchial cuffing and bilateral fibro-reticular shadows. 3. Stable atelectasis right lower zone and left lower zone. Electronically signed by Bhavana Rowell 10-03-2024 03:06 AM
--- NOTE | 2024-10-03 04:05 | CT Scan Report ---
EXAM: CT abd pelvis wo con CLINICAL HISTORY: VOMITING TECHNIQUE: Non-contrast CT of the abdomen and pelvis was performed, with the following protocol: axial images, and reconstructed coronal and sagittal images. One of the following dose reduction techniques was utilized for this exam: Automated exposure control, adjustment of the mA and/or kV according to patient size, and use of iterative reconstruction. COMPARISON: 05/26/2024. FINDINGS: Abdomen: Liver: Normal in size, shape, and density. No focal lesions, cysts, or masses were identified. Gallbladder and Biliary System: The gallbladder is s surgically removed. Pancreas: Pancreatic head, body, and tail are visualized and appear normal in size and density. No pancreatic masses or calcifications were noted. Spleen: Normal in size, shape, and density. No splenic lesions or masses were identified. Kidneys and Adrenal Glands: Both kidneys are normal in size, shape, and position. Cortical thickness is within normal limits. No renal calculi or hydronephrosis. a few small bilateral renal cysts were noted. Adrenal glands are unremarkable. Abdominal Aorta and Vessels: An infrarenal fusiform aneurysm measuring up to 3.8cm. Pelvis: Urinary Bladder: Normal in contour and wall thickness. No intraluminal lesions. Interval removal of urinary bladder catheter. Prostate: Prostatomegaly. Seminal Vesicles: Normal appearance without abnormal enlargement or mass. Peritoneal and Retroperitoneal Structures: No free fluid or abnormal fluid collections were identified within the abdomen or pelvis. No lymphadenopathy was noted. Bowel: Extensive suárez colon diverticulosis with some fecoliths. Smooth wall thickening of the sigmoid suggests chronic diverticulitis. No evidence of bowel obstruction. Bones and Soft Tissues: Pelvic bones and soft tissues are unremarkable. No fractures or abnormal masses were identified. IMPRESSION: 1. Interval removal of urinary bladder catheter. No other significant interval changes in comparison with CT on 05/26/2024. 2. Extensive suárez colon diverticulosis with some fecoliths with chronic diverticulitis of the sigmoid. 3. Status post cholecystectomy. 4. Infrarenal aortic fusiform aneurysm measuring up to 3.8 cm. 5. Prostatomegaly. 6. Bilateral renal cortical cysts. Electronically signed by Jim Gil 10-03-2024 04:05 AM
[2024-10-03 04:47] LABS: Adenovirus PCR Not Detected (NotDetected); Bordetella parapertussis PCR Not Detected (NotDetected); Bordetella pertussis PCR Not Detected (NotDetected); Chlamydia pneumoniae PCR Not Detected (NotDetected); Coronavirus 229E PCR Not Detected (NotDetected); Coronavirus CoV-2 (COVID19)PCR Not Detected (NotDetected); Coronavirus HKU1 PCR Not Detected (NotDetected); Coronavirus NL63 PCR Not Detected (NotDetected); Coronavirus OC43PCR Not Detected (NotDetected); Human Metapneumovirus PCR Not Detected (NotDetected); Influenza A PCR Not Detected (NotDetected); Influenza B PCR Not Detected (NotDetected); Mycoplasma pneumoniae PCR Not Detected (NotDetected); Parainfluenza Virus 1 PCR Not Detected (NotDetected); Parainfluenza Virus 2 PCR Not Detected (NotDetected); Parainfluenza Virus 3 PCR Not Detected (NotDetected); Parainfluenza Virus 4 PCR Not Detected (NotDetected); Respiratory Syncytial VirusPCR Not Detected (NotDetected); Rhinovirus/Enterovirus PCR Not Detected (NotDetected)
[2024-10-03] MEDS: SODIUM CHLORIDE 0.9% 500 ML IV SCH (05:21)
[2024-10-03] MEDS: MAGNESIUM SULFATE / D5W 1 GM/100 ML BAG IV ONE (05:24)
[2024-10-03] MEDS: SODIUM CHLORIDE 0.9% 500 ML IV ONE ×2 (05:27→06:56)
--- NOTE | 2024-10-03 06:15 | History & Physical Report ---
Date of Service October 03, 2024 Assessment & Plan (1) Hypomagnesemia: Plan: Secondary to GI upset/possible viral illness SOB, usual wheezing from COPD as per patient. chronic respiratory failure secondary to COPD on home O2, hx CAD/PVD hypertension, stable PE on Eliquis limited small cell lung cancer status post chemoradiation, [facility] chronic tremors on propranolol chronic pancytopenia, hemoglobin better than baseline likely secondary to hemoconcentration Hyperglycemia ro DM past alcohol abuse ongoing tobacco abuse Homelessness Admit to medical Supportive management for viral illness Nebs 1 dose now Check hemoglobin A1c Nicotine patch as needed PT OT eval Social service re: homelessness DVT prophylaxis. Eliquis Full code Text document was generated using [employer] voice recognition software. It may contain grammatical or spelling errors. Kindly contact undersigned for clarification of any documentation item in question. History of Present Illness Chief Complaint: Nausea/vomiting Primary Care Provider: Page Sharma MD History obtained from patient and records. Medical history significant for CAD, PVD, hypertension, PE on Eliquis, chronic respiratory failure secondary to COPD on home O2, limited small cell lung cancer status post chemoradiation, GERD, diverticulosis, history of pulmonary MAC status post surgery/Rx, chronic tremors, BPH, chronic pancytopenia (baseline hemoglobin of 11), past alcohol abuse, ongoing tobacco abuse. Last confinement July 2024 for acute PE in the setting of SCLC Patient discharged on Eliquis course. Patient seen at PCPs office last August 2024 for left lower quadrant pain attributed to recurrent diverticulitis. Symptoms improved with Augmentin Rx. Patient had been living in his car for a few weeks now. Patient left daughter's home after a disagreement. 1 day history of nausea/vomiting symptoms with mild abdominal pain reminiscent of diverticulitis attack. No diarrhea symptoms. Denies chest pain, headache. Some SOB with chronic cough symptoms. Medical History as above Surgical History : Carpal tunnel surgery, cystoscopy, cholecystectomy, hernia repair, lung lobectomy Family History : Bladder cancer, dementia, breast cancer, colon cancer, heart disease, lung cancer, ESRD, stomach cancer, stroke Personal/Social history : 2 packs a day, past alcohol abuse, retired [employer] Allergies Allergy/AdvReac Type Severity Reaction Status Date / Time Quinolones Allergy Severe Hives Verified 08/07/24 08:05 moxifloxacin [From Avelox] Allergy Unknown listed in Verified 08/07/24 08:05 heme/onc records codeine AdvReac Intermediate Nausea/Vomi Verified 08/07/24 08:05 ting oxycodone AdvReac Intermediate Nausea/Vomi Verified 08/07/24 08:05 ting Penicillins AdvReac Intermediate Nausea/Vomi Verified 08/07/24 08:05 ting Home Medications Medication Instructions Recorded Confirmed Type atorvastatin 20 mg tablet 20 mg PO HS 10/23/18 10/03/24 History tamsulosin 0.4 mg capsule (Flomax) 0.4 mg PO HS 10/23/18 10/03/24 History meclizine 12.5 mg tablet 12.5 mg PO TID PRN 06/07/20 10/03/24 History Dizziness/vertigo albuterol sulfate 90 mcg/actuation 2 puff inhalation Q6H PRN Wheezing 04/22/22 10/03/24 History aerosol inhaler fluticasone fur. 100 mcg-umeclid 1 inh inhalation QAM 04/22/22 10/03/24 History 62.5 mcg-vilant 25 mcg inhalat.powder (Trelegy Ellipta) ipratropium bromide 0.02 % 2.5 ml inhalation QID PRN Wheezing 05/21/23 10/03/24 History solution for inhalation ondansetron HCl 4 mg tablet 4 mg PO Q68H PRN Nausea And 01/27/24 10/03/24 History Vomiting bupropion HCl 150 mg 24 hr tablet, 150 mg PO QAM 02/23/24 10/03/24 History extended release omeprazole 20 mg tablet,delayed 20 mg PO BID 02/23/24 10/03/24 History release acetaminophen 500 mg tablet 500 mg PO Q6H PRN Pain 03/07/24 10/03/24 History olanzapine 2.5 mg tablet 2.5 mg PO HS 05/06/24 10/03/24 History paroxetine HCl 20 mg tablet 20 mg PO HS 05/06/24 10/03/24 History prochlorperazine maleate 10 mg 10 mg PO UD PRN Nausea And Vomiting 05/06/24 10/03/24 History tablet apixaban 5 mg tablet (Eliquis) 5 mg PO BID 10/03/24 10/03/24 History propranolol 10 mg tablet 10 mg PO BID 10/03/24 10/03/24 History propranolol 20 mg tablet 20 mg PO QAM 10/03/24 10/03/24 History Past Med/Surg History Problem List (Updated 10/03/24 @ 10:06 by Kem Penn MD) Hypomagnesemia Pancytopenia (Acute) SOB (shortness of breath) (Acute) Vomiting (Acute) Dysphagia Anemia (Acute) Acute hypotension (Acute) Pulmonary embolism (Acute) Chemotherapy induced nausea and vomiting Small cell lung cancer, left upper lobe (Chronic) Lung nodule (Chronic) Encounter for pre-operative examination Primary cancer of left upper lobe of lung (Chronic 04/01/22) Diverticular disease History of colon polyps BPH (benign prostatic hyperplasia) Depression GERD (gastroesophageal reflux disease) Dyslipidemia CKD (chronic kidney disease), stage III (Acute) PCP monitoring History of TB (tuberculosis) "Inactive" Per [facility] Pulmonary records, "He underwent a right upper lobectomy back in the for what sounds like tuberculosis.." 09/1998 pulmonary records scanned into chart state, "he's undergone lobectomy for cavitary process secondary to atypical micro bacteria. right upper lobectomy was performed in January'.. when the patient's treatment for the above mentioned problem was refractory to improvement despite numerous antibiotics used for the treatment of an atypical micro bacterial infection." COPD (chronic obstructive pulmonary disease) (Acute) Abdominal pain (Acute) Abdominal aortic aneurysm (Acute) Influenza A entered into chart and last edited 08/17/19 Thrombocytopenia (Acute) Status post left inguinal hernia repair (Acute) Chest pain (Acute) entered into chart 2013 and last edited 2019 Cellulitis of face (10/27/12) Medical History [place] (acute kidney injury) Acute hypotension Acute hypotension Hyperbilirubinemia Acute kidney injury superimposed on CKD Nausea, vomiting and diarrhea Hyperlipidemia Chronic vertigo BPH (benign prostatic hyperplasia) History of pneumonia (2022) treated inpatient at [facility]. no problems since. History of COVID-19 (2021) severe flu symptoms, treated with oxygen and breathing treatments. -> inpatient at [facility]. Hx of influenza (2018) treated inpatient at [facility] Thrombocytopenia follows with Dr Malick PAIGE (gastroesophageal reflux disease) Hx of colonic polyps History of TB (tuberculosis) "Inactive" Per [facility] Pulmonary records, "He underwent a right upper lobectomy back in the for what sounds like tuberculosis.." 09/1998 pulmonary records scanned i [facility] chart state, "he's undergone lobectomy for cavitary process secondary to atypical micro bacteria. right upper lobectomy was performed in January'.. when the patient's treatment for the above mentioned problem was refractory to improvement despite numerous antibiotics used for the treatment of an atypical micro bacterial infection." Diverticular disease Hx of diverticulitis of colon (2021) CKD (chronic kidney disease), stage III monitors with PCP Abdominal aortic aneurysm follows with [facility] Cardiology ([place]) - monitoring Small cell lung cancer, left upper lobe (03/2024) dx 03/2024 via bronchoscopy and biopsy. plan to do chemotherapy. Hiatal hernia Cancer Lung - initially diagnosed 2021 s/p radiation treatments Degenerative disc disease Anxiety and depression Tremor of both hands Taking beta malorie Chronic obstructive pulmonary disease inhalers daily, nebulizer PRN - 2lpm via n/c continuous On home oxygen therapy 2lpm via n/c continuous Enlargement of spleen Aortic aneurysm Duplex 09/2023: 3.7cm AAA Under surveillance by [facility] vascular, recommendation for recheck 2025 Surgical History H/O colonoscopy with polypectomy (04/24/22) [facility] to remove a large polyp (has 6 surgical clips from removal) History of bronchoscopy (03/07/24) [facility] - dx with small cell lung cancer S/P epidural steroid injection History of esophagogastroduodenoscopy (EGD) Dr. Snider History of cystoscopy History of lung biopsy (2021) Ct-Guided Percutaneous Left Lung Nodule Biopsy Dr. Tavo Gonzalez History of carpal tunnel release (1976) Right History of colonoscopy Multiple History of herniorrhaphy (2014) Inguinal History of tooth extraction History of lobectomy of lung (1995) Right (micro bacterium infection) History of cholecystectomy (2016) Laproscopic Cholescystectomy Dr. Olivas at [facility] History of cardiac cath 1980s, 1990s, 2006 - no stents at [facility] in [place] Family History Mother Family history of diabetes mellitus Breast cancer Unilateral Masectomy Brother Family hx of colon cancer Family history of diabetes mellitus Father Bladder cancer, Onset Age: 73 Sister Breast cancer, Onset Age: 74 Bilateral Masectomy Sister Breast cancer, Onset Age: 75 Bilateral Masectomy Sister , age 74 Colorectal cancer, Onset Age: 73 Sister Pancreatic cancer Sister Stomach cancer Sister Stomach cancer Brother Prostate cancer, Onset Age: 64 Family history of diabetes mellitus Brother Stomach cancer Aunt Breast cancer Aunt Breast cancer Unknown Lung cancer, Onset Age: 50 Unknown Cancer of unknown origin Unknown Bladder cancer, Onset Age: 55 Unknown Cancer Other Coronary heart disease Hypertension No family history of adverse response to anesthesia Social History Smoking Status: Current every day smoker Tobacco Type: Cigarettes Cigarettes Per Day: cigar "every once in ahwile" (advised on policy); Second Hand Exposure: Yes; Do You Dip or Chew Tobacco: No; Tobacco Cessation Education Requested by Patient: No Hx Alcohol Use: No Hx Substance Use: No Preferred Language: Kittitian Communication Ability: Effective Visual Impairment: Limited Hearing Ability: Normal Sock Lining Stitcher Required: No Beliefs That Will Affect Care: None marital status: Current Living Situation: Family and Other Current Living Situation Comment: homeless, sleeping in car, staying at cousins current occupational status: retired How many Children do You have: 3 Other Information That Helps Us Care for You: No Feels Safe at Home: Yes Safety Concerns: Feels Safe At This Time Childhood Exposure to Second-Hand Smoke: Yes Diet: regular caffeine: Yes (1 cup of coffee daily) during the past year weight has: remained stable Dental Care, Regularly: No Assistive Devices: Cane, Glasses, Oxygen - Continuous and Walker Review of Systems Review of Systems: As per HPI, all other systems reviewed and negative Physical Exam Physical Exam: GENERAL: Comfortable, no respiratory distress SKIN: Pallor , warm HEENT: Alopecia, bespectacled, pale palpebral conjunctivae, no ptosis, dry buccal mucosa, nasal cannula in place NECK : Supple, no tenderness CHEST : Decreased breath sounds, no tenderness HEART : RRR, no obvious murmurs ABDOMEN: Some distention, minimal hypogastric tenderness EXTREMITIES : No LE swelling/tenderness, no other conspicuous deformities noted NEUROLOGIC : Coherent, no facial asymmetry, no other gross focality Results & Data Results & Data Vital Signs (Past 12 Hours) Vital Signs Temp Pulse Pulse Resp BP BP Pulse Ox 10/03/24 06:11 72 10/03/24 05:20 82 14 134/69 95 10/03/24 03:51 82 16 118/73 97 10/03/24 02:16 96 10/03/24 02:09 82 10/03/24 02:06 36.6 C 84 20 121/75 97 O2 Del Method 10/03/24 06:11 10/03/24 05:20 Room Air 10/03/24 03:51 Room Air 10/03/24 02:16 Room Air 10/03/24 02:09 10/03/24 02:06 Room Air Laboratory Results Laboratory Results WBC 4.46 K/ul (4.8-10.8) L 10/03/24 02:10 RBC 4.44 M/uL (4.70-6.10) L 10/03/24 02:10 Hgb 13.0 g/dl (14.0-18.0) L 10/03/24 02:10 Hct 37.6 % (42.0-52.0) L 10/03/24 02:10 MCV 84.7 fL (80.0-100.0) 10/03/24 02:10 MCH 29.3 pg (25.0-34.0) 10/03/24 02:10 MCHC 34.6 g/dL (32.0-36.0) 10/03/24 02:10 RDW Std Deviation 42.0 fL (36.4-46.3) 10/03/24 02:10 RDW Coeff of Flora 13.7 % (11.5-14.5) 10/03/24 02:10 Plt Count 94 K/uL (130-400) L 10/03/24 02:10 MPV 11.8 fL (9.4-12.4) 10/03/24 02:10 Immature Gran % (Auto) 0.4 % 10/03/24 02:10 Neut % (Auto) 74.3 % 10/03/24 02:10 Lymph % (Auto) 15.2 % 10/03/24 02:10 [place] % (Auto) 7.4 % 10/03/24 02:10 Eos % (Auto) 2.0 % 10/03/24 02:10 Baso % (Auto) 0.7 % 10/03/24 02:10 Neut # (Auto) 3.31 K/uL (1.40-6.50) 10/03/24 02:10 Lymph # (Auto) 0.68 K/uL (1.20-3.40) L 10/03/24 02:10 [place] # (Auto) 0.33 K/uL (0.11-0.59) 10/03/24 02:10 Eos # (Auto) 0.09 K/uL (0.00-0.50) 10/03/24 02:10 Baso # (Auto) 0.03 K/uL (0.00-0.20) 10/03/24 02:10 Immature Gran # (Auto) 0.02 K/uL (0.01-0.20) 10/03/24 02:10 Sodium 136 mmol/L (136-145) 10/03/24 02:10 Potassium 3.6 mmol/L (3.5-5.1) 10/03/24 02:10 Chloride 104 mmol/L (98-107) 10/03/24 02:10 Carbon Dioxide 24 mmol/L (21-32) 10/03/24 02:10 Anion Gap 8 (3-11) 10/03/24 02:10 BUN 15 mg/dl (6-23) 10/03/24 02:10 Creatinine 1.21 mg/dl (0.6-1.4) 10/03/24 02:10 Est Cr Clr Drug Dosing Not Reportable 10/03/24 02:10 eGFR 62.44 10/03/24 02:10 BUN/Creatinine Ratio 12.4 (10-20) 10/03/24 02:10 Glucose 107 mg/dl (70-99(Fasting)) H 10/03/24 02:10 Calcium 9.7 mg/dl (8.6-10.3) 10/03/24 02:10 Magnesium 1.6 mg/dl (1.7-2.4) L 10/03/24 02:10 Total Bilirubin 0.8 mg/dl (0.2-1.0) 10/03/24 02:10 AST 15 U/L (13-39) 10/03/24 02:10 ALT 10 U/L (7-52) 10/03/24 02:10 Alkaline Phosphatase 84 U/L (34-104) 10/03/24 02:10 Troponin I High Sens 2.6 pg/ml (0-20) 10/03/24 02:10 Total Protein 7.1 gm/dl (6.0-8.3) 10/03/24 02:10 Albumin 4.0 gm/dl (3.4-5.0) 10/03/24 02:10 Globulin 3.1 gm/dl (2.5-4.0) 10/03/24 02:10 Albumin/Globulin Ratio 1.3 (0.9-2) 10/03/24 02:10 TSH 2.959 uIu/ml (0.300-4.500) 10/03/24 02:10 Adenovirus (PCR) Not Detected (NotDetected) 10/03/24 02:50 B. pertussis DNA (PCR) Not Detected (NotDetected) 10/03/24 02:50 B.parapertussis DNA PCR Not Detected (NotDetected) 10/03/24 02:50 C. pneumoniae DNA (PCR) Not Detected (NotDetected) 10/03/24 02:50 Coronavirus OC43 (PCR) Not Detected (NotDetected) 10/03/24 02:50 Coronavirus HKU1 (PCR) Not Detected (NotDetected) 10/03/24 02:50 Coronavirus 229E (PCR) Not Detected (NotDetected) 10/03/24 02:50 SARS-CoV-2 (PCR) Not Detected (NotDetected) 10/03/24 02:50 Coronavirus NL63 (PCR) Not Detected (NotDetected) 10/03/24 02:50 Human Metapneumovir PCR Not Detected (NotDetected) 10/03/24 02:50 Influenza Type A (PCR) Not Detected (NotDetected) 10/03/24 02:50 Influenza Type B (PCR) Not Detected (NotDetected) 10/03/24 02:50 M. pneumoniae (PCR) Not Detected (NotDetected) 10/03/24 02:50 Parainfluenza 1 (PCR) Not Detected (NotDetected) 10/03/24 02:50 Parainfluenza 2 (PCR) Not Detected (NotDetected) 10/03/24 02:50 Parainfluenza 3 (PCR) Not Detected (NotDetected) 10/03/24 02:50 Parainfluenza 4 (PCR) Not Detected (NotDetected) 10/03/24 02:50 RSV (PCR) Not Detected (NotDetected) 10/03/24 02:50 Entero/Rhino (PCR) Not Detected (NotDetected) 10/03/24 02:50 Impressions Chest X-Ray 10/03/24 02:05 EXAM: XR chest 1V portable CLINICAL HISTORY: WEAKNESS JMF TECHNIQUE: X-ray image of the chest is obtained in AP portable projection. COMPARISON: 07/06/2024. FINDINGS: Pulmonary Parenchyma: Stable increased bilateral bronchovascular markings with peribronchial cuffing and bilateral fibro-reticular shadows. No evidence of consolidation, collapse, or focal opacities. Atelectasis right lower zone and left upper zone. No evidence of pleural effusion or pleural thickening. Heart and Mediastinum: Heart size and shape are normal. No mediastinal widening or masses. No hilar or mediastinal lymphadenopathy. Bony Thorax: The bony thorax appears intact without fractures or deformities. Soft Tissues: Elevated right hemidiaphragm. The right carlyle catheter tip is seen at the cavoatrial level. IMPRESSION: 1. No consolidation, pneumothorax or pleural effusion. 2. Stable increased bilateral bronchovascular markings with peribronchial cuffing and bilateral fibro-reticular shadows. 3. Stable atelectasis right lower zone and left lower zone. Electronically signed by Bhavana Rowell 10-03-2024 03:06 AM Abdomen/Pelvis CT 10/03/24 02:42 EXAM: CT abd pelvis wo con CLINICAL HISTORY: VOMITING TECHNIQUE: Non-contrast CT of the abdomen and pelvis was performed, with the following protocol: axial images, and reconstructed coronal and sagittal images. One of the following dose reduction techniques was utilized for this exam: Automated exposure control, adjustment of the mA and/or kV according to patient size, and use of iterative reconstruction. COMPARISON: 05/26/2024. FINDINGS: Abdomen: Liver: Normal in size, shape, and density. No focal lesions, cysts, or masses were identified. Gallbladder and Biliary System: The gallbladder is s surgically removed. Pancreas: Pancreatic head, body, and tail are visualized and appear normal in size and density. No pancreatic masses or calcifications were noted. Spleen: Normal in size, shape, and density. No splenic lesions or masses were identified. Kidneys and Adrenal Glands: Both kidneys are normal in size, shape, and position. Cortical thickness is within normal limits. No renal calculi or hydronephrosis. a few small bilateral renal cysts were noted. Adrenal glands are unremarkable. Abdominal Aorta and Vessels: An infrarenal fusiform aneurysm measuring up to 3.8cm. Pelvis: Urinary Bladder: Normal in contour and wall thickness. No intraluminal lesions. Interval removal of urinary bladder catheter. Prostate: Prostatomegaly. Seminal Vesicles: Normal appearance without abnormal enlargement or mass. Peritoneal and Retroperitoneal Structures: No free fluid or abnormal fluid collections were identified within the abdomen or pelvis. No lymphadenopathy was noted. Bowel: Extensive suárez colon diverticulosis with some fecoliths. Smooth wall thickening of the sigmoid suggests chronic diverticulitis. No evidence of bowel obstruction. Bones and Soft Tissues: Pelvic bones and soft tissues are unremarkable. No fractures or abnormal masses were identified. IMPRESSION: 1. Interval removal of urinary bladder catheter. No other significant interval changes in comparison with CT on 05/26/2024. 2. Extensive suárez colon diverticulosis with some fecoliths with chronic diverticulitis of the sigmoid. 3. Status post cholecystectomy. 4. Infrarenal aortic fusiform aneurysm measuring up to 3.8 cm. 5. Prostatomegaly. 6. Bilateral renal cortical cysts. Electronically signed by Jim Gil 10-03-2024 04:05 AM Diagnostic Findings EKG as per my interpretation :Rate 85, NSR, LAD, LAFB, 1 AVB, T wave abnormalities septal leads
[2024-10-03] MEDS ORDERED: PROMETHAZINE 6.25 MG/50.25 ML BAG IV PRN (06:17)
[2024-10-03] MEDS ORDERED: IPRATROPIUM BROMIDE NEB SOLN 0.02% 0.5MG/2.5ML VIAL INH PRN (06:19)
[2024-10-03] MEDS ORDERED: MECLIZINE 12.5 MG TAB PO PRN (06:19)
[2024-10-03] MEDS: ONDANSETRON INJ 2 MG/ML 2 ML VIAL ONE (06:31)
[2024-10-03] MEDS: ALBUT/IPRATROP 3MG/0.5MG NEB 3 ML VIAL NEB STA (06:32)
[2024-10-03] MEDS ORDERED: Patient's HEIGHT &/or WEIGHT Needed SCH (08:30)
[2024-10-03] MEDS ORDERED: NON-FORMULARY MEDICATION (Fluticasone-Umeclidin-Vilanter [Trelegy Ellipta] 100-62.5-25 mcg INH SCH (09:00)
[2024-10-03 09:09] LABS: Estimated Average Glucose 85 mg/dl; Hemoglobin A1C 4.6 % (4.5-5.6)
[2024-10-03] MEDS: PANTOprazole 40 MG TAB PO SCH (10:00)
[2024-10-03] MEDS: APIXABAN 5 MG TABLET PO SCH (10:01)
[2024-10-03] MEDS: PROPRANOLOL HCL 20 MG TAB PO SCH (10:01)
[2024-10-03] MEDS: buPROPion XL 150 MG TABCR PO SCH (10:01)
[2024-10-03 10:25] LABS: Appearance Urine Clear (Clear); Bilirubin Urine Negative (Negative); Blood Urine Negative (Negative); Color Urine Yellow; Glucose Urine UA Negative (Negative); Ketones Urine Negative (Negative); Leukocyte Esterase Urine Negative (Negative); Nitrite Urine Negative (Negative); Protein Urine Negative (Negative); Specific Gravity Urine 1.023 (1.000-1.030); Urobilinogen Urine Negative (Negative); pH Urine 5.5 (4.5-7.5)
[2024-10-03] MEDS: UMECLIDINIUM/VILANTEROL 62.5/25MCG 7 PUFFS/INHALER INH SCH (11:01)
[2024-10-03] MEDS: FLUTICASONE FUROATE 100MCG 14 PUFFS/INHALER INH SCH (11:01)
[2024-10-03 13:46] VITALS: BP 121/70; PULSE 78; RESP 18; O2SAT 98
[2024-10-03] MEDS: PROPRANOLOL HCL 10 MG TAB PO SCH (13:46)
--- NOTE | 2024-10-03 14:05 | Electrocardiogram Report ---
Test Reason : Blood Pressure : */* mmHG Vent. Rate : 85 BPM Atrial Rate : * BPM P-R Int : * ms QRS Dur : 88 ms QT Int : 390 ms P-R-T Axes : * -7 40 degrees QTcB Int : 464 ms Normal sinus rhythm Nonspecific T wave abnormality Abnormal ECG When compared with ECG of 27-Jul-2024 13:29, Premature ventricular complexes no longer present Confirmed by Dileep Bond ([id number]) on 10/03/2024 2:05:17 PM Referred By: REFERRED SELF Confirmed By: Dileep Bond
[2024-10-03] MEDS ORDERED: OLANZAPINE 2.5 MG TAB PO SCH (21:00)
[2024-10-03] MEDS ORDERED: PARoxetine HCL 20 MG TAB PO SCH (21:00)
[2024-10-03] MEDS ORDERED: TAMSULOSIN HCL 0.4 MG CAP PO SCH (21:00)
[2024-10-03] MEDS ORDERED: ATORVASTATIN 20 MG TAB PO SCH (21:00)
== END 2024-10-03 16:16 | disposition home health service (06) | DRG 865 ==
LOC: ED 02:01 → EDINP 06:16